=== PATIENT | male | born 1970 | race African-American/Black ===

== ENCOUNTER 2017-12-29 09:20 | Inpatient (IN) | payer OTHER ==
[~2017-12-29] VITALS: Ht 172.7 cm; Wt 72.6 kg
[~2017-12-29 09:20] MED LIST: CIPRO500 MG PO; CITALOPRAM HBR20 M1 PO; GLUCOPHAGE500 MG ORAL
[2017-12-29 09:39] VITALS: BP 135/91
--- NOTE | 2017-12-29 09:53 | Emergency Room Report ---
History of Present Illness General Chief Complaint: Syncope Source: Patient Present Illness HPI Patient is a 47-year-old male who presented after reported syncopal episode. Patient was brought in by EMS. Patient was noted to be having increased diarrhea. The patient reportedly is diabetic.Complained of pain to the right lower abdomen. The patient said this had been present for several weeks Allergies: Coded Allergies: No Known Allergies (Unverified , 12/29/17) Patient History Past Medical History: see triage record Reviewed Nursing Documentation: PMH: Agreed, PSxH: Agreed Nursing Documentation-PMH Hx Diabetes: Yes History Of Psychiatric Problem: Yes - depression ,anxiety Review of Systems All Other Systems: limited - by mental status Physical Exam Vital Signs Date Time Temp Pulse Resp B/P (MAP) Pulse Ox O2 Delivery O2 Flow Rate FiO2 12/29/17 09:20 98.4 98 16 117/85 98 Room Air 98.4 Sp02 EP Interpretation: reviewed, normal General Appearance: normal inspection, alert, mild distress Head: atraumatic ENT: normal ENT inspection, hearing grossly normal, normal voice Neck: normal inspection, full range of motion, supple, no bony tend Respiratory: normal inspection, lungs clear, normal breath sounds, no respiratory distress, no retraction, no wheezing Cardiovascular #1: regular rate, rhythm, no edema Gastrointestinal: soft, no guarding, no hernia, tenderness - right lower abdomen Genitourinary: no CVA tenderness Musculoskeletal: normal inspection, back normal, normal range of motion Neurologic: normal inspection, alert, responsive, 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 Differential diagnosis included but was not limited to ischemic stroke, subarachnoid hemorrhage, hypoglycemia, spinal cord injury, neurodegenerative disorder, urinary tract infection, hypoxemia. Because of complexity of patient's case laboratory testing and imaging studies were ordered. The patient was noted to have marked tenderness to his right lower abdomen. CT the head was ordered due to patient's recent loss of consciousness. A CT imaging read by radiologist showed evidence of colitis. CT the head read by radiologist no evidence of acute hemorrhage or CVA. The patient started on IV fluids. I laboratory studies were noted to show some elevation of the patient' s blood alcohol level. Dr. Castrejon was contacted for inpatient management due to need for inpatient monitoring and treatment. Laboratory Tests Test 12/29/17 19:50 12/30/17 06:20 12/31/17 06:28 Stool Occult Blood Negative (NEGATIVE) White Blood Count 3.0 K/UL (4.8-10.8) L Red Blood Count 3.38 M/UL (4.70-6.10) L Hemoglobin 10.7 G/DL (14.2-18.0) L Hematocrit 30.8 % (42.0-52.0) L Mean Corpuscular Volume 91 FL (80-99) Mean Corpuscular Hemoglobin 31.6 PG (27.0-31.0) H Mean Corpuscular Hemoglobin Concent 34.6 G/DL (32.0-36.0) Red Cell Distribution Width 14.3 % (11.6-14.8) Platelet Count 130 K/UL (150-450) L Mean Platelet Volume 6.8 FL (6.5-10.1) Neutrophils (%) (Auto) % (45.0-75.0) Lymphocytes (%) (Auto) % (20.0-45.0) Monocytes (%) (Auto) % (1.0-10.0) Eosinophils (%) (Auto) % (0.0-3.0) Basophils (%) (Auto) % (0.0-2.0) Differential Total Cells Counted 100 Neutrophils % (Manual) 43 % (45-75) L Lymphocytes % (Manual) 41 % (20-45) Monocytes % (Manual) 10 % (1-10) Eosinophils % (Manual) 1 % (0-3) Basophils % (Manual) 4 % (0-2) H Band Neutrophils 1 % (0-8) Platelet Estimate Decreased L Platelet Morphology Normal Hypochromasia 1+ Anisocytosis 1+ Reticulocyte Count 1.3 % (0.0-2.0) Prothrombin Time 10.8 SEC (9.30-11.50) Prothrombin Time INR 1.0 (0.9-1.1) PTT 24 SEC (23-33) Sodium Level 133 MMOL/L (136-145) L 132 MMOL/L (136-145) L Potassium Level 3.4 MMOL/L (3.5-5.1) L 3.7 MMOL/L (3.5-5.1) Chloride Level 96 MMOL/L (98-107) L 97 MMOL/L (98-107) L Carbon Dioxide Level 30 MMOL/L (21-32) 29 MMOL/L (21-32) Anion Gap 7 mmol/L (5-15) 6 mmol/L (5-15) Blood Urea Nitrogen 5 mg/dL (7-18) L 3 mg/dL (7-18) L Creatinine 0.8 MG/DL (0.55-1.30) 1.0 MG/DL (0.55-1.30) Estimate Glomerular Filtration Rate > 60 mL/min (>60) > 60 mL/min (>60) Glucose Level 158 MG/DL (74-106) #H 172 MG/DL (74-106) H Hemoglobin A1c 11.3 % (4.3-6.0) H Calcium Level 7.8 MG/DL (8.5-10.1) L 8.7 MG/DL (8.5-10.1) Iron Level 114 ug/dL (50-175) Total Iron Binding Capacity 191 ug/dL (250-450) L Percent Iron Saturation 60 % (15-50) H Unsaturated Iron Binding 77 ug/dL (112-346) L Ferritin 281 NG/ML (8-388) Total Bilirubin 1.0 MG/DL (0.2-1.0) 1.0 MG/DL (0.2-1.0) Aspartate Amino Transferase (AST) 81 U/L (15-37) H 60 U/L (15-37) H Alanine Aminotransferase (ALT) 79 U/L (12-78) H 59 U/L (12-78) Alkaline Phosphatase 131 U/L (46-116) H 135 U/L (46-116) H Total Protein 6.0 G/DL (6.4-8.2) L 6.5 G/DL (6.4-8.2) Total Protein (PEP) 5.7 g/dL (6.0-8.5) L Albumin 2.9 G/DL (3.4-5.0) L 3.3 G/DL (3.4-5.0) L Albumin (PEP) 3.7 g/dL (2.9-4.4) Globulin 3.1 g/dL 3.2 g/dL Globulin (PEP) 2.0 g/dL (2.2-3.9) L Albumin/Globulin Ratio 1.8 (0.7-1.7) H 1.0 (1.0-2.7) Gajis-4-Euartvziv 0.2 g/dL (0.0-0.4) Appnj-1-Lnmpheair 0.6 g/dL (0.4-1.0) Beta Globulins 0.7 g/dL (0.7-1.3) Beta Gamma Globulin 0.6 g/dL (0.4-1.8) PEP Abnormal Protein Bands Not observed g/dL (Not Protein Electrophoresis Interpret Comment (.) Triglycerides Level 39 MG/DL (30-150) Cholesterol Level 220 MG/DL (< 200) H LDL Cholesterol 30 mg/dL (<100) HDL Cholesterol 174 MG/DL (40-60) H Cholesterol/HDL Ratio 1.3 (3.3-4.4) L Vitamin B12 Level 629 PG/ML (193-986) Vitamin D 25-Hydroxy Pending 25-Hydroxy Vitamin D2 Pending 25-Hydroxy Vitamin D3 Pending Folate 47.0 NG/ML (8.6-58.9) Thyroid Stimulating Hormone (TSH) 2.457 uiU/mL (0.358-3.740) Free Thyroxine 0.66 NG/DL (0.76-1.46) L Rapid Plasma Reagin Non reactive (Non Reactive) EKG Diagnostic Results Rate: normal ST Segments: no acute changes Last Vital Signs Date Time Temp Pulse Resp B/P (MAP) Pulse Ox O2 Delivery O2 Flow Rate FiO2 12/29/17 09:39 98.0 89 10 135/91 100 Room Air 98.0 Status: improved Disposition: ADMITTED INPATIENT Condition: Serious Referrals: [facility],REFERRING (PCP) Emmett Hunter Dec 29, 2017 09:53
[2017-12-29 10:29] LABS: HEMOGLOBIN 11.6 G/DL (14.2-18.0); MEAN CORPUSCULAR VOLUME 93 FL (80-99); PLATELET COUNT 163 K/UL (150-450); RED BLOOD COUNT 3.75 M/UL (4.70-6.10); RED CELL DISTRIBUTION WIDTH 14.5 % (11.6-14.8); WHITE BLOOD COUNT 3.3 K/UL (4.8-10.8)
[2017-12-29 10:33] VITALS: BP 144/99
--- NOTE | 2017-12-29 10:38 | Diagnostic Imaging Report ---
Indication: Pain Technique: Continuous helical CT scanning of the head was performed utilizing automated exposure control without intravenous contrast material. Axial and coronal reconstructions were obtained. Comparison: None CT dose: Total DLP 1470.74 mGycm; CTDI vol 70.38 mGy Findings: There is no acute intracranial hemorrhage, mass effect or cortical edema. No evidence of midline shift. The ventricles, cisterns and sulci are prominent consistent with atrophy. Visualized mastoid air cells and paranasal sinuses are unremarkable. No focal lesions of the bony calvarium or soft tissues of the scalp are seen. IMPRESSION: No evidence of acute intracranial hemorrhage, mass effect or cortical edema. MRI may be obtained for more sensitive evaluation as clinically indicated. Atrophy, greater than expected for age. Correlate clinically. The CT scanner at [facility] is accredited by the [employer] and the scans are performed using protocols designed to limit radiation exposure to as low as reasonably achievable to attain images of sufficient resolution adequate for diagnostic evaluation.
[2017-12-29 10:45] LABS: INR 1.1 (0.9-1.1)
[2017-12-29 10:48] LABS: ANION GAP 20 mmol/L (5-15); BLOOD UREA NITROGEN 6 mg/dL (7-18); CALCIUM 8.7 MG/DL (8.5-10.1); CARBON DIOXIDE 22 MMOL/L (21-32); CHLORIDE 97 MMOL/L (98-107); POTASSIUM 3.8 MMOL/L (3.5-5.1); SODIUM 139 MMOL/L (136-145)
[2017-12-29 10:51] LABS: ALANINE AMINOTRANSFERASE 147 U/L (12-78); ALBUMIN 3.9 G/DL (3.4-5.0); ALKALINE PHOSPHATASE 177 U/L (46-116); ASPARTATE AMINO TRANSFERASE 420 U/L (15-37); BILIRUBIN,TOTAL 0.5 MG/DL (0.2-1.0)
--- NOTE | 2017-12-29 11:50 | Diagnostic Imaging Report ---
Indication: Syncope, diarrhea, abdominal pain Technique: CT of the abdomen and pelvis utilizing automated exposure control with intravenous contrast. Venous scanning performed. CT dose: Total DLP 557.1 mGycm; CTDI vol 9.98 mGy Comparison: None Findings: Images through the lower chest demonstrated very mild dependent atelectatic changes. Heart size within normal limits. A 1 cm low-attenuation lesion is noted within segment VIII of the liver which is too small to definitively characterize but may represent a cyst or hemangioma. A similar appearing, subcentimeter lesion is noted in segment VII. Portal vein and hepatic veins are patent. Gallbladder unremarkable in appearance. No biliary ductal dilatation. Spleen, adrenal glands unremarkable. The pancreas is atrophic and contains multiple calcifications. In the region of the pancreatic tail there is a 2.9 x 1.5 cm cystic lesion (series 3 image #29) which most likely represents a pseudocyst however a cystic pancreatic neoplasm not entirely excluded. Correlation with prior exams recommended. If no such exams available, recommend short-term interval follow-up CT or MRI. No apparent pancreatic ductal dilatation. The kidneys enhance symmetrically. There is no urinary tract stone or hydronephrosis. Bladder unremarkable in appearance. Prostate may be borderline enlarged. There is no free intraperitoneal air. No evidence of bowel obstruction. There is questionable thickening of the wall of the stomach as well as some proximal small bowel loops. Findings may be reflective of a gastroenteritis in the appropriate clinical setting. There is possible thickening versus underdistention of the colon, most pronounced on the left. There is trace fluid in the left paracolic gutter.. Abdominal aorta is normal in caliber. No pathologically enlarged lymph nodes are identified. No acute osseous abnormality is seen. IMPRESSION: Questionable thickening of the wall the stomach. Question thickening versus underdistention involving some proximal small bowel loops as well as portions of the sigmoid and left colon. These findings may be related to a mild gastroenteritis/colitis (infectious or inflammatory) in the appropriate clinical setting. Atrophic pancreas with multiple calcifications suggesting chronic pancreatitis. 2.9 x 1.5 cm cystic structure the region of the pancreatic tail most likely represents a pseudocyst. Cystic pancreatic neoplasm is not entirely excluded. Comparison with prior exams, if available, is recommended to assess stability. Alternatively, short-term interval follow-up CT or MRI recommended. 10 mm in low-attenuation structure in segment VIII of the liver, too small to definitively characterize but may represent a cyst or hemangioma. The CT scanner at [facility] is accredited by the [employer] and the scans are performed using protocols designed to limit radiation exposure to as low as reasonably achievable to attain images of sufficient resolution adequate for diagnostic evaluation.
[2017-12-29] MEDS ORDERED: Morphine Sulfate 4mg/ml Inj IVP ONE (12:00)
[2017-12-29 12:14] VITALS: BP 130/95
[2017-12-29 13:59] LABS: APPEARANCE,URINE CLEAR; BILIRUBIN, URINE NEGATIVE (NEGATIVE); COLOR,URINE PALE YELLOW; GLUCOSE, URINE (UA) 4+ (NEGATIVE); KETONES,URINE 2+ (NEGATIVE); LEUKOCYTE ESTERASE ,URINE NEGATIVE (NEGATIVE); NITRITE,URINE NEGATIVE (NEGATIVE); PH,URINE 5 (4.5-8.0); PROTEIN,URINE 1+ (NEGATIVE); UROBILINOGEN,URINE NORMAL MG/DL (0.0-1.0)
[2017-12-29] MEDS ORDERED: UNOBMED (14:01)
[2017-12-29 14:07] VITALS: BP 131/99
[2017-12-29 15:00] VITALS: BP 127/89
[2017-12-29] MEDS ORDERED: LORazepam Inj 2mg/ml 1ml IV ONE (15:00)
--- NOTE | 2017-12-29 15:54 | GI Initial Consult Note ---
History of Present Illness General Date patient seen: Dec 29, 2017 Time patient seen: 15:51 Reason for Hospitalization: Syncope Referring physician: AIDE WOLFF Reason for Consultation: ETOH ABUSE Present Illness HPI Patient is a 47-year-old male who presented after reported syncopal episode. Patient was brought in by EMS. Patient was noted to be having increased diarrhea. The patient reportedly is diabetic. GI consulted for reports of emesis and diarrhea. Pt seen in tele, awake A&Ox4 NAD with no active s/sx of N/V/D. Abdominal tenderness. Mild agitation, ETOH abuse patient states half pint of vodka daily for the past [address] shows gastroenteritis/colitis. Presents today with anemia, transaminitis with elevated alk phos and pancreatic pseudocyst noted on CT. No history of endoscopy / colonoscopies. Home Meds Reported Medications Unable to Obtain Medications (UNABLE TO OBTAIN MEDS) 1 Ea Ea 12/29/17 Citalopram Hydrobromide* (CITALOPRAM HBR*) 20 Mg Tablet, 20 MG PO DAILY 02/24/13 Ciprofloxacin* (CIPRO*) 500 Mg Tablet, 500 MG PO BID 02/24/13 Metformin Hcl* (GLUCOPHAGE*) 500 Mg Tablet, 600 MG ORAL TWICE A DAY, #20 TAB 02/24/13 Med list reviewed/reconciled: Yes Allergies: Coded Allergies: No Known Allergies (Unverified , 12/29/17) Patient History Limited by: medical condition History Provided By: Patient Past Medical History: none PMH Narrative Hx Diabetes: Yes History Of Psychiatric Problem: Yes - depression ,anxiety Social History: Reports: alcohol use - abuse, see HPI Review of Systems All Other Systems: negative except mentioned in HPI Physical Exam Vital Signs Date Time Temp Pulse Resp B/P (MAP) Pulse Ox O2 Delivery O2 Flow Rate FiO2 12/29/17 09:20 98.4 98 16 117/85 98 Room Air 98.4 Sp02 EP Interpretation: reviewed, normal Labs Laboratory Tests Test 12/29/17 10:20 12/29/17 12:40 White Blood Count 3.3 K/UL (4.8-10.8) L Red Blood Count 3.75 M/UL (4.70-6.10) L Hemoglobin 11.6 G/DL (14.2-18.0) L Hematocrit 35.0 % (42.0-52.0) L Mean Corpuscular Volume 93 FL (80-99) Mean Corpuscular Hemoglobin 31.0 PG (27.0-31.0) Mean Corpuscular Hemoglobin Concent 33.1 G/DL (32.0-36.0) Red Cell Distribution Width 14.5 % (11.6-14.8) Platelet Count 163 K/UL (150-450) Mean Platelet Volume 6.6 FL (6.5-10.1) Neutrophils (%) (Auto) % (45.0-75.0) Lymphocytes (%) (Auto) % (20.0-45.0) Monocytes (%) (Auto) % (1.0-10.0) Eosinophils (%) (Auto) % (0.0-3.0) Basophils (%) (Auto) % (0.0-2.0) Differential Total Cells Counted 100 Neutrophils % (Manual) 70 % (45-75) Lymphocytes % (Manual) 29 % (20-45) Monocytes % (Manual) 1 % (1-10) Eosinophils % (Manual) 0 % (0-3) Basophils % (Manual) 0 % (0-2) Band Neutrophils 0 % (0-8) Platelet Estimate Adequate Platelet Morphology Normal Hypochromasia 1+ Prothrombin Time 11.7 SEC (9.30-11.50) H Prothromb Time International Ratio 1.1 (0.9-1.1) Activated Partial Thromboplast Time 22 SEC (23-33) L D-Dimer 2.87 mg/L FEU (0.00-0.49) H Sodium Level 139 MMOL/L (136-145) Potassium Level 3.8 MMOL/L (3.5-5.1) Chloride Level 97 MMOL/L (98-107) L Carbon Dioxide Level 22 MMOL/L (21-32) Anion Gap 20 mmol/L (5-15) H Blood Urea Nitrogen 6 mg/dL (7-18) L Creatinine 1.0 MG/DL (0.55-1.30) Estimat Glomerular Filtration Rate > 60 mL/min (>60) Glucose Level 320 MG/DL (74-106) H Calcium Level 8.7 MG/DL (8.5-10.1) Total Bilirubin 0.5 MG/DL (0.2-1.0) Aspartate Amino Transf (AST/SGOT) 420 U/L (15-37) H Alanine Aminotransferase (ALT/SGPT) 147 U/L (12-78) H Alkaline Phosphatase 177 U/L (46-116) H Troponin I 0.000 ng/mL (0.000-0.056) C-Reactive Protein, Quantitative < 0.4 mg/dL (0.00-0.90) Total Protein 7.8 G/DL (6.4-8.2) Albumin 3.9 G/DL (3.4-5.0) Globulin 3.9 g/dL Albumin/Globulin Ratio 1.0 (1.0-2.7) Serum Alcohol 173 mg/dL Urine Color Pale yellow Urine Appearance Clear Urine pH 5 (4.5-8.0) Urine Specific [place] 1.020 (1.005-1.035) Urine Protein 1+ (NEGATIVE) H Urine Glucose (UA) 4+ (NEGATIVE) H Urine Ketones 2+ (NEGATIVE) H Urine Occult Blood Negative (NEGATIVE) Urine Nitrite Negative (NEGATIVE) Urine Bilirubin Negative (NEGATIVE) Urine Urobilinogen Normal MG/DL (0.0-1.0) Urine Leukocyte Esterase Negative (NEGATIVE) Urine RBC 0-2 /HPF (0 - 0) H Urine WBC 0 /HPF (0 - 0) Urine Squamous Epithelial Cells Occasional /LPF Urine Bacteria Occasional /HPF (NONE) Urine Opiates Screen Negative (NEGATIVE) Urine Barbiturates Screen Negative (NEGATIVE) Phencyclidine (PCP) Screen Negative (NEGATIVE) Urine Amphetamines Screen Negative (NEGATIVE) Urine Benzodiazepines Screen Negative (NEGATIVE) Urine Cocaine Screen Negative (NEGATIVE) Urine Marijuana (THC) Screen Negative (NEGATIVE) General Appearance: well appearing, no apparent distress, alert Head: normocephalic EENT: PERRL/EOMI, normal ENT inspection Neck: supple Respiratory: normal breath sounds, no respiratory distress Cardiovascular: normal rate Gastrointestinal: normal inspection, non tender, soft, normal bowel sounds, non -distended Rectal: deferred Genitourinary: deferred Musculoskeletal: normal inspection, back normal Neurologic: normal inspection, alert, oriented x3, responsive Psychiatric: normal inspection, judgement/insight normal, memory normal Skin: normal inspection, normal color, no rash, warm/dry, palpation normal, well hydrated Lymphatic: normal inspection, no adenopathy GI: Plan Problems: (1) ETOH abuse (2) Hepatotoxicity, secondary to ETOH (3) Colitis (4) Gastroenteritis (5) Depression (6) Pancreatic pseudocyst Plan CT AP reviewed, see full report. - pancreatic pseudocyst >> from chronic ETOH abuse, no further investigation necessary - colitis / gastroenteritis transaminitis FLD, adv as tolerated zofran prn Ativan prn for agitation anemia work up banana bag x 1 OB stool r/o GI bleed, will consider endoscopy for EV if necessary monitor H&H, prn transfusions ppi fu labs avoid alcohol Discussed with Dr. Chandler. Thank you for this patient referral, we will follow. Bernice Larry N.P. Dec 29, 2017 15:54
[2017-12-29] MEDS ORDERED: Thiamine HCl 100 MG in NS 55 ML IVPB SCH (18:00)
[2017-12-29] MEDS ORDERED: Folic Acid 1 MG, Magnesium Sulfate 2,000 MG, Multivitamin - 12 Injection 10 ML in NS w/... IV SCH (18:00)
[2017-12-29] MEDS: Morphine Sulfate 4mg/ml Inj IVP PRN ×2 (18:19→22:29)
[2017-12-29 20:00] VITALS: BP 154/95
[2017-12-29] MEDS: NovoLOG Insulin Flexpen SUBQ SCH (20:52)
[2017-12-29] MEDS: LORazepam 1mg tab ORAL PRN (20:55)
[2017-12-30] VITALS: BP 147/93
[2017-12-30] MEDS: Morphine Sulfate 4mg/ml Inj IVP PRN ×4 (02:39→18:55)
[2017-12-30 04:00] VITALS: BP 156/102
[2017-12-30] MEDS: NovoLOG Insulin Flexpen SUBQ SCH ×4 (06:00→22:26)
[2017-12-30] MEDS ORDERED: Acetaminophen 500mg (ES) tab ORAL PRN (07:00)
--- NOTE | 2017-12-30 07:04 | History & Physical ---
History and Physical History & Physicial seen and examined. Dictation completed Adalgisa Castrejon MD Dec 30, 2017 07:04
--- NOTE | 2017-12-30 07:05 | General Progress Note ---
Assessment/Plan Assessment/Plan 1- Acute encephalopathy 2- alcoholism 3- chronic pancreatitis 4. see full HP plan: Gi Neuro cardio consulted. Subjective ROS Limited/Unobtainable: No Constitutional: Reports: weakness HEENT: Reports: no symptoms Cardiovascular: Reports: no symptoms Allergies: Coded Allergies: No Known Allergies (Unverified , 12/29/17) Objective Last 24 Hour Vital Signs Date Time Temp Pulse Resp B/P (MAP) Pulse Ox O2 Delivery O2 Flow Rate FiO2 12/30/17 04:00 97.7 89 20 156/102 97 Room Air 97.7 12/30/17 04:00 89 12/30/17 00:00 102 12/30/17 00:00 98.2 103 22 147/93 98 Room Air 98.2 12/29/17 20:00 98.2 102 22 154/95 96 Room Air 98.2 12/29/17 20:00 114 12/29/17 16:00 102 12/29/17 15:25 98.3 84 15 139/99 99 Room Air 12/29/17 15:00 98.7 99 15 127/89 99 Room Air 98.7 12/29/17 14:07 98.3 99 15 131/99 99 Room Air 98.3 12/29/17 12:14 98.1 84 17 130/95 99 Room Air 98.1 12/29/17 10:33 98.3 84 17 144/99 100 Room Air 98.3 12/29/17 09:39 98.0 89 10 135/91 100 Room Air 98.0 12/29/17 09:20 98.4 98 16 117/85 98 Room Air 98.4 Intake and Output 12/29/17 12/30/17 19:00 07:00 Intake Total 1116 ml Balance 1116 ml Intake Oral 116 ml IV Total 1000 ml # Voids 1 # Bowel Movements 1 Laboratory Tests 12/29/17 10:20: White Blood Count 3.3L, Red Blood Count 3.75L, Hemoglobin 11.6L, Hematocrit 35.0L, Mean Corpuscular Volume 93, Mean Corpuscular Hemoglobin 31.0, Mean Corpuscular Hemoglobin Concent 33.1, Red Cell Distribution Width 14.5, Platelet Count 163, Mean Platelet Volume 6.6, Neutrophils (%) (Auto) , Lymphocytes (%) ( Auto) , Monocytes (%) (Auto) , Eosinophils (%) (Auto) , Basophils (%) (Auto) , Differential Total Cells Counted 100, Neutrophils % (Manual) 70, Lymphocytes % ( Manual) 29, Monocytes % (Manual) 1, Eosinophils % (Manual) 0, Basophils % ( Manual) 0, Band Neutrophils 0, Platelet Estimate Adequate, Platelet Morphology Normal, Hypochromasia 1+, Prothrombin Time 11.7H, Prothromb Time International Ratio 1.1, Activated Partial Thromboplast Time 22L, D-Dimer 2.87H, Sodium Level 139, Potassium Level 3.8, Chloride Level 97L, Carbon Dioxide Level 22, Anion Gap 20H, Blood Urea Nitrogen 6L, Creatinine 1.0, Estimat Glomerular Filtration Rate > 60, Glucose Level 320H, Calcium Level 8.7, Total Bilirubin 0.5, Aspartate Amino Transf (AST/SGOT) 420H, Alanine Aminotransferase (ALT/SGPT) 147H , Alkaline Phosphatase 177H, Troponin I 0.000, C-Reactive Protein, Quantitative < 0.4, Total Protein 7.8, Albumin 3.9, Globulin 3.9, Albumin/Globulin Ratio 1.0 , Lipase 41L, Serum Alcohol 173 12/29/17 12:40: Urine Color Pale yellow, Urine Appearance Clear, Urine pH 5, Urine Specific [place] 1.020, Urine Protein 1+H, Urine Glucose (UA) 4+H, Urine Ketones 2+H, Urine Occult Blood Negative, Urine Nitrite Negative, Urine Bilirubin Negative, Urine Urobilinogen Normal, Urine Leukocyte Esterase Negative, Urine RBC 0-2H, Urine WBC 0, Urine Squamous Epithelial Cells Occasional, Urine Bacteria Occasional, Urine Opiates Screen Negative, Urine Barbiturates Screen Negative, Phencyclidine (PCP) Screen Negative, Urine Amphetamines Screen Negative, Urine Benzodiazepines Screen Negative, Urine Cocaine Screen Negative, Urine Marijuana (THC) Screen Negative 12/29/17 19:50: Stool Occult Blood [Pending] 12/30/17 06:20: White Blood Count [Pending], Red Blood Count [Pending], Hemoglobin [Pending], Hematocrit [Pending], Mean Corpuscular Volume [Pending], Mean Corpuscular Hemoglobin [Pending], Mean Corpuscular Hemoglobin Concent [Pending], Red Cell Distribution Width [Pending], Platelet Count [Pending], Mean Platelet Volume [ Pending], Neutrophils (%) (Auto) [Pending], Lymphocytes (%) (Auto) [Pending], Monocytes (%) (Auto) [Pending], Eosinophils (%) (Auto) [Pending], Basophils (%) (Auto) [Pending], Prothrombin Time [Pending], Prothromb Time International Ratio [Pending], Activated Partial Thromboplast Time [Pending], Sodium Level [ Pending], Potassium Level [Pending], Chloride Level [Pending], Carbon Dioxide Level [Pending], Blood Urea Nitrogen [Pending], Creatinine [Pending], Estimat Glomerular Filtration Rate [Pending], Glucose Level [Pending], Calcium Level [ Pending], Total Bilirubin [Pending], Aspartate Amino Transf (AST/SGOT) [Pending] , Alanine Aminotransferase (ALT/SGPT) [Pending], Alkaline Phosphatase [Pending] , Total Protein [Pending], Albumin [Pending], Globulin [Pending], Reticulocyte Count [Pending], Iron Level [Pending], Unsaturated Iron Binding [Pending], Ferritin [Pending], Vitamin B12 Level [Pending], Folate [Pending], Thyroid Stimulating Hormone (TSH) [Pending], Free Thyroxine [Pending] Height (Feet): 5 Height (Inches): 8.00 Weight (Pounds): 160 General Appearance: no apparent distress EENT: PERRL/EOMI Neck: supple Cardiovascular: normal rate Respiratory/Chest: lungs clear Abdomen: soft Extremities: non-tender Neurologic: manager it security II-XII grossly normal Adalgisa Castrejon MD Dec 30, 2017 07:05
[2017-12-30 07:21] LABS: HEMATOCRIT 30.8 % (42.0-52.0); HEMOGLOBIN 10.7 G/DL (14.2-18.0); MEAN CORPUSCULAR VOLUME 91 FL (80-99); PLATELET COUNT 130 K/UL (150-450); RED BLOOD COUNT 3.38 M/UL (4.70-6.10); RED CELL DISTRIBUTION WIDTH 14.3 % (11.6-14.8)
[2017-12-30 07:35] LABS: ALANINE AMINOTRANSFERASE 79 U/L (12-78); ALBUMIN 2.9 G/DL (3.4-5.0); ALBUMIN/GLOBULIN RATIO 0.9 (1.0-2.7); ALKALINE PHOSPHATASE 131 U/L (46-116); ANION GAP 7 mmol/L (5-15); ASPARTATE AMINO TRANSFERASE 81 U/L (15-37); BLOOD UREA NITROGEN 5 mg/dL (7-18); CALCIUM 7.8 MG/DL (8.5-10.1); CARBON DIOXIDE 30 MMOL/L (21-32); CHLORIDE 96 MMOL/L (98-107); CREATININE 0.8 MG/DL (0.55-1.30); FERRITIN 281 NG/ML (8-388); POTASSIUM 3.4 MMOL/L (3.5-5.1); SODIUM 133 MMOL/L (136-145)
[2017-12-30 08:00] VITALS: BP 144/97
[2017-12-30 08:07] LABS: % IRON SATURATION 60 % (15-50); IRON 114 ug/dL (50-175); TOTAL IRON BINDING CAPACITY 191 ug/dL (250-450)
[2017-12-30 08:30] LABS: CHOLESTEROL 220 MG/DL (< 200); HDL CHOLESTEROL 174 MG/DL (40-60); TRIGLYCERIDES 39 MG/DL (30-150)
[2017-12-30] MEDS: Pantoprazole Inj IV SCH (08:51)
--- NOTE | 2017-12-30 09:54 | GI Progress Note ---
Assessment/Plan Problems: (1) Depression ICD Codes: F32.9 - Major depressive disorder, single episode, unspecified SNOMED: 91932041 (2) Gastroenteritis ICD Codes: K52.9 - Noninfective gastroenteritis and colitis, unspecified SNOMED: 49343985 (3) Pancreatic pseudocyst ICD Codes: K86.3 - Pseudocyst of pancreas SNOMED: 354989265 (4) Hepatotoxicity, secondary to ETOH ICD Codes: K70.9 - Alcoholic liver disease, unspecified SNOMED: 57863921 (5) Colitis ICD Codes: K52.9 - Noninfective gastroenteritis and colitis, unspecified SNOMED: 48813868 (6) ETOH abuse ICD Codes: F10.10 - Alcohol abuse, uncomplicated SNOMED: 30005271 Status: stable Status Narrative Discussed with Dr. Chandler. Assessment/Plan CT AP reviewed, see full report. - pancreatic pseudocyst >> from chronic ETOH abuse, no further investigation necessary - colitis / gastroenteritis transaminitis adv to ADA diet zofran prn Ativan prn MVI/folate OB stool r/o GI bleed, will consider endoscopy for EV if necessary monitor H&H, prn transfusions ppi fu labs DM mgmt avoid alcohol Subjective Subjective nausea Objective Last 24 Hour Vital Signs Date Time Temp Pulse Resp B/P (MAP) Pulse Ox O2 Delivery O2 Flow Rate FiO2 12/30/17 08:00 98.0 99 19 144/97 97 Room Air 98.0 12/30/17 08:00 108 12/30/17 04:00 97.7 89 20 156/102 97 Room Air 97.7 12/30/17 04:00 89 12/30/17 00:00 102 12/30/17 00:00 98.2 103 22 147/93 98 Room Air 98.2 12/29/17 20:00 98.2 102 22 154/95 96 Room Air 98.2 12/29/17 20:00 114 12/29/17 16:00 102 12/29/17 15:25 98.3 84 15 139/99 99 Room Air 12/29/17 15:00 98.7 99 15 127/89 99 Room Air 98.7 12/29/17 14:07 98.3 99 15 131/99 99 Room Air 98.3 12/29/17 12:14 98.1 84 17 130/95 99 Room Air 98.1 12/29/17 10:33 98.3 84 17 144/99 100 Room Air 98.3 Intake and Output 12/29/17 12/30/17 19:00 07:00 Intake Total 1116 ml Balance 1116 ml Intake Oral 116 ml IV Total 1000 ml # Voids 1 # Bowel Movements 1 Laboratory Tests Test 12/29/17 10:20 12/29/17 12:40 12/29/17 19:50 12/30/17 06:20 White Blood Count 3.3 K/UL (4.8-10.8) L 3.0 K/UL (4.8-10.8) L Red Blood Count 3.75 M/UL (4.70-6.10) L 3.38 M/UL (4.70-6.10) L Hemoglobin 11.6 G/DL (14.2-18.0) L 10.7 G/DL (14.2-18.0) L Hematocrit 35.0 % (42.0-52.0) L 30.8 % (42.0-52.0) L Mean Corpuscular Volume 93 FL (80-99) 91 FL (80-99) Mean Corpuscular Hemoglobin 31.0 PG (27.0-31.0) 31.6 PG (27.0-31.0) H Mean Corpuscular Hemoglobin Concent 33.1 G/DL (32.0-36.0) 34.6 G/DL (32.0-36.0) Red Cell Distribution Width 14.5 % (11.6-14.8) 14.3 % (11.6-14.8) Platelet Count 163 K/UL (150-450) 130 K/UL (150-450) L Mean Platelet Volume 6.6 FL (6.5-10.1) 6.8 FL (6.5-10.1) Neutrophils (%) (Auto) % (45.0-75.0) % (45.0-75.0) Lymphocytes (%) (Auto) % (20.0-45.0) % (20.0-45.0) Monocytes (%) (Auto) % (1.0-10.0) % (1.0-10.0) Eosinophils (%) (Auto) % (0.0-3.0) % (0.0-3.0) Basophils (%) (Auto) % (0.0-2.0) % (0.0-2.0) Differential Total Cells Counted 100 Neutrophils % (Manual) 70 % (45-75) Pending Lymphocytes % (Manual) 29 % (20-45) Pending Monocytes % (Manual) 1 % (1-10) Eosinophils % (Manual) 0 % (0-3) Basophils % (Manual) 0 % (0-2) Band Neutrophils 0 % (0-8) Platelet Estimate Adequate Pending Platelet Morphology Normal Pending Hypochromasia 1+ Prothrombin Time 11.7 SEC (9.30-11.50) H 10.8 SEC (9.30-11.50) Prothromb Time International Ratio 1.1 (0.9-1.1) 1.0 (0.9-1.1) Activated Partial Thromboplast Time 22 SEC (23-33) L 24 SEC (23-33) D-Dimer 2.87 mg/L FEU (0.00-0.49) H Sodium Level 139 MMOL/L (136-145) 133 MMOL/L (136-145) L Potassium Level 3.8 MMOL/L (3.5-5.1) 3.4 MMOL/L (3.5-5.1) L Chloride Level 97 MMOL/L (98-107) L 96 MMOL/L (98-107) L Carbon Dioxide Level 22 MMOL/L (21-32) 30 MMOL/L (21-32) Anion Gap 20 mmol/L (5-15) H 7 mmol/L (5-15) Blood Urea Nitrogen 6 mg/dL (7-18) L 5 mg/dL (7-18) L Creatinine 1.0 MG/DL (0.55-1.30) 0.8 MG/DL (0.55-1.30) Estimat Glomerular Filtration Rate > 60 mL/min (>60) > 60 mL/min (>60) Glucose Level 320 MG/DL (74-106) H 158 MG/DL (74-106) #H Calcium Level 8.7 MG/DL (8.5-10.1) 7.8 MG/DL (8.5-10.1) L Total Bilirubin 0.5 MG/DL (0.2-1.0) 1.0 MG/DL (0.2-1.0) Aspartate Amino Transf (AST/SGOT) 420 U/L (15-37) H 81 U/L (15-37) H Alanine Aminotransferase (ALT/SGPT) 147 U/L (12-78) H 79 U/L (12-78) H Alkaline Phosphatase 177 U/L (46-116) H 131 U/L (46-116) H Troponin I 0.000 ng/mL (0.000-0.056) C-Reactive Protein, Quantitative < 0.4 mg/dL (0.00-0.90) Total Protein 7.8 G/DL (6.4-8.2) 6.0 G/DL (6.4-8.2) L Albumin 3.9 G/DL (3.4-5.0) 2.9 G/DL (3.4-5.0) L Globulin 3.9 g/dL 3.1 g/dL Albumin/Globulin Ratio 1.0 (1.0-2.7) 0.9 (1.0-2.7) L Lipase 41 U/L (73-393) L Serum Alcohol 173 mg/dL Urine Color Pale yellow Urine Appearance Clear Urine pH 5 (4.5-8.0) Urine Specific [place] 1.020 (1.005-1.035) Urine Protein 1+ (NEGATIVE) H Urine Glucose (UA) 4+ (NEGATIVE) H Urine Ketones 2+ (NEGATIVE) H Urine Occult Blood Negative (NEGATIVE) Urine Nitrite Negative (NEGATIVE) Urine Bilirubin Negative (NEGATIVE) Urine Urobilinogen Normal MG/DL (0.0-1.0) Urine Leukocyte Esterase Negative (NEGATIVE) Urine RBC 0-2 /HPF (0 - 0) H Urine WBC 0 /HPF (0 - 0) Urine Squamous Epithelial Cells Occasional /LPF Urine Bacteria Occasional /HPF (NONE) Urine Opiates Screen Negative (NEGATIVE) Urine Barbiturates Screen Negative (NEGATIVE) Phencyclidine (PCP) Screen Negative (NEGATIVE) Urine Amphetamines Screen Negative (NEGATIVE) Urine Benzodiazepines Screen Negative (NEGATIVE) Urine Cocaine Screen Negative (NEGATIVE) Urine Marijuana (THC) Screen Negative (NEGATIVE) Stool Occult Blood Pending Reticulocyte Count Pending Hemoglobin A1c 11.3 % (4.3-6.0) H Iron Level 114 ug/dL (50-175) Total Iron Binding Capacity 191 ug/dL (250-450) L Percent Iron Saturation 60 % (15-50) H Unsaturated Iron Binding 77 ug/dL (112-346) L Ferritin 281 NG/ML (8-388) Triglycerides Level 39 MG/DL (30-150) Cholesterol Level 220 MG/DL (< 200) H LDL Cholesterol 30 mg/dL (<100) HDL Cholesterol 174 MG/DL (40-60) H Cholesterol/HDL Ratio 1.3 (3.3-4.4) L Vitamin B12 Level 629 PG/ML (193-986) Folate 47.0 NG/ML (8.6-58.9) Thyroid Stimulating Hormone (TSH) 2.457 uiU/mL (0.358-3.740) Free Thyroxine 0.66 NG/DL (0.76-1.46) L Height (Feet): 5 Height (Inches): 8.00 Weight (Pounds): 160 General Appearance: WD/WN, no apparent distress, alert Cardiovascular: normal rate Respiratory/Chest: normal breath sounds, no respiratory distress Abdominal Exam: normal bowel sounds, non tender, soft Extremities: normal range of motion, non-tender Bernice Larry N.P. Dec 30, 2017 09:54
--- NOTE | 2017-12-30 10:36 | Consultation ---
Consult Note Consult Note NEUROLOGY CONSULTATION: Full note dictated #[id number] 47 y/o, RH, BM with PH of depression, alcoholism, & diabetes. 1 week [employer] he developed, N/V/diarrhoea and felt ill and light headed. On the day of admission was in an elevator and passed out and fell face forwards. Feels a little better now but still unwell He has had episodes of LOC in the past too. ON EXAM: Problems with memory. Altered LT in knee high stocking Decreased position sense in toes. 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 CHT with no acute path on CT. REC: Stop ETOH. Better control of DM More agressive Tx of Depression Mobilize with PT. Complete neuropathic w/u. Dena Cotres M.D., M.S.P.Dotty. DENA CORTES Dec 30, 2017 10:36
[2017-12-30 12:00] VITALS: BP 144/101
--- NOTE | 2017-12-30 16:17 | History and Physical Report ---
DATE OF ADMISSION: 12/29/2017 SOURCE OF INFORMATION: The patient and EMR. HISTORY OF PRESENT ILLNESS: The patient is a 47-year-old male with a history of alcoholism. The patient reportedly had a witnessed loss of consciousness, floor face down. The patient reported taking a pint of hard liquor couple of hours before that incident. At the time of evaluation, the patient denies any chest pain or shortness of breath. Denies any abnormal bleeding, diarrhea or constipation. Denies any nausea or vomiting. PAST SURGICAL HISTORY: Hand finger fracture. Otherwise, denies. MEDICATIONS: Current hospital medications including, but not limited to sliding scale insulin, Lorazepam, morphine as needed, Zofran, and Protonix. ALLERGIES: NKDA. FAMILY HISTORY: Reviewed, noncontributory. REVIEW OF SYSTEMS: All 12 elements of review of systems reviewed. Pertinent positives and negatives reported as above. PHYSICAL EXAMINATION: VITAL SIGNS: Blood pressure 120/80, temperature 98.2 degrees, pulse oximetry 98% on room, respiratory rate 18, and pulse rate 95. HEAD AND NECK: Atraumatic and normocephalic. CHEST: Clear to auscultation. No wheezing. No crackles. HEART: S1 and S2. Regular rate and rhythm. ABDOMEN: Soft. No organomegaly. MUSCULOSKELETAL: No gross focal motor deficit. NEUROLOGY: The patient is awake, alert and oriented x3. LABORATORY AND DIAGNOSTIC DATA: Laboratories dated 12/29/2017 shows WBC 3.3, hemoglobin of 11.6, MCV of 93. Sodium of 139, potassium 3.8, BUN 6, creatinine 1, and glucose 320. AST 420 and ALT 147. A 1+ protein. Stool occult blood test is pending. Head CT is negative for any acute pathology. Abdomen and pelvic CT scan shows chronic pancreatitis changes and no acute pathology. ASSESSMENT: 1. Acute encephalopathy. 2. Leukopenia. 3. Anemia. 4. Chronic pancreatitis. 5. Alcoholism. 6. Gastrointestinal and deep vein thrombosis prophylaxis. 7. Diabetes type 2. PLAN OF CARE: We will consult the Cardiology and GI. We will proceed with 2D echo, carotid duplex. Start the patient on Librium. Discontinue the morphine. We will avoid the hepatotoxic medications. Adalgisa Castrejon M.D. DR: SMITH JOB#: [id number] CC:
--- NOTE | 2017-12-30 17:17 | Consultation ---
DATE OF CONSULTATION: 12/30/2017 NEUROLOGY CONSULTATION CONSULTING PHYSICIAN: Sebastien Cortes M.D. REQUESTING PHYSICIAN: Adalgisa Castrejon M.D. HISTORY OF PRESENT ILLNESS: The patient is a 47-year-old right-handed black gentleman, who does have a past history of depression, alcoholism, and diabetes mellitus. Approximately one week prior to admission, he developed severe nausea, vomiting, diarrhea, felt ill, and felt light headed. On the day of admission, he was in an elevator and suddenly passed out. He fell face forwards. He was thus brought into the [facility] emergency room and has since been admitted. At this point in time, he feels a little better. He does have some mild frontal headache and also feels lightheaded and a little tremulous. He has had prior episodes of loss of consciousness in the past too. PAST MEDICAL HISTORY: Significant for depression, alcoholism, diabetes mellitus, and prior syncopal episodes. PRESENT MEDICATIONS: Include Protonix, folic acid, multivitamins, Librium, Tylenol, insulin, morphine sulfate p.r.n., Zofran p.r.n., and Ativan p.r.n. FAMILY HISTORY: Significant for diabetes mellitus in other family members. PERSONAL HISTORY: Home, he lives alone. 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 Habits, he drinks approximately 3 pints of liquor every week. He denies use of tobacco or illicit drugs. PHYSICAL EXAMINATION: GENERAL: He is a well-developed, well-nourished, pleasant black gentleman, lying in bed, in no acute distress. VITAL SIGNS: Pulse 99 per minute, blood pressure 144/97 mmHg, respirations 19 per minute, and temperature 98 degrees Fahrenheit. HEENT: Head, normocephalic with some anterior lip and facial abrasions. EENT examination benign. NECK: No neck rigidity was observed. NEUROLOGIC EXAMINATION: Mental status, he was awake and alert. He was oriented to person, place, and time. He was able to recall 3 out of 3 words immediately, but could only remember 2 out of 3 words in 1 minute and 3 minutes even on the second trial. He was able to remember presidents Trump through Dickerson Julian, but could not remember presidents prior to that. His mathematical skills were fairly good. His visuospatial function was preserved. Speech, he had no dysarthria. Language, he had no aphasia. CRANIAL NERVE II: The visual lovett were intact to confrontation testing. CRANIAL NERVES III, IV, AND : The external ocular movements were full and the pupils 3 mm in diameter, equal, round, regular, and reactive to light. CRANIAL NERVE V: He had normal facial sensations in the temporalis, masseters, and pterygoids function normally. CRANIAL NERVE VII: He had normal facial expressions and no facial asymmetry. CRANIAL NERVE VIII: He was able to hear well bilaterally and had no nystagmus. CRANIAL NERVE IX: The palate moved symmetrically on phonation. CRANIAL NERVE X: He had no hoarseness of voice. CRANIAL NERVE XI: The sternocleidomastoids and trapezii functioned normally. CRANIAL NERVE XII: The tongue was in the midline without any fasciculations or atrophy. MOTOR SYSTEM: The tone was normal in all four extremities. Examination of muscle mass revealed some generalized muscle wasting involving the lower extremities slightly more than the upper extremities. Examination of power revealed grade 5/5 power in all muscle groups tested. SENSORY EXAMINATION: He had altered sensations to pinprick and light touch in a knee-high stocking distribution. Position sense was diminished in the toes bilaterally, but was normal in the fingers bilaterally. COORDINATION: He performed well on [id number] and [id number] testing. Romberg test could not be performed because even with eyes open when he was made to stand, he could not bring his feet together. REFLEXES: Trace positive and bilaterally symmetrical at the biceps, triceps, brachioradialis, and knees and 0 at both ankles. The plantar responses were flexor bilaterally. STANCE: He stood up with a wide-based stance with support. GAIT: He took a few steps with support with a wide base and unsteady gait, abnormal movements, and tremor (7 to 8 hertz), grade 0/4 increasing to grade 1/4 with effort. DIAGNOSTIC IMPRESSION: 1. The patient is a 47-year-old right-handed black gentleman with a past history of depression, alcoholism, and diabetes mellitus, who approximately one week prior to admission developed nausea, vomiting, diarrhea, felt ill, and felt lightheaded. On the day of admission, he was riding in an elevator and passed out and fell face forwards. He feels better now, but is still not back to his normal self. He has had prior episodes of loss of consciousness. 2. On neurological examination at this time, he does have problems with recent and remote memory, altered sensations to light touch in a knee-high stocking distribution, diminished position sense in the toes bilaterally, globally diminished deep tendon reflexes, a wide-based stance, and a wide-based ataxic gait. He also has a 7 to 8 hertz tremor of his outstretched hands. 3. His latest laboratory data revealed that he is mildly anemic with a hemoglobin of 10.7. His chemistry panel reveals low sodium, low chloride, elevated blood sugar, hemoglobin A1c elevated to 11.3%, and elevated liver enzymes including AST, ALT, and alkaline phosphatase. Normal B12 level. Normal folate level. Normal TSH. 4. The CT scan of the brain without contrast reveals no acute pathology. 5. The patient's history, neurological examination, laboratory data, and imaging studies are most compatible with a syncopal episode due to possible dehydration from one week of nausea, vomiting, and diarrhea, significant alcohol abuse, and possible autonomic dysfunction related to his neuropathic process. RECOMMENDATIONS: 1. The patient was given an explanation of the above-mentioned findings. 2. He was instructed to stop drinking alcohol. 3. His blood sugar should be under better control. 4. His depression should be treated aggressively. He should be mobilized with the help of physical therapy. 5. His neuropathy workup should be completed in addition to the laboratory tests already done, vitamin D level, RPR, and serum protein immunoelectrophoresis. Thank you for entrusting me with the care of this patient. I shall follow him with you. Sebastien Cortes M.D. DR: PALOMA JOB#: [id number] CC:
[2017-12-30 20:00] VITALS: BP 146/102
[2017-12-30] MEDS: LORazepam 1mg tab ORAL PRN (22:24)
[2017-12-31] VITALS (7 sets, daily range): BP systolic 121–137; BP diastolic 67–96
[2017-12-31] MEDS: Morphine Sulfate 4mg/ml Inj IVP PRN ×3 (00:02→11:45)
[2017-12-31] MEDS: LORazepam 1mg tab ORAL PRN ×3 (03:12→20:33)
[2017-12-31] MEDS: NovoLOG Insulin Flexpen SUBQ SCH ×4 (06:29→20:35)
--- NOTE | 2017-12-31 07:10 | General Progress Note ---
Assessment/Plan Problem List: (1) Diabetes mellitus out of control ICD Codes: E11.65 - Type 2 diabetes mellitus with hyperglycemia SNOMED: 73275465, 397404585 (2) Gastroenteritis ICD Codes: K52.9 - Noninfective gastroenteritis and colitis, unspecified SNOMED: 37873800 (3) Pancreatic pseudocyst ICD Codes: K86.3 - Pseudocyst of pancreas SNOMED: 340728776 (4) Hepatotoxicity, secondary to ETOH ICD Codes: K70.9 - Alcoholic liver disease, unspecified SNOMED: 14303123 Assessment/Plan add Levemir 10 units daily add Starlix 120 mg ac tid will avoid the use of Metformin due to hx of alcoholism continue NISS Subjective Allergies: Coded Allergies: No Known Allergies (Unverified , 12/29/17) All Systems: reviewed and negative except above Subjective events noted interval notes reviewed diabetes diagnosed 5 years ago he is on Lantus 10 units bid at home no oral agents or short acting insulin he is interested to have his DM under control with oral agents Objective Last 24 Hour Vital Signs Date Time Temp Pulse Resp B/P (MAP) Pulse Ox O2 Delivery O2 Flow Rate FiO2 12/31/17 04:00 115 12/31/17 04:00 97.0 111 19 121/86 98 Room Air 97.0 12/31/17 00:32 98.8 12/31/17 00:02 98.8 12/31/17 00:00 98.4 96 20 137/96 98 Room Air 98.4 12/31/17 00:00 100 12/30/17 20:00 98.8 97 20 146/102 98 Room Air 98.8 12/30/17 20:00 94 12/30/17 16:00 119 12/30/17 12:00 98.0 91 20 144/101 97 Room Air 98.0 12/30/17 12:00 90 12/30/17 08:00 98.0 99 19 144/97 97 Room Air 98.0 12/30/17 08:00 108 Intake and Output 12/30/17 12/31/17 19:00 07:00 Intake Total 800 ml Output Total 1000 ml Balance -200 ml Intake Oral 800 ml Output Urine Total 1000 ml # Voids 1 2 Laboratory Tests 12/31/17 06:28: Sodium Level [Pending], Potassium Level [Pending], Chloride Level [Pending], Carbon Dioxide Level [Pending], Blood Urea Nitrogen [Pending], Creatinine [ Pending], Estimat Glomerular Filtration Rate [Pending], Glucose Level [Pending] , Calcium Level [Pending], Total Bilirubin [Pending], Aspartate Amino Transf ( AST/SGOT) [Pending], Alanine Aminotransferase (ALT/SGPT) [Pending], Alkaline Phosphatase [Pending], Total Protein [Pending], Albumin [Pending], Globulin [ Pending] Height (Feet): 5 Height (Inches): 8.00 Weight (Pounds): 160 General Appearance: no apparent distress Neck: normal alignment Cardiovascular: normal rate Respiratory/Chest: lungs clear Abdomen: non tender Edema: no edema noted Arm (L), no edema noted Arm (R), no edema noted Leg (L), no edema noted Leg (R), no edema noted Pedal (L), no edema noted Pedal (R), no edema noted Generalized Objective Current Medications Medications (Trade) Dose Ordered Sig/Adolfo Route PRN Reason Start Time Stop Time Status Last Admin Dose Admin Acetaminophen (Tylenol) 500 mg Q4H PRN ORAL Mild Pain/Temp > 100.5 12/30/17 07:00 01/29/18 06:59 Chlordiazepoxide (Librium) 25 mg Q6H PRN ORAL Agitation 12/30/17 07:00 01/06/18 06:59 Dextrose (Dextrose 50%) STAT PRN IV Hypoglycemia 12/29/17 18:00 01/28/18 17:59 Folic Acid (Folate) 1 mg DAILY ORAL 12/30/17 09:00 01/29/18 08:59 12/30/17 08:51 Insulin Aspart (NovoLOG) BEFORE MEALS AND HS SUBQ 12/29/17 21:00 01/28/18 20:59 12/31/17 06:29 Lorazepam (Ativan) 1 mg Q4H PRN ORAL For Anxiety 12/29/17 16:15 01/05/18 16:14 12/31/17 03:12 Morphine Sulfate (Morphine Sulfate) 2 mg Q4H PRN IVP Moderate Pain (Pain Scale 4-6) 12/29/17 16:15 01/05/18 16:14 12/31/17 00:02 Multivitamins (Multivitamins) 1 tab DAILY ORAL 12/30/17 09:00 01/29/18 08:59 12/30/17 08:52 Ondansetron HCl (Zofran) 4 mg Q6H PRN IVP Nausea & Vomiting 12/29/17 16:15 01/28/18 16:14 12/31/17 01:22 Pantoprazole (Protonix) 40 mg DAILY IV 12/30/17 09:00 01/29/18 08:59 12/30/17 08:51 Item Value Date Time Bedside Blood Glucose 172 mg/dl H 12/31/17 0630 Bedside Blood Glucose 291 mg/dl H 12/30/17 2226 Bedside Blood Glucose 188 mg/dl H 12/30/17 1723 Bedside Blood Glucose 338 mg/dl H 12/30/17 1130 Bedside Blood Glucose 163 mg/dl H 12/30/17 0631 CAMRYN SHEPPARD Dec 31, 2017 07:09
[2017-12-31 07:48] LABS: ALANINE AMINOTRANSFERASE 59 U/L (12-78); ALBUMIN 3.3 G/DL (3.4-5.0); ALKALINE PHOSPHATASE 135 U/L (46-116); ANION GAP 6 mmol/L (5-15); ASPARTATE AMINO TRANSFERASE 60 U/L (15-37); BLOOD UREA NITROGEN 3 mg/dL (7-18); CALCIUM 8.7 MG/DL (8.5-10.1); CARBON DIOXIDE 29 MMOL/L (21-32); CHLORIDE 97 MMOL/L (98-107); POTASSIUM 3.7 MMOL/L (3.5-5.1); SODIUM 132 MMOL/L (136-145)
[2017-12-31] MEDS: Pantoprazole Inj IV SCH (08:20)
[2017-12-31] MEDS: Levemir Flexpen SUBQ SCH (09:21)
[2017-12-31] MEDS: Norco 5mg/325mg tab ORAL PRN ×2 (10:06→17:07)
--- NOTE | 2017-12-31 10:08 | GI Progress Note ---
Assessment/Plan Problems: (1) Depression ICD Codes: F32.9 - Major depressive disorder, single episode, unspecified SNOMED: 80592250 (2) Gastroenteritis ICD Codes: K52.9 - Noninfective gastroenteritis and colitis, unspecified SNOMED: 37591820 (3) Pancreatic pseudocyst ICD Codes: K86.3 - Pseudocyst of pancreas SNOMED: 019986216 (4) Hepatotoxicity, secondary to ETOH ICD Codes: K70.9 - Alcoholic liver disease, unspecified SNOMED: 47329291 (5) Colitis ICD Codes: K52.9 - Noninfective gastroenteritis and colitis, unspecified SNOMED: 57977228 (6) ETOH abuse ICD Codes: F10.10 - Alcohol abuse, uncomplicated SNOMED: 90034699 Status: stable Status Narrative Discussed with Dr. Chandler. Assessment/Plan CT AP reviewed, see full report. - pancreatic pseudocyst >> from chronic ETOH abuse, no further investigation necessary - colitis / gastroenteritis transaminitis OB stool negative >> defer endoscopy at this time adv to ADA diet zofran prn Ativan prn MVI/folate monitor H&H, prn transfusions ppi fu labs pain mgmt DM mgmt PT evaluation avoid alcohol Subjective Subjective nausea resolved back pain Objective Last 24 Hour Vital Signs Date Time Temp Pulse Resp B/P (MAP) Pulse Ox O2 Delivery O2 Flow Rate FiO2 12/31/17 07:06 97.0 12/31/17 04:00 115 12/31/17 04:00 97.0 111 19 121/86 98 Room Air 97.0 12/31/17 00:32 98.8 12/31/17 00:02 98.8 12/31/17 00:00 98.4 96 20 137/96 98 Room Air 98.4 12/31/17 00:00 100 12/30/17 20:00 98.8 97 20 146/102 98 Room Air 98.8 12/30/17 20:00 94 12/30/17 16:00 119 12/30/17 12:00 98.0 91 20 144/101 97 Room Air 98.0 12/30/17 12:00 90 Intake and Output 12/30/17 12/31/17 19:00 07:00 Intake Total 800 ml Output Total 1000 ml Balance -200 ml Intake Oral 800 ml Output Urine Total 1000 ml # Voids 1 2 Laboratory Tests Test 12/31/17 06:28 Sodium Level 132 MMOL/L (136-145) L Potassium Level 3.7 MMOL/L (3.5-5.1) Chloride Level 97 MMOL/L (98-107) L Carbon Dioxide Level 29 MMOL/L (21-32) Anion Gap 6 mmol/L (5-15) Blood Urea Nitrogen 3 mg/dL (7-18) L Creatinine 1.0 MG/DL (0.55-1.30) Estimat Glomerular Filtration Rate > 60 mL/min (>60) Glucose Level 172 MG/DL (74-106) H Calcium Level 8.7 MG/DL (8.5-10.1) Total Bilirubin 1.0 MG/DL (0.2-1.0) Aspartate Amino Transf (AST/SGOT) 60 U/L (15-37) H Alanine Aminotransferase (ALT/SGPT) 59 U/L (12-78) Alkaline Phosphatase 135 U/L (46-116) H Total Protein 6.5 G/DL (6.4-8.2) Albumin 3.3 G/DL (3.4-5.0) L Globulin 3.2 g/dL Albumin/Globulin Ratio 1.0 (1.0-2.7) Height (Feet): 5 Height (Inches): 8.00 Weight (Pounds): 160 General Appearance: WD/WN, no apparent distress, alert Cardiovascular: normal rate Respiratory/Chest: normal breath sounds, no respiratory distress Abdominal Exam: normal bowel sounds, non tender, soft Extremities: normal range of motion, non-tender Bernice Larry N.P. Dec 31, 2017 10:08
[2017-12-31] MEDS ORDERED: Sodium Chloride 1gm Tab ORAL ONE (10:30)
--- NOTE | 2017-12-31 11:27 | Neurology Progress Note ---
Interim History Interim History Interim History Mr. Adams feels better. He has been feeling anxious and has been tremulous at times. He has noted low back pain since he fell. He has had no further episodes of loss of consciousness. He denies any new neurologic symptoms. Review of Systems Neuro Review of Systems Benign. Objective Physical Exam Last Vital Signs Date Time Temp Pulse Resp B/P (MAP) Pulse Ox O2 Delivery O2 Flow Rate FiO2 12/31/17 08:00 105 12/31/17 07:06 97.0 12/31/17 04:00 19 121/86 98 Room Air Laboratory Tests Test 12/31/17 06:28 Sodium Level 132 MMOL/L (136-145) L Potassium Level 3.7 MMOL/L (3.5-5.1) Chloride Level 97 MMOL/L (98-107) L Carbon Dioxide Level 29 MMOL/L (21-32) Anion Gap 6 mmol/L (5-15) Blood Urea Nitrogen 3 mg/dL (7-18) L Creatinine 1.0 MG/DL (0.55-1.30) Estimat Glomerular Filtration Rate > 60 mL/min (>60) Glucose Level 172 MG/DL (74-106) H Calcium Level 8.7 MG/DL (8.5-10.1) Total Bilirubin 1.0 MG/DL (0.2-1.0) Aspartate Amino Transf (AST/SGOT) 60 U/L (15-37) H Alanine Aminotransferase (ALT/SGPT) 59 U/L (12-78) Alkaline Phosphatase 135 U/L (46-116) H Total Protein 6.5 G/DL (6.4-8.2) Albumin 3.3 G/DL (3.4-5.0) L Globulin 3.2 g/dL Albumin/Globulin Ratio 1.0 (1.0-2.7) Neurologic Exam Objective PHYSICAL EXAMINATION: GENERAL: He is a well-developed, well-nourished, pleasant black gentleman, lying in bed, in no acute distress. HEAD: Normocephalic with some anterior lip and facial abrasions. EENT: Examination benign. NECK: No neck rigidity was observed. NEUROLOGIC EXAMINATION: MENTAL STATUS EXAMINATION: He was awake and alert. He was oriented to person, place, and time. He was able to recall 3/3 words immediately, but could only remember 2/3 words in 1 minute and 3 minutes.. He was able to remember presidents Trump through [employer]erson Senior with hints. His mathematical skills were fairly good. His visuospatial function was preserved. SPEECH: He had no dysarthria. LANGUAGE: He had no aphasia. CRANIAL NERVE EXAMINATION: II: The visual lovett were intact to confrontation testing. III, IV & : The external ocular movements were full and the pupils 3 mm in diameter, equal, round, regular, and reactive to light. V: He had normal facial sensations and the temporales, masseters, and pterygoids functioned normally. VII: He had normal facial expressions and no facial asymmetry. VIII: He was able to hear well bilaterally and had no nystagmus. IX: The palate moved symmetrically on phonation. X: He had no hoarseness of voice. XI: The sternocleidomastoids and trapezii functioned normally. XII: The tongue was in the midline without any fasciculations or atrophy. MOTOR SYSTEM: The tone was normal in all four extremities. Examination of muscle mass revealed some generalized muscle wasting involving the lower extremities slightly more than the upper extremities. Examination of power revealed grade 5/5 power in all muscle groups tested. SENSORY EXAMINATION: He had altered sensations to pinprick and light touch in a knee-high stocking distribution. Position sense was diminished in the toes bilaterally, but was normal in the fingers bilaterally. COORDINATION: He performed well on [id number] and [id number] testing. Romberg test could not be performed because even with eyes open when he was made to stand, he could not bring his feet together. REFLEXES: Trace+ and bilaterally symmetrical at the biceps, triceps, brachioradialis, and knees and 0 at both ankles. The plantar responses were flexor bilaterally. STANCE: He stood up with a wide-based stance with support. GAIT: He took a few steps with support with a wide baseed and unsteady gait ABNORMAL MOVEMENTS: Tremor (7-8 Hz): G 0/4 increasing to G 1/4 with effort. Impression/Recommendations Diagnostic Impression 1. Mr. Ciaran Adams is a 47-year-old, right-handed, black gentleman, with a past history of depression, alcoholism, and diabetes mellitus, who approximately one week prior to admission developed nausea, vomiting, diarrhea, felt ill, and felt lightheaded. On the day of admission, he was riding in an elevator and passed out and fell face forwards. He feels better now, but is still not back to his normal self. He has had prior episodes of loss of consciousness. 2. He feels better. He has been feeling anxious and has been tremulous at times. He has noted low back pain since he fell. He has had no further episodes of loss of consciousness. He denies any new neurologic symptoms. 3. On neurological examination at this time, he does have moderate lumbar paraspinal muscle spasm, problems with recent and remote memory, altered sensations to light touch in a knee-high stocking distribution, diminished position sense in the toes bilaterally, globally diminished deep tendon reflexes , a wide-based stance, and a wide-based ataxic gait. He also has a 7-8 Hz tremor of his outstretched hands. 4. His latest laboratory data on my initial evaluation revealed that he was mildly anemic with a hemoglobin of 10.7. His chemistry panel revealed a low sodium, low chloride, elevated blood sugar, hemoglobin A1c elevated to 11.3%, and elevated liver enzymes including AST, ALT, and alkaline phosphatase. Normal B12 level. Normal folate level. Normal TSH. 5. The CT scan of the brain without contrast revealed no acute pathology. 6. The patient's history, neurological examination, laboratory data, and imaging studies are most compatible with a syncopal episode due to possible dehydration from one week of nausea, vomiting, and diarrhea, significant alcohol abuse, and possible autonomic dysfunction related to his neuropathic process. 7. He does have low back pain and spasm. Recommendations 1. Continue present management. 2. Stop drinking alcohol. 3. Blood sugar control. 4. His depression should be treated aggressively. 5. Mobilize with the help of physical therapy. 6. Flexeril 10 mg now and then q HS. Dena Cortes M.D., M.S.P.DENA VALLES Dec 31, 2017 11:27
[2017-12-31] MEDS ORDERED: Cyclobenzaprine 10mg Tab ORAL ONE (11:45)
--- NOTE | 2017-12-31 11:50 | General Progress Note ---
Assessment/Plan Status: stable Assessment/Plan 1. Acute encephalopathy. 2. Leukopenia. 3. Anemia. 4. Chronic pancreatitis. 5. Alcoholism. 6. Gastrointestinal and deep vein thrombosis prophylaxis. 7. Diabetes type 2. plan: [facility] cardio notes are reviewed PT/OT requested current management Subjective ROS Limited/Unobtainable: No Allergies: Coded Allergies: No Known Allergies (Unverified , 12/29/17) Objective Last 24 Hour Vital Signs Date Time Temp Pulse Resp B/P (MAP) Pulse Ox O2 Delivery O2 Flow Rate FiO2 12/31/17 08:00 105 12/31/17 08:00 97.9 91 22 129/88 100 Room Air 97.9 12/31/17 07:06 97.0 12/31/17 04:00 115 12/31/17 04:00 97.0 111 19 121/86 98 Room Air 97.0 12/31/17 00:32 98.8 12/31/17 00:02 98.8 12/31/17 00:00 98.4 96 20 137/96 98 Room Air 98.4 12/31/17 00:00 100 12/30/17 20:00 98.8 97 20 146/102 98 Room Air 98.8 12/30/17 20:00 94 12/30/17 16:00 119 12/30/17 12:00 98.0 91 20 144/101 97 Room Air 98.0 12/30/17 12:00 90 Intake and Output 12/30/17 12/31/17 19:00 07:00 Intake Total 800 ml Output Total 1000 ml Balance -200 ml Intake Oral 800 ml Output Urine Total 1000 ml # Voids 1 2 Laboratory Tests 12/31/17 06:28: Sodium Level 132L, Potassium Level 3.7, Chloride Level 97L, Carbon Dioxide Level 29, Anion Gap 6, Blood Urea Nitrogen 3L, Creatinine 1.0, Estimat Glomerular Filtration Rate > 60, Glucose Level 172H, Calcium Level 8.7, Total Bilirubin 1.0, Aspartate Amino Transf (AST/SGOT) 60H, Alanine Aminotransferase ( ALT/SGPT) 59, Alkaline Phosphatase 135H, Total Protein 6.5, Albumin 3.3L, Globulin 3.2, Albumin/Globulin Ratio 1.0 Height (Feet): 5 Height (Inches): 8.00 Weight (Pounds): 160 General Appearance: WD/WN EENT: PERRL/EOMI Neck: supple Cardiovascular: normal rate Respiratory/Chest: lungs clear Abdomen: soft Extremities: non-tender Neurologic: fish filleter II-XII grossly normal Adalgisa Castrejon MD Dec 31, 2017 11:50
[2017-12-31] MEDS: Cyclobenzaprine 10mg Tab ORAL SCH (20:32)
[2018-01-01] MEDS: Morphine Sulfate 4mg/ml Inj IVP PRN ×4 (00:08→21:49)
[2018-01-01] MEDS: chlordiazePOXIDE 25mg Cap ORAL PRN (01:12)
[2018-01-01] MEDS: Norco 5mg/325mg tab ORAL PRN ×2 (01:12→12:24)
[2018-01-01 04:00] VITALS: BP 139/94
[2018-01-01] MEDS: LORazepam 1mg tab ORAL PRN ×2 (04:34→12:03)
[2018-01-01] MEDS: NovoLOG Insulin Flexpen SUBQ SCH ×4 (06:30→21:51)
[2018-01-01 08:00] VITALS: BP 122/80
[2018-01-01] MEDS: Pantoprazole Inj IV SCH (08:06)
[2018-01-01] MEDS: Levemir Flexpen SUBQ SCH (08:09)
[2018-01-01 08:18] LABS: HEMATOCRIT 29.8 % (42.0-52.0); HEMOGLOBIN 10.2 G/DL (14.2-18.0); MEAN CORPUSCULAR VOLUME 93 FL (80-99); PLATELET COUNT 127 K/UL (150-450); RED BLOOD COUNT 3.19 M/UL (4.70-6.10); RED CELL DISTRIBUTION WIDTH 14.3 % (11.6-14.8); WHITE BLOOD COUNT 3.3 K/UL (4.8-10.8)
[2018-01-01 08:32] LABS: ALANINE AMINOTRANSFERASE 52 U/L (12-78); ALBUMIN 3.2 G/DL (3.4-5.0); ALBUMIN/GLOBULIN RATIO 1.2 (1.0-2.7); ALKALINE PHOSPHATASE 113 U/L (46-116); ANION GAP 7 mmol/L (5-15); ASPARTATE AMINO TRANSFERASE 40 U/L (15-37); BILIRUBIN,TOTAL 0.6 MG/DL (0.2-1.0); BLOOD UREA NITROGEN 6 mg/dL (7-18); CALCIUM 8.5 MG/DL (8.5-10.1); CARBON DIOXIDE 29 MMOL/L (21-32); CHLORIDE 102 MMOL/L (98-107); CREATININE 0.9 MG/DL (0.55-1.30); POTASSIUM 3.3 MMOL/L (3.5-5.1); SODIUM 138 MMOL/L (136-145)
[2018-01-01 12:00] VITALS: BP 122/77
[2018-01-01] MEDS ORDERED: NovoLOG Insulin Flexpen SUBQ ONE (14:00)
--- NOTE | 2018-01-01 14:00 | General Progress Note ---
Assessment/Plan Problem List: (1) Diabetes mellitus out of control ICD Codes: E11.65 - Type 2 diabetes mellitus with hyperglycemia SNOMED: 89667447, 164978631 (2) Gastroenteritis ICD Codes: K52.9 - Noninfective gastroenteritis and colitis, unspecified SNOMED: 07511831 (3) Pancreatic pseudocyst ICD Codes: K86.3 - Pseudocyst of pancreas SNOMED: 462516380 (4) Hepatotoxicity, secondary to ETOH ICD Codes: K70.9 - Alcoholic liver disease, unspecified SNOMED: 19801181 Assessment/Plan continue Levemir 10 units daily continue Starlix 120 mg ac tid will avoid the use of Metformin due to hx of alcoholism continue NISS Subjective Allergies: Coded Allergies: No Known Allergies (Unverified , 12/29/17) All Systems: reviewed and negative except above Subjective events noted interval notes reviewed BG values mostly controlled except elevated pre lunch value today Objective Last 24 Hour Vital Signs Date Time Temp Pulse Resp B/P (MAP) Pulse Ox O2 Delivery O2 Flow Rate FiO2 01/01/18 12:00 97.2 120 18 122/77 100 Room Air 97.2 01/01/18 12:00 116 01/01/18 08:00 105 01/01/18 08:00 98.1 103 18 122/80 98 Room Air 98.1 01/01/18 04:00 94 01/01/18 04:00 97.5 97 19 139/94 99 Room Air 97.5 01/01/18 02:11 98.1 01/01/18 01:12 98.1 01/01/18 00:38 98.1 01/01/18 00:08 98.1 01/01/18 00:00 101 12/31/17 23:57 98.1 99 19 134/89 99 Room Air 98.1 12/31/17 21:31 97.7 12/31/17 20:32 97.7 12/31/17 20:00 98.4 96 19 129/95 100 Room Air 98.4 12/31/17 20:00 106 12/31/17 16:00 114 12/31/17 16:00 97.7 96 20 129/67 99 Room Air 97.7 Intake and Output 12/31/17 01/01/18 19:00 07:00 Intake Total 1070 ml 350 ml Balance 1070 ml 350 ml Intake Oral 1070 ml 350 ml # Voids 2 # Bowel Movements 1 Laboratory Tests 01/01/18 07:10: White Blood Count 3.3L, Red Blood Count 3.19L, Hemoglobin 10.2L, Hematocrit 29.8L, Mean Corpuscular Volume 93, Mean Corpuscular Hemoglobin 31.8H, Mean Corpuscular Hemoglobin Concent 34.1, Red Cell Distribution Width 14.3, Platelet Count 127L, Mean Platelet Volume 7.3, Neutrophils (%) (Auto) , Lymphocytes (%) ( Auto) , Monocytes (%) (Auto) , Eosinophils (%) (Auto) , Basophils (%) (Auto) , Differential Total Cells Counted 100, Neutrophils % (Manual) 52, Lymphocytes % ( Manual) 45, Monocytes % (Manual) 3, Eosinophils % (Manual) 0, Basophils % ( Manual) 0, Band Neutrophils 0, Platelet Estimate DecreasedL, Platelet Morphology Normal, Anisocytosis 1+, Sodium Level 138, Potassium Level 3.3L, Chloride Level 102, Carbon Dioxide Level 29, Anion Gap 7, Blood Urea Nitrogen 6L , Creatinine 0.9, Estimat Glomerular Filtration Rate > 60, Glucose Level 121H, Calcium Level 8.5, Total Bilirubin 0.6, Aspartate Amino Transf (AST/SGOT) 40H, Alanine Aminotransferase (ALT/SGPT) 52, Alkaline Phosphatase 113, Total Protein 5.9L, Albumin 3.2L, Globulin 2.7, Albumin/Globulin Ratio 1.2 Height (Feet): 5 Height (Inches): 8.00 Weight (Pounds): 160 General Appearance: no apparent distress Neck: normal alignment Cardiovascular: normal rate Respiratory/Chest: lungs clear Abdomen: normal bowel sounds Edema: no edema noted Arm (L), no edema noted Arm (R), no edema noted Leg (L), no edema noted Leg (R), no edema noted Pedal (L), no edema noted Pedal (R), no edema noted Generalized Objective Current Medications Medications (Trade) Dose Ordered Sig/Adolfo Route PRN Reason Start Time Stop Time Status Last Admin Dose Admin Acetaminophen (Tylenol) 500 mg Q4H PRN ORAL Mild Pain/Temp > 100.5 12/30/17 07:00 01/29/18 06:59 Acetaminophen/ Hydrocodone Bitart (Stanton 5/325) 1 tab Q4H PRN ORAL Moderate Pain (Pain Scale 4-6) 12/31/17 10:00 01/07/18 09:59 01/01/18 12:24 Chlordiazepoxide (Librium) 25 mg Q6H PRN ORAL Agitation 12/30/17 07:00 01/06/18 06:59 01/01/18 01:12 Cyclobenzaprine HCl (Flexeril) 10 mg BEDTIME ORAL 12/31/17 21:00 01/30/18 20:59 12/31/17 20:32 Dextrose (Dextrose 50%) STAT PRN IV Hypoglycemia 12/29/17 18:00 01/28/18 17:59 Folic Acid (Folate) 1 mg DAILY ORAL 12/30/17 09:00 01/29/18 08:59 01/01/18 08:06 Insulin Aspart (NovoLOG) BEFORE MEALS AND HS SUBQ 12/29/17 21:00 01/28/18 20:59 01/01/18 12:05 Insulin Aspart (NovoLOG) 5 units ONCE ONCE SUBQ 01/01/18 14:00 01/01/18 14:01 Insulin Detemir (Levemir) 10 units DAILY SUBQ 12/31/17 09:00 01/30/18 08:59 01/01/18 08:09 Lorazepam (Ativan) 1 mg Q4H PRN ORAL For Anxiety 12/29/17 16:15 01/05/18 16:14 01/01/18 12:03 Morphine Sulfate (Morphine Sulfate) 3 mg Q4H PRN IVP Severe Pain (Pain Scale 7-10) 12/31/17 10:06 01/07/18 10:05 01/01/18 08:06 Multivitamins (Multivitamins) 1 tab DAILY ORAL 12/30/17 09:00 01/29/18 08:59 01/01/18 08:06 Nateglinide (Starlix) 120 mg TIAC ORAL 12/31/17 11:30 01/30/18 11:29 01/01/18 12:02 Ondansetron HCl (Zofran) 4 mg Q6H PRN IVP Nausea & Vomiting 12/29/17 16:15 01/28/18 16:14 12/31/17 20:33 Pantoprazole (Protonix) 40 mg DAILY IV 12/30/17 09:00 01/29/18 08:59 01/01/18 08:06 Item Value Date Time Bedside Blood Glucose 418 mg/dl H 01/01/18 1205 Bedside Blood Glucose 110 mg/dl 01/01/18 0809 Bedside Blood Glucose 110 mg/dl 01/01/18 0630 Bedside Blood Glucose 122 mg/dl H 12/31/17 2100 Bedside Blood Glucose 103 mg/dl 12/31/17 1630 Bedside Blood Glucose 214 mg/dl H 12/31/17 1130 Bedside Blood Glucose 172 mg/dl H 12/31/17 0921 CAMRYN SHEPPARD Jan 01, 2018 14:00
--- NOTE | 2018-01-01 15:02 | Neurology Progress Note ---
Interim History Interim History Interim History Mr. Adams feels better generally. He still feels anxious and has been tremulous at times. The low back pain is still bothersome. He also has discomfort in both his feet which he attributes to neuropathy for which he was taking Neurontin 300 mg bid in the past. He has had no further episodes of loss of consciousness. He denies any new neurologic symptoms. Review of Systems Neuro Review of Systems Benign. Objective Physical Exam Last Vital Signs Date Time Temp Pulse Resp B/P (MAP) Pulse Ox O2 Delivery O2 Flow Rate FiO2 01/01/18 12:00 97.2 120 18 122/77 100 Room Air 97.2 Laboratory Tests Test 01/01/18 07:10 White Blood Count 3.3 K/UL (4.8-10.8) L Red Blood Count 3.19 M/UL (4.70-6.10) L Hemoglobin 10.2 G/DL (14.2-18.0) L Hematocrit 29.8 % (42.0-52.0) L Mean Corpuscular Volume 93 FL (80-99) Mean Corpuscular Hemoglobin 31.8 PG (27.0-31.0) H Mean Corpuscular Hemoglobin Concent 34.1 G/DL (32.0-36.0) Red Cell Distribution Width 14.3 % (11.6-14.8) Platelet Count 127 K/UL (150-450) L Mean Platelet Volume 7.3 FL (6.5-10.1) Neutrophils (%) (Auto) % (45.0-75.0) Lymphocytes (%) (Auto) % (20.0-45.0) Monocytes (%) (Auto) % (1.0-10.0) Eosinophils (%) (Auto) % (0.0-3.0) Basophils (%) (Auto) % (0.0-2.0) Differential Total Cells Counted 100 Neutrophils % (Manual) 52 % (45-75) Lymphocytes % (Manual) 45 % (20-45) Monocytes % (Manual) 3 % (1-10) Eosinophils % (Manual) 0 % (0-3) Basophils % (Manual) 0 % (0-2) Band Neutrophils 0 % (0-8) Platelet Estimate Decreased L Platelet Morphology Normal Anisocytosis 1+ Sodium Level 138 MMOL/L (136-145) Potassium Level 3.3 MMOL/L (3.5-5.1) L Chloride Level 102 MMOL/L (98-107) Carbon Dioxide Level 29 MMOL/L (21-32) Anion Gap 7 mmol/L (5-15) Blood Urea Nitrogen 6 mg/dL (7-18) L Creatinine 0.9 MG/DL (0.55-1.30) Estimat Glomerular Filtration Rate > 60 mL/min (>60) Glucose Level 121 MG/DL (74-106) H Calcium Level 8.5 MG/DL (8.5-10.1) Total Bilirubin 0.6 MG/DL (0.2-1.0) Aspartate Amino Transf (AST/SGOT) 40 U/L (15-37) H Alanine Aminotransferase (ALT/SGPT) 52 U/L (12-78) Alkaline Phosphatase 113 U/L (46-116) Total Protein 5.9 G/DL (6.4-8.2) L Albumin 3.2 G/DL (3.4-5.0) L Globulin 2.7 g/dL Albumin/Globulin Ratio 1.2 (1.0-2.7) Neurologic Exam Objective PHYSICAL EXAMINATION: GENERAL: He is a well-developed, well-nourished, pleasant black gentleman, lying in bed, in no acute distress. HEAD: Normocephalic with some anterior lip and facial abrasions. EENT: Examination benign. NECK: No neck rigidity was observed. NEUROLOGIC EXAMINATION: MENTAL STATUS EXAMINATION: He was awake and alert. He was oriented to person, place, and time. He was able to recall 3/3 words immediately, but could only remember 2/3 words in 1 minute and 3 minutes.. He was able to remember presidents Trump through [employer] with hints. His mathematical skills were fairly good. His visuospatial function was preserved. SPEECH: He had no dysarthria. LANGUAGE: He had no aphasia. CRANIAL NERVE EXAMINATION: II: The visual lovett were intact to confrontation testing. III, IV & : The external ocular movements were full and the pupils 3 mm in diameter, equal, round, regular, and reactive to light. V: He had normal facial sensations and the temporales, masseters, and pterygoids functioned normally. VII: He had normal facial expressions and no facial asymmetry. VIII: He was able to hear well bilaterally and had no nystagmus. IX: The palate moved symmetrically on phonation. X: He had no hoarseness of voice. XI: The sternocleidomastoids and trapezii functioned normally. XII: The tongue was in the midline without any fasciculations or atrophy. MOTOR SYSTEM: The tone was normal in all four extremities. Examination of muscle mass revealed some generalized muscle wasting involving the lower extremities slightly more than the upper extremities. Examination of power revealed grade 5/5 power in all muscle groups tested. SENSORY EXAMINATION: He had altered sensations to pinprick and light touch in a knee-high stocking distribution. Position sense was diminished in the toes bilaterally, but was normal in the fingers bilaterally. COORDINATION: He performed well on [id number] and [id number] testing. Romberg test could not be performed because even with eyes open when he was made to stand, he could not bring his feet together. REFLEXES: Trace+ and bilaterally symmetrical at the biceps, triceps, brachioradialis, and knees and 0 at both ankles. The plantar responses were flexor bilaterally. STANCE: He stood up with a wide-based stance with support. GAIT: He took a few steps with support with a wide based and unsteady gait ABNORMAL MOVEMENTS: Tremor (7-8 Hz): G 0/4 increasing to G 1/4 with effort. Impression/Recommendations Diagnostic Impression 1. Mr. Ciaran Adams is a 47-year-old, right-handed, black gentleman, with a past history of depression, alcoholism, and diabetes mellitus, who approximately one week prior to admission developed nausea, vomiting, diarrhea, felt ill, and felt lightheaded. On the day of admission, he was riding in an elevator and passed out and fell face forwards. He feels better now, but is still not back to his normal self. He has had prior episodes of loss of consciousness. 2. He feels better. He has been feeling anxious and has been tremulous at times. He has noted low back pain since he fell. He has had no further episodes of loss of consciousness. He denies any new neurologic symptoms. 3. On neurological examination at this time, he does have moderate lumbar paraspinal muscle spasm, problems with recent and remote memory, altered sensations to light touch in a knee-high stocking distribution, diminished position sense in the toes bilaterally, globally diminished deep tendon reflexes , a wide-based stance, and a wide-based ataxic gait. He also has a 7-8 Hz tremor of his outstretched hands. 4. His latest laboratory data on my initial evaluation revealed that he was mildly anemic with a hemoglobin of 10.7. His chemistry panel revealed a low sodium, low chloride, elevated blood sugar, hemoglobin A1c elevated to 11.3%, and elevated liver enzymes including AST, ALT, and alkaline phosphatase. Normal B12 level. Normal folate level. Normal TSH. 5. The CT scan of the brain without contrast revealed no acute pathology. 6. The patient's history, neurological examination, laboratory data, and imaging studies are most compatible with a syncopal episode due to possible dehydration from one week of nausea, vomiting, and diarrhea, significant alcohol abuse, and possible autonomic dysfunction related to his neuropathic process. 7. He does have low back pain and spasm. 8. He is also complaining of neuropathic symptoms in his feet that in the past have been treated with Neurontin. Recommendations 1. Continue present management. 2. Stop drinking alcohol. 3. Blood sugar control. 4. His depression should be treated aggressively. 5. Mobilize with the help of physical therapy. 6. Flexeril 10 mg now and then q HS. 7. Restart Neurontin 300 mg q 12 H. Dena Cortes M.D., M.S.P.DENA VALLES Jan 01, 2018 15:02
--- NOTE | 2018-01-01 15:34 | Internal Med Progress Note ---
Subjective Date of Service: Jan 01, 2018 Physician Name MetcalfMatthew Attending Physician Adalgisa Castrejon MD Current Medications Medications (Trade) Dose Ordered Sig/Adolfo Route PRN Reason Start Time Stop Time Status Last Admin Dose Admin Acetaminophen (Tylenol) 500 mg Q4H PRN ORAL Mild Pain/Temp > 100.5 12/30/17 07:00 01/29/18 06:59 Acetaminophen/ Hydrocodone Bitart ([place] 5/325) 1 tab Q4H PRN ORAL Moderate Pain (Pain Scale 4-6) 12/31/17 10:00 01/07/18 09:59 01/01/18 12:24 Chlordiazepoxide (Librium) 25 mg Q6H PRN ORAL Agitation 12/30/17 07:00 01/06/18 06:59 01/01/18 01:12 Cyclobenzaprine HCl (Flexeril) 10 mg BEDTIME ORAL 12/31/17 21:00 01/30/18 20:59 12/31/17 20:32 Dextrose (Dextrose 50%) STAT PRN IV Hypoglycemia 12/29/17 18:00 01/28/18 17:59 Folic Acid (Folate) 1 mg DAILY ORAL 12/30/17 09:00 01/29/18 08:59 01/01/18 08:06 Gabapentin (Neurontin) 300 mg Q12HR ORAL 01/01/18 15:30 01/31/18 15:29 Insulin Aspart (NovoLOG) BEFORE MEALS AND HS SUBQ 12/29/17 21:00 01/28/18 20:59 01/01/18 12:05 Insulin Detemir (Levemir) 10 units DAILY SUBQ 12/31/17 09:00 01/30/18 08:59 01/01/18 08:09 Lorazepam (Ativan) 1 mg Q4H PRN ORAL For Anxiety 12/29/17 16:15 01/05/18 16:14 01/01/18 12:03 Morphine Sulfate (Morphine Sulfate) 3 mg Q4H PRN IVP Severe Pain (Pain Scale 7-10) 12/31/17 10:06 01/07/18 10:05 01/01/18 08:06 Multivitamins (Multivitamins) 1 tab DAILY ORAL 12/30/17 09:00 01/29/18 08:59 01/01/18 08:06 Nateglinide (Starlix) 120 mg TIAC ORAL 12/31/17 11:30 01/30/18 11:29 01/01/18 12:02 Ondansetron HCl (Zofran) 4 mg Q6H PRN IVP Nausea & Vomiting 12/29/17 16:15 01/28/18 16:14 12/31/17 20:33 Pantoprazole (Protonix) 40 mg DAILY IV 12/30/17 09:00 01/29/18 08:59 01/01/18 08:06 Allergies: Coded Allergies: No Known Allergies (Unverified , 12/29/17) ROS Limited/Unobtainable: No Constitutional: Reports: no symptoms HEENT: Reports: no symptoms Cardiovascular: Reports: no symptoms Respiratory: Reports: no symptoms Gastrointestinal/Abdominal: Reports: no symptoms Genitourinary: Reports: no symptoms Neurologic/Psychiatric: Reports: no symptoms Subjective 47 YO M admitted with syncopal episode. Cover for Int Nitesh-Dr Castrejon Objective Last Vital Signs Date Time Temp Pulse Resp B/P (MAP) Pulse Ox O2 Delivery O2 Flow Rate FiO2 01/01/18 12:00 97.2 120 18 122/77 100 Room Air 97.2 General Appearance: WD/WN, no apparent distress, alert EENT: PERRL/EOMI, normal ENT inspection Neck: non-tender, normal alignment, supple, normal inspection Cardiovascular: normal peripheral pulses, normal rate, regular rhythm, no gallop/murmur, no JVD Respiratory/Chest: chest wall non-tender, lungs clear, normal breath sounds, no respiratory distress, no accessory muscle use Abdomen: normal bowel sounds, non tender, soft, no organomegaly, no mass Extremities: normal range of motion Edema: trace edema Neurologic: tubing oiler II-XII grossly normal, no motor/sensory deficits Skin: normal pigmentation, warm/dry Laboratory Tests Test 01/01/18 07:10 White Blood Count 3.3 K/UL (4.8-10.8) L Red Blood Count 3.19 M/UL (4.70-6.10) L Hemoglobin 10.2 G/DL (14.2-18.0) L Hematocrit 29.8 % (42.0-52.0) L Mean Corpuscular Volume 93 FL (80-99) Mean Corpuscular Hemoglobin 31.8 PG (27.0-31.0) H Mean Corpuscular Hemoglobin Concent 34.1 G/DL (32.0-36.0) Red Cell Distribution Width 14.3 % (11.6-14.8) Platelet Count 127 K/UL (150-450) L Mean Platelet Volume 7.3 FL (6.5-10.1) Neutrophils (%) (Auto) % (45.0-75.0) Lymphocytes (%) (Auto) % (20.0-45.0) Monocytes (%) (Auto) % (1.0-10.0) Eosinophils (%) (Auto) % (0.0-3.0) Basophils (%) (Auto) % (0.0-2.0) Differential Total Cells Counted 100 Neutrophils % (Manual) 52 % (45-75) Lymphocytes % (Manual) 45 % (20-45) Monocytes % (Manual) 3 % (1-10) Eosinophils % (Manual) 0 % (0-3) Basophils % (Manual) 0 % (0-2) Band Neutrophils 0 % (0-8) Platelet Estimate Decreased L Platelet Morphology Normal Anisocytosis 1+ Sodium Level 138 MMOL/L (136-145) Potassium Level 3.3 MMOL/L (3.5-5.1) L Chloride Level 102 MMOL/L (98-107) Carbon Dioxide Level 29 MMOL/L (21-32) Anion Gap 7 mmol/L (5-15) Blood Urea Nitrogen 6 mg/dL (7-18) L Creatinine 0.9 MG/DL (0.55-1.30) Estimat Glomerular Filtration Rate > 60 mL/min (>60) Glucose Level 121 MG/DL (74-106) H Calcium Level 8.5 MG/DL (8.5-10.1) Total Bilirubin 0.6 MG/DL (0.2-1.0) Aspartate Amino Transf (AST/SGOT) 40 U/L (15-37) H Alanine Aminotransferase (ALT/SGPT) 52 U/L (12-78) Alkaline Phosphatase 113 U/L (46-116) Total Protein 5.9 G/DL (6.4-8.2) L Albumin 3.2 G/DL (3.4-5.0) L Globulin 2.7 g/dL Albumin/Globulin Ratio 1.2 (1.0-2.7) Intake and Output 12/31/17 01/01/18 19:00 07:00 Intake Total 1070 ml 350 ml Balance 1070 ml 350 ml Intake Oral 1070 ml 350 ml # Voids 2 # Bowel Movements 1 Assessment/Plan Problem List: (1) Syncope Assessment & Plan: Due to acute alcohol intoxication (2) Diabetes mellitus out of control Assessment & Plan: See Endocrinology note. (3) Gastroenteritis Assessment & Plan: See GI Note (4) Pancreatic pseudocyst Assessment & Plan: See GI note (5) Hepatotoxicity, secondary to ETOH (6) ETOH abuse (7) Alcohol withdrawal Assessment & Plan: Continue prn librium Status: not improved MATTHEW METCALF Jan 01, 2018 15:34
[2018-01-01 16:00] VITALS: BP 127/78
[2018-01-01] MEDS ORDERED: NS 275ml ONE (16:07)
--- NOTE | 2018-01-01 17:47 | General Progress Note ---
Assessment/Plan Assessment/Plan Assessment (1) ETOH abuse (2) Hepatotoxicity, secondary to ETOH (3) Colitis (4) Gastroenteritis (5) Depression (6) Pancreatic pseudocyst Recommendations PO as tolerated zofran prn Ativan prn for agitation anemia work up banana bag x 1 OB stool r/o GI bleed, will consider endoscopy for EV if necessary monitor H&H, prn transfusions ppi fu labs avoid alcohol Subjective Allergies: Coded Allergies: No Known Allergies (Unverified , 12/29/17) Objective Last 24 Hour Vital Signs Date Time Temp Pulse Resp B/P (MAP) Pulse Ox O2 Delivery O2 Flow Rate FiO2 01/01/18 16:00 109 01/01/18 16:00 97.7 110 18 127/78 100 Room Air 97.7 01/01/18 12:00 97.2 120 18 122/77 100 Room Air 97.2 01/01/18 12:00 116 01/01/18 08:00 105 01/01/18 08:00 98.1 103 18 122/80 98 Room Air 98.1 01/01/18 04:00 94 01/01/18 04:00 97.5 97 19 139/94 99 Room Air 97.5 01/01/18 02:11 98.1 01/01/18 01:12 98.1 01/01/18 00:38 98.1 01/01/18 00:08 98.1 01/01/18 00:00 101 12/31/17 23:57 98.1 99 19 134/89 99 Room Air 98.1 12/31/17 21:31 97.7 12/31/17 20:32 97.7 12/31/17 20:00 98.4 96 19 129/95 100 Room Air 98.4 12/31/17 20:00 106 Intake and Output 12/31/17 01/01/18 19:00 07:00 Intake Total 1070 ml 350 ml Balance 1070 ml 350 ml Intake Oral 1070 ml 350 ml # Voids 2 # Bowel Movements 1 Laboratory Tests 01/01/18 07:10: White Blood Count 3.3L, Red Blood Count 3.19L, Hemoglobin 10.2L, Hematocrit 29.8L, Mean Corpuscular Volume 93, Mean Corpuscular Hemoglobin 31.8H, Mean Corpuscular Hemoglobin Concent 34.1, Red Cell Distribution Width 14.3, Platelet Count 127L, Mean Platelet Volume 7.3, Neutrophils (%) (Auto) , Lymphocytes (%) ( Auto) , Monocytes (%) (Auto) , Eosinophils (%) (Auto) , Basophils (%) (Auto) , Differential Total Cells Counted 100, Neutrophils % (Manual) 52, Lymphocytes % ( Manual) 45, Monocytes % (Manual) 3, Eosinophils % (Manual) 0, Basophils % ( Manual) 0, Band Neutrophils 0, Platelet Estimate DecreasedL, Platelet Morphology Normal, Anisocytosis 1+, Sodium Level 138, Potassium Level 3.3L, Chloride Level 102, Carbon Dioxide Level 29, Anion Gap 7, Blood Urea Nitrogen 6L , Creatinine 0.9, Estimat Glomerular Filtration Rate > 60, Glucose Level 121H, Calcium Level 8.5, Total Bilirubin 0.6, Aspartate Amino Transf (AST/SGOT) 40H, Alanine Aminotransferase (ALT/SGPT) 52, Alkaline Phosphatase 113, Total Protein 5.9L, Albumin 3.2L, Globulin 2.7, Albumin/Globulin Ratio 1.2 Height (Feet): 5 Height (Inches): 8.00 Weight (Pounds): 160 TANNER PARKER Jan 01, 2018 17:47
[2018-01-01 20:00] VITALS: BP 121/82
[2018-01-01] MEDS: Cyclobenzaprine 10mg Tab ORAL SCH (21:48)
[2018-01-02] VITALS: BP 126/84
[2018-01-02] MEDS: Norco 5mg/325mg tab ORAL PRN ×3 (00:07→20:57)
[2018-01-02 04:00] VITALS: BP 128/85
[2018-01-02] MEDS: Morphine Sulfate 4mg/ml Inj IVP PRN ×3 (06:32→17:03)
[2018-01-02] MEDS: NovoLOG Insulin Flexpen SUBQ SCH ×4 (06:42→20:59)
--- NOTE | 2018-01-02 07:26 | General Progress Note ---
Assessment/Plan Problem List: (1) Diabetes mellitus out of control ICD Codes: E11.65 - Type 2 diabetes mellitus with hyperglycemia SNOMED: 93701115, 460004545 (2) Gastroenteritis ICD Codes: K52.9 - Noninfective gastroenteritis and colitis, unspecified SNOMED: 01845766 (3) Pancreatic pseudocyst ICD Codes: K86.3 - Pseudocyst of pancreas SNOMED: 592068393 (4) Hepatotoxicity, secondary to ETOH ICD Codes: K70.9 - Alcoholic liver disease, unspecified SNOMED: 26784737 Assessment/Plan continue Levemir 10 units daily continue Starlix 120 mg ac tid will avoid the use of Metformin due to hx of alcoholism continue NISS Subjective Allergies: Coded Allergies: No Known Allergies (Unverified , 12/29/17) All Systems: reviewed and negative except above Subjective events noted interval notes reviewed Objective Last 24 Hour Vital Signs Date Time Temp Pulse Resp B/P (MAP) Pulse Ox O2 Delivery O2 Flow Rate FiO2 01/02/18 04:00 93 01/02/18 04:00 97.4 100 20 128/85 98 Room Air 97.4 01/02/18 00:00 98.1 107 18 126/84 98 Room Air 98.1 01/01/18 20:00 102 01/01/18 20:00 98.2 96 20 121/82 98 Room Air 98.2 01/01/18 16:00 109 01/01/18 16:00 97.7 110 18 127/78 100 Room Air 97.7 01/01/18 12:00 97.2 120 18 122/77 100 Room Air 97.2 01/01/18 12:00 116 01/01/18 08:00 105 01/01/18 08:00 98.1 103 18 122/80 98 Room Air 98.1 Intake and Output 01/01/18 01/02/18 19:00 07:00 Intake Total 600 ml Output Total 250 ml Balance 350 ml Intake Oral 600 ml Output Urine Total 250 ml # Voids 2 Height (Feet): 5 Height (Inches): 8.00 Weight (Pounds): 160 General Appearance: no apparent distress Neck: normal alignment Cardiovascular: normal rate Respiratory/Chest: lungs clear Abdomen: normal bowel sounds Edema: 1+ Arm (L), 1+ Arm (R), 1+ Leg (L), 1+ Leg (R), 1+ Pedal (L), 1+ Pedal ( R), 1+ Generalized Objective Current Medications Medications (Trade) Dose Ordered Sig/Adolfo Route PRN Reason Start Time Stop Time Status Last Admin Dose Admin Acetaminophen (Tylenol) 500 mg Q4H PRN ORAL Mild Pain/Temp > 100.5 12/30/17 07:00 01/29/18 06:59 Acetaminophen/ Hydrocodone Bitart ([place] 5/325) 1 tab Q4H PRN ORAL Moderate Pain (Pain Scale 4-6) 12/31/17 10:00 01/07/18 09:59 01/02/18 06:31 Chlordiazepoxide (Librium) 25 mg Q6H PRN ORAL Agitation 12/30/17 07:00 01/06/18 06:59 01/01/18 01:12 Cyclobenzaprine HCl (Flexeril) 10 mg BEDTIME ORAL 12/31/17 21:00 01/30/18 20:59 01/01/18 21:48 Dextrose (Dextrose 50%) STAT PRN IV Hypoglycemia 12/29/17 18:00 01/28/18 17:59 Folic Acid (Folate) 1 mg DAILY ORAL 12/30/17 09:00 01/29/18 08:59 01/01/18 08:06 Gabapentin (Neurontin) 300 mg Q12HR ORAL 01/01/18 15:30 01/31/18 15:29 01/01/18 21:47 Insulin Aspart (NovoLOG) BEFORE MEALS AND HS SUBQ 12/29/17 21:00 01/28/18 20:59 01/02/18 06:42 Insulin Detemir (Levemir) 10 units DAILY SUBQ 12/31/17 09:00 01/30/18 08:59 01/01/18 08:09 Lorazepam (Ativan) 1 mg Q4H PRN ORAL For Anxiety 12/29/17 16:15 01/05/18 16:14 01/01/18 12:03 Morphine Sulfate (Morphine Sulfate) 3 mg Q4H PRN IVP Severe Pain (Pain Scale 7-10) 12/31/17 10:06 01/07/18 10:05 01/02/18 06:32 Multivitamins (Multivitamins) 1 tab DAILY ORAL 12/30/17 09:00 01/29/18 08:59 01/01/18 08:06 Nateglinide (Starlix) 120 mg TIAC ORAL 12/31/17 11:30 01/30/18 11:29 01/02/18 06:40 Ondansetron HCl (Zofran) 4 mg Q6H PRN IVP Nausea & Vomiting 12/29/17 16:15 01/28/18 16:14 01/02/18 06:40 Pantoprazole (Protonix) 40 mg DAILY IV 12/30/17 09:00 01/29/18 08:59 01/01/18 08:06 Item Value Date Time Bedside Blood Glucose 150 mg/dl H 01/02/18 0642 Bedside Blood Glucose 184 mg/dl H 01/01/18 2151 Bedside Blood Glucose 150 mg/dl H 01/01/18 1630 Bedside Blood Glucose 56 mg/dl L 01/01/18 1400 CAMRYN SHEPPARD Jan 02, 2018 07:26
[2018-01-02 08:00] VITALS: BP 130/89
[2018-01-02] MEDS: Pantoprazole Inj IV SCH (08:46)
[2018-01-02] MEDS: LORazepam 1mg tab ORAL PRN (08:46)
[2018-01-02] MEDS: Levemir Flexpen SUBQ SCH (08:49)
[2018-01-02 09:55] LABS: HEMATOCRIT 28.9 % (42.0-52.0); HEMOGLOBIN 9.7 G/DL (14.2-18.0); MEAN CORPUSCULAR VOLUME 95 FL (80-99); PLATELET COUNT 124 K/UL (150-450); RED BLOOD COUNT 3.04 M/UL (4.70-6.10); RED CELL DISTRIBUTION WIDTH 14.3 % (11.6-14.8); WHITE BLOOD COUNT 3.2 K/UL (4.8-10.8)
[2018-01-02 10:07] LABS: ANION GAP 6 mmol/L (5-15); BLOOD UREA NITROGEN 7 mg/dL (7-18); CALCIUM 8.3 MG/DL (8.5-10.1); CARBON DIOXIDE 30 MMOL/L (21-32); CHLORIDE 102 MMOL/L (98-107); CREATININE 0.9 MG/DL (0.55-1.30); POTASSIUM 4.5 MMOL/L (3.5-5.1); SODIUM 138 MMOL/L (136-145)
--- NOTE | 2018-01-02 11:43 | Neurology Progress Note ---
Interim History Interim History Interim History Mr. Adams feels better generally. He is up in a chair today. He is less anxious and less tremulous. The low back pain is still bothersome. He continues to have discomfort in both his feet which he attributes to neuropathy. He has had no further episodes of loss of consciousness. He denies any new neurologic symptoms. He feels steadier on his feet when he walks. Review of Systems Neuro Review of Systems Benign. Objective Physical Exam Last Vital Signs Date Time Temp Pulse Resp B/P (MAP) Pulse Ox O2 Delivery O2 Flow Rate FiO2 01/02/18 08:00 97.7 104 18 130/89 100 Room Air 97.7 Laboratory Tests Test 01/02/18 09:20 White Blood Count 3.2 K/UL (4.8-10.8) L Red Blood Count 3.04 M/UL (4.70-6.10) L Hemoglobin 9.7 G/DL (14.2-18.0) L Hematocrit 28.9 % (42.0-52.0) L Mean Corpuscular Volume 95 FL (80-99) Mean Corpuscular Hemoglobin 31.8 PG (27.0-31.0) H Mean Corpuscular Hemoglobin Concent 33.6 G/DL (32.0-36.0) Red Cell Distribution Width 14.3 % (11.6-14.8) Platelet Count 124 K/UL (150-450) L Mean Platelet Volume 7.3 FL (6.5-10.1) Neutrophils (%) (Auto) % (45.0-75.0) Lymphocytes (%) (Auto) % (20.0-45.0) Monocytes (%) (Auto) % (1.0-10.0) Eosinophils (%) (Auto) % (0.0-3.0) Basophils (%) (Auto) % (0.0-2.0) Differential Total Cells Counted 100 Neutrophils % (Manual) 58 % (45-75) Lymphocytes % (Manual) 35 % (20-45) Monocytes % (Manual) 6 % (1-10) Eosinophils % (Manual) 1 % (0-3) Basophils % (Manual) 0 % (0-2) Band Neutrophils 0 % (0-8) Platelet Estimate Decreased L Platelet Morphology Normal Hypochromasia 1+ Anisocytosis 1+ Sodium Level 138 MMOL/L (136-145) Potassium Level 4.5 MMOL/L (3.5-5.1) Chloride Level 102 MMOL/L (98-107) Carbon Dioxide Level 30 MMOL/L (21-32) Anion Gap 6 mmol/L (5-15) Blood Urea Nitrogen 7 mg/dL (7-18) Creatinine 0.9 MG/DL (0.55-1.30) Estimat Glomerular Filtration Rate > 60 mL/min (>60) Glucose Level 157 MG/DL (74-106) H Calcium Level 8.3 MG/DL (8.5-10.1) L Neurologic Exam Objective PHYSICAL EXAMINATION: GENERAL: He is a well-developed, well-nourished, pleasant black gentleman, lying in bed, in no acute distress. HEAD: Normocephalic with some anterior lip and facial abrasions. EENT: Examination benign. NECK: No neck rigidity was observed. NEUROLOGIC EXAMINATION: MENTAL STATUS EXAMINATION: He was awake and alert. He was oriented to person, place, and time. He was able to recall 3/3 words immediately, and in 1 minute and 3 minutes. He was able to remember presidents Trump through Dickerson Senior with hints. His mathematical skills were fairly good. His visuospatial function was preserved. SPEECH: He had no dysarthria. LANGUAGE: He had no aphasia. CRANIAL NERVE EXAMINATION: II: The visual lovett were intact to confrontation testing. III, IV & : The external ocular movements were full and the pupils 3 mm in diameter, equal, round, regular, and reactive to light. V: He had normal facial sensations and the temporales, masseters, and pterygoids functioned normally. VII: He had flattening of the right naso-labial fold. VIII: He was able to hear well bilaterally and had no nystagmus. IX: The palate moved symmetrically on phonation. X: He had no hoarseness of voice. XI: The sternocleidomastoids and trapezii functioned normally. XII: The tongue was in the midline without any fasciculations or atrophy. MOTOR SYSTEM: The tone was normal in all four extremities. Examination of muscle mass revealed some generalized muscle wasting involving the lower extremities slightly more than the upper extremities. Examination of power revealed grade 5/5 power in all muscle groups tested. SENSORY EXAMINATION: He had altered sensations to pinprick and light touch in a knee-high stocking distribution. Position sense was diminished in the toes bilaterally, but was normal in the fingers bilaterally. COORDINATION: He performed well on [id number] and [id number]-[id number]-copg testing. Romberg test could not be performed because even with eyes open when he was made to stand, he could not bring his feet together. REFLEXES: Trace+ and bilaterally symmetrical at the biceps, triceps, brachioradialis, and knees and 0 at both ankles. The plantar responses were flexor bilaterally. STANCE: He stood up with a minimally wide-based stance with support. GAIT: He walked well with contact guard with a minimally wide-based gait. ABNORMAL MOVEMENTS: Tremor (7-8 Hz): G 0/4 increasing to G Trace/4 with effort. Impression/Recommendations Diagnostic Impression 1. Mr. Ciaran Adams is a 47-year-old, right-handed, black gentleman, with a past history of depression, alcoholism, and diabetes mellitus, who approximately one week prior to admission developed nausea, vomiting, diarrhea, felt ill, and felt lightheaded. On the day of admission, he was riding in an elevator and passed out and fell face forwards. He feels better now, but is still not back to his normal self. He has had prior episodes of loss of consciousness. 2. He feels better generally. He is up in a chair today. He is less anxious and less tremulous. The low back pain is still bothersome. He continues to have discomfort in both his feet which he attributes to neuropathy. He has had no further episodes of loss of consciousness. He denies any new neurologic symptoms. He feels steadier on his feet when he walks. 3. On neurological examination at this time, he does have moderate lumbar paraspinal muscle spasm, mild problems with memory, altered sensations to light touch in a knee-high stocking distribution, diminished position sense in the toes bilaterally, globally diminished deep tendon reflexes, a minimally wide- based stance, and a minimally wide-based gait that is significantly more steady. He also has a 7-8 Hz tremor of his outstretched hands which is better. 4. His latest laboratory data on my initial evaluation revealed that he was mildly anemic with a hemoglobin of 10.7. His chemistry panel revealed a low sodium, low chloride, elevated blood sugar, hemoglobin A1c elevated to 11.3%, and elevated liver enzymes including AST, ALT, and alkaline phosphatase. Normal B12 level. Normal folate level. Normal TSH. 5. The CT scan of the brain without contrast revealed no acute pathology. 6. The patient's history, neurological examination, laboratory data, and imaging studies are most compatible with a syncopal episode due to possible dehydration from one week of nausea, vomiting, and diarrhea, significant alcohol abuse, and possible autonomic dysfunction related to his neuropathic process. 7. He continues to have have low back pain and spasm. 8. The neuropathic symptoms in his feet are stable. Recommendations 1. Continue present management. 2. Stop drinking alcohol. 3. Blood sugar control. 4. His depression should be treated aggressively. 5. Mobilize with the help of physical therapy. 6. Flexeril 10 mg q HS. 7. Neurontin 300 mg q 12 H. Dena Moyer M.D., M.S.P.H. DENA MOYER Jan 02, 2018 11:43
[2018-01-02 12:00] VITALS: BP 118/82
--- NOTE | 2018-01-02 14:00 | Cardiology Report ---
APPROVED REPORT EXAM: Two-dimensional and M-mode echocardiogram with Doppler and color Doppler. INDICATION Syncope M-Mode DIMENSIONS IVSd1.3 (0.7-1.1cm)Left Atrium (MM)2.6 (1.6-4.0cm) LVDd4.0 (3.5-5.6cm)Aortic Root3.8 (2.0-3.7cm) PWd1.5 (0.7-1.1cm)Aortic Cusp Exc.2.1 (1.5-2.0cm) LVDs2.5 (2.5-4.0cm) PWs2.1 cm Normal left ventricular chamber size, systolic function and wall motion. Left ventricular ejection fraction estimated to be 60-65 %. Mild left ventricular hypertrophy. No evidence of pericardial effusion. All other cardiac chamber sizes are within normal limits. Focal aortic valve sclerosis with adequate cusp excursion. Thickened mitral valve leaflets with normal excursion. Mitral annulus and aortic root calcification. Pulmonic valve not well visualized. Normal tricuspid valve structure. IVC at normal size with physiologic collapse. A color flow and spectral Doppler study was performed and revealed: Trace aortic insufficiency. Trace mitral regurgitation. Mitral diastolic velocities suggest reduced left ventricular relaxation c/w mild LV diastolic dysfunction (Grade I ). Trace tricuspid regurgitation. Tricuspid systolic velocities suggests peak right ventricular systolic pressure of 22 mmHg.
--- NOTE | 2018-01-02 14:24 | Internal Med Progress Note ---
Subjective Date of Service: Jan 02, 2018 Physician Name MetcalfMatthew Attending Physician Adalgisa Castrejon MD Current Medications Medications (Trade) Dose Ordered Sig/Adolfo Route PRN Reason Start Time Stop Time Status Last Admin Dose Admin Acetaminophen (Tylenol) 500 mg Q4H PRN ORAL Mild Pain/Temp > 100.5 12/30/17 07:00 01/29/18 06:59 Acetaminophen/ Hydrocodone Bitart ([place] 5/325) 1 tab Q4H PRN ORAL Moderate Pain (Pain Scale 4-6) 12/31/17 10:00 01/07/18 09:59 01/02/18 06:31 Chlordiazepoxide (Librium) 25 mg Q6H PRN ORAL Agitation 12/30/17 07:00 01/06/18 06:59 01/01/18 01:12 Cyclobenzaprine HCl (Flexeril) 10 mg BEDTIME ORAL 12/31/17 21:00 01/30/18 20:59 01/01/18 21:48 Dextrose (Dextrose 50%) STAT PRN IV Hypoglycemia 12/29/17 18:00 01/28/18 17:59 Folic Acid (Folate) 1 mg DAILY ORAL 12/30/17 09:00 01/29/18 08:59 01/02/18 08:46 Gabapentin (Neurontin) 300 mg Q12HR ORAL 01/01/18 15:30 01/31/18 15:29 01/02/18 08:46 Insulin Aspart (NovoLOG) BEFORE MEALS AND HS SUBQ 12/29/17 21:00 01/28/18 20:59 01/02/18 12:02 Insulin Detemir (Levemir) 10 units DAILY SUBQ 12/31/17 09:00 01/30/18 08:59 01/02/18 08:49 Lorazepam (Ativan) 1 mg Q4H PRN ORAL For Anxiety 12/29/17 16:15 01/05/18 16:14 01/02/18 08:46 Morphine Sulfate (Morphine Sulfate) 3 mg Q4H PRN IVP Severe Pain (Pain Scale 7-10) 12/31/17 10:06 01/07/18 10:05 01/02/18 11:59 Multivitamins (Multivitamins) 1 tab DAILY ORAL 12/30/17 09:00 01/29/18 08:59 01/02/18 08:46 Nateglinide (Starlix) 120 mg TIAC ORAL 12/31/17 11:30 01/30/18 11:29 01/02/18 11:59 Ondansetron HCl (Zofran) 4 mg Q6H PRN IVP Nausea & Vomiting 12/29/17 16:15 01/28/18 16:14 01/02/18 06:40 Pantoprazole (Protonix) 40 mg DAILY IV 12/30/17 09:00 01/29/18 08:59 01/02/18 08:46 Allergies: Coded Allergies: No Known Allergies (Unverified , 12/29/17) ROS Limited/Unobtainable: No Constitutional: Reports: no symptoms HEENT: Reports: no symptoms Cardiovascular: Reports: no symptoms Respiratory: Reports: no symptoms Gastrointestinal/Abdominal: Reports: no symptoms Genitourinary: Reports: no symptoms Neurologic/Psychiatric: Reports: tremors Subjective 47 YO M admitted with syncopal episode. Cover for Int Nitesh-Dr Castrejon Objective Last Vital Signs Date Time Temp Pulse Resp B/P (MAP) Pulse Ox O2 Delivery O2 Flow Rate FiO2 01/02/18 12:00 98.2 110 18 118/82 100 Room Air 98.2 Laboratory Tests Test 01/02/18 09:20 White Blood Count 3.2 K/UL (4.8-10.8) L Red Blood Count 3.04 M/UL (4.70-6.10) L Hemoglobin 9.7 G/DL (14.2-18.0) L Hematocrit 28.9 % (42.0-52.0) L Mean Corpuscular Volume 95 FL (80-99) Mean Corpuscular Hemoglobin 31.8 PG (27.0-31.0) H Mean Corpuscular Hemoglobin Concent 33.6 G/DL (32.0-36.0) Red Cell Distribution Width 14.3 % (11.6-14.8) Platelet Count 124 K/UL (150-450) L Mean Platelet Volume 7.3 FL (6.5-10.1) Neutrophils (%) (Auto) % (45.0-75.0) Lymphocytes (%) (Auto) % (20.0-45.0) Monocytes (%) (Auto) % (1.0-10.0) Eosinophils (%) (Auto) % (0.0-3.0) Basophils (%) (Auto) % (0.0-2.0) Differential Total Cells Counted 100 Neutrophils % (Manual) 58 % (45-75) Lymphocytes % (Manual) 35 % (20-45) Monocytes % (Manual) 6 % (1-10) Eosinophils % (Manual) 1 % (0-3) Basophils % (Manual) 0 % (0-2) Band Neutrophils 0 % (0-8) Platelet Estimate Decreased L Platelet Morphology Normal Hypochromasia 1+ Anisocytosis 1+ Sodium Level 138 MMOL/L (136-145) Potassium Level 4.5 MMOL/L (3.5-5.1) Chloride Level 102 MMOL/L (98-107) Carbon Dioxide Level 30 MMOL/L (21-32) Anion Gap 6 mmol/L (5-15) Blood Urea Nitrogen 7 mg/dL (7-18) Creatinine 0.9 MG/DL (0.55-1.30) Estimat Glomerular Filtration Rate > 60 mL/min (>60) Glucose Level 157 MG/DL (74-106) H Calcium Level 8.3 MG/DL (8.5-10.1) L Intake and Output 01/01/18 01/02/18 19:00 07:00 Intake Total 600 ml 600 ml Output Total 250 ml Balance 350 ml 600 ml Intake Oral 600 ml 600 ml Output Urine Total 250 ml # Voids 2 Objective General Appearance: WD/WN, no apparent distress, alert EENT: PERRL/EOMI, normal ENT inspection Neck: non-tender, normal alignment, supple, normal inspection Cardiovascular: normal peripheral pulses, normal rate, regular rhythm, no gallop/murmur, no JVD Respiratory/Chest: chest wall non-tender, lungs clear, normal breath sounds, no respiratory distress, no accessory muscle use Abdomen: normal bowel sounds, non tender, soft, no organomegaly, no mass Extremities: normal range of motion Edema: trace edema 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 See neurology note. (2) Diabetes mellitus out of control Assessment & Plan: See Endocrinology note. (3) Gastroenteritis Assessment & Plan: See GI Note (4) Pancreatic pseudocyst Assessment & Plan: See GI note (5) Hepatotoxicity, secondary to ETOH (6) ETOH abuse Assessment & Plan: Continue neurontin for seizure precautions. (7) Alcohol withdrawal Assessment & Plan: Continue prn librium Status: progressing MATTHEW METCALF Jan 02, 2018 14:24
--- NOTE | 2018-01-02 14:48 | General Progress Note ---
Assessment/Plan Assessment/Plan Assessment (1) ETOH abuse (2) Hepatotoxicity, secondary to ETOH (3) Colitis (4) Gastroenteritis (5) Depression (6) Pancreatic pseudocyst Recommendations PO as tolerated zofran prn Ativan prn for agitation anemia work up banana bag x 1 OB stool r/o GI bleed, will consider endoscopy for EV if necessary monitor H&H, prn transfusions ppi fu labs avoid alcohol Subjective Allergies: Coded Allergies: No Known Allergies (Unverified , 12/29/17) Subjective c/o constipation wants a laxative Objective Last 24 Hour Vital Signs Date Time Temp Pulse Resp B/P (MAP) Pulse Ox O2 Delivery O2 Flow Rate FiO2 01/02/18 12:00 98.2 110 18 118/82 100 Room Air 98.2 01/02/18 12:00 104 01/02/18 08:00 97.7 104 18 130/89 100 Room Air 97.7 01/02/18 08:00 98 01/02/18 04:00 93 01/02/18 04:00 97.4 100 20 128/85 98 Room Air 97.4 01/02/18 00:00 98.1 107 18 126/84 98 Room Air 98.1 01/01/18 20:00 102 01/01/18 20:00 98.2 96 20 121/82 98 Room Air 98.2 01/01/18 16:00 109 01/01/18 16:00 97.7 110 18 127/78 100 Room Air 97.7 Intake and Output 01/01/18 01/02/18 19:00 07:00 Intake Total 600 ml 600 ml Output Total 250 ml Balance 350 ml 600 ml Intake Oral 600 ml 600 ml Output Urine Total 250 ml # Voids 2 Laboratory Tests 01/02/18 09:20: White Blood Count 3.2L, Red Blood Count 3.04L, Hemoglobin 9.7L, Hematocrit 28.9L , Mean Corpuscular Volume 95, Mean Corpuscular Hemoglobin 31.8H, Mean Corpuscular Hemoglobin Concent 33.6, Red Cell Distribution Width 14.3, Platelet Count 124L, Mean Platelet Volume 7.3, Neutrophils (%) (Auto) , Lymphocytes (%) ( Auto) , Monocytes (%) (Auto) , Eosinophils (%) (Auto) , Basophils (%) (Auto) , Differential Total Cells Counted 100, Neutrophils % (Manual) 58, Lymphocytes % ( Manual) 35, Monocytes % (Manual) 6, Eosinophils % (Manual) 1, Basophils % ( Manual) 0, Band Neutrophils 0, Platelet Estimate DecreasedL, Platelet Morphology Normal, Hypochromasia 1+, Anisocytosis 1+, Sodium Level 138, Potassium Level 4.5, Chloride Level 102, Carbon Dioxide Level 30, Anion Gap 6, Blood Urea Nitrogen 7, Creatinine 0.9, Estimat Glomerular Filtration Rate > 60, Glucose Level 157H, Calcium Level 8.3L Height (Feet): 5 Height (Inches): 8.00 Weight (Pounds): 160 Objective WDWN AA man NCAT supple CTA RRR abd soft, Mild LQ TTP no edema non focal TANNER PARKER Jan 02, 2018 14:48
[2018-01-02] MEDS ORDERED: Bisacodyl EC 5mg tab ORAL ONE (15:00)
--- NOTE | 2018-01-02 15:45 | Cardiology Report ---
APPROVED REPORT EKG Measurement Heart [id number] CO [id number] Normal sinus rhythm Normal ECG
[2018-01-02 16:00] VITALS: BP 136/97
[2018-01-02 20:00] VITALS: BP 136/89
[2018-01-02] MEDS: Cyclobenzaprine 10mg Tab ORAL SCH (20:57)
[2018-01-03] VITALS: BP 118/79
[2018-01-03 04:00] VITALS: BP 132/79
[2018-01-03] MEDS: Morphine Sulfate 4mg/ml Inj IVP PRN (05:29)
[2018-01-03] MEDS: NovoLOG Insulin Flexpen SUBQ SCH ×2 (06:30→08:31)
[2018-01-03 08:00] VITALS: BP 131/80
[2018-01-03] MEDS: Levemir Flexpen SUBQ SCH (08:31)
[2018-01-03] MEDS: Pantoprazole Inj IV SCH (08:32)
--- NOTE | 2018-01-03 09:14 | Neurology Progress Note ---
Interim History Interim History Interim History Mr. Adams feels better generally. He is in bed now. He is less anxious and less tremulous. The low back pain is still bothersome. He continues to have discomfort in both his feet which he attributes to neuropathy. He has had no further episodes of loss of consciousness. He denies any new neurologic symptoms. He feels steadier on his feet when he walks. Review of Systems Neuro Review of Systems Benign. Objective Physical Exam Last Vital Signs Date Time Temp Pulse Resp B/P (MAP) Pulse Ox O2 Delivery O2 Flow Rate FiO2 01/03/18 04:00 97.7 90 21 132/79 98 Room Air 97.7 Laboratory Tests Test 01/02/18 09:20 White Blood Count 3.2 K/UL (4.8-10.8) L Red Blood Count 3.04 M/UL (4.70-6.10) L Hemoglobin 9.7 G/DL (14.2-18.0) L Hematocrit 28.9 % (42.0-52.0) L Mean Corpuscular Volume 95 FL (80-99) Mean Corpuscular Hemoglobin 31.8 PG (27.0-31.0) H Mean Corpuscular Hemoglobin Concent 33.6 G/DL (32.0-36.0) Red Cell Distribution Width 14.3 % (11.6-14.8) Platelet Count 124 K/UL (150-450) L Mean Platelet Volume 7.3 FL (6.5-10.1) Neutrophils (%) (Auto) % (45.0-75.0) Lymphocytes (%) (Auto) % (20.0-45.0) Monocytes (%) (Auto) % (1.0-10.0) Eosinophils (%) (Auto) % (0.0-3.0) Basophils (%) (Auto) % (0.0-2.0) Differential Total Cells Counted 100 Neutrophils % (Manual) 58 % (45-75) Lymphocytes % (Manual) 35 % (20-45) Monocytes % (Manual) 6 % (1-10) Eosinophils % (Manual) 1 % (0-3) Basophils % (Manual) 0 % (0-2) Band Neutrophils 0 % (0-8) Platelet Estimate Decreased L Platelet Morphology Normal Hypochromasia 1+ Anisocytosis 1+ Sodium Level 138 MMOL/L (136-145) Potassium Level 4.5 MMOL/L (3.5-5.1) Chloride Level 102 MMOL/L (98-107) Carbon Dioxide Level 30 MMOL/L (21-32) Anion Gap 6 mmol/L (5-15) Blood Urea Nitrogen 7 mg/dL (7-18) Creatinine 0.9 MG/DL (0.55-1.30) Estimat Glomerular Filtration Rate > 60 mL/min (>60) Glucose Level 157 MG/DL (74-106) H Calcium Level 8.3 MG/DL (8.5-10.1) L Neurologic Exam Objective PHYSICAL EXAMINATION: GENERAL: He is a well-developed, well-nourished, pleasant black gentleman, lying in bed, in no acute distress. HEAD: Normocephalic with some anterior lip and facial abrasions. EENT: Examination benign. NECK: No neck rigidity was observed. NEUROLOGIC EXAMINATION: MENTAL STATUS EXAMINATION: He was awake and alert. He was oriented to person, place, and time. He was able to recall 3/3 words immediately, and in 1 minute and 3 minutes. He was able to remember presidents Trump through Dickerson Senior with hints. His mathematical skills were fairly good. His visuospatial function was preserved. SPEECH: He had no dysarthria. LANGUAGE: He had no aphasia. CRANIAL NERVE EXAMINATION: II: The visual lovett were intact to confrontation testing. III, IV & : The external ocular movements were full and the pupils 3 mm in diameter, equal, round, regular, and reactive to light. V: He had normal facial sensations and the temporales, masseters, and pterygoids functioned normally. VII: He had flattening of the right naso-labial fold. VIII: He was able to hear well bilaterally and had no nystagmus. IX: The palate moved symmetrically on phonation. X: He had no hoarseness of voice. XI: The sternocleidomastoids and trapezii functioned normally. XII: The tongue was in the midline without any fasciculations or atrophy. MOTOR SYSTEM: The tone was normal in all four extremities. Examination of muscle mass revealed some generalized muscle wasting involving the lower extremities slightly more than the upper extremities. Examination of power revealed grade 5/5 power in all muscle groups tested. SENSORY EXAMINATION: He had altered sensations to pinprick and light touch in a knee-high stocking distribution. Position sense was diminished in the toes bilaterally, but was normal in the fingers bilaterally. COORDINATION: He performed well on [id number] and [id number]-[id number] testing. Romberg test could not be performed because even with eyes open when he was made to stand, he could not bring his feet together. REFLEXES: Trace+ and bilaterally symmetrical at the biceps, triceps, brachioradialis, and knees and 0 at both ankles. The plantar responses were flexor bilaterally. STANCE: He stood up with a minimally wide-based stance with support. GAIT: He walked well with contact guard with a minimally wide-based gait. ABNORMAL MOVEMENTS: Tremor (7-8 Hz): G 0/4 increasing to G Trace/4 with effort. Impression/Recommendations Diagnostic Impression 1. Mr. Ciaran Adams is a 47-year-old, right-handed, black gentleman, with a past history of depression, alcoholism, and diabetes mellitus, who approximately one week prior to admission developed nausea, vomiting, diarrhea, felt ill, and felt lightheaded. On the day of admission, he was riding in an elevator and passed out and fell face forwards. He feels better now, but is still not back to his normal self. He has had prior episodes of loss of consciousness. 2. He feels better generally. He is less anxious and less tremulous. The low back pain is still bothersome. He continues to have discomfort in both his feet which he attributes to neuropathy. He has had no further episodes of loss of consciousness. He denies any new neurologic symptoms. He feels steadier on his feet when he walks. 3. On neurological examination at this time, he does have moderate lumbar paraspinal muscle spasm, mild problems with memory, altered sensations to light touch in a knee-high stocking distribution, diminished position sense in the toes bilaterally, globally diminished deep tendon reflexes, a minimally wide- based stance, and a minimally wide-based gait that is significantly more steady. He also has a 7-8 Hz tremor of his outstretched hands which is better. 4. His latest laboratory data on my initial evaluation revealed that he was mildly anemic with a hemoglobin of 10.7. His chemistry panel revealed a low sodium, low chloride, elevated blood sugar, hemoglobin A1c elevated to 11.3%, and elevated liver enzymes including AST, ALT, and alkaline phosphatase. Normal B12 level. Normal folate level. Normal TSH. 5. The CT scan of the brain without contrast revealed no acute pathology. 6. The patient's history, neurological examination, laboratory data, and imaging studies are most compatible with a syncopal episode due to possible dehydration from one week of nausea, vomiting, and diarrhea, significant alcohol abuse, and possible autonomic dysfunction related to his neuropathic process. 7. He continues to have have low back pain and spasm. 8. The neuropathic symptoms in his feet are stable. Recommendations 1. Continue present management. 2. Stop drinking alcohol. 3. Blood sugar control. 4. His depression should be treated aggressively. 5. Mobilize with the help of physical therapy. 6. Flexeril 10 mg q HS. 7. Neurontin 300 mg q 12 H. 8. If discharged - follow up in office in 6-8 weeks. Dena Cortes M.D., M.S.P.DENA VALLES Jan 03, 2018 09:14
[2018-01-03] MEDS: chlordiazePOXIDE 25mg Cap ORAL PRN (09:48)
--- NOTE | 2018-01-03 09:58 | General Progress Note ---
Assessment/Plan Status: stable Assessment/Plan 1. Acute encephalopathy secondary to ETOH intoxi ( likely dx) 2. Leukopenia. 3. Anemia. 4. Chronic pancreatitis. 5. Alcoholism. 6. Gastrointestinal and deep vein thrombosis prophylaxis. 7. Diabetes type 2. plan: Gi Neuro cardio notes are reviewed out patient fu with PT/OT current management Subjective ROS Limited/Unobtainable: No Constitutional: Reports: weakness HEENT: Reports: no symptoms Cardiovascular: Reports: no symptoms Allergies: Coded Allergies: No Known Allergies (Unverified , 12/29/17) Objective Last 24 Hour Vital Signs Date Time Temp Pulse Resp B/P (MAP) Pulse Ox O2 Delivery O2 Flow Rate FiO2 01/03/18 04:00 97.7 90 21 132/79 98 Room Air 97.7 01/03/18 04:00 91 01/03/18 00:00 88 01/03/18 00:00 98.1 67 20 118/79 97 Room Air 98.1 01/02/18 20:00 103 01/02/18 20:00 98.1 102 20 136/89 99 Room Air 98.1 01/02/18 16:00 105 01/02/18 16:00 98.1 108 18 136/97 100 Room Air 98.1 01/02/18 12:00 98.2 110 18 118/82 100 Room Air 98.2 01/02/18 12:00 104 Intake and Output 01/02/18 01/03/18 19:00 07:00 Intake Total 720 ml Balance 720 ml Intake Oral 720 ml # Voids 2 2 # Bowel Movements 1 Height (Feet): 5 Height (Inches): 8.00 Weight (Pounds): 160 General Appearance: no apparent distress EENT: PERRL/EOMI Neck: supple Cardiovascular: normal rate Respiratory/Chest: lungs clear Abdomen: soft Extremities: other - deconditioning , no lateralized foal deficiet 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
[2018-01-03] MEDS ORDERED: LEVEMIR FL100 UNIT/1 SUBQ (10:07)
[2018-01-03] MEDS ORDERED: MULTIVITAMINS1 EAC2 ORAL (10:07)
[2018-01-03] MEDS ORDERED: NEURONTIN300 MG ORAL (10:07)
[2018-01-03] MEDS ORDERED: STARLIX120 MG ORAL (10:07)
[2018-01-03] MEDS ORDERED: LIBRIUM25 MG ORAL (10:07)
--- NOTE | 2018-01-03 11:21 | GI Progress Note ---
Assessment/Plan Problems: (1) Depression ICD Codes: F32.9 - Major depressive disorder, single episode, unspecified SNOMED: 93457926 (2) Gastroenteritis ICD Codes: K52.9 - Noninfective gastroenteritis and colitis, unspecified SNOMED: 72095596 (3) Pancreatic pseudocyst ICD Codes: K86.3 - Pseudocyst of pancreas SNOMED: 346580380 (4) Hepatotoxicity, secondary to ETOH ICD Codes: K70.9 - Alcoholic liver disease, unspecified SNOMED: 00365948 (5) Colitis ICD Codes: K52.9 - Noninfective gastroenteritis and colitis, unspecified SNOMED: 76502223 (6) ETOH abuse ICD Codes: F10.10 - Alcohol abuse, uncomplicated SNOMED: 70219324 Status: stable Status Narrative Discussed with Dr. Chandler. Assessment/Plan (1) ETOH abuse (2) Hepatotoxicity, secondary to ETOH (3) Colitis (4) Gastroenteritis (5) Depression (6) Pancreatic pseudocyst Recommendations okay for DC per GI standpoint PO as tolerated zofran prn Ativan prn for agitation anemia work up OB stool r/o GI bleed, will consider endoscopy for EV if necessary monitor H&H, prn transfusions ppi fu labs avoid alcohol Subjective Subjective nausea resolved agitation improved Objective Last 24 Hour Vital Signs Date Time Temp Pulse Resp B/P (MAP) Pulse Ox O2 Delivery O2 Flow Rate FiO2 01/03/18 08:00 98.2 125 20 131/80 97 Room Air 98.2 01/03/18 08:00 108 01/03/18 04:00 97.7 90 21 132/79 98 Room Air 97.7 01/03/18 04:00 91 01/03/18 00:00 88 01/03/18 00:00 98.1 67 20 118/79 97 Room Air 98.1 01/02/18 20:00 103 01/02/18 20:00 98.1 102 20 136/89 99 Room Air 98.1 01/02/18 16:00 105 01/02/18 16:00 98.1 108 18 136/97 100 Room Air 98.1 01/02/18 12:00 98.2 110 18 118/82 100 Room Air 98.2 01/02/18 12:00 104 Intake and Output 01/02/18 01/03/18 19:00 07:00 Intake Total 720 ml Balance 720 ml Intake Oral 720 ml # Voids 2 2 # Bowel Movements 1 Laboratory Tests Test 01/03/18 10:35 White Blood Count Pending Red Blood Count Pending Hemoglobin Pending Hematocrit Pending Mean Corpuscular Volume Pending Mean Corpuscular Hemoglobin Pending Mean Corpuscular Hemoglobin Concent Pending Red Cell Distribution Width Pending Platelet Count Pending Mean Platelet Volume Pending Neutrophils (%) (Auto) Pending Lymphocytes (%) (Auto) Pending Monocytes (%) (Auto) Pending Eosinophils (%) (Auto) Pending Basophils (%) (Auto) Pending Sodium Level Pending Potassium Level Pending Chloride Level Pending Carbon Dioxide Level Pending Blood Urea Nitrogen Pending Creatinine Pending Estimat Glomerular Filtration Rate Pending Glucose Level Pending Calcium Level Pending Height (Feet): 5 Height (Inches): 8.00 Weight (Pounds): 160 General Appearance: WD/WN, no apparent distress, alert Cardiovascular: normal rate Respiratory/Chest: normal breath sounds, no respiratory distress Abdominal Exam: normal bowel sounds, non tender, soft Extremities: normal range of motion, non-tender Bernice Larry N.P. Jan 03, 2018 11:21
[2018-01-03 11:24] LABS: HEMATOCRIT 31.5 % (42.0-52.0); HEMOGLOBIN 10.6 G/DL (14.2-18.0); MEAN CORPUSCULAR VOLUME 96 FL (80-99); PLATELET COUNT 168 K/UL (150-450); RED BLOOD COUNT 3.29 M/UL (4.70-6.10); RED CELL DISTRIBUTION WIDTH 14.8 % (11.6-14.8); WHITE BLOOD COUNT 3.3 K/UL (4.8-10.8)
[2018-01-03 11:26] LABS: ANION GAP 4 mmol/L (5-15); BLOOD UREA NITROGEN 6 mg/dL (7-18); CALCIUM 8.7 MG/DL (8.5-10.1); CARBON DIOXIDE 32 MMOL/L (21-32); CHLORIDE 99 MMOL/L (98-107); CREATININE 0.9 MG/DL (0.55-1.30); POTASSIUM 4.4 MMOL/L (3.5-5.1); SODIUM 135 MMOL/L (136-145)
[2018-01-03 12:00] VITALS: BP 145/96
--- NOTE | 2018-01-03 12:48 | Diagnostic Imaging Report ---
Indication: Pain 2 views of the right knee were obtained. Findings: No acute fracture, malalignment, or joint effusion are identified. Joint space is relatively well-maintained. Bone mineralization is diffusely decreased. Impression: Negative for acute injury
--- NOTE | 2018-01-03 12:49 | Diagnostic Imaging Report ---
Indication: Back pain Comparison: None Findings: 3 views of the lumbar spine were obtained. No acute fracture or malalignment is identified. Vertebral body heights and disk spaces are well maintained. Posterior elements are unremarkable. Bones are osteopenic. Impression: No acute findings.
--- NOTE | 2018-01-03 15:41 | Wound Nurse Progress Note ---
Wound RN Progress Note Wound Consult received consult,assessed noted right knee appearing as scab and scar tissue present and lip area noted with dry scabs, both sites are resolving. continue local wound care as previously ordered. DIANDRA DRAKE Jan 03, 2018 15:41
--- NOTE | 2018-01-04 12:06 | Discharge Summary ---
Discharge Summary Hospital Course Date of Admission Dec 29, 2017 at 13:17 Date of Discharge Jan 03, 2018 at 15:30 Admitting Diagnosis SYNCOPE,UNCONTROLLED DIABETIES HPI Ciaran Adams is a 47 year old male who was admitted on Dec 29, 2017 at 13:17 for Syncope Uncontrolled Diabeties Hospital Course dc summary#[id number] Discharge Medications New Medications: Chlordiazepoxide (Chlordiazepoxide HCl) 25 Mg Capsule 25 MG ORAL Q6H PRN for 10 Days, #30 CAP Gabapentin (Neurontin) 300 Mg Capsule 300 MG ORAL Q12HR for 10 Days, CAP Insulin Detemir (Levemir Flexpen) 100 Unit/1 Ml Insuln.pen 10 UNITS SUBQ DAILY for 10 Days, EA Multivitamins* (Multivitamins*) 1 Each Tablet 1 TAB ORAL DAILY for 10 Days, TAB Nateglinide (Starlix) 120 Mg Tablet 120 MG ORAL TIAC for 10 Days, TAB Discharge Condition Upon Discharge: stable Discharge Disposition Patient was discharged to Home with Home Health(06) Discharge Diagnoses: Discharge Instructions Discharge Instructions Special Instructions I have been assigned to complete a D/C Summary on this account. I was not involved in the patient management Tiffani Wu NP ([place]) Jan 04, 2018 12:06
--- NOTE | 2018-01-05 07:00 | Discharge Summary 2 SIG ---
DATE OF ADMISSION: 12/29/2017 DATE OF DISCHARGE: 01/03/2018 REASON FOR ADMISSION: 47-year-old male with past medical history significant for diabetes, depression, and anxiety, presented to emergency room with complaint of reported syncopal episode. The patient was brought by paramedics. He reported nausea, vomiting, and diarrhea. The patient also reported right lower abdominal pain. Symptoms were present for few weeks. Upon evaluation, vital signs were stable. Pulse oximetry was stable on room air. Afebrile. No leukocytosis, in fact leukopenic, WBC- 3.0. Anemia with hemoglobin -10.7 and hematocrit -30.8. Glucose -158, however, hemoglobin A1c -11.3. Stool OB was negative. EKG revealed no acute ischemic changes. CT of the head done due to the syncopal episode revealed no evidence of acute intracranial pathology. CT of the abdomen and pelvis revealed chronic pancreatitis with pancreatic pseudocyst as well as the evidence of mild gastroenteritis/colitis , inflammatory versus infectious. Serum alcohol level -173. Urine toxicology screen was negative. AST -420 and ALT -147. The patient was admitted with diagnoses of acute encephalopathy secondary to alcohol intoxication, syncopal episode, diabetes mellitus out of control, gastroenteritis, colitis, chronic pancreatitis, pancreatic pseudocyst, anemia, alcohol abuse, leukopenia, and hepatotoxicity secondary to alcohol abuse. HOSPITAL COURSE: The patient was admitted. The patient was started on the IV fluids with banana bag. Librium was provided as needed. Neurology and GI consults were requested. Carotid duplex revealed no evidence of carotid stenosis. Echocardiogram revealed preserved ejection fraction of 60% to 65% and right ventricular systolic pressure of 22. According to neurologist, syncopal episode possibly was due to dehydration secondary to nausea, vomiting, and diarrhea lasting for a week as well as significant alcohol abuse and possible autonomic dysfunction secondary to neuropathic process. Neuropathy workup including serum protein electrophoresis , vitamin B12, vitamin D, and RPR were all negative. GI closely followed. Per GI, the patient was started on liquid diet and advanced slowly as tolerated. Anemia workup was consistent with anemia of chronic disease. Stool OB was negative. Hemoglobin and hematocrit were closely monitored. No need for blood transfusion, remained on the baseline. The patient was started on PPI. Antiemetic provided as needed. The patient was counseled to avoid alcohol. GI clsoely followed. Per GI, pancreatic pseudocyst likely secondary to chronic alcohol abuse. No further workup was necessary . Hepatotoxicity was secondary to alcohol abuse. In fact prior to discharge, AST -40 from initial -420 and ALT from initial- 147 down to -52. No leukocytosis. No fever. Per GI, may consider outpatient endoscopy for esophageal varices as necessary. However, stool OB was negative and no need for endoscopy at this time. Fall precautions were maintained. The patient was working with physical and occupational therapists. LFTs were trending down. Blood sugar was managed under the direction of swatch folder, who closely followed the patient. Hemoglobin A1c -11.3, clearly not at goal. The patient was advised on compliance as outpatient with anti-glycemic regimen. While in the hospital, the patient was on the Levemir and Starlix. Insulin sliding scale provided as needed. No metformin was advised secondary to history of alcohol abuse. The patient also undergone right knee x-ray and LS-spine x-ray, which revealed no acute process. Mild gastroenteritis versus colitis on C abdomen/pelvis, inflammatory versus infectious. No fever, no leukocytosis. The patient was clinically improving. No antibiotics were provided. Pain management provided. Diarrhea subsided. Patient was able to tolerate diet. Hemoglobin and hematocrit stable. Leukopenia likely due to alcohol abuse. The patient was stable for discharge home with home health services for PT/OT. FINAL DIAGNOSES: 1. Acute encephalopathy secondary to alcohol intoxication. 2. Syncopal episode secondary to possible dehydration . 3. Mild gastroenteritis. 4. Colitis. 5. Diabetes mellitus, out of control. 6. Chronic pancreatitis. 7. Pancreatic pseudocyst. 8. Alcohol abuse. 9. Leukopenia. 10. Anemia. 11. Hepatotoxicity secondary to alcohol abuse, improved. DISCHARGE MEDICATIONS: See medication reconciliation list. DISCHARGE INSTRUCTIONS: The patient discharged home with home health services for PT/OT. The patient reinforced compliance with anti-glycemic medication. The patient was counseled on abstinence from alcohol. Adalgisa Castrejon M.D. I have been assigned to dictate discharge summary on this account and I was not involved in the patient's management. Tiffani Wu N.P. (vanchtein) DR: SUZY JOB#: [id number] CC: RIKY
--- NOTE | 2018-01-05 13:03 | Diagnostic Imaging Report ---
APPROVED REPORT CPT Code: 41761 Present Symptoms Comments: R/O DVT BILATERAL: Imaging reveals a patent deep venous system bilaterally. There is no evidence of thrombus within the femoral, popliteal or tibial segments. The greater saphenous veins are also within normal limits. Doppler indicates normal spontaneous flow within these segments.
--- NOTE | 2018-01-05 13:07 | Diagnostic Imaging Report ---
APPROVED REPORT CPT Code: 16998 Vascular Symptoms Comments: Fainting CAROTID (BILATERAL) - Imaging reveals no significant plaque within the right and left extracranial carotid arteries. The Doppler spectral flow analysis is within normal limits throughout the extracranial carotid arteries bilaterally. VERTEBRAL- The vertebral arteries are within normal limits.
== END 2018-01-03 15:30 | disposition home health service (06) | DRG 640 ==
LOC: EDBD 09:20 → EMR 09:35 → 2E 13:17 → EDBEDREQ 13:53
DX: E86.0 Dehydration (principal); G93.40 Encephalopathy, unspecified; K52.9 Noninfective gastroenteritis and colitis, unspecified; K86.3 Pseudocyst of pancreas; K86.1 Other chronic pancreatitis; E11.65 Type 2 diabetes mellitus with hyperglycemia; D63.8 Anemia in other chronic diseases classified elsewhere; D72.819 Decreased white blood cell count, unspecified; F10.229 Alcohol dependence with intoxication, unspecified; Z79.4 Long term (current) use of insulin
CPT/HCPCS: 36415; 70450; 72020; 74177; 80048; 80053; 80061; 80307; 80329; 81001; 82270; 82306; 82378; 82607; 82728; 82746; 82962; 83036; 83540; 83550; 83690; 84165; 84439; 84443; 84484; 85007; 85025; 85044; 85379; 85610; 85730; 86140; 86592; 86900; 86901; 93005; 93306; 93880; 93970; 99284; J1815; J2405; J8499; S5561

== ENCOUNTER 2018-04-12 18:34 | Inpatient (IN) | payer OTHER ==
[~2018-04-12] VITALS: Ht 188 cm; Wt 81.2 kg
[~2018-04-12 18:34] MED LIST changes: +LEVEMIR FL100 UNIT/1 SUBQ; +LIBRIUM25 MG ORAL; +MULTIVITAMINS1 EAC2 ORAL; +NEURONTIN300 MG ORAL; +STARLIX120 MG ORAL; +UNOBMED
[2018-04-12] MEDS ORDERED: LORazepam Inj 2mg/ml 1ml IV ONE ×2 (19:00→22:45)
[2018-04-12 19:20] VITALS: BP 103/84
[2018-04-12 20:33] VITALS: BP 101/82
[2018-04-12 21:08] LABS: BASOPHILS % (AUTO) 2.5 % (0.0-2.0); EOSINOPHILS % (AUTO) 0.1 % (0.0-3.0); HEMATOCRIT 42.1 % (42.0-52.0); HEMOGLOBIN 14.1 G/DL (14.2-18.0); LYMPHOCYTES % (AUTO) 19.3 % (20.0-45.0); MEAN CORPUSCULAR VOLUME 87 FL (80-99); MONOCYTES % (AUTO) 9.3 % (1.0-10.0); NEUTROPHILS % (AUTO) 68.8 % (45.0-75.0); PLATELET COUNT 145 K/UL (150-450); RED BLOOD COUNT 4.83 M/UL (4.70-6.10); RED CELL DISTRIBUTION WIDTH 14.3 % (11.6-14.8); WHITE BLOOD COUNT 7.1 K/UL (4.8-10.8)
[2018-04-12 21:22] LABS: ANION GAP 17 mmol/L (5-15); BLOOD UREA NITROGEN 36 mg/dL (7-18); CALCIUM 9.5 MG/DL (8.5-10.1); CARBON DIOXIDE 15 MMOL/L (21-32); CHLORIDE 103 MMOL/L (98-107); CREATININE 1.7 MG/DL (0.55-1.30); POTASSIUM 4.2 MMOL/L (3.5-5.1); SODIUM 135 MMOL/L (136-145)
--- NOTE | 2018-04-12 21:22 | Emergency Room Report ---
History of Present Illness General Chief Complaint: Generalized Weakness Source: Patient, EMS Present Illness HPI 48-year-old male presents ED for evaluation. Patient came from home complaining of chest pain abdominal pain, weakness, feeling dehydrated 1 day. Pain is sharp, 8 out of 10, nonradiating. Notes nausea and vomiting. Denies fevers or chills. Accu-Chek within normal limits. History of diabetes. History of chronic pancreatitis. No other aggravating relieving factors. Denies any other associated symptoms Allergies: Coded Allergies: No Known Allergies (Unverified , 12/29/17) Patient History Past Medical History: DM, psych hx, other - pancreatitis Past Surgical History: none Pertinent Family History: none Social History: Denies: smoking, alcohol use, drug use Immunizations: UTD Reviewed Nursing Documentation: PMH: Agreed; PSxH: Agreed Nursing Documentation-PMH Hx Cardiac Problems: No Hx Diabetes: Yes Hx Cancer: No Hx Gastrointestinal Problems: No History Of Psychiatric Problem: Yes - bipolar, schizophrenia, neuropathy Review of Systems All Other Systems: negative except mentioned in HPI Physical Exam Vital Signs Date Time Temp Pulse Resp B/P (MAP) Pulse Ox O2 Delivery O2 Flow Rate FiO2 04/12/18 18:30 98.9 128 20 130/103 100 Room Air 99.0 Sp02 EP Interpretation: reviewed, normal General Appearance: no apparent distress, alert, GCS 15, non-toxic Head: normocephalic, atraumatic Eyes: bilateral eye normal inspection, bilateral eye PERRL ENT: hearing grossly normal, normal pharynx, no angioedema, normal voice Neck: full range of motion, supple/symm/no masses Respiratory: chest non-tender, lungs clear, normal breath sounds, speaking full sentences Cardiovascular #1: no edema, tachycardia Cardiovascular #2: 2+ carotid (R), 2+ carotid (L), 2+ radial (R), 2+ radial (L) , 2+ dorsalis pedis (R), 2+ dorsalis pedis (L) Gastrointestinal: normal bowel sounds, non tender, soft, non-distended, no guarding, no rebound Rectal: deferred Genitourinary: normal inspection, no CVA tenderness Musculoskeletal: back normal, gait/station normal, normal range of motion, non- tender Neurologic: alert, oriented x3, responsive, motor strength/tone normal, sensory intact, speech normal Psychiatric: judgement/insight normal, memory normal, mood/affect normal, no suicidal/homicidal ideation Reflexes: 3+ bicep (R), 3+ bicep (L), 3+ tricep (R), 3+ tricep (L), 3+ knee (R) , 3+ knee (L) Skin: normal color, no rash, warm/dry, well hydrated Lymphatic: no adenopathy Medical Decision Making Diagnostic Impression: Primary Impression: Episode of generalized weakness Additional Impressions: Dehydration Alcohol withdrawal Qualified Codes: F10.239 - Alcohol dependence with withdrawal, unspecified ER Course Hospital Course 48-year-old male presents ED with nausea, abdominal pain, tachycardic. Differential diagnoses include: Alcohol intoxication, drug abuse, opioid withdrawal, alcohol withdrawal, dehydration Clinical course Patient placed on stretcher. On ekg monitor tech. After initial history and physical I ordered labs, IV fluids, Ativan, EKG, CXR patient is difficult IV access; ultimately nursing able to establish peripheral IV Labs reviewed- BUN/Cr elevateed, hemoglobin/hematocrit stable, no leukocytosis, alcohol level < 3, trop 0.00 EKGsinus tachycardia no ischemic changes interpreted by me CXR no acute process Tachycardia slowly resolving after Ativan, IV fluids. Case discussed with Dr. Juarez and he agreed to except the patient to his service for further care and support i. I feel this is a highly complex case requiring extensive working including EKG/Rhythm strip, Xray/CT/US, Blood/urine lab work, repeat exams while in ED, and administration of strong opiates/narcotics for pain control, admission to hospital or close patient follow up. Diagnosis - alcohol withdrawal , generalized weakness, dehydration Admitted to floor in serious condition Labs Test 04/12/18 20:45 White Blood Count 7.1 K/UL (4.8-10.8) Red Blood Count 4.83 M/UL (4.70-6.10) Hemoglobin 14.1 G/DL (14.2-18.0) Hematocrit 42.1 % (42.0-52.0) Mean Corpuscular Volume 87 FL (80-99) Mean Corpuscular Hemoglobin 29.2 PG (27.0-31.0) Mean Corpuscular Hemoglobin Concent 33.5 G/DL (32.0-36.0) Red Cell Distribution Width 14.3 % (11.6-14.8) Platelet Count 145 K/UL (150-450) Mean Platelet Volume 7.1 FL (6.5-10.1) Neutrophils (%) (Auto) 68.8 % (45.0-75.0) Lymphocytes (%) (Auto) 19.3 % (20.0-45.0) Monocytes (%) (Auto) 9.3 % (1.0-10.0) Eosinophils (%) (Auto) 0.1 % (0.0-3.0) Basophils (%) (Auto) 2.5 % (0.0-2.0) Sodium Level 135 MMOL/L (136-145) Potassium Level 4.2 MMOL/L (3.5-5.1) Chloride Level 103 MMOL/L (98-107) Carbon Dioxide Level 15 MMOL/L (21-32) Anion Gap 17 mmol/L (5-15) Blood Urea Nitrogen 36 mg/dL (7-18) Creatinine 1.7 MG/DL (0.55-1.30) Estimat Glomerular Filtration Rate 52.2 mL/min (>60) Glucose Level 157 MG/DL (74-106) Calcium Level 9.5 MG/DL (8.5-10.1) Total Bilirubin 0.5 MG/DL (0.2-1.0) Aspartate Amino Transf (AST/SGOT) 42 U/L (15-37) Alanine Aminotransferase (ALT/SGPT) 70 U/L (12-78) Alkaline Phosphatase 145 U/L (46-116) Total Creatine Kinase 56 U/L (26-308) Creatine Kinase MB 0.9 NG/ML (0.0-3.6) Creatine Kinase MB Relative Index 1.6 Troponin I 0.000 ng/mL (0.000-0.056) Total Protein 7.7 G/DL (6.4-8.2) Albumin 3.9 G/DL (3.4-5.0) Globulin 3.8 g/dL Albumin/Globulin Ratio 1.0 (1.0-2.7) Lipase 60 U/L (73-393) Salicylates Level 2.8 ug/mL (2.8-20) Acetaminophen Level < 2 MCG/ML (10-30) Serum Alcohol < 3 mg/dL EKG Diagnostic Results Rate: tachycardiac Rhythm: NSR ST Segments: no acute changes ASA given to the pt in ED: No Rhythm Strip Diag. Results EP Interpretation: yes Rhythm: NSR, no PVC's, no ectopy Chest X-Ray Diagnostic Results Chest X-Ray Diagnostic Results : Chest X-Ray Ordered: Yes # of Views/Limited/Complete: 1 View Indication: Chest Pain EP Interpretation: Yes Interpretation: no consolidation, no effusion, no pneumothorax, no acute cardiopulmonary disease Impression: No acute disease Electronically Signed by: Electronically signed by Atul Garcia MD Last Vital Signs Date Time Temp Pulse Resp B/P (MAP) Pulse Ox O2 Delivery O2 Flow Rate FiO2 04/12/18 20:33 98.6 127 17 101/82 100 Room Air 98.6 Status: improved Disposition: ADMITTED INPATIENT Condition: Serious Referrals: NON PHYSICIAN (PCP) Atul Garcia MD Apr 12, 2018 21:22
[2018-04-12 21:28] LABS: ALANINE AMINOTRANSFERASE 70 U/L (12-78); ALBUMIN 3.9 G/DL (3.4-5.0); ALKALINE PHOSPHATASE 145 U/L (46-116); ASPARTATE AMINO TRANSFERASE 42 U/L (15-37); BILIRUBIN,TOTAL 0.5 MG/DL (0.2-1.0)
[2018-04-12 21:34] LABS: CKMB 0.9 NG/ML (0.0-3.6)
[2018-04-12 22:01] VITALS: BP 105/73
[2018-04-12] MEDS ORDERED: CELEXA20 MG ORAL (22:01)
[2018-04-12] MEDS ORDERED: QUETIAPINE FUMA25 MG ORAL (22:01)
[2018-04-12 23:25] VITALS: BP 102/74
[2018-04-13] VITALS: BP 138/82
[2018-04-13] MEDS ORDERED: LORazepam Inj 2mg/ml 1ml IVP PRN (00:15)
[2018-04-13 04:00] VITALS: BP 124/83
[2018-04-13] MEDS: NovoLOG Insulin Flexpen SUBQ SCH ×4 (06:07→21:07)
[2018-04-13 06:39] LABS: BASOPHILS % (AUTO) 0.9 % (0.0-2.0); EOSINOPHILS % (AUTO) 0.1 % (0.0-3.0); HEMOGLOBIN 13.8 G/DL (14.2-18.0); MEAN CORPUSCULAR VOLUME 89 FL (80-99); MONOCYTES % (AUTO) 5.8 % (1.0-10.0); NEUTROPHILS % (AUTO) 71.1 % (45.0-75.0); PLATELET COUNT 130 K/UL (150-450); RED BLOOD COUNT 4.72 M/UL (4.70-6.10); RED CELL DISTRIBUTION WIDTH 14.4 % (11.6-14.8); WHITE BLOOD COUNT 6.6 K/UL (4.8-10.8)
[2018-04-13 07:07] LABS: ALANINE AMINOTRANSFERASE 62 U/L (12-78); ALBUMIN 3.8 G/DL (3.4-5.0); ALBUMIN/GLOBULIN RATIO 0.9 (1.0-2.7); ALKALINE PHOSPHATASE 132 U/L (46-116); ANION GAP 12 mmol/L (5-15); ASPARTATE AMINO TRANSFERASE 42 U/L (15-37); BILIRUBIN,TOTAL 0.6 MG/DL (0.2-1.0); BLOOD UREA NITROGEN 27 mg/dL (7-18); CALCIUM 9.5 MG/DL (8.5-10.1); CARBON DIOXIDE 21 MMOL/L (21-32); CHLORIDE 105 MMOL/L (98-107); CREATININE 1.4 MG/DL (0.55-1.30); POTASSIUM 3.9 MMOL/L (3.5-5.1); SODIUM 138 MMOL/L (136-145)
[2018-04-13 08:00] VITALS: BP 129/90
--- NOTE | 2018-04-13 08:33 | Consultation ---
History of Present Illness General Date patient seen: Apr 13, 2018 Chief Complaint: Present Illness Allergies: Coded Allergies: No Known Allergies (Unverified , 12/29/17) Medication History Scheduled Ciprofloxacin* (Cipro*), 500 MG PO BID, (Reported) Citalopram Hydrobromide* (Citalopram Hbr*), 20 MG PO DAILY, (Reported) Citalopram Hydrobromide* (Celexa*), 20 MG ORAL DAILY, (Reported) Gabapentin (Neurontin), 300 MG ORAL Q12HR Insulin Detemir (Levemir Flexpen), 10 UNITS SUBQ DAILY Metformin Hcl* (Glucophage*), 600 MG ORAL TWICE A DAY, (Reported) Multivitamins* (Multivitamins*), 1 TAB ORAL DAILY Nateglinide (Starlix), 120 MG ORAL TIAC Quetiapine Fumarate* (Seroquel*), 25 MG ORAL DAILY, (Reported) Scheduled PRN Chlordiazepoxide (Chlordiazepoxide HCl), 25 MG ORAL Q6H PRN Miscellaneous Medications Unable to Obtain Medications (Unable To Obtain Meds), (Reported) Patient History Healthcare decision maker unknown Resuscitation status Full Code Advanced Directive on File Physical Exam Last 24 Hour Vital Signs Date Time Temp Pulse Resp B/P (MAP) Pulse Ox O2 Delivery O2 Flow Rate FiO2 04/13/18 04:00 97.2 117 20 124/83 100 Room Air 97.2 04/13/18 00:00 98.2 111 20 138/82 100 Room Air 98.2 04/12/18 23:25 98.6 120 18 102/74 98 Room Air 98.6 04/12/18 23:25 120 18 102/74 98 Room Air 04/12/18 22:01 117 17 105/73 100 Room Air 04/12/18 20:33 98.6 127 17 101/82 100 Room Air 98.6 04/12/18 19:20 97.6 131 16 103/84 100 Room Air 97.6 04/12/18 18:30 98.9 128 20 130/103 100 Room Air 99.0 Intake and Output 04/12/18 04/13/18 19:00 07:00 Intake Total 3000 ml Output Total 0 ml Balance 3000 ml Intake IV Total 2000 ml Other 1000 ml Output Urine Total 0 ml Laboratory Tests Test 04/12/18 20:45 04/13/18 06:00 White Blood Count 7.1 K/UL (4.8-10.8) 6.6 K/UL (4.8-10.8) Red Blood Count 4.83 M/UL (4.70-6.10) 4.72 M/UL (4.70-6.10) Hemoglobin 14.1 G/DL (14.2-18.0) L 13.8 G/DL (14.2-18.0) L Hematocrit 42.1 % (42.0-52.0) 42.0 % (42.0-52.0) Mean Corpuscular Volume 87 FL (80-99) 89 FL (80-99) Mean Corpuscular Hemoglobin 29.2 PG (27.0-31.0) 29.3 PG (27.0-31.0) Mean Corpuscular Hemoglobin Concent 33.5 G/DL (32.0-36.0) 32.9 G/DL (32.0-36.0) Red Cell Distribution Width 14.3 % (11.6-14.8) 14.4 % (11.6-14.8) Platelet Count 145 K/UL (150-450) L 130 K/UL (150-450) L Mean Platelet Volume 7.1 FL (6.5-10.1) 7.2 FL (6.5-10.1) Neutrophils (%) (Auto) 68.8 % (45.0-75.0) 71.1 % (45.0-75.0) Lymphocytes (%) (Auto) 19.3 % (20.0-45.0) L 22.0 % (20.0-45.0) Monocytes (%) (Auto) 9.3 % (1.0-10.0) 5.8 % (1.0-10.0) Eosinophils (%) (Auto) 0.1 % (0.0-3.0) 0.1 % (0.0-3.0) Basophils (%) (Auto) 2.5 % (0.0-2.0) H 0.9 % (0.0-2.0) Sodium Level 135 MMOL/L (136-145) L 138 MMOL/L (136-145) Potassium Level 4.2 MMOL/L (3.5-5.1) 3.9 MMOL/L (3.5-5.1) Chloride Level 103 MMOL/L (98-107) 105 MMOL/L (98-107) Carbon Dioxide Level 15 MMOL/L (21-32) L 21 MMOL/L (21-32) Anion Gap 17 mmol/L (5-15) H 12 mmol/L (5-15) Blood Urea Nitrogen 36 mg/dL (7-18) H 27 mg/dL (7-18) H Creatinine 1.7 MG/DL (0.55-1.30) H 1.4 MG/DL (0.55-1.30) H Estimat Glomerular Filtration Rate 52.2 mL/min (>60) > 60 mL/min (>60) Glucose Level 157 MG/DL (74-106) H 60 MG/DL (74-106) L Calcium Level 9.5 MG/DL (8.5-10.1) 9.5 MG/DL (8.5-10.1) Total Bilirubin 0.5 MG/DL (0.2-1.0) 0.6 MG/DL (0.2-1.0) Aspartate Amino Transf (AST/SGOT) 42 U/L (15-37) H 42 U/L (15-37) H Alanine Aminotransferase (ALT/SGPT) 70 U/L (12-78) 62 U/L (12-78) Alkaline Phosphatase 145 U/L (46-116) H 132 U/L (46-116) H Total Creatine Kinase 56 U/L (26-308) Creatine Kinase MB 0.9 NG/ML (0.0-3.6) Creatine Kinase MB Relative Index 1.6 Troponin I 0.000 ng/mL (0.000-0.056) Total Protein 7.7 G/DL (6.4-8.2) 7.8 G/DL (6.4-8.2) Albumin 3.9 G/DL (3.4-5.0) 3.8 G/DL (3.4-5.0) Globulin 3.8 g/dL 4.0 g/dL Albumin/Globulin Ratio 1.0 (1.0-2.7) 0.9 (1.0-2.7) L Lipase 60 U/L (73-393) L Salicylates Level 2.8 ug/mL (2.8-20) Acetaminophen Level < 2 MCG/ML (10-30) L Serum Alcohol < 3 mg/dL Height (Feet): 6 Height (Inches): 2.00 Weight (Pounds): 179 Medications Current Medications Medications (Trade) Dose Ordered Sig/Adolfo Route PRN Reason Start Time Stop Time Status Last Admin Dose Admin Citalopram Hydrobromide (celeXA) 20 mg DAILY ORAL 04/13/18 09:00 05/13/18 08:59 Dextrose (Dextrose 50%) 25 ml STAT PRN IV Hypoglycemia 04/13/18 00:15 05/13/18 00:14 Dextrose (Dextrose 50%) 50 ml STAT PRN IV Hypoglycemia 04/13/18 00:15 05/13/18 00:14 Gabapentin (Neurontin) 300 mg Q12HR ORAL 04/13/18 09:00 05/13/18 08:59 Insulin Aspart (NovoLOG) BEFORE MEALS AND HS SUBQ 04/13/18 06:30 05/13/18 06:29 Lorazepam (Ativan 2mg/ml 1ml) 1 mg Q4H PRN IVP For Anxiety and seizure 04/13/18 00:15 04/20/18 00:14 Multivitamins (Multivitamins) 1 tab DAILY ORAL 04/13/18 09:00 05/13/18 08:59 Quetiapine Fumarate (SEROquel) 25 mg DAILY ORAL 04/13/18 09:00 05/13/18 08:59 Sodium Chloride 1,000 ml @ 90 mls/hr Q11H7M IV 04/13/18 00:15 05/13/18 00:14 04/13/18 04:33 Assessment/Plan Assessment/Plan (1) Alcohol abuse (2) Alcohol withdrawal (3) Abdominal pain (4) Pancreatic pseudocyst Seen dictated Tomasz Wilkerson Apr 13, 2018 08:33
[2018-04-13] MEDS ORDERED: metFORMIN 500mg tab ORAL SCH (09:00)
[2018-04-13] MEDS ORDERED: Citalopram 20mg Tab ORAL SCH (09:00)
[2018-04-13] MEDS ORDERED: Levemir Flexpen SUBQ SCH (09:00)
--- NOTE | 2018-04-13 10:46 | Diagnostic Imaging Report ---
Indication: Chest pain Technique: One view of the chest Comparison: none Findings: Lungs and pleural spaces are clear. Heart size is normal Impression: No acute process
[2018-04-13 12:00] VITALS: BP 124/94
[2018-04-13] MEDS: Thiamine 100mg tab ORAL SCH (12:00)
--- NOTE | 2018-04-13 12:06 | Consultation ---
History of Present Illness General Date patient seen: Apr 13, 2018 Chief Complaint: Generalized Weakness Present Illness HPI 48-year-old male presents to hospital and complaining of chest pain abdominal pain. the pt has hx of alcohol dependence and visual hallucinations. the pt has anxiety however falls sleep during the day. the pt is tachy however bp is wnls Allergies: Coded Allergies: No Known Allergies (Unverified , 12/29/17) Medication History Scheduled Ciprofloxacin* (Cipro*), 500 MG PO BID, (Reported) Citalopram Hydrobromide* (Citalopram Hbr*), 20 MG PO DAILY, (Reported) Citalopram Hydrobromide* (Celexa*), 20 MG ORAL DAILY, (Reported) Gabapentin (Neurontin), 300 MG ORAL Q12HR Insulin Detemir (Levemir Flexpen), 10 UNITS SUBQ DAILY Metformin Hcl* (Glucophage*), 600 MG ORAL TWICE A DAY, (Reported) Multivitamins* (Multivitamins*), 1 TAB ORAL DAILY Nateglinide (Starlix), 120 MG ORAL TIAC Quetiapine Fumarate* (Seroquel*), 25 MG ORAL DAILY, (Reported) Scheduled PRN Chlordiazepoxide (Chlordiazepoxide HCl), 25 MG ORAL Q6H PRN Miscellaneous Medications Unable to Obtain Medications (Unable To Obtain Meds), (Reported) Patient History History Provided By: Patient, Medical Record, PMD Healthcare decision maker unknown Resuscitation status Full Code Advanced Directive on File No Past Medical/Surgical History Past Medical/Surgical History: (1) Depression (2) Gastroenteritis (3) Pancreatic pseudocyst (4) Hepatotoxicity, secondary to ETOH (5) Colitis (6) Diabetes mellitus out of control (7) Syncope (8) Alcohol withdrawal (9) Episode of generalized weakness (10) Dehydration (11) Low blood sugar reading (12) Abdominal pain Review of Systems Psychiatric: Reports: prior hx, anxiety, depressed feelings, emotional problems Physical Exam General Appearance: no apparent distress, alert Neurologic: oriented x 3, responsive, depressed affect Last 24 Hour Vital Signs Date Time Temp Pulse Resp B/P (MAP) Pulse Ox O2 Delivery O2 Flow Rate FiO2 04/13/18 08:00 98.0 109 20 129/90 100 Room Air 98.0 04/13/18 04:00 97.2 117 20 124/83 100 Room Air 97.2 04/13/18 00:00 98.2 111 20 138/82 100 Room Air 98.2 04/12/18 23:25 98.6 120 18 102/74 98 Room Air 98.6 04/12/18 23:25 120 18 102/74 98 Room Air 04/12/18 22:01 117 17 105/73 100 Room Air 04/12/18 20:33 98.6 127 17 101/82 100 Room Air 98.6 04/12/18 19:20 97.6 131 16 103/84 100 Room Air 97.6 04/12/18 18:30 98.9 128 20 130/103 100 Room Air 99.0 Intake and Output 04/12/18 04/13/18 19:00 07:00 Intake Total 3000 ml Output Total 0 ml Balance 3000 ml Intake IV Total 2000 ml Other 1000 ml Output Urine Total 0 ml Laboratory Tests Test 04/12/18 20:45 04/13/18 06:00 White Blood Count 7.1 K/UL (4.8-10.8) 6.6 K/UL (4.8-10.8) Red Blood Count 4.83 M/UL (4.70-6.10) 4.72 M/UL (4.70-6.10) Hemoglobin 14.1 G/DL (14.2-18.0) L 13.8 G/DL (14.2-18.0) L Hematocrit 42.1 % (42.0-52.0) 42.0 % (42.0-52.0) Mean Corpuscular Volume 87 FL (80-99) 89 FL (80-99) Mean Corpuscular Hemoglobin 29.2 PG (27.0-31.0) 29.3 PG (27.0-31.0) Mean Corpuscular Hemoglobin Concent 33.5 G/DL (32.0-36.0) 32.9 G/DL (32.0-36.0) Red Cell Distribution Width 14.3 % (11.6-14.8) 14.4 % (11.6-14.8) Platelet Count 145 K/UL (150-450) L 130 K/UL (150-450) L Mean Platelet Volume 7.1 FL (6.5-10.1) 7.2 FL (6.5-10.1) Neutrophils (%) (Auto) 68.8 % (45.0-75.0) 71.1 % (45.0-75.0) Lymphocytes (%) (Auto) 19.3 % (20.0-45.0) L 22.0 % (20.0-45.0) Monocytes (%) (Auto) 9.3 % (1.0-10.0) 5.8 % (1.0-10.0) Eosinophils (%) (Auto) 0.1 % (0.0-3.0) 0.1 % (0.0-3.0) Basophils (%) (Auto) 2.5 % (0.0-2.0) H 0.9 % (0.0-2.0) Sodium Level 135 MMOL/L (136-145) L 138 MMOL/L (136-145) Potassium Level 4.2 MMOL/L (3.5-5.1) 3.9 MMOL/L (3.5-5.1) Chloride Level 103 MMOL/L (98-107) 105 MMOL/L (98-107) Carbon Dioxide Level 15 MMOL/L (21-32) L 21 MMOL/L (21-32) Anion Gap 17 mmol/L (5-15) H 12 mmol/L (5-15) Blood Urea Nitrogen 36 mg/dL (7-18) H 27 mg/dL (7-18) H Creatinine 1.7 MG/DL (0.55-1.30) H 1.4 MG/DL (0.55-1.30) H Estimat Glomerular Filtration Rate 52.2 mL/min (>60) > 60 mL/min (>60) Glucose Level 157 MG/DL (74-106) H 60 MG/DL (74-106) L Calcium Level 9.5 MG/DL (8.5-10.1) 9.5 MG/DL (8.5-10.1) Total Bilirubin 0.5 MG/DL (0.2-1.0) 0.6 MG/DL (0.2-1.0) Aspartate Amino Transf (AST/SGOT) 42 U/L (15-37) H 42 U/L (15-37) H Alanine Aminotransferase (ALT/SGPT) 70 U/L (12-78) 62 U/L (12-78) Alkaline Phosphatase 145 U/L (46-116) H 132 U/L (46-116) H Total Creatine Kinase 56 U/L (26-308) Creatine Kinase MB 0.9 NG/ML (0.0-3.6) Creatine Kinase MB Relative Index 1.6 Troponin I 0.000 ng/mL (0.000-0.056) Total Protein 7.7 G/DL (6.4-8.2) 7.8 G/DL (6.4-8.2) Albumin 3.9 G/DL (3.4-5.0) 3.8 G/DL (3.4-5.0) Globulin 3.8 g/dL 4.0 g/dL Albumin/Globulin Ratio 1.0 (1.0-2.7) 0.9 (1.0-2.7) L Lipase 60 U/L (73-393) L Salicylates Level 2.8 ug/mL (2.8-20) Acetaminophen Level < 2 MCG/ML (10-30) L Serum Alcohol < 3 mg/dL Height (Feet): 6 Height (Inches): 2.00 Weight (Pounds): 179 Medications Current Medications Medications (Trade) Dose Ordered Sig/Adolfo Route PRN Reason Start Time Stop Time Status Last Admin Dose Admin Acetaminophen (Tylenol) 650 mg Q4H PRN ORAL Mild Pain/Temp > 100.5 04/13/18 08:45 05/13/18 08:44 04/13/18 08:56 Citalopram Hydrobromide (celeXA) 20 mg DAILY ORAL 04/13/18 09:00 05/13/18 08:59 04/13/18 08:48 Dextrose (Dextrose 50%) 25 ml STAT PRN IV Hypoglycemia 04/13/18 00:15 05/13/18 00:14 Dextrose (Dextrose 50%) 50 ml STAT PRN IV Hypoglycemia 04/13/18 00:15 05/13/18 00:14 Diazepam (Valium) 10 mg Q4H PRN ORAL For Anxiety 04/13/18 11:00 04/20/18 10:59 Folic Acid (Folate) 1 mg DAILY ORAL 04/13/18 11:00 05/13/18 10:59 Gabapentin (Neurontin) 300 mg Q12HR ORAL 04/13/18 09:00 05/13/18 08:59 04/13/18 08:48 Insulin Aspart (NovoLOG) BEFORE MEALS AND HS SUBQ 04/13/18 06:30 05/13/18 06:29 Multivitamins (Multivitamins) 1 tab DAILY ORAL 04/13/18 09:00 05/13/18 08:59 04/13/18 08:48 Ondansetron HCl (Zofran) 4 mg Q6H PRN IVP Nausea & Vomiting 04/13/18 11:15 05/13/18 11:14 Pantoprazole (Protonix) 40 mg DAILY IVP 04/14/18 10:30 05/14/18 10:29 Sodium Chloride 1,000 ml @ 90 mls/hr Q11H7M IV 04/13/18 00:15 05/13/18 00:14 04/13/18 04:33 Thiamine HCl (Vitamin B1) 100 mg DAILY ORAL 04/13/18 11:00 05/13/18 10:59 Assessment/Plan Status: stable Assessment/Plan MDD Alcohol Depn -valium prn -risperdal -thiamin -folate -Giovanny Aragon M.D. Apr 13, 2018 12:06
--- NOTE | 2018-04-13 12:24 | GI Initial Consult Note ---
History of Present Illness General Date patient seen: Apr 13, 2018 Time patient seen: 15:08 Reason for Hospitalization: Generalized Weakness Referring physician: SURY MEDEIROS Reason for Consultation: N/V Present Illness HPI 48-year-old male presents ED for evaluation. Patient came from home complaining of chest pain abdominal pain, weakness, feeling dehydrated 1 day. Pain is sharp, 8 out of 10, nonradiating. Notes nausea and vomiting. Denies fevers or chills. Accu-Chek within normal limits. History of diabetes. History of chronic pancreatitis. No other aggravating relieving factors. Denies any other associated symptoms GI consulted for N/V, abdominal pain. Pt seen, awake A&Ox 4 NAD c/o of generalized pain with nausea. States that he is delusional. Had previous admission back in December with history of colitis. Admits to heavy drinking of vodka. Presents today with abnormal LFTs and renal insufficiency. Pancreatic pseudocyst noted on CT during last admission. No history of endoscopy / colonoscopies. Home Meds Active Scripts Multivitamins* (MULTIVITAMINS*) 1 Each Tablet, 1 TAB ORAL DAILY for 10 Days, TAB Prov:Adalgisa Castrejon MD 01/03/18 Nateglinide (Starlix) 120 Mg Tablet, 120 MG ORAL TIAC for 10 Days, TAB Prov:Adalgisa Castrejon MD 01/03/18 Insulin Detemir (LEVEMIR FLEXPEN) 100 Unit/1 Ml Insuln.pen, 10 UNITS SUBQ DAILY for 10 Days, EA Prov:Adalgisa Castrejon MD 01/03/18 Gabapentin (Neurontin) 300 Mg Capsule, 300 MG ORAL Q12HR for 10 Days, CAP Prov:Adalgisa Castrejon MD 01/03/18 Chlordiazepoxide (Chlordiazepoxide HCl) 25 Mg Capsule, 25 MG ORAL Q6H PRN for 10 Days, #30 CAP Prov:Adalgisa Castrejon MD 01/03/18 Reported Medications Citalopram Hydrobromide* (CELEXA*) 20 Mg Tablet, 20 MG ORAL DAILY, TAB 04/12/18 Quetiapine Fumarate* (SEROQUEL*) 25 Mg Tablet, 25 MG ORAL DAILY, TAB 04/12/18 Unable to Obtain Medications (UNABLE TO OBTAIN MEDS) 1 Ea Ea 12/29/17 Citalopram Hydrobromide* (CITALOPRAM HBR*) 20 Mg Tablet, 20 MG PO DAILY 02/24/13 Ciprofloxacin* (CIPRO*) 500 Mg Tablet, 500 MG PO BID 02/24/13 Metformin Hcl* (GLUCOPHAGE*) 500 Mg Tablet, 600 MG ORAL TWICE A DAY, #20 TAB 02/24/13 Med list reviewed/reconciled: Yes Allergies: Coded Allergies: No Known Allergies (Unverified , 12/29/17) Patient History History Provided By: Patient, Medical Record PMH Narrative Past Medical History: DM, psych hx, other - pancreatitis Past Surgical History: none Pertinent Family History: none Social History: Denies: smoking, alcohol use, drug use Immunizations: UTD Reviewed Nursing Documentation: PMH: Agreed; PSxH: Agreed Nursing Documentation-PMH Hx Cardiac Problems: No Hx Diabetes: Yes Hx Cancer: No Hx Gastrointestinal Problems: No History Of Psychiatric Problem: Yes - bipolar, schizophrenia, neuropathy Social History: Reports: alcohol use Review of Systems All Other Systems: negative except mentioned in HPI Physical Exam Vital Signs Date Time Temp Pulse Resp B/P (MAP) Pulse Ox O2 Delivery O2 Flow Rate FiO2 04/12/18 18:30 98.9 128 20 130/103 100 Room Air 99.0 Sp02 EP Interpretation: reviewed, normal Labs Laboratory Tests Test 04/12/18 20:45 04/13/18 06:00 White Blood Count 7.1 K/UL (4.8-10.8) 6.6 K/UL (4.8-10.8) Red Blood Count 4.83 M/UL (4.70-6.10) 4.72 M/UL (4.70-6.10) Hemoglobin 14.1 G/DL (14.2-18.0) L 13.8 G/DL (14.2-18.0) L Hematocrit 42.1 % (42.0-52.0) 42.0 % (42.0-52.0) Mean Corpuscular Volume 87 FL (80-99) 89 FL (80-99) Mean Corpuscular Hemoglobin 29.2 PG (27.0-31.0) 29.3 PG (27.0-31.0) Mean Corpuscular Hemoglobin Concent 33.5 G/DL (32.0-36.0) 32.9 G/DL (32.0-36.0) Red Cell Distribution Width 14.3 % (11.6-14.8) 14.4 % (11.6-14.8) Platelet Count 145 K/UL (150-450) L 130 K/UL (150-450) L Mean Platelet Volume 7.1 FL (6.5-10.1) 7.2 FL (6.5-10.1) Neutrophils (%) (Auto) 68.8 % (45.0-75.0) 71.1 % (45.0-75.0) Lymphocytes (%) (Auto) 19.3 % (20.0-45.0) L 22.0 % (20.0-45.0) Monocytes (%) (Auto) 9.3 % (1.0-10.0) 5.8 % (1.0-10.0) Eosinophils (%) (Auto) 0.1 % (0.0-3.0) 0.1 % (0.0-3.0) Basophils (%) (Auto) 2.5 % (0.0-2.0) H 0.9 % (0.0-2.0) Sodium Level 135 MMOL/L (136-145) L 138 MMOL/L (136-145) Potassium Level 4.2 MMOL/L (3.5-5.1) 3.9 MMOL/L (3.5-5.1) Chloride Level 103 MMOL/L (98-107) 105 MMOL/L (98-107) Carbon Dioxide Level 15 MMOL/L (21-32) L 21 MMOL/L (21-32) Anion Gap 17 mmol/L (5-15) H 12 mmol/L (5-15) Blood Urea Nitrogen 36 mg/dL (7-18) H 27 mg/dL (7-18) H Creatinine 1.7 MG/DL (0.55-1.30) H 1.4 MG/DL (0.55-1.30) H Estimat Glomerular Filtration Rate 52.2 mL/min (>60) > 60 mL/min (>60) Glucose Level 157 MG/DL (74-106) H 60 MG/DL (74-106) L Calcium Level 9.5 MG/DL (8.5-10.1) 9.5 MG/DL (8.5-10.1) Total Bilirubin 0.5 MG/DL (0.2-1.0) 0.6 MG/DL (0.2-1.0) Aspartate Amino Transf (AST/SGOT) 42 U/L (15-37) H 42 U/L (15-37) H Alanine Aminotransferase (ALT/SGPT) 70 U/L (12-78) 62 U/L (12-78) Alkaline Phosphatase 145 U/L (46-116) H 132 U/L (46-116) H Total Creatine Kinase 56 U/L (26-308) Creatine Kinase MB 0.9 NG/ML (0.0-3.6) Creatine Kinase MB Relative Index 1.6 Troponin I 0.000 ng/mL (0.000-0.056) Total Protein 7.7 G/DL (6.4-8.2) 7.8 G/DL (6.4-8.2) Albumin 3.9 G/DL (3.4-5.0) 3.8 G/DL (3.4-5.0) Globulin 3.8 g/dL 4.0 g/dL Albumin/Globulin Ratio 1.0 (1.0-2.7) 0.9 (1.0-2.7) L Lipase 60 U/L (73-393) L Salicylates Level 2.8 ug/mL (2.8-20) Acetaminophen Level < 2 MCG/ML (10-30) L Serum Alcohol < 3 mg/dL General Appearance: well appearing, no apparent distress, alert Head: normocephalic EENT: PERRL/EOMI, normal ENT inspection Neck: supple Respiratory: normal breath sounds, no respiratory distress Cardiovascular: normal rate Gastrointestinal: normal inspection, non tender, soft, normal bowel sounds, non -distended Rectal: deferred Genitourinary: deferred Musculoskeletal: normal inspection, back normal Neurologic: normal inspection, alert, oriented x3, responsive Psychiatric: normal inspection, judgement/insight normal, memory normal Skin: normal inspection, normal color, no rash, warm/dry, palpation normal, well hydrated Lymphatic: normal inspection, no adenopathy Current Medications Current Medications Medications (Trade) Dose Ordered Sig/Adolfo Route PRN Reason Start Time Stop Time Status Last Admin Dose Admin Acetaminophen (Tylenol) 650 mg Q4H PRN ORAL Mild Pain/Temp > 100.5 04/13/18 08:45 05/13/18 08:44 04/13/18 08:56 Citalopram Hydrobromide (celeXA) 20 mg DAILY ORAL 04/13/18 09:00 05/13/18 08:59 04/13/18 08:48 Dextrose (Dextrose 50%) 25 ml STAT PRN IV Hypoglycemia 04/13/18 00:15 05/13/18 00:14 Dextrose (Dextrose 50%) 50 ml STAT PRN IV Hypoglycemia 04/13/18 00:15 05/13/18 00:14 Diazepam (Valium) 10 mg Q4H PRN ORAL For Anxiety 04/13/18 11:00 04/20/18 10:59 Folic Acid (Folate) 1 mg DAILY ORAL 04/13/18 11:00 05/13/18 10:59 04/13/18 12:00 Gabapentin (Neurontin) 300 mg Q12HR ORAL 04/13/18 09:00 05/13/18 08:59 04/13/18 08:48 Insulin Aspart (NovoLOG) BEFORE MEALS AND HS SUBQ 04/13/18 06:30 05/13/18 06:29 04/13/18 12:06 Multivitamins (Multivitamins) 1 tab DAILY ORAL 04/13/18 09:00 05/13/18 08:59 04/13/18 08:48 Ondansetron HCl (Zofran) 4 mg Q6H PRN IVP Nausea & Vomiting 04/13/18 11:15 05/13/18 11:14 Pantoprazole (Protonix) 40 mg DAILY IVP 04/14/18 10:30 05/14/18 10:29 Risperidone (RisperDAL) 2 mg QHS ORAL 04/13/18 21:00 05/13/18 20:59 Sodium Chloride 1,000 ml @ 90 mls/hr Q11H7M IV 04/13/18 00:15 05/13/18 00:14 04/13/18 12:00 Thiamine HCl (Vitamin B1) 100 mg DAILY ORAL 04/13/18 11:00 05/13/18 10:59 04/13/18 12:00 GI: Plan Problems: (1) ETOH abuse (2) Depression (3) Dehydration (4) Episode of generalized weakness (5) Alcohol withdrawal (6) Abdominal pain Plan History of - pancreatic pseudocyst >> from chronic ETOH abuse, no further investigation necessary - colitis / gastroenteritis symptomatic treatment FLD, adv as tolerated zofran prn Ativan prn for agitation OB stool r/o GI bleed monitor H&H, prn transfusions ppi fu labs avoid alcohol Discussed with Dr. Chandler. Thank you for this patient referral, we will follow. The patient was seen and examined at bedside and all new and available data was reviewed in the patients chart. I agree with the above findings, impression and plan. (Patient seen earlier today. Signature stamp does not reflect patient encounter time.). - MD Kendy [facility] Apr 13, 2018 12:24
--- NOTE | 2018-04-13 13:30 | Consultation ---
DATE OF CONSULTATION: 04/13/2018 ENDOCRINOLOGY CONSULTATION CONSULTING PHYSICIAN: Siddhartha Cardona M.D. REFERRING PHYSICIAN: Mery Juarez M.D. REASON FOR CONSULTATION: Diabetes management. HISTORY OF PRESENT ILLNESS: The patient is a 48-year-old male with previous admission to [facility] in December 2017. The patient has a history of diabetes. During the previous admission, diabetes was controlled with the combination of Levemir 10 units at bedtime with Starlix 120 mg before each meal and sliding scale insulin. Metformin was discontinued due to the history of alcoholism. The patient presented to the emergency department with generalized weakness, chest pain, abdominal pain, dehydration. Abdominal pain is sharp, was 8/10, nonradiating, and has nausea and vomiting. The patient has history of pancreatitis. I was called to manage diabetes. PAST MEDICAL HISTORY: 1. Diabetes. 2. Psychiatric illness. 3. Pancreatitis. 4. Alcoholism. PAST SURGICAL HISTORY: None. FAMILY HISTORY: Diabetes. SOCIAL HISTORY: No smoking or drug use. History of alcoholism. REVIEW OF SYSTEMS: As per HPI. MEDICATIONS: As an outpatient, reviewed and reconciled. LABORATORY VALUES: WBC 6, hemoglobin 13, hematocrit 42, and platelets of 130. Sodium 138, potassium 3.9, chloride 105, bicarb 21, BUN 27, creatinine 1.4, glucose 160. Lipase is 60. PHYSICAL EXAMINATION: GENERAL: He is awake and alert. VITAL SIGNS: Blood pressure is 124/83, heart rate 117, respiratory rate of 20, and temperature 97.2. HEENT: Pupils are equal and reactive to light and accommodation. Sclerae are anicteric. NECK: No JVD. No thyromegaly. LUNGS: Clear. HEART: Regular rate and rhythm. ABDOMEN: Positive bowel sounds. EXTREMITIES: No clubbing, cyanosis, or edema. DIAGNOSES: 1. Diabetes, better controlled. 2. Pancreatitis. 3. History of alcoholism. PLAN: 1. Hold Levemir and Starlix for now. 2. Continue NovoLog sliding scale. 3. Adjustment of medication according to blood glucose values. 4. No metformin due to his alcoholism. Thank you, Dr. Juarez, for the courtesy of this consultation. Siddhartha Cardona M.D. DR: REA JOB#: [id number] CC: RIKY
[2018-04-13 16:00] VITALS: BP 111/70
[2018-04-13 20:00] VITALS: BP 110/75
--- NOTE | 2018-04-13 20:18 | Cardiology Progress Note ---
Assessment/Plan Assessment/Plan The patient is seen and examined, full consult note will be dictated shortly. Objective Last 24 Hour Vital Signs Date Time Temp Pulse Resp B/P (MAP) Pulse Ox O2 Delivery O2 Flow Rate FiO2 04/13/18 16:00 98.1 108 20 111/70 98 Room Air 98.1 04/13/18 12:00 98.5 93 18 124/94 99 Room Air 98.5 04/13/18 08:00 98.0 109 20 129/90 100 Room Air 98.0 04/13/18 04:00 97.2 117 20 124/83 100 Room Air 97.2 04/13/18 00:00 98.2 111 20 138/82 100 Room Air 98.2 04/12/18 23:25 98.6 120 18 102/74 98 Room Air 98.6 04/12/18 23:25 120 18 102/74 98 Room Air 04/12/18 22:01 117 17 105/73 100 Room Air 04/12/18 20:33 98.6 127 17 101/82 100 Room Air 98.6 Intake and Output 04/12/18 04/13/18 19:00 07:00 Intake Total 3000 ml Output Total 0 ml Balance 3000 ml IV Total 2000 ml Other 1000 ml Output Urine Total 0 ml Laboratory Tests Test 04/12/18 20:45 04/13/18 06:00 White Blood Count 7.1 K/UL (4.8-10.8) 6.6 K/UL (4.8-10.8) Red Blood Count 4.83 M/UL (4.70-6.10) 4.72 M/UL (4.70-6.10) Hemoglobin 14.1 G/DL (14.2-18.0) L 13.8 G/DL (14.2-18.0) L Hematocrit 42.1 % (42.0-52.0) 42.0 % (42.0-52.0) Mean Corpuscular Volume 87 FL (80-99) 89 FL (80-99) Mean Corpuscular Hemoglobin 29.2 PG (27.0-31.0) 29.3 PG (27.0-31.0) Mean Corpuscular Hemoglobin Concent 33.5 G/DL (32.0-36.0) 32.9 G/DL (32.0-36.0) Red Cell Distribution Width 14.3 % (11.6-14.8) 14.4 % (11.6-14.8) Platelet Count 145 K/UL (150-450) L 130 K/UL (150-450) L Mean Platelet Volume 7.1 FL (6.5-10.1) 7.2 FL (6.5-10.1) Neutrophils (%) (Auto) 68.8 % (45.0-75.0) 71.1 % (45.0-75.0) Lymphocytes (%) (Auto) 19.3 % (20.0-45.0) L 22.0 % (20.0-45.0) Monocytes (%) (Auto) 9.3 % (1.0-10.0) 5.8 % (1.0-10.0) Eosinophils (%) (Auto) 0.1 % (0.0-3.0) 0.1 % (0.0-3.0) Basophils (%) (Auto) 2.5 % (0.0-2.0) H 0.9 % (0.0-2.0) Sodium Level 135 MMOL/L (136-145) L 138 MMOL/L (136-145) Potassium Level 4.2 MMOL/L (3.5-5.1) 3.9 MMOL/L (3.5-5.1) Chloride Level 103 MMOL/L (98-107) 105 MMOL/L (98-107) Carbon Dioxide Level 15 MMOL/L (21-32) L 21 MMOL/L (21-32) Anion Gap 17 mmol/L (5-15) H 12 mmol/L (5-15) Blood Urea Nitrogen 36 mg/dL (7-18) H 27 mg/dL (7-18) H Creatinine 1.7 MG/DL (0.55-1.30) H 1.4 MG/DL (0.55-1.30) H Estimat Glomerular Filtration Rate 52.2 mL/min (>60) > 60 mL/min (>60) Glucose Level 157 MG/DL (74-106) H 60 MG/DL (74-106) L Calcium Level 9.5 MG/DL (8.5-10.1) 9.5 MG/DL (8.5-10.1) Total Bilirubin 0.5 MG/DL (0.2-1.0) 0.6 MG/DL (0.2-1.0) Aspartate Amino Transf (AST/SGOT) 42 U/L (15-37) H 42 U/L (15-37) H Alanine Aminotransferase (ALT/SGPT) 70 U/L (12-78) 62 U/L (12-78) Alkaline Phosphatase 145 U/L (46-116) H 132 U/L (46-116) H Total Creatine Kinase 56 U/L (26-308) Creatine Kinase MB 0.9 NG/ML (0.0-3.6) Creatine Kinase MB Relative Index 1.6 Troponin I 0.000 ng/mL (0.000-0.056) Total Protein 7.7 G/DL (6.4-8.2) 7.8 G/DL (6.4-8.2) Albumin 3.9 G/DL (3.4-5.0) 3.8 G/DL (3.4-5.0) Globulin 3.8 g/dL 4.0 g/dL Albumin/Globulin Ratio 1.0 (1.0-2.7) 0.9 (1.0-2.7) L Lipase 60 U/L (73-393) L Salicylates Level 2.8 ug/mL (2.8-20) Acetaminophen Level < 2 MCG/ML (10-30) L Serum Alcohol < 3 mg/dL Zachary Silverio MD Apr 13, 2018 20:18
[2018-04-13] MEDS: Propranolol 10mg tab ORAL SCH (21:16)
[2018-04-14] VITALS (7 sets, daily range): BP systolic 92–124; BP diastolic 62–78
--- NOTE | 2018-04-14 05:30 | History and Physical Report ---
DATE OF ADMISSION: 04/12/2018 NOTE: POOR AUDIO REASON FOR ADMISSION: . HISTORY OF PRESENT ILLNESS: The patient has been complaining of abdominal pain and also uncontrolled diabetes and alcohol abuse, dehydration, abuse, and tachycardia. The patient denies nausea, vomiting, or diarrhea. The patient also has eyes mostly closed and in abdominal pain and sleeping throughout the day and sometimes, he would open the eyes. Otherwise, he is confused and he does not give me reliable history. The patient denies, however, nausea, vomiting, or diarrhea. He does have abdominal pain and he is more altered than baseline. PAST MEDICAL HISTORY: NIDDM, , neuropathy . PAST SURGICAL HISTORY: Both hand surgery and foot surgery. MEDICATIONS: Seroquel. SOCIAL HISTORY: History of smoking and history of alcohol abuse. . FAMILY HISTORY: Does have history of diabetes. REVIEW OF SYSTEMS: HEENT: Denies headaches. RESPIRATORY: Denies shortness of breath. Denies cough. CARDIOVASCULAR: Denies chest pain. GASTROINTESTINAL: Reports abdominal pain for one day. No nausea. No vomiting. No rectal bleeding. EXTREMITIES: Denies any pain in the lower extremities. RESEARCH BIOSTATISTICIAN: No change in vision or speech pattern. PHYSICAL EXAMINATION: VITAL SIGNS: Temperature 98.2, pulse is 111, and blood pressure 132/82. HEENT: PERRLA. NECK: Supple. CHEST: Clear to auscultation. ABDOMEN: Soft. Positive bowel sounds. EXTREMITIES: No edema. NEUROLOGIC: Reflexes are equal on both sides. The patient's eyes mostly closed, however, opens eyes to noxious stimuli. Oriented x1 only. The patient had a recent binge drinking, lot of this is most likely due to alcohol intoxication. LABORATORY DATA: WBC of 7.1, hemoglobin 14.1, and platelets 145,000. Sodium 135, potassium 4.2, BUN of 36, creatinine 1.7, and glucose of 157. ASSESSMENT: 1. Abdominal pain. 2. Altered mental status. 3. Ccb-wkttwfg-cmpsklbjr diabetes mellitus. 4. Alcohol abuse. 5. Uncontrolled diabetes. 6. Dehydration. 7. ETOH. 8. Atrial tachycardia. PLAN: I have asked Dr. Silverio, Dr. Alas, Dr. Aden, Dr. Cummings, Dr. Chandler, and Dr. Cardona to see the patient for the above-mentioned diagnoses and treatment. Mery Juarez M.D. DR: NICO JOB#: [id number] CC:
[2018-04-14] MEDS: Propranolol 10mg tab ORAL SCH ×3 (06:14→21:04)
[2018-04-14] MEDS: NovoLOG Insulin Flexpen SUBQ SCH ×4 (06:14→21:07)
--- NOTE | 2018-04-14 07:51 | General Progress Note ---
Assessment/Plan Problem List: (1) Episode of generalized weakness ICD Codes: R53.1 - Weakness SNOMED: 58904036 (2) Pancreatic pseudocyst ICD Codes: K86.3 - Pseudocyst of pancreas SNOMED: 747527691 (3) Diabetes mellitus out of control ICD Codes: E11.65 - Type 2 diabetes mellitus with hyperglycemia SNOMED: 39435797, 733565568 (4) Depression ICD Codes: F32.9 - Major depressive disorder, single episode, unspecified SNOMED: 18650772 Assessment/Plan no need for scheduled insulin regimen yet continue Novolog SSI Subjective Allergies: Coded Allergies: No Known Allergies (Unverified , 12/29/17) All Systems: reviewed and negative except above Subjective events noted Objective Last 24 Hour Vital Signs Date Time Temp Pulse Resp B/P (MAP) Pulse Ox O2 Delivery O2 Flow Rate FiO2 04/14/18 06:14 86 109/66 04/14/18 04:00 99.0 86 20 109/66 96 Room Air 99.0 04/14/18 00:00 98.2 86 19 103/70 100 Room Air 98.2 04/13/18 21:16 89 110/75 04/13/18 20:00 99.1 89 20 110/75 98 Room Air 99.1 04/13/18 16:00 98.1 108 20 111/70 98 Room Air 98.1 04/13/18 12:00 98.5 93 18 124/94 99 Room Air 98.5 04/13/18 08:00 98.0 109 20 129/90 100 Room Air 98.0 Intake and Output 04/13/18 04/14/18 19:00 07:00 Intake Total 890 ml 1320 ml Balance 890 ml 1320 ml Intake Oral 800 ml 240 ml IV Total 90 ml 1080 ml # Voids 3 Height (Feet): 6 Height (Inches): 2.00 Weight (Pounds): 179 General Appearance: no apparent distress Neck: normal alignment Cardiovascular: normal rate Respiratory/Chest: decreased breath sounds Abdomen: normal bowel sounds Objective Current Medications Medications (Trade) Dose Ordered Sig/Adolfo Route PRN Reason Start Time Stop Time Status Last Admin Dose Admin Acetaminophen (Tylenol) 650 mg Q4H PRN ORAL Mild Pain/Temp > 100.5 04/13/18 08:45 05/13/18 08:44 04/13/18 08:56 Citalopram Hydrobromide (celeXA) 20 mg DAILY ORAL 04/13/18 09:00 05/13/18 08:59 04/13/18 08:48 Dextrose (Dextrose 50%) 25 ml STAT PRN IV Hypoglycemia 04/13/18 00:15 05/13/18 00:14 Dextrose (Dextrose 50%) 50 ml STAT PRN IV Hypoglycemia 04/13/18 00:15 05/13/18 00:14 Diazepam (Valium) 10 mg Q4H PRN ORAL For Anxiety 04/13/18 11:00 04/20/18 10:59 04/13/18 21:07 Folic Acid (Folate) 1 mg DAILY ORAL 04/13/18 11:00 05/13/18 10:59 04/13/18 12:00 Gabapentin (Neurontin) 300 mg Q12HR ORAL 04/13/18 09:00 05/13/18 08:59 04/13/18 21:02 Insulin Aspart (NovoLOG) BEFORE MEALS AND HS SUBQ 04/13/18 06:30 05/13/18 06:29 04/14/18 06:14 Multivitamins (Multivitamins) 1 tab DAILY ORAL 04/13/18 09:00 05/13/18 08:59 04/13/18 08:48 Ondansetron HCl (Zofran) 4 mg Q6H PRN IVP Nausea & Vomiting 04/13/18 11:15 05/13/18 11:14 04/14/18 06:13 Pantoprazole (Protonix) 40 mg DAILY IVP 04/14/18 10:30 05/14/18 10:29 Propranolol HCl (Inderal) 10 mg Q8HR ORAL 04/13/18 22:00 05/13/18 21:59 04/14/18 06:14 Risperidone (RisperDAL) 2 mg QHS ORAL 04/13/18 21:00 05/13/18 20:59 04/13/18 21:02 Sodium Chloride 1,000 ml @ 90 mls/hr Q11H7M IV 04/13/18 00:15 05/13/18 00:14 04/13/18 21:09 Thiamine HCl (Vitamin B1) 100 mg DAILY ORAL 04/13/18 11:00 05/13/18 10:59 04/13/18 12:00 Item Value Date Time Bedside Blood Glucose 158 mg/dl H 04/14/18 06 Bedside Blood Glucose 128 mg/dl H 04/13/18 2107 Bedside Blood Glucose 196 mg/dl H 04/13/18 1647 Bedside Blood Glucose 189 mg/dl H 04/13/18 1206 Bedside Blood Glucose 68 mg/dl L 04/13/18 0607 Siddhatrha Cardona MD Apr 14, 2018 07:51
[2018-04-14 08:03] LABS: HEMOGLOBIN 12.6 G/DL (14.2-18.0); MEAN CORPUSCULAR VOLUME 91 FL (80-99); PLATELET COUNT 95 K/UL (150-450); RED BLOOD COUNT 4.08 M/UL (4.70-6.10); RED CELL DISTRIBUTION WIDTH 14.7 % (11.6-14.8); WHITE BLOOD COUNT 4.2 K/UL (4.8-10.8)
[2018-04-14 08:15] LABS: ALANINE AMINOTRANSFERASE 48 U/L (12-78); ALBUMIN/GLOBULIN RATIO 0.9 (1.0-2.7); ALKALINE PHOSPHATASE 109 U/L (46-116); ANION GAP 13 mmol/L (5-15); ASPARTATE AMINO TRANSFERASE 36 U/L (15-37); BILIRUBIN,TOTAL 0.7 MG/DL (0.2-1.0); BLOOD UREA NITROGEN 16 mg/dL (7-18); CALCIUM 8.6 MG/DL (8.5-10.1); CARBON DIOXIDE 17 MMOL/L (21-32); CHLORIDE 102 MMOL/L (98-107); CREATININE 1.1 MG/DL (0.55-1.30); POTASSIUM 3.7 MMOL/L (3.5-5.1); SODIUM 132 MMOL/L (136-145)
[2018-04-14] MEDS: Thiamine 100mg tab ORAL SCH (08:31)
--- NOTE | 2018-04-14 10:46 | GI Progress Note ---
Assessment/Plan Problems: (1) Diabetes mellitus out of control ICD Codes: E11.65 - Type 2 diabetes mellitus with hyperglycemia SNOMED: 13752297, 241569937 (2) Abdominal pain ICD Codes: R10.9 - Unspecified abdominal pain SNOMED: 59813473 (3) Pancreatic pseudocyst ICD Codes: K86.3 - Pseudocyst of pancreas SNOMED: 087852319 (4) Gastroenteritis ICD Codes: K52.9 - Noninfective gastroenteritis and colitis, unspecified SNOMED: 79683109 (5) Colitis ICD Codes: K52.9 - Noninfective gastroenteritis and colitis, unspecified SNOMED: 02546393 (6) Dehydration ICD Codes: E86.0 - Dehydration SNOMED: 08258344 (7) Alcohol withdrawal ICD Codes: F10.239 - Alcohol dependence with withdrawal, unspecified SNOMED: 305013571 Qualifiers: Qualified Codes: F10.239 - Alcohol dependence with withdrawal, unspecified (8) Episode of generalized weakness ICD Codes: R53.1 - Weakness SNOMED: 48245027 Status: progressing Status Narrative Discussed with Dr. Chandler. Assessment/Plan History of - pancreatic pseudocyst >> from chronic ETOH abuse, no further investigation necessary - colitis / gastroenteritis symptomatic treatment ADA diet DM mgmt zofran prn Ativan prn for agitation OB stool r/o GI bleed monitor H&H, prn transfusions ppi fu labs avoid alcohol The patient was seen and examined at bedside and all new and available data was reviewed in the patients chart. I agree with the above findings, impression and plan. (Patient seen earlier today. Signature stamp does not reflect patient encounter time.). - Imer Chandler MD Subjective Subjective abdominal pain improved Objective Last 24 Hour Vital Signs Date Time Temp Pulse Resp B/P (MAP) Pulse Ox O2 Delivery O2 Flow Rate FiO2 04/14/18 09:31 98.1 04/14/18 08:00 98.1 88 20 94/64 98 Room Air 98.1 04/14/18 06:14 86 109/66 04/14/18 04:00 99.0 86 20 109/66 96 Room Air 99.0 04/14/18 00:00 98.2 86 19 103/70 100 Room Air 98.2 04/13/18 21:16 89 110/75 04/13/18 20:00 99.1 89 20 110/75 98 Room Air 99.1 04/13/18 16:00 98.1 108 20 111/70 98 Room Air 98.1 04/13/18 12:00 98.5 93 18 124/94 99 Room Air 98.5 Intake and Output 04/13/18 04/14/18 19:00 07:00 Intake Total 890 ml 1320 ml Balance 890 ml 1320 ml Intake Oral 800 ml 240 ml IV Total 90 ml 1080 ml # Voids 3 Laboratory Tests Test 04/14/18 07:50 White Blood Count 4.2 K/UL (4.8-10.8) L Red Blood Count 4.08 M/UL (4.70-6.10) L Hemoglobin 12.6 G/DL (14.2-18.0) L Hematocrit 37.0 % (42.0-52.0) L Mean Corpuscular Volume 91 FL (80-99) Mean Corpuscular Hemoglobin 30.8 PG (27.0-31.0) Mean Corpuscular Hemoglobin Concent 34.0 G/DL (32.0-36.0) Red Cell Distribution Width 14.7 % (11.6-14.8) Platelet Count 95 K/UL (150-450) L Mean Platelet Volume 7.9 FL (6.5-10.1) Neutrophils (%) (Auto) % (45.0-75.0) Lymphocytes (%) (Auto) % (20.0-45.0) Monocytes (%) (Auto) % (1.0-10.0) Eosinophils (%) (Auto) % (0.0-3.0) Basophils (%) (Auto) % (0.0-2.0) Differential Total Cells Counted 100 Neutrophils % (Manual) 66 % (45-75) Lymphocytes % (Manual) 30 % (20-45) Monocytes % (Manual) 4 % (1-10) Eosinophils % (Manual) 0 % (0-3) Basophils % (Manual) 0 % (0-2) Band Neutrophils 0 % (0-8) Platelet Estimate Decreased L Platelet Morphology Normal Red Blood Cell Morphology Normal Sodium Level 132 MMOL/L (136-145) L Potassium Level 3.7 MMOL/L (3.5-5.1) Chloride Level 102 MMOL/L (98-107) Carbon Dioxide Level 17 MMOL/L (21-32) L Anion Gap 13 mmol/L (5-15) Blood Urea Nitrogen 16 mg/dL (7-18) Creatinine 1.1 MG/DL (0.55-1.30) Estimat Glomerular Filtration Rate > 60 mL/min (>60) Glucose Level 238 MG/DL (74-106) #H Calcium Level 8.6 MG/DL (8.5-10.1) Total Bilirubin 0.7 MG/DL (0.2-1.0) Aspartate Amino Transf (AST/SGOT) 36 U/L (15-37) Alanine Aminotransferase (ALT/SGPT) 48 U/L (12-78) Alkaline Phosphatase 109 U/L (46-116) Total Protein 6.4 G/DL (6.4-8.2) Albumin 3.0 G/DL (3.4-5.0) L Globulin 3.4 g/dL Albumin/Globulin Ratio 0.9 (1.0-2.7) L Height (Feet): 6 Height (Inches): 2.00 Weight (Pounds): 179 General Appearance: WD/WN, no apparent distress, alert Cardiovascular: normal rate Respiratory/Chest: normal breath sounds, no respiratory distress Abdominal Exam: normal bowel sounds, non tender, soft Extremities: normal range of motion, non-tender Kenneth Larry NP Apr 14, 2018 10:46
[2018-04-14] MEDS: Citalopram Hydrobromide 10mg Tab ORAL SCH (10:49)
[2018-04-14] MEDS: Pantoprazole Inj IVP SCH (10:49)
--- NOTE | 2018-04-14 11:38 | General Progress Note ---
Assessment/Plan Status: stable, progressing Assessment/Plan MDD Alcohol Depn -valium prn -risperdal -thiamin -folate -celexa Subjective Date patient seen: Apr 14, 2018 Neurologic/Psychiatric: Reports: anxiety, depressed, emotional problems Allergies: Coded Allergies: No Known Allergies (Unverified , 12/29/17) Objective Last 24 Hour Vital Signs Date Time Temp Pulse Resp B/P (MAP) Pulse Ox O2 Delivery O2 Flow Rate FiO2 04/14/18 09:31 98.1 04/14/18 08:00 98.1 88 20 94/64 98 Room Air 98.1 04/14/18 06:14 86 109/66 04/14/18 04:00 99.0 86 20 109/66 96 Room Air 99.0 04/14/18 00:00 98.2 86 19 103/70 100 Room Air 98.2 04/13/18 21:16 89 110/75 04/13/18 20:00 99.1 89 20 110/75 98 Room Air 99.1 04/13/18 16:00 98.1 108 20 111/70 98 Room Air 98.1 04/13/18 12:00 98.5 93 18 124/94 99 Room Air 98.5 Intake and Output 04/13/18 04/14/18 19:00 07:00 Intake Total 890 ml 1320 ml Balance 890 ml 1320 ml Intake Oral 800 ml 240 ml IV Total 90 ml 1080 ml # Voids 3 Laboratory Tests 04/14/18 07:50: White Blood Count 4.2L, Red Blood Count 4.08L, Hemoglobin 12.6L, Hematocrit 37.0L, Mean Corpuscular Volume 91, Mean Corpuscular Hemoglobin 30.8, Mean Corpuscular Hemoglobin Concent 34.0, Red Cell Distribution Width 14.7, Platelet Count 95L, Mean Platelet Volume 7.9, Neutrophils (%) (Auto) , Lymphocytes (%) ( Auto) , Monocytes (%) (Auto) , Eosinophils (%) (Auto) , Basophils (%) (Auto) , Differential Total Cells Counted 100, Neutrophils % (Manual) 66, Lymphocytes % ( Manual) 30, Monocytes % (Manual) 4, Eosinophils % (Manual) 0, Basophils % ( Manual) 0, Band Neutrophils 0, Platelet Estimate DecreasedL, Platelet Morphology Normal, Red Blood Cell Morphology Normal, Sodium Level 132L, Potassium Level 3.7, Chloride Level 102, Carbon Dioxide Level 17L, Anion Gap 13 , Blood Urea Nitrogen 16, Creatinine 1.1, Estimat Glomerular Filtration Rate > 60, Glucose Level 238#H, Calcium Level 8.6, Total Bilirubin 0.7, Aspartate Amino Transf (AST/SGOT) 36, Alanine Aminotransferase (ALT/SGPT) 48, Alkaline Phosphatase 109, Total Protein 6.4, Albumin 3.0L, Globulin 3.4, Albumin/ Globulin Ratio 0.9L Height (Feet): 6 Height (Inches): 2.00 Weight (Pounds): 179 General Appearance: WD/WN, no apparent distress, alert Neurologic: oriented x 3, responsive, depressed affect Giovanny Cummings M.D. Apr 14, 2018 11:38
--- NOTE | 2018-04-14 13:57 | General Progress Note ---
Assessment/Plan Assessment/Plan (1) Alcohol abuse (2) Alcohol withdrawal (3) Abdominal pain (4) Pancreatic pseudocyst Patient will be continued on Tylenol as needed. D/w Dr. Aden and he concurred. Subjective Date patient seen: Apr 14, 2018 Time patient seen: 14:50 - pm Constitutional: Reports: no symptoms HEENT: Reports: no symptoms Cardiovascular: Reports: no symptoms Respiratory: Reports: no symptoms Gastrointestinal/Abdominal: Reports: no symptoms Genitourinary: Reports: no symptoms Neurologic/Psychiatric: Reports: no symptoms Endocrine: Reports: no symptoms Hematologic/Lymphatic: Reports: no symptoms Allergies: Coded Allergies: No Known Allergies (Unverified , 12/29/17) Subjective Patient is in bed showing no signs of pain or distress. He is using the Tylenol as needed. Having no new complaints. Objective Last 24 Hour Vital Signs Date Time Temp Pulse Resp B/P (MAP) Pulse Ox O2 Delivery O2 Flow Rate FiO2 04/14/18 12:00 97.2 85 20 105/66 99 Room Air 97.2 04/14/18 09:31 98.1 04/14/18 08:00 98.1 88 20 94/64 98 Room Air 98.1 04/14/18 06:14 86 109/66 04/14/18 04:00 99.0 86 20 109/66 96 Room Air 99.0 04/14/18 00:00 98.2 86 19 103/70 100 Room Air 98.2 04/13/18 21:16 89 110/75 04/13/18 20:00 99.1 89 20 110/75 98 Room Air 99.1 04/13/18 16:00 98.1 108 20 111/70 98 Room Air 98.1 Intake and Output 04/13/18 04/14/18 19:00 07:00 Intake Total 890 ml 1320 ml Balance 890 ml 1320 ml Intake Oral 800 ml 240 ml IV Total 90 ml 1080 ml # Voids 3 Laboratory Tests 04/14/18 07:50: White Blood Count 4.2L, Red Blood Count 4.08L, Hemoglobin 12.6L, Hematocrit 37.0L, Mean Corpuscular Volume 91, Mean Corpuscular Hemoglobin 30.8, Mean Corpuscular Hemoglobin Concent 34.0, Red Cell Distribution Width 14.7, Platelet Count 95L, Mean Platelet Volume 7.9, Neutrophils (%) (Auto) , Lymphocytes (%) ( Auto) , Monocytes (%) (Auto) , Eosinophils (%) (Auto) , Basophils (%) (Auto) , Differential Total Cells Counted 100, Neutrophils % (Manual) 66, Lymphocytes % ( Manual) 30, Monocytes % (Manual) 4, Eosinophils % (Manual) 0, Basophils % ( Manual) 0, Band Neutrophils 0, Platelet Estimate DecreasedL, Platelet Morphology Normal, Red Blood Cell Morphology Normal, Sodium Level 132L, Potassium Level 3.7, Chloride Level 102, Carbon Dioxide Level 17L, Anion Gap 13 , Blood Urea Nitrogen 16, Creatinine 1.1, Estimat Glomerular Filtration Rate > 60, Glucose Level 238#H, Calcium Level 8.6, Total Bilirubin 0.7, Aspartate Amino Transf (AST/SGOT) 36, Alanine Aminotransferase (ALT/SGPT) 48, Alkaline Phosphatase 109, Total Protein 6.4, Albumin 3.0L, Globulin 3.4, Albumin/ Globulin Ratio 0.9L Height (Feet): 6 Height (Inches): 2.00 Weight (Pounds): 179 General Appearance: no apparent distress, alert EENT: PERRL/EOMI, normal ENT inspection Neck: non-tender, supple Cardiovascular: normal rate, regular rhythm Respiratory/Chest: lungs clear, normal breath sounds Abdomen: non tender, soft Extremities: non-tender Neurologic: alert, oriented x 3 Skin: warm/dry Tomasz Wilkerson Apr 14, 2018 13:57
--- NOTE | 2018-04-14 16:15 | Consultation ---
DATE OF CONSULTATION: 04/13/2018 PAIN MANAGEMENT CONSULTATION CONSULTING PHYSICIAN: Pinky Aden M.D. REFERRING PHYSICIAN: Mery Juarez M.D. PHYSICIAN SEAT PACK INSPECTOR: Kristi Fishman CHIEF COMPLAINT: Alcohol abuse and withdrawal. HISTORY OF PRESENT ILLNESS: This is a 48-year-old male, who is being seen on the medical/surgical floor of [facility] for initial comprehensive pain management consultation. The patient was admitted under the care of Dr. Juarez due to alcohol withdrawal and abuse and was here on prior admission seen by logger all round and was found to have pancreatic pseudocyst. At this time, the patient is in bed, no signs of pain or distress. He was on Ativan 1 mg IV every 4 hours as needed for anxiety and agitation. We were consulted to help the patient to have adequate pain control while here in the hospital. PAST MEDICAL HISTORY: Diabetes, psychiatric illness, pancreatitis, and alcoholism. MEDICATIONS: Cipro, citalopram, Celexa, Neurontin, Levemir, Glucophage, multivitamin, and Seroquel. ALLERGIES: No known drug allergies. SOCIAL HISTORY: He is a drinker of alcohol heavily. Denies smoking tobacco or IV drug abuse. REVIEW OF SYSTEMS: Denies rash, fever, chills, sweating, dizziness, drowsiness, blurred vision, sore throat, or change in weight. No shortness of breath or chest pain. No nausea, vomiting, diarrhea, or blood in the stool or urine. No bowel or bladder incontinence. No dysuria. He is complaining of abdominal pain. PHYSICAL EXAMINATION: GENERAL: Alert, awake, and oriented x3. VITAL SIGNS: Blood pressure 124/83, heart rate is 117, oxygen saturation is 100%, respiratory rate is 18 and temperature is 98 degrees Fahrenheit. HEENT: PERRLA. NECK: Range of motion is full in all directions. No tenderness to paracervical muscles. No adenopathy. LUNGS: Decreased breath sounds bilaterally. BACK: Range of motion is decreased in flexion and extension. EXTREMITIES: No cyanosis. No clubbing. No edema. NEUROLOGICAL: No focal deficit. ASSESSMENT AND PLAN: This is a 48-year-old male with alcohol abuse, alcohol withdrawal, abdominal pain, and pancreatic pseudocyst. The patient will be started on Tylenol 650 mg tablet every 4 hours as needed for pain. The patient was discussed with Dr. Aden and Dr. Aden concurred. We will follow the patient. Thank you very much for the courtesy of this consultation. Pinky Aden M.D. ROULA Fishman DR: LAMONTE JOB#: [id number] CC: RIKY
--- NOTE | 2018-04-14 21:32 | General Progress Note ---
Assessment/Plan Problem List: (1) Dehydration ICD Codes: E86.0 - Dehydration SNOMED: 47886617 (2) Depression ICD Codes: F32.9 - Major depressive disorder, single episode, unspecified SNOMED: 57158986 (3) Abdominal pain ICD Codes: R10.9 - Unspecified abdominal pain SNOMED: 08295145 (4) Hepatotoxicity, secondary to ETOH ICD Codes: K70.9 - Alcoholic liver disease, unspecified SNOMED: 64404828 (5) Episode of generalized weakness ICD Codes: R53.1 - Weakness SNOMED: 78031826 (6) Diabetes mellitus out of control ICD Codes: E11.65 - Type 2 diabetes mellitus with hyperglycemia SNOMED: 26975866, 698816788 Status: progressing Assessment/Plan r/o dt etoh abuse afebrile abdominal pain weakness dm elevate sugars Subjective ROS Limited/Unobtainable: Yes Constitutional: Reports: no symptoms Allergies: Coded Allergies: No Known Allergies (Unverified , 12/29/17) Objective Last 24 Hour Vital Signs Date Time Temp Pulse Resp B/P (MAP) Pulse Ox O2 Delivery O2 Flow Rate FiO2 04/14/18 21:04 92 124/78 04/14/18 20:00 99.1 92 18 124/78 98 Room Air 99.1 04/14/18 16:00 97.7 89 20 120/78 100 Room Air 97.7 04/14/18 14:21 91 92/62 04/14/18 14:00 91 92/62 04/14/18 12:00 97.2 85 20 105/66 99 Room Air 97.2 04/14/18 09:31 98.1 04/14/18 08:00 98.1 88 20 94/64 98 Room Air 98.1 04/14/18 06:14 86 109/66 04/14/18 04:00 99.0 86 20 109/66 96 Room Air 99.0 04/14/18 00:00 98.2 86 19 103/70 100 Room Air 98.2 Intake and Output 04/13/18 04/14/18 19:00 07:00 Intake Total 890 ml 1320 ml Balance 890 ml 1320 ml Intake Oral 800 ml 240 ml IV Total 90 ml 1080 ml # Voids 3 Laboratory Tests 04/14/18 07:50: White Blood Count 4.2L, Red Blood Count 4.08L, Hemoglobin 12.6L, Hematocrit 37.0L, Mean Corpuscular Volume 91, Mean Corpuscular Hemoglobin 30.8, Mean Corpuscular Hemoglobin Concent 34.0, Red Cell Distribution Width 14.7, Platelet Count 95L, Mean Platelet Volume 7.9, Neutrophils (%) (Auto) , Lymphocytes (%) ( Auto) , Monocytes (%) (Auto) , Eosinophils (%) (Auto) , Basophils (%) (Auto) , Differential Total Cells Counted 100, Neutrophils % (Manual) 66, Lymphocytes % ( Manual) 30, Monocytes % (Manual) 4, Eosinophils % (Manual) 0, Basophils % ( Manual) 0, Band Neutrophils 0, Platelet Estimate DecreasedL, Platelet Morphology Normal, Red Blood Cell Morphology Normal, Sodium Level 132L, Potassium Level 3.7, Chloride Level 102, Carbon Dioxide Level 17L, Anion Gap 13 , Blood Urea Nitrogen 16, Creatinine 1.1, Estimat Glomerular Filtration Rate > 60, Glucose Level 238#H, Calcium Level 8.6, Total Bilirubin 0.7, Aspartate Amino Transf (AST/SGOT) 36, Alanine Aminotransferase (ALT/SGPT) 48, Alkaline Phosphatase 109, Total Protein 6.4, Albumin 3.0L, Globulin 3.4, Albumin/ Globulin Ratio 0.9L Height (Feet): 6 Height (Inches): 2.00 Weight (Pounds): 179 Cardiovascular: normal rate Respiratory/Chest: lungs clear Abdomen: soft Mery Juarez MD Apr 14, 2018 21:32
[2018-04-15] VITALS (7 sets, daily range): BP systolic 94–138; BP diastolic 57–94
[2018-04-15] MEDS: Propranolol 10mg tab ORAL SCH ×3 (06:35→20:52)
[2018-04-15] MEDS: NovoLOG Insulin Flexpen SUBQ SCH ×4 (06:36→20:54)
[2018-04-15 08:55] LABS: BASOPHILS % (AUTO) 1.5 % (0.0-2.0); EOSINOPHILS % (AUTO) 1.9 % (0.0-3.0); HEMOGLOBIN 11.6 G/DL (14.2-18.0); LYMPHOCYTES % (AUTO) 34.3 % (20.0-45.0); MEAN CORPUSCULAR VOLUME 88 FL (80-99); MONOCYTES % (AUTO) 7.9 % (1.0-10.0); NEUTROPHILS % (AUTO) 54.4 % (45.0-75.0); PLATELET COUNT 115 K/UL (150-450); RED BLOOD COUNT 3.96 M/UL (4.70-6.10); WHITE BLOOD COUNT 3.5 K/UL (4.8-10.8)
[2018-04-15] MEDS: Pantoprazole Inj IVP SCH ×2 (09:00→10:30)
[2018-04-15 09:22] LABS: ANION GAP 11 mmol/L (5-15); BLOOD UREA NITROGEN 6 mg/dL (7-18); CALCIUM 8.6 MG/DL (8.5-10.1); CARBON DIOXIDE 21 MMOL/L (21-32); CHLORIDE 102 MMOL/L (98-107); POTASSIUM 3.4 MMOL/L (3.5-5.1); SODIUM 134 MMOL/L (136-145)
[2018-04-15] MEDS: Thiamine 100mg tab ORAL SCH (09:31)
[2018-04-15] MEDS: Citalopram Hydrobromide 10mg Tab ORAL SCH (09:31)
--- NOTE | 2018-04-15 10:31 | General Progress Note ---
Assessment/Plan Assessment/Plan (1) Alcohol abuse (2) Alcohol withdrawal (3) Abdominal pain (4) Pancreatic pseudocyst Patient will be continued on Tylenol as needed. D/w Dr. Aden and he concurred. Subjective Date patient seen: Apr 15, 2018 Time patient seen: 08:00 - am Constitutional: Reports: no symptoms HEENT: Reports: no symptoms Cardiovascular: Reports: no symptoms Respiratory: Reports: no symptoms Gastrointestinal/Abdominal: Reports: no symptoms Genitourinary: Reports: no symptoms Neurologic/Psychiatric: Reports: no symptoms Endocrine: Reports: no symptoms Hematologic/Lymphatic: Reports: no symptoms Allergies: Coded Allergies: No Known Allergies (Unverified , 12/29/17) Subjective Patient is comfortable with no new complaints. Objective Last 24 Hour Vital Signs Date Time Temp Pulse Resp B/P (MAP) Pulse Ox O2 Delivery O2 Flow Rate FiO2 04/15/18 08:00 98.2 93 20 105/70 98 Room Air 98.2 04/15/18 06:35 87 130/94 04/15/18 04:00 99.0 87 18 130/94 99 99.0 04/15/18 00:00 99.0 91 18 94/60 97 Room Air 99.0 04/14/18 21:04 92 124/78 04/14/18 20:00 99.1 92 18 124/78 98 Room Air 99.1 04/14/18 16:00 97.7 89 20 120/78 100 Room Air 97.7 04/14/18 14:21 91 92/62 04/14/18 14:00 91 92/62 04/14/18 12:00 97.2 85 20 105/66 99 Room Air 97.2 Intake and Output 04/14/18 04/15/18 19:00 07:00 Intake Total 1250 ml 2080 ml Output Total 1600 ml Balance 1250 ml 480 ml Intake Oral 440 ml 1000 ml IV Total 810 ml 1080 ml Output Urine Total 1600 ml # Voids 7 # Bowel Movements 1 Laboratory Tests 04/15/18 08:30: White Blood Count 3.5L, Red Blood Count 3.96L, Hemoglobin 11.6L, Hematocrit 35.0L, Mean Corpuscular Volume 88, Mean Corpuscular Hemoglobin 29.2, Mean Corpuscular Hemoglobin Concent 33.0, Red Cell Distribution Width 14.0, Platelet Count 115L, Mean Platelet Volume 7.2, Neutrophils (%) (Auto) 54.4, Lymphocytes ( %) (Auto) 34.3, Monocytes (%) (Auto) 7.9, Eosinophils (%) (Auto) 1.9, Basophils (%) (Auto) 1.5, Sodium Level 134L, Potassium Level 3.4L, Chloride Level 102, Carbon Dioxide Level 21, Anion Gap 11, Blood Urea Nitrogen 6L, Creatinine 1.0, Estimat Glomerular Filtration Rate > 60, Glucose Level 277H, Calcium Level 8.6 Height (Feet): 6 Height (Inches): 2.00 Weight (Pounds): 179 General Appearance: no apparent distress, alert EENT: PERRL/EOMI, normal ENT inspection Neck: normal alignment, supple Cardiovascular: normal rate, regular rhythm Respiratory/Chest: lungs clear, normal breath sounds Abdomen: non tender, soft Extremities: non-tender Tomasz Wilkerson Apr 15, 2018 10:31
--- NOTE | 2018-04-15 11:27 | General Progress Note ---
Assessment/Plan Status: stable Assessment/Plan MDD Alcohol Depn -Valium prn -Risperdal -thiamin -folate -Celexa -the pt should be discharged after medical clearance Subjective Date patient seen: Apr 15, 2018 Neurologic/Psychiatric: Reports: anxiety, depressed, emotional problems Allergies: Coded Allergies: No Known Allergies (Unverified , 12/29/17) Objective Last 24 Hour Vital Signs Date Time Temp Pulse Resp B/P (MAP) Pulse Ox O2 Delivery O2 Flow Rate FiO2 04/15/18 08:00 98.2 93 20 105/70 98 Room Air 98.2 04/15/18 06:35 87 130/94 04/15/18 04:00 99.0 87 18 130/94 99 99.0 04/15/18 00:00 99.0 91 18 94/60 97 Room Air 99.0 04/14/18 21:04 92 124/78 04/14/18 20:00 99.1 92 18 124/78 98 Room Air 99.1 04/14/18 16:00 97.7 89 20 120/78 100 Room Air 97.7 04/14/18 14:21 91 92/62 04/14/18 14:00 91 92/62 04/14/18 12:00 97.2 85 20 105/66 99 Room Air 97.2 Intake and Output 04/14/18 04/15/18 19:00 07:00 Intake Total 1250 ml 2080 ml Output Total 1600 ml Balance 1250 ml 480 ml Intake Oral 440 ml 1000 ml IV Total 810 ml 1080 ml Output Urine Total 1600 ml # Voids 7 # Bowel Movements 1 Laboratory Tests 04/15/18 08:30: White Blood Count 3.5L, Red Blood Count 3.96L, Hemoglobin 11.6L, Hematocrit 35.0L, Mean Corpuscular Volume 88, Mean Corpuscular Hemoglobin 29.2, Mean Corpuscular Hemoglobin Concent 33.0, Red Cell Distribution Width 14.0, Platelet Count 115L, Mean Platelet Volume 7.2, Neutrophils (%) (Auto) 54.4, Lymphocytes ( %) (Auto) 34.3, Monocytes (%) (Auto) 7.9, Eosinophils (%) (Auto) 1.9, Basophils (%) (Auto) 1.5, Sodium Level 134L, Potassium Level 3.4L, Chloride Level 102, Carbon Dioxide Level 21, Anion Gap 11, Blood Urea Nitrogen 6L, Creatinine 1.0, Estimat Glomerular Filtration Rate > 60, Glucose Level 277H, Calcium Level 8.6 Height (Feet): 6 Height (Inches): 2.00 Weight (Pounds): 179 General Appearance: no apparent distress, alert Neurologic: oriented x 3, responsive, depressed affect Giovanny Cummings M.D. Apr 15, 2018 11:27
--- NOTE | 2018-04-15 13:29 | GI Progress Note ---
Assessment/Plan Problems: (1) Diabetes mellitus out of control ICD Codes: E11.65 - Type 2 diabetes mellitus with hyperglycemia SNOMED: 25737113, 311398188 (2) Abdominal pain ICD Codes: R10.9 - Unspecified abdominal pain SNOMED: 11826637 (3) Pancreatic pseudocyst ICD Codes: K86.3 - Pseudocyst of pancreas SNOMED: 547434349 (4) Gastroenteritis ICD Codes: K52.9 - Noninfective gastroenteritis and colitis, unspecified SNOMED: 32832596 (5) Colitis ICD Codes: K52.9 - Noninfective gastroenteritis and colitis, unspecified SNOMED: 28681904 (6) Dehydration ICD Codes: E86.0 - Dehydration SNOMED: 50169999 (7) Alcohol withdrawal ICD Codes: F10.239 - Alcohol dependence with withdrawal, unspecified SNOMED: 138310195 Qualifiers: Qualified Codes: F10.239 - Alcohol dependence with withdrawal, unspecified (8) Episode of generalized weakness ICD Codes: R53.1 - Weakness SNOMED: 47612020 Status: stable Status Narrative Discussed with Dr. Chandler. Assessment/Plan History of - pancreatic pseudocyst >> from chronic ETOH abuse, no further investigation necessary - colitis / gastroenteritis symptomatic treatment ADA diet DM mgmt zofran prn Ativan prn for agitation OB stool r/o GI bleed monitor H&H, prn transfusions ppi fu labs avoid alcohol dc planning The patient was seen and examined at bedside and all new and available data was reviewed in the patients chart. I agree with the above findings, impression and plan. (Patient seen earlier today. Signature stamp does not reflect patient encounter time.). - Imer Chandler MD Subjective Subjective generalized pain pain BLE, states he has peripheral neuropathy Objective Last 24 Hour Vital Signs Date Time Temp Pulse Resp B/P (MAP) Pulse Ox O2 Delivery O2 Flow Rate FiO2 04/15/18 08:00 98.2 93 20 105/70 98 Room Air 98.2 04/15/18 06:35 87 130/94 04/15/18 04:00 99.0 87 18 130/94 99 99.0 04/15/18 00:00 99.0 91 18 94/60 97 Room Air 99.0 04/14/18 21:04 92 124/78 04/14/18 20:00 99.1 92 18 124/78 98 Room Air 99.1 04/14/18 16:00 97.7 89 20 120/78 100 Room Air 97.7 04/14/18 14:21 91 92/62 04/14/18 14:00 62 Intake and Output 04/14/18 04/15/18 19:00 07:00 Intake Total 1250 ml 2080 ml Output Total 1600 ml Balance 1250 ml 480 ml Intake Oral 440 ml 1000 ml IV Total 810 ml 1080 ml Output Urine Total 1600 ml # Voids 7 # Bowel Movements 1 Laboratory Tests Test 04/15/18 08:30 White Blood Count 3.5 K/UL (4.8-10.8) L Red Blood Count 3.96 M/UL (4.70-6.10) L Hemoglobin 11.6 G/DL (14.2-18.0) L Hematocrit 35.0 % (42.0-52.0) L Mean Corpuscular Volume 88 FL (80-99) Mean Corpuscular Hemoglobin 29.2 PG (27.0-31.0) Mean Corpuscular Hemoglobin Concent 33.0 G/DL (32.0-36.0) Red Cell Distribution Width 14.0 % (11.6-14.8) Platelet Count 115 K/UL (150-450) L Mean Platelet Volume 7.2 FL (6.5-10.1) Neutrophils (%) (Auto) 54.4 % (45.0-75.0) Lymphocytes (%) (Auto) 34.3 % (20.0-45.0) Monocytes (%) (Auto) 7.9 % (1.0-10.0) Eosinophils (%) (Auto) 1.9 % (0.0-3.0) Basophils (%) (Auto) 1.5 % (0.0-2.0) Sodium Level 134 MMOL/L (136-145) L Potassium Level 3.4 MMOL/L (3.5-5.1) L Chloride Level 102 MMOL/L (98-107) Carbon Dioxide Level 21 MMOL/L (21-32) Anion Gap 11 mmol/L (5-15) Blood Urea Nitrogen 6 mg/dL (7-18) L Creatinine 1.0 MG/DL (0.55-1.30) Estimat Glomerular Filtration Rate > 60 mL/min (>60) Glucose Level 277 MG/DL (74-106) H Calcium Level 8.6 MG/DL (8.5-10.1) Height (Feet): 6 Height (Inches): 2.00 Weight (Pounds): 179 General Appearance: WD/WN, no apparent distress, alert Cardiovascular: normal rate Respiratory/Chest: normal breath sounds, no respiratory distress Abdominal Exam: normal bowel sounds, non tender, soft Extremities: normal range of motion, non-tender Kenneth Larry NP Apr 15, 2018 13:29
--- NOTE | 2018-04-15 19:46 | Cardiology Report ---
APPROVED REPORT EKG Measurement Heart [id number] Sinus tachycardia Minimal voltage criteria for LVH, may be normal variant Borderline ECG
--- NOTE | 2018-04-15 22:16 | General Progress Note ---
Assessment/Plan Problem List: (1) Dehydration ICD Codes: E86.0 - Dehydration SNOMED: 91993776 (2) Depression ICD Codes: F32.9 - Major depressive disorder, single episode, unspecified SNOMED: 99800406 (3) Abdominal pain ICD Codes: R10.9 - Unspecified abdominal pain SNOMED: 64431099 (4) Hepatotoxicity, secondary to ETOH ICD Codes: K70.9 - Alcoholic liver disease, unspecified SNOMED: 11420611 (5) Episode of generalized weakness ICD Codes: R53.1 - Weakness SNOMED: 29291429 (6) Diabetes mellitus out of control ICD Codes: E11.65 - Type 2 diabetes mellitus with hyperglycemia SNOMED: 40449799, 208798669 Status: progressing Assessment/Plan more alert etoh abuse abdominal pain improving weakness dm elevate sugars more oriented Subjective ROS Limited/Unobtainable: Yes Constitutional: Reports: no symptoms Allergies: Coded Allergies: No Known Allergies (Unverified , 12/29/17) Objective Last 24 Hour Vital Signs Date Time Temp Pulse Resp B/P (MAP) Pulse Ox O2 Delivery O2 Flow Rate FiO2 04/15/18 20:52 88 117/79 04/15/18 16:00 98.2 20 117/79 Room Air 98.0 98.2 04/15/18 13:56 98.1 18 127/89 Room Air 99.0 98.1 04/15/18 13:55 88 127/89 04/15/18 08:00 98.2 93 20 105/70 98 Room Air 98.2 04/15/18 06:35 87 130/94 04/15/18 04:00 99.0 87 18 130/94 99 99.0 04/15/18 00:00 99.0 91 18 94/60 97 Room Air 99.0 Intake and Output 04/14/18 04/15/18 19:00 07:00 Intake Total 1250 ml 2080 ml Output Total 1600 ml Balance 1250 ml 480 ml Intake Oral 440 ml 1000 ml IV Total 810 ml 1080 ml Output Urine Total 1600 ml # Voids 7 # Bowel Movements 1 Laboratory Tests 04/15/18 08:30: White Blood Count 3.5L, Red Blood Count 3.96L, Hemoglobin 11.6L, Hematocrit 35.0L, Mean Corpuscular Volume 88, Mean Corpuscular Hemoglobin 29.2, Mean Corpuscular Hemoglobin Concent 33.0, Red Cell Distribution Width 14.0, Platelet Count 115L, Mean Platelet Volume 7.2, Neutrophils (%) (Auto) 54.4, Lymphocytes ( %) (Auto) 34.3, Monocytes (%) (Auto) 7.9, Eosinophils (%) (Auto) 1.9, Basophils (%) (Auto) 1.5, Sodium Level 134L, Potassium Level 3.4L, Chloride Level 102, Carbon Dioxide Level 21, Anion Gap 11, Blood Urea Nitrogen 6L, Creatinine 1.0, Estimat Glomerular Filtration Rate > 60, Glucose Level 277H, Calcium Level 8.6 Height (Feet): 6 Height (Inches): 2.00 Weight (Pounds): 179 Neck: supple Cardiovascular: normal rate Respiratory/Chest: lungs clear Abdomen: soft Mery Juarez MD Apr 15, 2018 22:15
[2018-04-16 04:00] VITALS: BP 111/68
[2018-04-16] MEDS: Propranolol 10mg tab ORAL SCH ×3 (06:20→21:05)
[2018-04-16] MEDS: NovoLOG Insulin Flexpen SUBQ SCH ×4 (06:21→21:07)
[2018-04-16 08:00] VITALS: BP 94/56
[2018-04-16] MEDS: Citalopram Hydrobromide 10mg Tab ORAL SCH (08:40)
[2018-04-16] MEDS: Thiamine 100mg tab ORAL SCH (08:40)
[2018-04-16] MEDS: Pantoprazole Inj IVP SCH (08:41)
[2018-04-16] MEDS ORDERED: Isovue-300 100ml vial INJ PRN (09:15)
--- NOTE | 2018-04-16 09:16 | General Progress Note ---
Assessment/Plan Problem List: (1) Diabetes mellitus out of control ICD Codes: E11.65 - Type 2 diabetes mellitus with hyperglycemia SNOMED: 24670825, 797730237 (2) Abdominal pain ICD Codes: R10.9 - Unspecified abdominal pain SNOMED: 68680237 (3) Pancreatic pseudocyst ICD Codes: K86.3 - Pseudocyst of pancreas SNOMED: 239243857 (4) Gastroenteritis ICD Codes: K52.9 - Noninfective gastroenteritis and colitis, unspecified SNOMED: 86504920 (5) Alcohol withdrawal ICD Codes: F10.239 - Alcohol dependence with withdrawal, unspecified SNOMED: 504454354 Qualifiers: Qualified Codes: F10.239 - Alcohol dependence with withdrawal, unspecified (6) ETOH abuse ICD Codes: F10.10 - Alcohol abuse, uncomplicated SNOMED: 23893415 (7) Chronic pancreatitis ICD Codes: K86.1 - Other chronic pancreatitis SNOMED: 966868806 Assessment/Plan ct of abd pnacrease DM control Thiamine/MVI/folic acid fu labs Subjective ROS Limited/Unobtainable: Yes Allergies: Coded Allergies: No Known Allergies (Unverified , 12/29/17) Objective Last 24 Hour Vital Signs Date Time Temp Pulse Resp B/P (MAP) Pulse Ox O2 Delivery O2 Flow Rate FiO2 04/16/18 08:00 98.1 94 20 94/56 99 Room Air 98.1 04/16/18 06:20 93 111/68 04/16/18 04:00 98.7 93 18 111/68 99 Room Air 98.7 04/15/18 23:59 99.0 93 18 98/57 99 Room Air 99.0 04/15/18 20:52 88 117/79 04/15/18 20:00 99.3 96 18 138/77 100 Room Air 99.3 04/15/18 16:00 98.2 20 117/79 Room Air 98.0 98.2 04/15/18 13:56 98.1 18 127/89 Room Air 99.0 98.1 04/15/18 13:55 88 127/89 Intake and Output 04/15/18 04/16/18 19:00 07:00 Intake Total 3900 ml 940 ml Output Total 4550 ml 1200 ml Balance -650 ml -260 ml Intake Oral 3090 ml 750 ml IV Total 810 ml 190 ml Output Urine Total 4550 ml 1200 ml # Bowel Movements 2 4 Height (Feet): 6 Height (Inches): 2.00 Weight (Pounds): 179 General Appearance: alert EENT: normal ENT inspection Neck: supple Cardiovascular: normal rate Respiratory/Chest: lungs clear Abdomen: soft, hypoactive bowel sounds, tender Extremities: non-tender Imer Chandler MD Apr 16, 2018 09:16
[2018-04-16 12:00] VITALS: BP 120/79
[2018-04-16] MEDS: Pancrease Cap ORAL SCH ×2 (12:15→17:17)
--- NOTE | 2018-04-16 12:34 | General Progress Note ---
Assessment/Plan Problem List: (1) Dehydration ICD Codes: E86.0 - Dehydration SNOMED: 14504038 (2) Depression ICD Codes: F32.9 - Major depressive disorder, single episode, unspecified SNOMED: 73715300 (3) Abdominal pain ICD Codes: R10.9 - Unspecified abdominal pain SNOMED: 95544026 (4) Hepatotoxicity, secondary to ETOH ICD Codes: K70.9 - Alcoholic liver disease, unspecified SNOMED: 54950628 (5) Episode of generalized weakness ICD Codes: R53.1 - Weakness SNOMED: 05332194 (6) Diabetes mellitus out of control ICD Codes: E11.65 - Type 2 diabetes mellitus with hyperglycemia SNOMED: 74858894, 058997653 Status: progressing Assessment/Plan more alert etoh abuse abdominal pain improving check sugars more oriented no dt dc planning Subjective ROS Limited/Unobtainable: Yes Allergies: Coded Allergies: No Known Allergies (Unverified , 12/29/17) Objective Last 24 Hour Vital Signs Date Time Temp Pulse Resp B/P (MAP) Pulse Ox O2 Delivery O2 Flow Rate FiO2 04/16/18 12:00 97.5 83 20 120/79 100 Room Air 97.5 04/16/18 08:00 98.1 94 20 94/56 99 Room Air 98.1 04/16/18 06:20 93 111/68 04/16/18 04:00 98.7 93 18 111/68 99 Room Air 98.7 04/15/18 23:59 99.0 93 18 98/57 99 Room Air 99.0 04/15/18 20:52 88 117/79 04/15/18 20:00 99.3 96 18 138/77 100 Room Air 99.3 04/15/18 16:00 98.2 20 117/79 Room Air 98.0 98.2 04/15/18 13:56 98.1 18 127/89 Room Air 99.0 98.1 04/15/18 13:55 88 127/89 Intake and Output 04/15/18 04/16/18 19:00 07:00 Intake Total 3900 ml 940 ml Output Total 4550 ml 1200 ml Balance -650 ml -260 ml Intake Oral 3090 ml 750 ml IV Total 810 ml 190 ml Output Urine Total 4550 ml 1200 ml # Bowel Movements 2 4 Height (Feet): 6 Height (Inches): 2.00 Weight (Pounds): 179 Cardiovascular: normal rate Respiratory/Chest: lungs clear Abdomen: soft Mery Juarez MD Apr 16, 2018 12:33
[2018-04-16 15:06] VITALS: BP 115/75
[2018-04-16 20:00] VITALS: BP 116/73
[2018-04-17] VITALS: BP 104/63
[2018-04-17 04:00] VITALS: BP 93/57
[2018-04-17] MEDS: Propranolol 10mg tab ORAL SCH ×3 (06:00→21:30)
[2018-04-17] MEDS: NovoLOG Insulin Flexpen SUBQ SCH ×4 (06:33→21:33)
--- NOTE | 2018-04-17 07:58 | General Progress Note ---
Assessment/Plan Problem List: (1) Diabetes mellitus out of control ICD Codes: E11.65 - Type 2 diabetes mellitus with hyperglycemia SNOMED: 06334504, 127426974 (2) Abdominal pain ICD Codes: R10.9 - Unspecified abdominal pain SNOMED: 16535810 (3) Pancreatic pseudocyst ICD Codes: K86.3 - Pseudocyst of pancreas SNOMED: 225884578 (4) Gastroenteritis ICD Codes: K52.9 - Noninfective gastroenteritis and colitis, unspecified SNOMED: 65498189 (5) Alcohol withdrawal ICD Codes: F10.239 - Alcohol dependence with withdrawal, unspecified SNOMED: 622645016 Qualifiers: Qualified Codes: F10.239 - Alcohol dependence with withdrawal, unspecified (6) ETOH abuse ICD Codes: F10.10 - Alcohol abuse, uncomplicated SNOMED: 49064237 (7) Chronic pancreatitis ICD Codes: K86.1 - Other chronic pancreatitis SNOMED: 816747465 Assessment/Plan ct of abd >>>pending pnacrease DM control Thiamine/MVI/folic acid fu labs Subjective ROS Limited/Unobtainable: Yes Allergies: Coded Allergies: No Known Allergies (Unverified , 12/29/17) Subjective no event Objective Last 24 Hour Vital Signs Date Time Temp Pulse Resp B/P (MAP) Pulse Ox O2 Delivery O2 Flow Rate FiO2 04/17/18 06:00 86 93/57 04/17/18 04:00 98.1 86 18 93/57 99 Room Air 98.1 04/17/18 00:00 97.5 85 18 104/63 99 Room Air 97.5 04/16/18 21:05 94 116/73 04/16/18 20:00 97.2 94 18 116/73 98 Room Air 97.2 04/16/18 15:06 98.3 85 20 115/75 100 Room Air 98.3 04/16/18 15:04 115 75/85 04/16/18 12:00 97.5 83 20 120/79 100 Room Air 97.5 04/16/18 08:00 98.1 94 20 94/56 99 Room Air 98.1 Intake and Output 04/16/18 04/17/18 19:00 07:00 Intake Total 1500 ml 800 ml Balance 1500 ml 800 ml Intake Oral 1500 ml 800 ml # Voids 4 2 # Bowel Movements 4 2 Height (Feet): 6 Height (Inches): 2.00 Weight (Pounds): 179 General Appearance: alert EENT: normal ENT inspection Neck: supple Cardiovascular: normal rate Respiratory/Chest: lungs clear Abdomen: normal bowel sounds, non tender, soft Extremities: non-tender Imer Chandler MD Apr 17, 2018 07:58
[2018-04-17 08:00] VITALS: BP 109/63
[2018-04-17 08:18] LABS: HEMATOCRIT 30.5 % (42.0-52.0); HEMOGLOBIN 10.5 G/DL (14.2-18.0); MEAN CORPUSCULAR VOLUME 87 FL (80-99); PLATELET COUNT 180 K/UL (150-450); RED CELL DISTRIBUTION WIDTH 13.7 % (11.6-14.8); WHITE BLOOD COUNT 3.2 K/UL (4.8-10.8)
[2018-04-17 08:59] LABS: ALANINE AMINOTRANSFERASE 29 U/L (12-78); ALBUMIN 2.8 G/DL (3.4-5.0); ALBUMIN/GLOBULIN RATIO 0.9 (1.0-2.7); ALKALINE PHOSPHATASE 86 U/L (46-116); AMYLASE 75 U/L (25-115); ANION GAP 8 mmol/L (5-15); ASPARTATE AMINO TRANSFERASE 17 U/L (15-37); BILIRUBIN,TOTAL 0.2 MG/DL (0.2-1.0); BLOOD UREA NITROGEN 4 mg/dL (7-18); CALCIUM 8.8 MG/DL (8.5-10.1); CARBON DIOXIDE 27 MMOL/L (21-32); CHLORIDE 105 MMOL/L (98-107); POTASSIUM 3.2 MMOL/L (3.5-5.1); SODIUM 140 MMOL/L (136-145)
[2018-04-17] MEDS: Thiamine 100mg tab ORAL SCH (09:00)
[2018-04-17] MEDS: Pancrease Cap ORAL SCH ×3 (09:00→17:04)
[2018-04-17] MEDS: Citalopram Hydrobromide 10mg Tab ORAL SCH (09:10)
[2018-04-17] MEDS: Pantoprazole Inj IVP SCH (09:10)
[2018-04-17] MEDS ORDERED: Piperacillin/Tazobactam 3.375 GM in D5W 110 ML IVPB SCH (10:30)
--- NOTE | 2018-04-17 11:40 | Diagnostic Imaging Report ---
INDICATION: Abdominal pain TECHNIQUE: Multiple, contiguous axial cuts of the abdomen and pelvis are obtained from the lung bases to the ischial tuberosities. Sagittal and coronal reformatted images are available. One or more of the following dose reduction techniques were used: automated exposure control, adjustment of the mA and/or kV according to patient size, use of iterative reconstruction technique. COMPARISON: CT dated 12/29/17 FINDINGS: Trace bilateral pleural effusions. Mild bilateral lower lobe subsegmental atelectasis. Stable 13 mm hypodensity in segment 7 of the liver. The liver and spleen are normal in size and free of mass lesions. The gallbladder and bile ducts are normal. The adrenal gland are unremarkable. Diffuse pancreatic parenchymal atrophy with calcifications likely related to a component of chronic pancreatitis, grossly unchanged. Stable 20 mm hypodensity in pancreatic tail. The kidneys are normal in size and contour. No stones, lesions or hydronephrosis. No bowel obstruction. Aorta is normal caliber. No adenopathy or extraluminal air. Old fracture deformity of the left transverse process of L2 with surrounding callus formation. The osseous structures are normal IMPRESSION: 1. Diffuse pancreatic parenchymal atrophy with calcifications likely related to a component of chronic pancreatitis, grossly unchanged. Stable 20 mm hypodensity in pancreatic tail. 2. Stable 13 mm hypodensity in segment 7 of the liver. 3. Old fracture deformity of the left transverse process of L2 with surrounding callus formation. 4. Trace bilateral pleural effusions. Mild bilateral lower lobe subsegmental atelectasis. CTDI: 10.92 mGy DLP: 603.26 mGycm
[2018-04-17 12:00] VITALS: BP 123/86
--- NOTE | 2018-04-17 12:20 | General Progress Note ---
Assessment/Plan Assessment/Plan (1) Alcohol abuse (2) Alcohol withdrawal (3) Abdominal pain (4) Pancreatic pseudocyst Patient will be continued on Tylenol as needed. D/w Dr. Aden and he concurred. Subjective Date patient seen: Apr 17, 2018 Time patient seen: 11:00 - am Constitutional: Reports: no symptoms HEENT: Reports: no symptoms Cardiovascular: Reports: no symptoms Respiratory: Reports: no symptoms Gastrointestinal/Abdominal: Reports: no symptoms Genitourinary: Reports: no symptoms Neurologic/Psychiatric: Reports: no symptoms Endocrine: Reports: no symptoms Hematologic/Lymphatic: Reports: no symptoms Allergies: Coded Allergies: No Known Allergies (Unverified , 12/29/17) Subjective He shows no signs of pain or distress. Pain is mild. Objective Last 24 Hour Vital Signs Date Time Temp Pulse Resp B/P (MAP) Pulse Ox O2 Delivery O2 Flow Rate FiO2 04/17/18 12:00 97.5 71 20 123/86 100 Room Air 97.5 04/17/18 08:00 98.2 83 20 109/63 97 98.2 04/17/18 06:00 86 93/57 04/17/18 04:00 98.1 86 18 93/57 99 Room Air 98.1 04/17/18 00:00 97.5 85 18 104/63 99 Room Air 97.5 04/16/18 21:05 94 116/73 04/16/18 20:00 97.2 94 18 116/73 98 Room Air 97.2 04/16/18 15:06 98.3 85 20 115/75 100 Room Air 98.3 04/16/18 15:04 115 75/85 Intake and Output 04/16/18 04/17/18 19:00 07:00 Intake Total 1500 ml 800 ml Balance 1500 ml 800 ml Intake Oral 1500 ml 800 ml # Voids 4 2 # Bowel Movements 4 2 Laboratory Tests 04/17/18 07:50: White Blood Count 3.2L, Red Blood Count 3.50L, Hemoglobin 10.5L, Hematocrit 30.5L, Mean Corpuscular Volume 87, Mean Corpuscular Hemoglobin 30.1, Mean Corpuscular Hemoglobin Concent 34.5, Red Cell Distribution Width 13.7, Platelet Count 180, Mean Platelet Volume 6.5, Neutrophils (%) (Auto) , Lymphocytes (%) ( Auto) , Monocytes (%) (Auto) , Eosinophils (%) (Auto) , Basophils (%) (Auto) , Differential Total Cells Counted 100, Neutrophils % (Manual) 34L, Lymphocytes % (Manual) 57H, Monocytes % (Manual) 5, Eosinophils % (Manual) 4H, Basophils % ( Manual) 0, Band Neutrophils 0, Platelet Estimate Adequate, Platelet Morphology Normal, Hypochromasia 1+, Sodium Level 140, Potassium Level 3.2L, Chloride Level 105, Carbon Dioxide Level 27, Anion Gap 8, Blood Urea Nitrogen 4L, Creatinine 1.0, Estimat Glomerular Filtration Rate > 60, Glucose Level 204H, Calcium Level 8.8, Total Bilirubin 0.2, Aspartate Amino Transf (AST/SGOT) 17, Alanine Aminotransferase (ALT/SGPT) 29, Alkaline Phosphatase 86, Total Protein 5.8L, Albumin 2.8L, Globulin 3.0, Albumin/Globulin Ratio 0.9L, Amylase Level 75 , Lipase 35L Height (Feet): 6 Height (Inches): 2.00 Weight (Pounds): 179 General Appearance: no apparent distress, alert EENT: PERRL/EOMI, normal ENT inspection Neck: non-tender, normal alignment Cardiovascular: normal rate, regular rhythm Respiratory/Chest: lungs clear, normal breath sounds Abdomen: non tender, soft Extremities: normal range of motion, non-tender Edema: trace edema Neurologic: alert, oriented x 3 Skin: warm/dry Tomasz Wilkerson Apr 17, 2018 12:20
[2018-04-17] MEDS: Piperacillin/Tazobactam 3.375 GM in D5W 110 ML IVPB SCH ×2 (14:48→22:21)
[2018-04-17 16:00] VITALS: BP 114/78
--- NOTE | 2018-04-17 17:47 | Cardiology Progress Note ---
Assessment/Plan Assessment/Plan 1. Sinus tachycardia due to combination of hypovolemia due to alcohol abuse as well as ETOH withdrawal, hydration, pain control and optimization of propranolol. 2. Alcoholism 3. DM, benefit from ASA and statins. 4. Hx of chronic pancreatitis, pancreatic pseudocyst. Subjective Subjective Not on the telemetry unit. No cardiac events noted. Objective Last 24 Hour Vital Signs Date Time Temp Pulse Resp B/P (MAP) Pulse Ox O2 Delivery O2 Flow Rate FiO2 04/17/18 16:00 97.7 95 20 114/78 100 Room Air 97.7 04/17/18 14:52 93 122/87 04/17/18 12:00 97.5 71 20 123/86 100 Room Air 97.5 04/17/18 08:00 98.2 83 20 109/63 97 98.2 04/17/18 06:00 86 93/57 04/17/18 04:00 98.1 86 18 93/57 99 Room Air 98.1 04/17/18 00:00 97.5 85 18 104/63 99 Room Air 97.5 04/16/18 21:05 94 116/73 04/16/18 20:00 97.2 94 18 116/73 98 Room Air 97.2 Intake and Output 04/16/18 04/17/18 19:00 07:00 Intake Total 1500 ml 800 ml Balance 1500 ml 800 ml Intake Oral 1500 ml 800 ml # Voids 4 2 # Bowel Movements 4 2 Laboratory Tests Test 04/17/18 07:50 White Blood Count 3.2 K/UL (4.8-10.8) L Red Blood Count 3.50 M/UL (4.70-6.10) L Hemoglobin 10.5 G/DL (14.2-18.0) L Hematocrit 30.5 % (42.0-52.0) L Mean Corpuscular Volume 87 FL (80-99) Mean Corpuscular Hemoglobin 30.1 PG (27.0-31.0) Mean Corpuscular Hemoglobin Concent 34.5 G/DL (32.0-36.0) Red Cell Distribution Width 13.7 % (11.6-14.8) Platelet Count 180 K/UL (150-450) Mean Platelet Volume 6.5 FL (6.5-10.1) Neutrophils (%) (Auto) % (45.0-75.0) Lymphocytes (%) (Auto) % (20.0-45.0) Monocytes (%) (Auto) % (1.0-10.0) Eosinophils (%) (Auto) % (0.0-3.0) Basophils (%) (Auto) % (0.0-2.0) Differential Total Cells Counted 100 Neutrophils % (Manual) 34 % (45-75) L Lymphocytes % (Manual) 57 % (20-45) H Monocytes % (Manual) 5 % (1-10) Eosinophils % (Manual) 4 % (0-3) H Basophils % (Manual) 0 % (0-2) Band Neutrophils 0 % (0-8) Platelet Estimate Adequate Platelet Morphology Normal Hypochromasia 1+ Sodium Level 140 MMOL/L (136-145) Potassium Level 3.2 MMOL/L (3.5-5.1) L Chloride Level 105 MMOL/L (98-107) Carbon Dioxide Level 27 MMOL/L (21-32) Anion Gap 8 mmol/L (5-15) Blood Urea Nitrogen 4 mg/dL (7-18) L Creatinine 1.0 MG/DL (0.55-1.30) Estimat Glomerular Filtration Rate > 60 mL/min (>60) Glucose Level 204 MG/DL (74-106) H Calcium Level 8.8 MG/DL (8.5-10.1) Total Bilirubin 0.2 MG/DL (0.2-1.0) Aspartate Amino Transf (AST/SGOT) 17 U/L (15-37) Alanine Aminotransferase (ALT/SGPT) 29 U/L (12-78) Alkaline Phosphatase 86 U/L (46-116) Total Protein 5.8 G/DL (6.4-8.2) L Albumin 2.8 G/DL (3.4-5.0) L Globulin 3.0 g/dL Albumin/Globulin Ratio 0.9 (1.0-2.7) L Amylase Level 75 U/L (25-115) Lipase 35 U/L (73-393) L Objective General Appearance: no apparent distress, alert, GCS 15, non-toxic Head: normocephalic, atraumatic, bilateral eye normal inspection, bilateral eye PERRL Neck: No JVD Respiratory: chest non-tender, lungs clear, normal breath sounds, speaking full sentences Cardiovascular: Regular rate rhythm, no murmurs, gallops or rubs, tachycardic Gastrointestinal: normal bowel sounds, non tender, soft, non-distended, no guarding, no rebound Genitourinary: normal inspection, no CVA tenderness Musculoskeletal: no edema, clubbing or cyanosis. Neurologic: alert, oriented x3, responsive, motor strength/tone normal, sensory intact, speech normal Psychiatric: judgement/insight normal, memory normal, mood/affect normal, no suicidal/homicidal ideation Zachary Silverio MD Apr 17, 2018 17:47
--- NOTE | 2018-04-17 18:38 | General Progress Note ---
Assessment/Plan Problem List: (1) Dehydration ICD Codes: E86.0 - Dehydration SNOMED: 37157190 (2) Depression ICD Codes: F32.9 - Major depressive disorder, single episode, unspecified SNOMED: 76857474 (3) Abdominal pain ICD Codes: R10.9 - Unspecified abdominal pain SNOMED: 63033227 (4) Hepatotoxicity, secondary to ETOH ICD Codes: K70.9 - Alcoholic liver disease, unspecified SNOMED: 53649181 (5) Episode of generalized weakness ICD Codes: R53.1 - Weakness SNOMED: 61311071 (6) Diabetes mellitus out of control ICD Codes: E11.65 - Type 2 diabetes mellitus with hyperglycemia SNOMED: 17622114, 091275951 Status: progressing Assessment/Plan more alert etoh abuse low k no dt dc planning in am afebrile Subjective ROS Limited/Unobtainable: Yes Allergies: Coded Allergies: No Known Allergies (Unverified , 12/29/17) Objective Last 24 Hour Vital Signs Date Time Temp Pulse Resp B/P (MAP) Pulse Ox O2 Delivery O2 Flow Rate FiO2 04/17/18 16:00 97.7 95 20 114/78 100 Room Air 97.7 04/17/18 14:52 93 122/87 04/17/18 12:00 97.5 71 20 123/86 100 Room Air 97.5 04/17/18 08:00 98.2 83 20 109/63 97 98.2 04/17/18 06:00 86 93/57 04/17/18 04:00 98.1 86 18 93/57 99 Room Air 98.1 04/17/18 00:00 97.5 85 18 104/63 99 Room Air 97.5 04/16/18 21:05 94 116/73 04/16/18 20:00 97.2 94 18 116/73 98 Room Air 97.2 Intake and Output 04/16/18 04/17/18 19:00 07:00 Intake Total 1500 ml 800 ml Balance 1500 ml 800 ml Intake Oral 1500 ml 800 ml # Voids 4 2 # Bowel Movements 4 2 Laboratory Tests 04/17/18 07:50: White Blood Count 3.2L, Red Blood Count 3.50L, Hemoglobin 10.5L, Hematocrit 30.5L, Mean Corpuscular Volume 87, Mean Corpuscular Hemoglobin 30.1, Mean Corpuscular Hemoglobin Concent 34.5, Red Cell Distribution Width 13.7, Platelet Count 180, Mean Platelet Volume 6.5, Neutrophils (%) (Auto) , Lymphocytes (%) ( Auto) , Monocytes (%) (Auto) , Eosinophils (%) (Auto) , Basophils (%) (Auto) , Differential Total Cells Counted 100, Neutrophils % (Manual) 34L, Lymphocytes % (Manual) 57H, Monocytes % (Manual) 5, Eosinophils % (Manual) 4H, Basophils % ( Manual) 0, Band Neutrophils 0, Platelet Estimate Adequate, Platelet Morphology Normal, Hypochromasia 1+, Sodium Level 140, Potassium Level 3.2L, Chloride Level 105, Carbon Dioxide Level 27, Anion Gap 8, Blood Urea Nitrogen 4L, Creatinine 1.0, Estimat Glomerular Filtration Rate > 60, Glucose Level 204H, Calcium Level 8.8, Total Bilirubin 0.2, Aspartate Amino Transf (AST/SGOT) 17, Alanine Aminotransferase (ALT/SGPT) 29, Alkaline Phosphatase 86, Total Protein 5.8L, Albumin 2.8L, Globulin 3.0, Albumin/Globulin Ratio 0.9L, Amylase Level 75 , Lipase 35L Height (Feet): 6 Height (Inches): 2.00 Weight (Pounds): 179 Cardiovascular: normal rate Respiratory/Chest: lungs clear Abdomen: soft Mery Juarez MD Apr 17, 2018 18:38
--- NOTE | 2018-04-17 20:00 | Consultation ---
DATE OF CONSULTATION: 04/17/2018 INFECTIOUS DISEASE CONSULTATION CONSULTING PHYSICIAN: Bryan Calvert M.D. REFERRING PHYSICIAN: Mery Juarez M.D. This consultation has been done on behalf of Dr. Juarez. REASON FOR CONSULTATION: Possible cholecystitis. HISTORY OF PRESENTING ILLNESS: This is a 48-year-old gentleman with history of diabetes, neuropathy, tachycardia, who comes in with nausea, vomiting, and abdominal pain. An Infectious Diseases consultation has been obtained for possible cholecystitis. PAST MEDICAL HISTORY: 1. History of diabetes. 2. History of neuropathy. 3. History of hand and foot surgery. SOCIAL HISTORY: He is a smoker. He drinks alcohol. No history of drug use. FAMILY HISTORY: Positive for diabetes and possible heart disease. REVIEW OF SYSTEMS: RESPIRATORY: He denies any fever, chills, cough, shortness of breath, or chest pain. CARDIAC: No chest pain. No palpitations. No dizziness. No syncope. GASTROINTESTINAL: He does have nausea and vomiting. He complains of right-sided abdominal pain. No diarrhea. MEDICATIONS: As an inpatient, he is on Benadryl, lipase/protease/amylase, iopamidol, Protonix, Celexa, propranolol, Risperdal, Zofran, diazepam, folic acid, thiamine, gabapentin, multivitamin, Tylenol, insulin. ALLERGIES: No known drug allergies. PHYSICAL EXAMINATION: VITAL SIGNS: Temperature of 98.2, T-max of 99, pulse of 83, respiratory rate 20, blood pressure 109/63, and O2 saturation of 97%. HEENT: Pupils equally reactive to light and accommodation. Mouth appears clean without thrush. NECK: Supple. No adenopathy. No JVD. CARDIOVASCULAR: Regular rate and rhythm. No murmurs. LUNGS: Clear to auscultation bilaterally. No crackles. No wheezes. ABDOMEN: Soft. Right upper quadrant tenderness noted. No organomegaly. EXTREMITIES: No cyanosis, no clubbing, no edema. LABORATORY DATA: White count of 3.2, hemoglobin 10.5, hematocrit 30.5, MCV 87, platelet count of 180,000. Sodium 140, potassium 3.2, chloride 105, bicarbonate 27, BUN 4, creatinine 1, glucose 204, and calcium 8.8. Total bilirubin 0.2, AST 17, ALT 29, and alkaline phosphatase 86. Total protein 5.8. Albumin 2.8. Chest x-ray is showing no acute process. On 04/13/2018, AST was 42, ALT 62, alkaline phosphatase 132. ASSESSMENT: 1. This is a 48-year-old gentleman with history of diabetes, neuropathy, and alcohol use, who comes in with nausea, vomiting, and right-sided abdominal pain with concern regarding cholecystitis as a possibility. 2. History of alcohol use. 3. Diabetes. 4. Neuropathy. PLAN: 1. We will order blood cultures. 2. We will order an ultrasound of abdomen. 3. We will start the patient on Zosyn. 4. We will order a HIDA scan. 5. We will follow up cultures. I would like to thank Dr. Juarez for this consultation. Bryan Calvert M.D. DR: CAROLINA JOB#: [id number] CC: Mery Juarez M.D.; Fax#: [phone]
[2018-04-17 20:48] VITALS: BP 123/78
--- NOTE | 2018-04-17 23:00 | Consultation ---
DATE OF CONSULTATION: CARDIOLOGY CONSULTATION CONSULTING PHYSICIAN: Zachary Silverio M.D. REFERRING PHYSICIAN: Mery Juarez M.D. REASON FOR CONSULTATION: Management of tachycardia. HISTORY OF PRESENT ILLNESS: The patient is a very unfortunate 48-year-old gentleman, who presents to the emergency department with complaints of chest pain, abdominal pain, feeling weak, and dehydrated for just about a day. The patient has had nausea and vomiting. He has history of chronic pancreatitis in the emergency department, his blood pressure was 130/103 mmHg and heart rate of 128. A 12-lead electrocardiogram shows sinus tachycardia with ST and T-wave abnormalities. The patient had chest x-ray, which showed no acute cardiopulmonary disease. He was admitted to the hospital with possible alcohol withdrawal in combination with dehydration. Cardiology consultation was made at the request of Dr. Juarez for assessment and management of tachycardia. PAST MEDICAL HISTORY: 1. History of chronic pancreatitis. 2. History of alcohol abuse. 3. History of psych disorder. 4. History of diabetes mellitus. PAST SURGICAL HISTORY: None. MEDICATIONS: List of medications including hlordiazepoxide 25 mg p.o. q.6 h. p.r.n. agitation, Cipro 500 mg twice daily, citalopram 20 mg p.o. daily, gabapentin 300 mg q.12 h., Levemir insulin 10 units subcutaneous daily, Glucophage 600 mg twice daily, multivitamin one tablet p.o. daily, Starlix 120 mm 10 days, and Seroquel 25 mg p.o. daily. SOCIAL HISTORY: He is drinking alcohol. Denies any tobacco or illicit drug use. FAMILY HISTORY: No premature coronary artery disease or arrhythmogenic in first-degree relatives. REVIEW OF SYSTEM: A 12 system review done essentially negative except what mentioned in the history of present illness. PHYSICAL EXAMINATION: VITAL SIGNS: Blood pressure at the time of arrival to the hospital was 130/103, respirations 20, pulse of 128, temperature 98.9 degrees, Fahrenheit, and O2 saturation 100% on room air. GENERAL: The patient is a very unfortunate 48-year-old gentleman, in no apparent respiratory distress. Alert and oriented x4. HEENT: Atraumatic, normocephalic. Anicteric. Pupils are equal, round, reactive to light and accommodation. Extraocular muscles intact. NECK: JVP less than 5 cm. No carotid bruit. Carotid upstrokes 2+ bilaterally. CARDIOVASCULAR: Normal S1, S2. Tachycardic and irregular rhythm. No murmurs, gallops, or rubs. LUNGS: Clear to auscultation bilaterally. ABDOMEN: Soft, nontender, nondistended. No hepatosplenomegaly. Positive bowel sounds. EXTREMITIES: No evidence of edema, clubbing, or cyanosis. LABORATORY FINDINGS: WBC was 7.1, hemoglobin of 14.1, hematocrit of 42.1, platelet count is 145. Chemistry; sodium 135, potassium is 4.2, chloride 103, bicarbonate 16, BUN of 36, creatinine 1.7, glucose is 157, calcium is 9.5. Troponin I was 0.0. A 12-lead electrocardiogram at time of arrival to the hospital showed sinus tachycardia at 129 with a minimal voltage criteria for LVH. ASSESSMENT AND PLAN: The patient is an very unfortunate 48-year-old gentleman, seen in Cardiology consultation at request of Dr. Juarez. 1. Sinus tachycardia. This is most likely due to hypovolemia as the patient shows evidence of prerenal azotemia. Under laboratory findings as well as hyponatremia. I would suggest continuation of normal saline in this patient. 2. Other management of tachycardia would be due to alcohol withdrawal. The patient will benefit from propranolol, therefore 10 mg of propranolol every 8 hours will be added to the regimen. 3. Alcoholism. 4. History of chronic pancreatitis, most likely due to alcohol. 5. Diabetes mellitus. The patient would benefit from combination of aspirin and atorvastatin from cardiac standpoint. I would like to thank, Dr. Juarez for the courtesy of this consultation. Zachary Silverio M.D. DR: Mira JOB#: [id number] CC:
[2018-04-18 00:16] VITALS: BP 119/69
[2018-04-18 04:45] VITALS: BP 120/72
[2018-04-18] MEDS: Piperacillin/Tazobactam 3.375 GM in D5W 110 ML IVPB SCH ×2 (06:06→14:59)
[2018-04-18] MEDS: NovoLOG Insulin Flexpen SUBQ SCH ×3 (06:06→16:30)
[2018-04-18] MEDS: Propranolol 10mg tab ORAL SCH ×2 (06:06→14:59)
--- NOTE | 2018-04-18 06:58 | General Progress Note ---
Assessment/Plan Problem List: (1) Episode of generalized weakness ICD Codes: R53.1 - Weakness SNOMED: 80524958 (2) Pancreatic pseudocyst ICD Codes: K86.3 - Pseudocyst of pancreas SNOMED: 908812474 (3) Diabetes mellitus out of control ICD Codes: E11.65 - Type 2 diabetes mellitus with hyperglycemia SNOMED: 41181213, 391880799 (4) Depression ICD Codes: F32.9 - Major depressive disorder, single episode, unspecified SNOMED: 41052510 Assessment/Plan add Levemir 10 units daily add Starlix 60 mg ac tid continue Novolog SSI Subjective Allergies: Coded Allergies: No Known Allergies (Unverified , 12/29/17) All Systems: reviewed and negative except above Subjective events noted Objective Last 24 Hour Vital Signs Date Time Temp Pulse Resp B/P (MAP) Pulse Ox O2 Delivery O2 Flow Rate FiO2 04/18/18 06:06 85 120/72 04/18/18 05:00 Room Air 04/18/18 04:45 98.2 85 18 120/72 97 98.2 04/18/18 00:19 Room Air 04/18/18 00:16 98.3 90 18 119/69 99 98.3 04/17/18 21:30 94 123/78 04/17/18 20:48 98.6 94 19 123/78 99 98.6 04/17/18 20:00 Room Air 04/17/18 16:00 97.7 95 20 114/78 100 Room Air 97.7 04/17/18 14:52 93 122/87 04/17/18 12:00 97.5 71 20 123/86 100 Room Air 97.5 04/17/18 08:00 98.2 83 20 109/63 97 98.2 Intake and Output 04/17/18 04/18/18 19:00 07:00 Intake Total 1600 ml 590.0 ml Balance 1600 ml 590.0 ml Intake Oral 1600 ml 480 ml IV Total 110.0 ml # Voids 5 4 # Bowel Movements 2 1 Laboratory Tests 04/17/18 07:50: White Blood Count 3.2L, Red Blood Count 3.50L, Hemoglobin 10.5L, Hematocrit 30.5L, Mean Corpuscular Volume 87, Mean Corpuscular Hemoglobin 30.1, Mean Corpuscular Hemoglobin Concent 34.5, Red Cell Distribution Width 13.7, Platelet Count 180, Mean Platelet Volume 6.5, Neutrophils (%) (Auto) , Lymphocytes (%) ( Auto) , Monocytes (%) (Auto) , Eosinophils (%) (Auto) , Basophils (%) (Auto) , Differential Total Cells Counted 100, Neutrophils % (Manual) 34L, Lymphocytes % (Manual) 57H, Monocytes % (Manual) 5, Eosinophils % (Manual) 4H, Basophils % ( Manual) 0, Band Neutrophils 0, Platelet Estimate Adequate, Platelet Morphology Normal, Hypochromasia 1+, Sodium Level 140, Potassium Level 3.2L, Chloride Level 105, Carbon Dioxide Level 27, Anion Gap 8, Blood Urea Nitrogen 4L, Creatinine 1.0, Estimat Glomerular Filtration Rate > 60, Glucose Level 204H, Calcium Level 8.8, Total Bilirubin 0.2, Aspartate Amino Transf (AST/SGOT) 17, Alanine Aminotransferase (ALT/SGPT) 29, Alkaline Phosphatase 86, Total Protein 5.8L, Albumin 2.8L, Globulin 3.0, Albumin/Globulin Ratio 0.9L, Amylase Level 75 , Lipase 35L Height (Feet): 6 Height (Inches): 2.00 Weight (Pounds): 179 General Appearance: no apparent distress Neck: normal alignment Cardiovascular: normal rate Respiratory/Chest: lungs clear Abdomen: normal bowel sounds Pelvis: normal external exam Objective Current Medications Medications (Trade) Dose Ordered Sig/Adolfo Route PRN Reason Start Time Stop Time Status Last Admin Dose Admin Acetaminophen (Tylenol) 650 mg Q4H PRN ORAL Mild Pain/Temp > 100.5 04/13/18 08:45 05/13/18 08:44 04/14/18 08:32 Amylase/Lipase/ Protease (Pancrease) 2 ea THREE TIMES A DAY ORAL 04/16/18 13:00 05/16/18 12:59 04/17/18 17:04 Citalopram Hydrobromide (celeXA) 20 mg DAILY ORAL 04/14/18 10:30 05/14/18 10:29 04/17/18 09:10 Dextrose (Dextrose 50%) 25 ml STAT PRN IV Hypoglycemia 04/13/18 00:15 05/13/18 00:14 Dextrose (Dextrose 50%) 50 ml STAT PRN IV Hypoglycemia 04/13/18 00:15 05/13/18 00:14 Diazepam (Valium) 10 mg Q4H PRN ORAL For Anxiety 04/13/18 11:00 04/20/18 10:59 04/17/18 21:34 Diphenhydramine HCl (Benadryl) 25 mg Q4H PRN ORAL Itching 04/16/18 16:45 05/16/18 16:44 04/17/18 18:52 Folic Acid (Folate) 1 mg DAILY ORAL 04/13/18 11:00 05/13/18 10:59 04/16/18 08:40 Gabapentin (Neurontin) 300 mg Q12HR ORAL 04/13/18 09:00 05/13/18 08:59 04/17/18 21:30 Insulin Aspart (NovoLOG) BEFORE MEALS AND HS SUBQ 04/13/18 06:30 05/13/18 06:29 04/18/18 06:06 Iopamidol (Isovue-300 100ml) 100 ml NOW PRN INJ Radiology Procedure 04/16/18 09:15 04/18/18 23:59 Multivitamins (Multivitamins) 1 tab DAILY ORAL 04/13/18 09:00 05/13/18 08:59 04/16/18 08:40 Ondansetron HCl (Zofran) 4 mg Q6H PRN IVP Nausea & Vomiting 04/13/18 11:15 05/13/18 11:14 04/15/18 06:35 Pantoprazole (Protonix) 40 mg DAILY IVP 04/14/18 10:30 05/14/18 10:29 04/17/18 09:10 Piperacillin Sod/ Tazobactam Sod 3.375 gm/Dextrose 110 ml @ 27.5 mls/hr Q8HR IVPB 04/17/18 14:00 04/24/18 13:59 04/18/18 06:06 Propranolol HCl (Inderal) 10 mg Q8HR ORAL 04/13/18 22:00 05/13/18 21:59 04/18/18 06:06 Risperidone (RisperDAL) 2 mg QHS ORAL 04/13/18 21:00 05/13/18 20:59 04/17/18 21:30 Thiamine HCl (Vitamin B1) 100 mg DAILY ORAL 04/13/18 11:00 05/13/18 10:59 04/16/18 08:40 Item Value Date Time Bedside Blood Glucose 266 mg/dl H 04/18/18 0611 Bedside Blood Glucose 218 mg/dl H 04/17/18 2133 Bedside Blood Glucose 321 mg/dl H 04/17/18 1703 Bedside Blood Glucose 73 mg/dl 04/17/18 1130 Bedside Blood Glucose 272 mg/dl H 04/17/18 0633 Siddhartha Cardona MD Apr 18, 2018 06:58
[2018-04-18 08:00] VITALS: BP 104/73
[2018-04-18 08:20] LABS: BASOPHILS % (AUTO) 0.7 % (0.0-2.0); EOSINOPHILS % (AUTO) 1.7 % (0.0-3.0); HEMATOCRIT 35.3 % (42.0-52.0); HEMOGLOBIN 11.3 G/DL (14.2-18.0); LYMPHOCYTES % (AUTO) 47.9 % (20.0-45.0); MEAN CORPUSCULAR VOLUME 88 FL (80-99); MONOCYTES % (AUTO) 12.6 % (1.0-10.0); NEUTROPHILS % (AUTO) 37.2 % (45.0-75.0); PLATELET COUNT 269 K/UL (150-450); WHITE BLOOD COUNT 4.3 K/UL (4.8-10.8)
[2018-04-18 08:51] LABS: ALANINE AMINOTRANSFERASE 32 U/L (12-78); ALBUMIN 3.3 G/DL (3.4-5.0); ALBUMIN/GLOBULIN RATIO 0.9 (1.0-2.7); ALKALINE PHOSPHATASE 93 U/L (46-116); ANION GAP 9 mmol/L (5-15); ASPARTATE AMINO TRANSFERASE 18 U/L (15-37); BILIRUBIN,TOTAL 0.3 MG/DL (0.2-1.0); BLOOD UREA NITROGEN 10 mg/dL (7-18); CALCIUM 9.2 MG/DL (8.5-10.1); CARBON DIOXIDE 29 MMOL/L (21-32); CHLORIDE 101 MMOL/L (98-107); CREATININE 1.1 MG/DL (0.55-1.30); POTASSIUM 3.6 MMOL/L (3.5-5.1); SODIUM 139 MMOL/L (136-145)
[2018-04-18] MEDS: Thiamine 100mg tab ORAL SCH (08:52)
[2018-04-18] MEDS: Pantoprazole Inj IVP SCH (08:53)
[2018-04-18] MEDS: Citalopram Hydrobromide 10mg Tab ORAL SCH (08:53)
[2018-04-18] MEDS: Pancrease Cap ORAL SCH ×3 (08:56→18:00)
[2018-04-18] MEDS ORDERED: Levemir Flexpen SUBQ SCH (09:00)
[2018-04-18] MEDS ORDERED: Morphine Sulfate 2mg/ml Inj IVP PRN (10:00)
--- NOTE | 2018-04-18 10:20 | GI Progress Note ---
Assessment/Plan Problems: (1) Diabetes mellitus out of control ICD Codes: E11.65 - Type 2 diabetes mellitus with hyperglycemia SNOMED: 43179902, 159473025 (2) Abdominal pain ICD Codes: R10.9 - Unspecified abdominal pain SNOMED: 90966480 (3) Pancreatic pseudocyst ICD Codes: K86.3 - Pseudocyst of pancreas SNOMED: 387809596 (4) Gastroenteritis ICD Codes: K52.9 - Noninfective gastroenteritis and colitis, unspecified SNOMED: 19661349 (5) Colitis ICD Codes: K52.9 - Noninfective gastroenteritis and colitis, unspecified SNOMED: 76422924 (6) Dehydration ICD Codes: E86.0 - Dehydration SNOMED: 59986192 (7) Alcohol withdrawal ICD Codes: F10.239 - Alcohol dependence with withdrawal, unspecified SNOMED: 095243821 Qualifiers: Qualified Codes: F10.239 - Alcohol dependence with withdrawal, unspecified (8) Episode of generalized weakness ICD Codes: R53.1 - Weakness SNOMED: 95138617 Status: stable Status Narrative Discussed with Dr. Chandler. Assessment/Plan History of - pancreatic pseudocyst >> from chronic ETOH abuse, no further investigation necessary - colitis / gastroenteritis CT AP reviewed >> chronic pancreatitis symptomatic treatment pancrease ADA diet DM mgmt zofran prn Ativan prn for agitation monitor H&H, prn transfusions ppi Thiamine/MVI/folic acid fu labs The patient was seen and examined at bedside and all new and available data was reviewed in the patients chart. I agree with the above findings, impression and plan. (Patient seen earlier today. Signature stamp does not reflect patient encounter time.). - Imer Chandler MD Subjective Subjective generalized pain pain BLE, states he has peripheral neuropathy Objective Last 24 Hour Vital Signs Date Time Temp Pulse Resp B/P (MAP) Pulse Ox O2 Delivery O2 Flow Rate FiO2 04/18/18 08:00 98.2 89 20 104/73 97 Room Air 98.2 04/18/18 06:06 85 120/72 04/18/18 05:00 Room Air 04/18/18 04:45 98.2 85 18 120/72 97 98.2 04/18/18 00:19 Room Air 04/18/18 00:16 98.3 90 18 119/69 99 98.3 04/17/18 21:30 94 123/78 04/17/18 20:48 98.6 94 19 123/78 99 98.6 04/17/18 20:00 Room Air 04/17/18 16:00 97.7 95 20 114/78 100 Room Air 97.7 04/17/18 14:52 93 122/87 04/17/18 12:00 97.5 71 20 123/86 100 Room Air 97.5 Intake and Output 04/17/18 04/18/18 19:00 07:00 Intake Total 1600 ml 590.0 ml Balance 1600 ml 590.0 ml Intake Oral 1600 ml 480 ml IV Total 110.0 ml # Voids 5 4 # Bowel Movements 2 1 Laboratory Tests Test 04/18/18 07:24 White Blood Count 4.3 K/UL (4.8-10.8) L Red Blood Count 4.00 M/UL (4.70-6.10) L Hemoglobin 11.3 G/DL (14.2-18.0) L Hematocrit 35.3 % (42.0-52.0) L Mean Corpuscular Volume 88 FL (80-99) Mean Corpuscular Hemoglobin 28.3 PG (27.0-31.0) Mean Corpuscular Hemoglobin Concent 32.1 G/DL (32.0-36.0) Red Cell Distribution Width 14.0 % (11.6-14.8) Platelet Count 269 K/UL (150-450) Mean Platelet Volume 6.7 FL (6.5-10.1) Neutrophils (%) (Auto) 37.2 % (45.0-75.0) L Lymphocytes (%) (Auto) 47.9 % (20.0-45.0) H Monocytes (%) (Auto) 12.6 % (1.0-10.0) H Eosinophils (%) (Auto) 1.7 % (0.0-3.0) Basophils (%) (Auto) 0.7 % (0.0-2.0) Sodium Level 139 MMOL/L (136-145) Potassium Level 3.6 MMOL/L (3.5-5.1) Chloride Level 101 MMOL/L (98-107) Carbon Dioxide Level 29 MMOL/L (21-32) Anion Gap 9 mmol/L (5-15) Blood Urea Nitrogen 10 mg/dL (7-18) Creatinine 1.1 MG/DL (0.55-1.30) Estimat Glomerular Filtration Rate > 60 mL/min (>60) Glucose Level 245 MG/DL (74-106) H Calcium Level 9.2 MG/DL (8.5-10.1) Total Bilirubin 0.3 MG/DL (0.2-1.0) Aspartate Amino Transf (AST/SGOT) 18 U/L (15-37) Alanine Aminotransferase (ALT/SGPT) 32 U/L (12-78) Alkaline Phosphatase 93 U/L (46-116) Total Protein 6.8 G/DL (6.4-8.2) Albumin 3.3 G/DL (3.4-5.0) L Globulin 3.5 g/dL Albumin/Globulin Ratio 0.9 (1.0-2.7) L Lipase 37 U/L (73-393) L Height (Feet): 6 Height (Inches): 2.00 Weight (Pounds): 179 General Appearance: WD/WN, no apparent distress, alert Cardiovascular: normal rate Respiratory/Chest: normal breath sounds, no respiratory distress Abdominal Exam: normal bowel sounds, non tender, soft Extremities: normal range of motion, non-tender Kenneth Larry NP Apr 18, 2018 10:20
--- NOTE | 2018-04-18 11:21 | Diagnostic Imaging Report ---
Indication: Abdominal pain, elevated glucose, abdominal pain Technique: Decker-scale and duplex images of the upper abdomen were obtained Comparison: Reference made to CT scan of earlier the same day Findings: Gallbladder is unremarkable, without stones, wall thickening, nor pericholecystic fluid. Sonographic El's sign is negative. Common bile duct measures 3 mm in diameter. No intrahepatic biliary ductal dilatation. Liver demonstrates equivocally minimally increased echogenicity. Hypoechoic 7 mm lesion is seen in the right hepatic lobe, corresponding to the abnormality described on recent CT scans. Portal vein and hepatic veins are patent. Pancreas is incompletely visualized due to overlying bowel gas, visualized portions are unremarkable. Note that the calcifications and pancreatic tail cystic mass described on recent CT are not evident sonographically Spleen is unremarkable. Left kidney measures 12.2 cm in length. Right kidney measures 12.6 cm length. Both kidneys demonstrate normal echogenicity. There is no hydronephrosis. No focal abnormality . Non-aneurysmal abdominal aorta . Apparent bilateral pleural effusions are incidentally noted Impression: Negative for gallstones or dilated ducts Equivocally increased hepatic echogenicity, could represent mild hepatic steatosis. 7 mm right lobe liver lesion, corresponding to abnormality described on recent CT scans. This is nonspecific, and short interval follow-up sonography or CT scanning recommended in 6-12 months Suboptimal visualization of the pancreas; abnormalities described on recent CT scan are not sonographically evident Apparent bilateral pleural effusions are noted. However, these probably are artifactual as they are not evident on the recent CT scan
--- NOTE | 2018-04-18 11:39 | Infectious Diseases Prog Note ---
Assessment/Plan Assessment/Plan antibiotics : zosyn A 1. chronic pancreatitis 2. r/o cholecystitis 3. DM 4. neuropathy P 1. continue zosyn 2. will follow up cultures 3. HIDA scan pending Subjective Constitutional: Denies: fever, chills Respiratory: Denies: shortness of breath, dry cough Gastrointestinal/Abdominal: Denies: nausea, vomiting, diarrhea Musculoskeletal: Reports: pain - in abdomen Allergies: Coded Allergies: No Known Allergies (Unverified , 12/29/17) Objective Vital Signs Last 24 Hour Vital Signs Date Time Temp Pulse Resp B/P (MAP) Pulse Ox O2 Delivery O2 Flow Rate FiO2 04/18/18 08:00 98.2 89 20 104/73 97 Room Air 98.2 04/18/18 06:06 85 120/72 04/18/18 05:00 Room Air 04/18/18 04:45 98.2 85 18 120/72 97 98.2 04/18/18 00:19 Room Air 04/18/18 00:16 98.3 90 18 119/69 99 98.3 04/17/18 21:30 94 123/78 04/17/18 20:48 98.6 94 19 123/78 99 98.6 04/17/18 20:00 Room Air 04/17/18 16:00 97.7 95 20 114/78 100 Room Air 97.7 04/17/18 14:52 93 122/87 04/17/18 12:00 97.5 71 20 123/86 100 Room Air 97.5 Height (Feet): 6 Height (Inches): 2.00 Weight (Pounds): 179 Respiratory/Chest: lungs clear Cardiovascular: normal rate, regular rhythm, no gallop/murmur Abdomen: tender - RUQ Extremities: no edema Laboratory Tests Test 04/18/18 07:24 White Blood Count 4.3 K/UL (4.8-10.8) L Red Blood Count 4.00 M/UL (4.70-6.10) L Hemoglobin 11.3 G/DL (14.2-18.0) L Hematocrit 35.3 % (42.0-52.0) L Mean Corpuscular Volume 88 FL (80-99) Mean Corpuscular Hemoglobin 28.3 PG (27.0-31.0) Mean Corpuscular Hemoglobin Concent 32.1 G/DL (32.0-36.0) Red Cell Distribution Width 14.0 % (11.6-14.8) Platelet Count 269 K/UL (150-450) Mean Platelet Volume 6.7 FL (6.5-10.1) Neutrophils (%) (Auto) 37.2 % (45.0-75.0) L Lymphocytes (%) (Auto) 47.9 % (20.0-45.0) H Monocytes (%) (Auto) 12.6 % (1.0-10.0) H Eosinophils (%) (Auto) 1.7 % (0.0-3.0) Basophils (%) (Auto) 0.7 % (0.0-2.0) Sodium Level 139 MMOL/L (136-145) Potassium Level 3.6 MMOL/L (3.5-5.1) Chloride Level 101 MMOL/L (98-107) Carbon Dioxide Level 29 MMOL/L (21-32) Anion Gap 9 mmol/L (5-15) Blood Urea Nitrogen 10 mg/dL (7-18) Creatinine 1.1 MG/DL (0.55-1.30) Estimat Glomerular Filtration Rate > 60 mL/min (>60) Glucose Level 245 MG/DL (74-106) H Calcium Level 9.2 MG/DL (8.5-10.1) Total Bilirubin 0.3 MG/DL (0.2-1.0) Aspartate Amino Transf (AST/SGOT) 18 U/L (15-37) Alanine Aminotransferase (ALT/SGPT) 32 U/L (12-78) Alkaline Phosphatase 93 U/L (46-116) Total Protein 6.8 G/DL (6.4-8.2) Albumin 3.3 G/DL (3.4-5.0) L Globulin 3.5 g/dL Albumin/Globulin Ratio 0.9 (1.0-2.7) L Lipase 37 U/L (73-393) L Current Medications Medications (Trade) Dose Ordered Sig/Adolfo Route PRN Reason Start Time Stop Time Status Last Admin Dose Admin Acetaminophen (Tylenol) 650 mg Q4H PRN ORAL Mild Pain/Temp > 100.5 04/13/18 08:45 05/13/18 08:44 04/14/18 08:32 Amylase/Lipase/ Protease (Pancrease) 2 ea THREE TIMES A DAY ORAL 04/16/18 13:00 05/16/18 12:59 04/18/18 08:56 Citalopram Hydrobromide (celeXA) 20 mg DAILY ORAL 04/14/18 10:30 05/14/18 10:29 04/18/18 08:53 Dextrose (Dextrose 50%) 25 ml STAT PRN IV Hypoglycemia 04/18/18 07:00 05/18/18 06:59 Dextrose (Dextrose 50%) 25 ml STAT PRN IV Hypoglycemia 04/13/18 00:15 05/13/18 00:14 Dextrose (Dextrose 50%) 50 ml STAT PRN IV Hypoglycemia 04/18/18 07:00 05/18/18 06:59 Dextrose (Dextrose 50%) 50 ml STAT PRN IV Hypoglycemia 04/13/18 00:15 05/13/18 00:14 Diazepam (Valium) 10 mg Q4H PRN ORAL For Anxiety 04/13/18 11:00 04/20/18 10:59 04/17/18 21:34 Diphenhydramine HCl (Benadryl) 25 mg Q4H PRN ORAL Itching 04/16/18 16:45 05/16/18 16:44 04/17/18 18:52 Folic Acid (Folate) 1 mg DAILY ORAL 04/13/18 11:00 05/13/18 10:59 04/18/18 08:53 Gabapentin (Neurontin) 300 mg Q12HR ORAL 04/13/18 09:00 05/13/18 08:59 04/18/18 08:52 Insulin Aspart (NovoLOG) BEFORE MEALS AND HS SUBQ 04/13/18 06:30 05/13/18 06:29 04/18/18 06:06 Insulin Detemir (Levemir) 10 units DAILY SUBQ 04/18/18 09:00 05/18/18 08:59 04/18/18 09:11 Iopamidol (Isovue-300 100ml) 100 ml NOW PRN INJ Radiology Procedure 04/16/18 09:15 04/18/18 23:59 Morphine Sulfate (Morphine Sulfate) 2 mg ONCE PRN IVP FOR HIDA SCAN 04/18/18 10:00 04/18/18 23:59 Multivitamins (Multivitamins) 1 tab DAILY ORAL 04/13/18 09:00 05/13/18 08:59 04/18/18 08:52 Nateglinide (Starlix) 60 mg TIAC ORAL 04/18/18 11:30 05/18/18 11:29 Ondansetron HCl (Zofran) 4 mg Q6H PRN IVP Nausea & Vomiting 04/13/18 11:15 05/13/18 11:14 04/15/18 06:35 Pantoprazole (Protonix) 40 mg DAILY IVP 04/14/18 10:30 05/14/18 10:29 04/18/18 08:53 Piperacillin Sod/ Tazobactam Sod 3.375 gm/Dextrose 110 ml @ 27.5 mls/hr Q8HR IVPB 04/17/18 14:00 04/24/18 13:59 04/18/18 06:06 Propranolol HCl (Inderal) 10 mg Q8HR ORAL 04/13/18 22:00 05/13/18 21:59 04/18/18 06:06 Risperidone (RisperDAL) 2 mg QHS ORAL 04/13/18 21:00 05/13/18 20:59 04/17/18 21:30 Thiamine HCl (Vitamin B1) 100 mg DAILY ORAL 04/13/18 11:00 05/13/18 10:59 04/18/18 08:52 ZAYDA SHIPLEY Apr 18, 2018 11:39
[2018-04-18 12:00] VITALS: BP 132/73
--- NOTE | 2018-04-18 14:37 | Diagnostic Imaging Report ---
Indications: Abdominal tenderness and pain Technique: IV administration 5.3 mCi 99 M technetium Choletec. Serial images obtained over the abdomen for one hour Comparison: None Findings: Prompt tracer uptake within the liver. Extrahepatic bile ducts are seen at 7 minutes. Excretion into the duodenum demonstrated at 10 minutes. Gallbladder visualized at 25 minutes. Impression: Negative
[2018-04-18] MEDS: Nateglinide 60mg tab ORAL SCH ×2 (14:58→16:55)
[2018-04-18] MEDS ORDERED: NS 275ml ONE (15:23)
[2018-04-18 16:04] VITALS: BP 108/74
--- NOTE | 2018-04-18 17:19 | General Progress Note ---
Assessment/Plan Status: stable, progressing Assessment/Plan MDD Alcohol Depn -Valium prn -Risperdal -thiamin -folate -Celexa -the pt should be discharged after medical clearance Subjective Date patient seen: Apr 18, 2018 Neurologic/Psychiatric: Reports: anxiety, depressed, emotional problems Allergies: Coded Allergies: No Known Allergies (Unverified , 12/29/17) Objective Last 24 Hour Vital Signs Date Time Temp Pulse Resp B/P (MAP) Pulse Ox O2 Delivery O2 Flow Rate FiO2 04/18/18 16:04 98.0 91 19 108/74 100 Room Air 98.0 04/18/18 14:59 84 132/73 04/18/18 12:00 98.1 84 20 132/73 99 Room Air 98.1 04/18/18 08:00 98.2 89 20 104/73 97 Room Air 98.2 04/18/18 06:06 85 120/72 04/18/18 05:00 Room Air 04/18/18 04:45 98.2 85 18 120/72 97 98.2 04/18/18 00:19 Room Air 04/18/18 00:16 98.3 90 18 119/69 99 98.3 04/17/18 21:30 94 123/78 04/17/18 20:48 98.6 94 19 123/78 99 98.6 04/17/18 20:00 Room Air Intake and Output 04/17/18 04/18/18 19:00 07:00 Intake Total 1600 ml 590.0 ml Balance 1600 ml 590.0 ml Intake Oral 1600 ml 480 ml IV Total 110.0 ml # Voids 5 4 # Bowel Movements 2 1 Laboratory Tests 04/18/18 07:24: White Blood Count 4.3L, Red Blood Count 4.00L, Hemoglobin 11.3L, Hematocrit 35.3L, Mean Corpuscular Volume 88, Mean Corpuscular Hemoglobin 28.3, Mean Corpuscular Hemoglobin Concent 32.1, Red Cell Distribution Width 14.0, Platelet Count 269, Mean Platelet Volume 6.7, Neutrophils (%) (Auto) 37.2L, Lymphocytes ( %) (Auto) 47.9H, Monocytes (%) (Auto) 12.6H, Eosinophils (%) (Auto) 1.7, Basophils (%) (Auto) 0.7, Sodium Level 139, Potassium Level 3.6, Chloride Level 101, Carbon Dioxide Level 29, Anion Gap 9, Blood Urea Nitrogen 10, Creatinine 1.1, Estimat Glomerular Filtration Rate > 60, Glucose Level 245H, Calcium Level 9.2, Total Bilirubin 0.3, Aspartate Amino Transf (AST/SGOT) 18, Alanine Aminotransferase (ALT/SGPT) 32, Alkaline Phosphatase 93, Total Protein 6.8, Albumin 3.3L, Globulin 3.5, Albumin/Globulin Ratio 0.9L, Lipase 37L Height (Feet): 6 Height (Inches): 2.00 Weight (Pounds): 179 Giovanny Cummings M.D. Apr 18, 2018 17:19
--- NOTE | 2018-04-18 17:23 | General Progress Note ---
Assessment/Plan Assessment/Plan (1) Alcohol abuse (2) Alcohol withdrawal (3) Abdominal pain (4) Pancreatic pseudocyst Patient will be continued on Tylenol as needed. D/w Dr. Aden and he concurred. Subjective Date patient seen: Apr 18, 2018 Time patient seen: 04:45 - pm Allergies: Coded Allergies: No Known Allergies (Unverified , 12/29/17) Subjective Constitutional: Reports: no symptoms HEENT: Reports: no symptoms Cardiovascular: Reports: no symptoms Respiratory: Reports: no symptoms Gastrointestinal/Abdominal: Reports: no symptoms Genitourinary: Reports: no symptoms Neurologic/Psychiatric: Reports: no symptoms Endocrine: Reports: no symptoms Hematologic/Lymphatic: Reports: no symptoms Subjective Patient is in chair and has been comfortable. Objective Last 24 Hour Vital Signs Date Time Temp Pulse Resp B/P (MAP) Pulse Ox O2 Delivery O2 Flow Rate FiO2 04/18/18 16:04 98.0 91 19 108/74 100 Room Air 98.0 04/18/18 14:59 84 132/73 04/18/18 12:00 98.1 84 20 132/73 99 Room Air 98.1 04/18/18 08:00 98.2 89 20 104/73 97 Room Air 98.2 04/18/18 06:06 85 120/72 04/18/18 05:00 Room Air 04/18/18 04:45 98.2 85 18 120/72 97 98.2 04/18/18 00:19 Room Air 04/18/18 00:16 98.3 90 18 119/69 99 98.3 04/17/18 21:30 94 123/78 04/17/18 20:48 98.6 94 19 123/78 99 98.6 04/17/18 20:00 Room Air Intake and Output 04/17/18 04/18/18 19:00 07:00 Intake Total 1600 ml 590.0 ml Balance 1600 ml 590.0 ml Intake Oral 1600 ml 480 ml IV Total 110.0 ml # Voids 5 4 # Bowel Movements 2 1 Laboratory Tests 04/18/18 07:24: White Blood Count 4.3L, Red Blood Count 4.00L, Hemoglobin 11.3L, Hematocrit 35.3L, Mean Corpuscular Volume 88, Mean Corpuscular Hemoglobin 28.3, Mean Corpuscular Hemoglobin Concent 32.1, Red Cell Distribution Width 14.0, Platelet Count 269, Mean Platelet Volume 6.7, Neutrophils (%) (Auto) 37.2L, Lymphocytes ( %) (Auto) 47.9H, Monocytes (%) (Auto) 12.6H, Eosinophils (%) (Auto) 1.7, Basophils (%) (Auto) 0.7, Sodium Level 139, Potassium Level 3.6, Chloride Level 101, Carbon Dioxide Level 29, Anion Gap 9, Blood Urea Nitrogen 10, Creatinine 1.1, Estimat Glomerular Filtration Rate > 60, Glucose Level 245H, Calcium Level 9.2, Total Bilirubin 0.3, Aspartate Amino Transf (AST/SGOT) 18, Alanine Aminotransferase (ALT/SGPT) 32, Alkaline Phosphatase 93, Total Protein 6.8, Albumin 3.3L, Globulin 3.5, Albumin/Globulin Ratio 0.9L, Lipase 37L Height (Feet): 6 Height (Inches): 2.00 Weight (Pounds): 179 Objective General Appearance: no apparent distress, alert EENT: PERRL/EOMI, normal ENT inspection Neck: non-tender, normal alignment Cardiovascular: normal rate, regular rhythm Respiratory/Chest: lungs clear, normal breath sounds Abdomen: non tender, soft Extremities: normal range of motion, non-tender Edema: trace edema Neurologic: alert, oriented x 3 Skin: warm/dry Tomasz Wilkerson Apr 18, 2018 17:23
--- NOTE | 2018-04-18 18:30 | Cardiology Progress Note ---
Assessment/Plan Assessment/Plan 1. Sinus tachycardia, resolved, due to combination of hypovolemia due to alcohol abuse as well as ETOH withdrawal, hydration, pain control and optimization of propranolol. 2. Alcoholism 3. DM, benefit from ASA and statins. 4. Hx of chronic pancreatitis, pancreatic pseudocyst. Subjective Subjective Not on the telemetry unit. No cardiac events noted. Objective Last 24 Hour Vital Signs Date Time Temp Pulse Resp B/P (MAP) Pulse Ox O2 Delivery O2 Flow Rate FiO2 04/18/18 16:04 98.0 91 19 108/74 100 Room Air 98.0 04/18/18 14:59 84 132/73 04/18/18 12:00 98.1 84 20 132/73 99 Room Air 98.1 04/18/18 08:00 98.2 89 20 104/73 97 Room Air 98.2 04/18/18 06:06 85 120/72 04/18/18 05:00 Room Air 04/18/18 04:45 98.2 85 18 120/72 97 98.2 04/18/18 00:19 Room Air 04/18/18 00:16 98.3 90 18 119/69 99 98.3 04/17/18 21:30 94 123/78 04/17/18 20:48 98.6 94 19 123/78 99 98.6 04/17/18 20:00 Room Air Intake and Output 04/17/18 04/18/18 19:00 07:00 Intake Total 1600 ml 590.0 ml Balance 1600 ml 590.0 ml Intake Oral 1600 ml 480 ml IV Total 110.0 ml # Voids 5 4 # Bowel Movements 2 1 Laboratory Tests Test 04/18/18 07:24 White Blood Count 4.3 K/UL (4.8-10.8) L Red Blood Count 4.00 M/UL (4.70-6.10) L Hemoglobin 11.3 G/DL (14.2-18.0) L Hematocrit 35.3 % (42.0-52.0) L Mean Corpuscular Volume 88 FL (80-99) Mean Corpuscular Hemoglobin 28.3 PG (27.0-31.0) Mean Corpuscular Hemoglobin Concent 32.1 G/DL (32.0-36.0) Red Cell Distribution Width 14.0 % (11.6-14.8) Platelet Count 269 K/UL (150-450) Mean Platelet Volume 6.7 FL (6.5-10.1) Neutrophils (%) (Auto) 37.2 % (45.0-75.0) L Lymphocytes (%) (Auto) 47.9 % (20.0-45.0) H Monocytes (%) (Auto) 12.6 % (1.0-10.0) H Eosinophils (%) (Auto) 1.7 % (0.0-3.0) Basophils (%) (Auto) 0.7 % (0.0-2.0) Sodium Level 139 MMOL/L (136-145) Potassium Level 3.6 MMOL/L (3.5-5.1) Chloride Level 101 MMOL/L (98-107) Carbon Dioxide Level 29 MMOL/L (21-32) Anion Gap 9 mmol/L (5-15) Blood Urea Nitrogen 10 mg/dL (7-18) Creatinine 1.1 MG/DL (0.55-1.30) Estimat Glomerular Filtration Rate > 60 mL/min (>60) Glucose Level 245 MG/DL (74-106) H Calcium Level 9.2 MG/DL (8.5-10.1) Total Bilirubin 0.3 MG/DL (0.2-1.0) Aspartate Amino Transf (AST/SGOT) 18 U/L (15-37) Alanine Aminotransferase (ALT/SGPT) 32 U/L (12-78) Alkaline Phosphatase 93 U/L (46-116) Total Protein 6.8 G/DL (6.4-8.2) Albumin 3.3 G/DL (3.4-5.0) L Globulin 3.5 g/dL Albumin/Globulin Ratio 0.9 (1.0-2.7) L Lipase 37 U/L (73-393) L Objective General Appearance: no apparent distress, alert, GCS 15, non-toxic Head: normocephalic, atraumatic, bilateral eye normal inspection, bilateral eye PERRL Neck: No JVD Respiratory: chest non-tender, lungs clear, normal breath sounds, speaking full sentences Cardiovascular: Regular rate rhythm, no murmurs, gallops or rubs, tachycardic Gastrointestinal: normal bowel sounds, non tender, soft, non-distended, no guarding, no rebound Genitourinary: normal inspection, no CVA tenderness Musculoskeletal: no edema, clubbing or cyanosis. Neurologic: alert, oriented x3, responsive, motor strength/tone normal, sensory intact, speech normal Psychiatric: judgement/insight normal, memory normal, mood/affect normal, no suicidal/homicidal ideation Zachary Silverio MD Apr 18, 2018 18:30
--- NOTE | 2018-04-19 10:43 | Discharge Summary ---
Discharge Summary Discharge Summary _ DATE OF ADMISSION: 04/12/2018 DATE OF DISCHARGE: 04/18/2018 REASON FOR ADMISSION: 48 years old male with a history of diabetes mellitus, depression, alcohol abuse , chronic pancreatitis, pancreatic pseudocyst,m presented to emergency department with complaints of abdominal pain ,generalized weakness, nausea and occasional vomiting. He denied fever or chills. He rated pain 8 out of 10 on a scale 1-10, nonradiating and sharp in quality. Patient felt week and dehydrated. Patient stated that he was delusional. He had previous admission back in December with history of colitis. Patient admitted to heavy drinking of vodka. Blood sugar was within normal limits. Vital signs revealed tachycardia r, EKG revealed sinus tachycardia, no acute ischemic changes. Pulse oximetry was stable on room air. Laboratory workup revealed no leukocytosis, troponin negative, lipase within normal limits ,BUN 36 creatinine 1.7, AST elevated 42. Chest x-ray revealed no evidence of acute cardiopulmonary pathology. Serum toxicology screen for ETOH was unremarkable. Patient admitted with diagnosis of dehydration, alcohol abuse, alcohol dependency with withdrawal , acute kidney injury ,abdominal pain, chronic pancreatitis with pancreatic pseudocyst, diabetes mellitus. CONSULTANTS: printing machinist Dr. Silverio ID specialist Dr. Calvert GI specialist Dr. Chandler psychiatrist document design specialist Dr. Cardona pain specialist Dr. Aden [facility] COURSE: Patient admitted. Patient started on the IV hydration. Antiemetics provided as needed. Patient started on folate, thiamine and multivitamins. No evidence of withdrawal symptoms. Anxiolytics were on board as needed. GI specialist closely followed the patient. Patient with history of chronic pancreatitis and pancreatic pseudocyst. Pancrease with meals was added to medication regimen. CT of the abdomen and pelvis revealed evidence of chronic pancreatitis but no gallstones or dilated ducts were seen. Abdominal ultrasound revealed no evidence of gallstones or dilated ducts. HIDA scan was negative. AST down to normal. Lipase stable. GI prophylaxis provided. Hemoglobin and hematocrit remained stable. Abdominal pain was probably due to chronic pancreatitis.Pain management was addressed as per pain specialist recommendations. Pain was controlled. Psychiatrist seen and evaluated patient, diagnosed patient with a major depressive disorder and alcohol dependency. Patient started on antidepressive medication as per psychiatrist recommendation. Infectious disease doctor closely followed. Patient initially was on empiric antibiotics for possible acute cholecystitis. However with negative imaging studies, no leukocytosis, no fever, antibiotics were stopped. Infectious disease specialist recommended to observe patient off antibiotics. Blood sugar was managed as per document design specialist recommendations, who closely followed. Blood sugar was managed with long-acting Levemir, Starlix pre-meal and sliding scale of insulin as needed. Author'S Agent closely followed. Patient initially with sinus tachycardia on admission, which resolved with IV hydration. No acute ischemic changes on telemetry was noted. According to printing machinist, sinus tachycardia was precipitated by hypovolemia and ETOH withdrawal. Author'S Agent recommended to continue aspirin and statin, which would be beneficial for this patient with diabetes. Renal parameters and electrolytes were closely monitored. Electrolytes were corrected as needed. Prior to discharge, BUN, down to 10, creatinine down to 1.1. Acute kidney injury was l likely due to dehydration and resolved with IV hydration. Patient was stabilized and cleared by all consultants for discharge. Patient was counseled on abstinence from ETOH. Patient was encouraged to comply with medication regimen FINAL DIAGNOSES: Alcohol dependency with withdrawal dehydration acute kidney injury -resolved chronic pancreatitis with pancreatic pseudocyst alcohol abuse with dependency abdominal pain diabetes mellitus out of control major depressive disorder DISCHARGE MEDICATIONS: See Medication Reconciliation list. DISCHARGE INSTRUCTIONS: Patient was discharged home. follow-up with primary care provider in one week. I have been assigned to dictate discharge summary for this account. I was not involved in the patient's management. Tiffani Wu NP Apr 19, 2018 10:43
== END 2018-04-18 18:55 | disposition home or self-care (01) | DRG 897 ==
LOC: EDBD 18:34 → EMR 19:13 → 4E 22:12 → EDBEDREQ 22:40 → 3E 04-17 13:42
DX: F10.239 Alcohol dependence with withdrawal, unspecified (principal); N17.9 Acute kidney failure, unspecified; K86.1 Other chronic pancreatitis; K86.3 Pseudocyst of pancreas; E86.0 Dehydration; R10.9 Unspecified abdominal pain; E11.65 Type 2 diabetes mellitus with hyperglycemia; F31.9 Bipolar disorder, unspecified; F20.9 Schizophrenia, unspecified; G62.9 Polyneuropathy, unspecified; R00.0 Tachycardia, unspecified; K52.9 Noninfective gastroenteritis and colitis, unspecified; K70.9 Alcoholic liver disease, unspecified; E86.1 Hypovolemia
CPT/HCPCS: 36415; 71045; 74177; 76700; 78266; 80048; 80053; 80329; 82150; 82550; 82553; 82962; 83690; 84484; 85007; 85025; 87040; 93005; 99285; J1815; J2405; S5561

== ENCOUNTER 2018-07-19 11:30 | Inpatient (IN) | payer OTHER ==
[~2018-07-19] VITALS: Ht 188 cm; Wt 78.7 kg
[2018-07-19 11:30] VITALS: BP 100/60
[~2018-07-19 11:30] MED LIST changes: +CELEXA20 MG ORAL; +QUETIAPINE FUMA25 MG ORAL
[2018-07-19 12:58] LABS: HEMATOCRIT 40.8 % (42.0-52.0); HEMOGLOBIN 13.6 G/DL (14.2-18.0); MEAN CORPUSCULAR VOLUME 91 FL (80-99); PLATELET COUNT 121 K/UL (150-450); RED BLOOD COUNT 4.46 M/UL (4.70-6.10); WHITE BLOOD COUNT 2.7 K/UL (4.8-10.8)
[2018-07-19 13:23] LABS: ALANINE AMINOTRANSFERASE 72 U/L (12-78); ALBUMIN 3.5 G/DL (3.4-5.0); ALBUMIN/GLOBULIN RATIO 0.9 (1.0-2.7); ALKALINE PHOSPHATASE 253 U/L (46-116); ANION GAP 17 mmol/L (5-15); ASPARTATE AMINO TRANSFERASE 113 U/L (15-37); BLOOD UREA NITROGEN 10 mg/dL (7-18); CALCIUM 8.7 MG/DL (8.5-10.1); CARBON DIOXIDE 26 MMOL/L (21-32); CHLORIDE 95 MMOL/L (98-107); CKMB < 0.5 NG/ML (0.0-3.6); CREATINE KINASE 155 U/L (26-308); CREATININE 0.9 MG/DL (0.55-1.30); POTASSIUM 3.4 MMOL/L (3.5-5.1); SODIUM 138 MMOL/L (136-145)
[2018-07-19 13:24] VITALS: BP 126/81
--- NOTE | 2018-07-19 14:58 | Emergency Room Report ---
History of Present Illness General Chief Complaint: General Complaint Source: EMS Present Illness HPI Patient presents emergency department today complaining of generalized weakness not eating not drinking. Patient seemed to be very weak and was brought here for further evaluation. Patient is not very verbal and not very communicative. He denies any chest pain shortness breath denies any vomiting. No other complaints are noted. Symptoms noted to be moderate to severe.No other modifying factors. No other associated signs and symptoms. No other complaints were noted. Allergies: Coded Allergies: No Known Allergies (Unverified , 12/29/17) Patient History Past Medical History: DM, psych hx Past Surgical History: none Pertinent Family History: none Social History: Denies: smoking, alcohol use, drug use Reviewed Nursing Documentation: PMH: Agreed; PSxH: Agreed Nursing Documentation-PMH Past Medical History: No History, Except For Hx Cardiac Problems: No Hx Diabetes: Yes Hx Cancer: No Hx Gastrointestinal Problems: Yes - abd pain History Of Psychiatric Problem: Yes Hx Cerebrovascular Accident: No Review of Systems All Other Systems: negative except mentioned in HPI Physical Exam Vital Signs Date Time Temp Pulse Resp B/P (MAP) Pulse Ox O2 Delivery O2 Flow Rate FiO2 07/19/18 11:23 98.0 84 16 100/60 95 Room Air 98.1 Sp02 EP Interpretation: reviewed, normal General Appearance: alert, mild distress, thin - k Head: normocephalic, atraumatic Eyes: bilateral eye normal inspection ENT: normal ENT inspection, hearing grossly normal, normal voice Neck: normal inspection, full range of motion, supple, no bony tend Respiratory: normal inspection, lungs clear, normal breath sounds, no respiratory distress, no retraction, no wheezing Cardiovascular #1: regular rate, rhythm, no edema Gastrointestinal: normal inspection, normal bowel sounds, non tender, soft, no guarding, no hernia Genitourinary: no CVA tenderness Musculoskeletal: normal inspection, back normal, normal range of motion Neurologic: normal inspection, alert, responsive, speech normal Psychiatric: no suicidal/homicidal ideation, depressed affect Skin: normal inspection, normal color, no rash, warm/dry Medical Decision Making Diagnostic Impression: Primary Impression: Dehydration Additional Impressions: Failure to thrive Weakness ER Course Patient presents emergency department today complaining of generalized weakness. Patient is not eating and drinking. Differential considerations include dehydration, electrolyte abnormality, infectious process just name a few.Given the severity of the patient's presentation I felt this is a highly complex patient. This patient required extensive workup. Patient's laboratory workup was not impressive except for low white blood cell count. Patient also appear to be slightly anemic. Given patient been taking however I felt the patient was significantly weekend and essentially failure to thrive. I felt the patient require admission to the hospital further treatment evaluation. We' ll admit the case Dr. Mery Hayes. Labs Test 07/19/18 12:43 White Blood Count 2.7 K/UL (4.8-10.8) Red Blood Count 4.46 M/UL (4.70-6.10) Hemoglobin 13.6 G/DL (14.2-18.0) Hematocrit 40.8 % (42.0-52.0) Mean Corpuscular Volume 91 FL (80-99) Mean Corpuscular Hemoglobin 30.5 PG (27.0-31.0) Mean Corpuscular Hemoglobin Concent 33.3 G/DL (32.0-36.0) Red Cell Distribution Width 12.0 % (11.6-14.8) Platelet Count 121 K/UL (150-450) Mean Platelet Volume 6.3 FL (6.5-10.1) Neutrophils (%) (Auto) % (45.0-75.0) Lymphocytes (%) (Auto) % (20.0-45.0) Monocytes (%) (Auto) % (1.0-10.0) Eosinophils (%) (Auto) % (0.0-3.0) Basophils (%) (Auto) % (0.0-2.0) Differential Total Cells Counted 100 Neutrophils % (Manual) 39 % (45-75) Lymphocytes % (Manual) 53 % (20-45) Monocytes % (Manual) 8 % (1-10) Eosinophils % (Manual) 0 % (0-3) Basophils % (Manual) 0 % (0-2) Band Neutrophils 0 % (0-8) Platelet Estimate Decreased Platelet Morphology Normal Red Blood Cell Morphology Normal Sodium Level 138 MMOL/L (136-145) Potassium Level 3.4 MMOL/L (3.5-5.1) Chloride Level 95 MMOL/L (98-107) Carbon Dioxide Level 26 MMOL/L (21-32) Anion Gap 17 mmol/L (5-15) Blood Urea Nitrogen 10 mg/dL (7-18) Creatinine 0.9 MG/DL (0.55-1.30) Estimat Glomerular Filtration Rate > 60 mL/min (>60) Glucose Level 199 MG/DL (74-106) Calcium Level 8.7 MG/DL (8.5-10.1) Total Bilirubin 1.0 MG/DL (0.2-1.0) Aspartate Amino Transf (AST/SGOT) 113 U/L (15-37) Alanine Aminotransferase (ALT/SGPT) 72 U/L (12-78) Alkaline Phosphatase 253 U/L (46-116) Total Creatine Kinase 155 U/L (26-308) Creatine Kinase MB < 0.5 NG/ML (0.0-3.6) Creatine Kinase MB Relative Index 0.3 Troponin I 0.000 ng/mL (0.000-0.056) Pro-B-Type Natriuretic Peptide 39 pg/mL (0-125) Total Protein 7.5 G/DL (6.4-8.2) Albumin 3.5 G/DL (3.4-5.0) Globulin 4.0 g/dL Albumin/Globulin Ratio 0.9 (1.0-2.7) Lipase 48 U/L (73-393) Thyroid Stimulating Hormone (TSH) 1.010 uiU/mL (0.358-3.740) EKG Diagnostic Results Rate: normal Rhythm: NSR ST Segments: no acute changes Rhythm Strip Diag. Results EP Interpretation: yes Rate: 96 Rhythm: NSR, no PVC's, no ectopy Chest X-Ray Diagnostic Results Chest X-Ray Diagnostic Results : Chest X-Ray Ordered: Yes # of Views/Limited/Complete: 1 View Indication: Shortness of Breath EP Interpretation: Yes Interpretation: no consolidation, no effusion, no pneumothorax, no acute cardiopulmonary disease Impression: No acute disease Electronically Signed by: Electronically signed by Aston Garcia MD Last Vital Signs Date Time Temp Pulse Resp B/P (MAP) Pulse Ox O2 Delivery O2 Flow Rate FiO2 07/19/18 13:24 98.1 89 16 126/81 95 Room Air 98.1 Status: improved Disposition: ADMITTED INPATIENT Condition: Serious Referrals: [facility],REFERRING (PCP) Aston Garcia MD Jul 19, 2018 14:58
--- NOTE | 2018-07-19 15:27 | Diagnostic Imaging Report ---
Indication: Chest pain Comparison: 04/12/2018 A single view chest radiograph was obtained. Findings: Cardiomediastinal appearance is within normal limits for age. The lungs are clear. Pulmonary vascularity is appropriate. The diaphragmatic contour is smooth and costophrenic angles are sharp. No pleural effusions are identified. The bones are unremarkable. Impression: No acute findings
--- NOTE | 2018-07-19 15:49 | Consultation ---
Consult Note Consult Note asked to eval at the request of DR Bhatia Patient presents emergency department today complaining of generalized weakness not eating not drinking. Patient seemed to be very weak and was brought here for further evaluation. Patient is not very verbal and not very communicative. He denies any chest pain shortness breath denies any vomiting. No other complaints are noted. Symptoms noted to be moderate to severe.No other modifying factors. No other associated signs and symptoms. No other complaints were noted. No Known Allergies (Unverified , 12/29/17) Past Medical History: DM, psych hx Past Medical History: No History, Except For Hx Diabetes: Yes Hx Gastrointestinal Problems: Yes - abd pain History Of Psychiatric Problem: Yes examined- data reviewed Assessment/Plan FTT Dehydration PanCytopenia Hyperglycemia / DM abnormal electrolytes Hydrate- Anemia meneses HgbAic liver Casey Lopez MD Jul 19, 2018 15:49
[2018-07-19 16:07] VITALS: BP 105/75
[2018-07-19] MEDS ORDERED: CELEXA10 MG ORAL (16:07)
[2018-07-19] MEDS ORDERED: HUMULIN R100 UNIT/1 SUBQ (16:07)
[2018-07-19] MEDS ORDERED: SEROQUEL50 MG ORAL (16:07)
[2018-07-19 17:30] VITALS: BP 124/79
--- NOTE | 2018-07-19 19:41 | General Progress Note ---
Assessment/Plan Assessment/Plan Assessment - EtOH abuse - EtOH hepatitis - EtOH marrow suppression - EtOH withdrawal history Recommendations - IVF - MVI - Thiamine - BDZ - EtoH avoidance - Follow labs - replace lytes Subjective Allergies: Coded Allergies: No Known Allergies (Unverified , 12/29/17) Objective Last 24 Hour Vital Signs Date Time Temp Pulse Resp B/P (MAP) Pulse Ox O2 Delivery O2 Flow Rate FiO2 07/19/18 17:30 97.2 98 18 124/79 (94) 97 97.2 07/19/18 17:27 98.2 107 13 105/75 Room Air 07/19/18 17:20 Room Air 07/19/18 16:07 98.4 96 13 105/75 99 Room Air 98.4 07/19/18 13:24 98.1 89 16 126/81 95 Room Air 98.1 07/19/18 11:30 98.1 75 16 100/60 95 Room Air 98.1 07/19/18 11:23 98.0 84 16 100/60 95 Room Air 98.1 Laboratory Tests 07/19/18 12:43: White Blood Count 2.7L, Red Blood Count 4.46L, Hemoglobin 13.6L, Hematocrit 40.8L, Mean Corpuscular Volume 91, Mean Corpuscular Hemoglobin 30.5, Mean Corpuscular Hemoglobin Concent 33.3, Red Cell Distribution Width 12.0, Platelet Count 121L, Mean Platelet Volume 6.3L, Neutrophils (%) (Auto) , Lymphocytes (%) (Auto) , Monocytes (%) (Auto) , Eosinophils (%) (Auto) , Basophils (%) (Auto) , Differential Total Cells Counted 100, Neutrophils % (Manual) 39L, Lymphocytes % (Manual) 53H, Monocytes % (Manual) 8, Eosinophils % (Manual) 0, Basophils % ( Manual) 0, Band Neutrophils 0, Platelet Estimate DecreasedL, Platelet Morphology Normal, Red Blood Cell Morphology Normal, Sodium Level 138, Potassium Level 3.4L, Chloride Level 95L, Carbon Dioxide Level 26, Anion Gap 17H , Blood Urea Nitrogen 10, Creatinine 0.9, Estimat Glomerular Filtration Rate > 60, Glucose Level 199H, Calcium Level 8.7, Total Bilirubin 1.0, Aspartate Amino Transf (AST/SGOT) 113H, Alanine Aminotransferase (ALT/SGPT) 72, Alkaline Phosphatase 253H, Total Creatine Kinase 155, Creatine Kinase MB < 0.5, Creatine Kinase MB Relative Index 0.3, Troponin I 0.000, Pro-B-Type Natriuretic Peptide 39, Total Protein 7.5, Albumin 3.5, Globulin 4.0, Albumin/Globulin Ratio 0.9L, Lipase 48L, Thyroid Stimulating Hormone (TSH) 1.010 Height (Feet): 6 Height (Inches): 2.00 Weight (Pounds): 170 Kristyn Echols MD Jul 19, 2018 19:41
[2018-07-19 20:00] VITALS: BP 114/79
--- NOTE | 2018-07-19 20:01 | Consultation ---
History of Present Illness General Date patient seen: Jul 19, 2018 Chief Complaint: General Complaint Present Illness HPI 48-year-old man, who is a chronic alcoholic, who comes into the hospital after being found blacked out on the floor. the pt pw anxiety tremor and increase hr and hbp. the pt has almeida and n. no v. the pt has no si/hi Allergies: Coded Allergies: No Known Allergies (Unverified , 12/29/17) Medication History Scheduled Citalopram Hydrobromide (Celexa), Unknown Dose ORAL DAILY, (Reported) Citalopram Hydrobromide* (Citalopram Hbr*), 20 MG PO DAILY, (Reported) Citalopram Hydrobromide* (Celexa*), 20 MG ORAL DAILY, (Reported) Gabapentin (Neurontin), 300 MG ORAL Q12HR Insulin Detemir (Levemir Flexpen), 10 UNITS SUBQ DAILY Metformin Hcl* (Glucophage*), 600 MG ORAL TWICE A DAY, (Reported) Multivitamins* (Multivitamins*), 1 TAB ORAL DAILY Nateglinide (Starlix), 120 MG ORAL TIAC Quetiapine Fumarate (Seroquel), Unknown Dose ORAL TWICE A DAY, (Reported) Quetiapine Fumarate* (Seroquel*), 25 MG ORAL DAILY, (Reported) Scheduled PRN Chlordiazepoxide (Chlordiazepoxide HCl), 25 MG ORAL Q6H PRN Miscellaneous Medications Insulin Regular, Human (Humulin R), Unknown Dose SUBQ, (Reported) Unable to Obtain Medications (Unable To Obtain Meds), (Reported) Patient History Limited by: medical condition History Provided By: Patient, Medical Record, PMD Healthcare decision maker Resuscitation status Full Code Advanced Directive on File No Past Medical/Surgical History Past Medical/Surgical History: (1) Alcohol withdrawal (2) Colitis (3) Depression (4) Gastroenteritis (5) Pancreatic pseudocyst (6) Syncope (7) Hepatotoxicity, secondary to ETOH (8) Low blood sugar reading (9) Chronic pancreatitis (10) Dehydration (11) Weakness (12) Abdominal pain (13) Diabetes mellitus out of control (14) Failure to thrive Review of Systems Gastrointestinal: Reports: nausea Psychiatric: Reports: prior hx, anxiety, depressed feelings, emotional problems Physical Exam General Appearance: no apparent distress, alert Neurologic: oriented x 3, responsive, depressed affect Last 24 Hour Vital Signs Date Time Temp Pulse Resp B/P (MAP) Pulse Ox O2 Delivery O2 Flow Rate FiO2 07/19/18 17:30 97.2 98 18 124/79 (94) 97 97.2 07/19/18 17:27 98.2 107 13 105/75 Room Air 07/19/18 17:20 Room Air 07/19/18 16:07 98.4 96 13 105/75 99 Room Air 98.4 07/19/18 13:24 98.1 89 16 126/81 95 Room Air 98.1 07/19/18 11:30 98.1 75 16 100/60 95 Room Air 98.1 07/19/18 11:23 98.0 84 16 100/60 95 Room Air 98.1 Laboratory Tests Test 07/19/18 12:43 White Blood Count 2.7 K/UL (4.8-10.8) L Red Blood Count 4.46 M/UL (4.70-6.10) L Hemoglobin 13.6 G/DL (14.2-18.0) L Hematocrit 40.8 % (42.0-52.0) L Mean Corpuscular Volume 91 FL (80-99) Mean Corpuscular Hemoglobin 30.5 PG (27.0-31.0) Mean Corpuscular Hemoglobin Concent 33.3 G/DL (32.0-36.0) Red Cell Distribution Width 12.0 % (11.6-14.8) Platelet Count 121 K/UL (150-450) L Mean Platelet Volume 6.3 FL (6.5-10.1) L Neutrophils (%) (Auto) % (45.0-75.0) Lymphocytes (%) (Auto) % (20.0-45.0) Monocytes (%) (Auto) % (1.0-10.0) Eosinophils (%) (Auto) % (0.0-3.0) Basophils (%) (Auto) % (0.0-2.0) Differential Total Cells Counted 100 Neutrophils % (Manual) 39 % (45-75) L Lymphocytes % (Manual) 53 % (20-45) H Monocytes % (Manual) 8 % (1-10) Eosinophils % (Manual) 0 % (0-3) Basophils % (Manual) 0 % (0-2) Band Neutrophils 0 % (0-8) Platelet Estimate Decreased L Platelet Morphology Normal Red Blood Cell Morphology Normal Sodium Level 138 MMOL/L (136-145) Potassium Level 3.4 MMOL/L (3.5-5.1) L Chloride Level 95 MMOL/L (98-107) L Carbon Dioxide Level 26 MMOL/L (21-32) Anion Gap 17 mmol/L (5-15) H Blood Urea Nitrogen 10 mg/dL (7-18) Creatinine 0.9 MG/DL (0.55-1.30) Estimat Glomerular Filtration Rate > 60 mL/min (>60) Glucose Level 199 MG/DL (74-106) H Calcium Level 8.7 MG/DL (8.5-10.1) Total Bilirubin 1.0 MG/DL (0.2-1.0) Aspartate Amino Transf (AST/SGOT) 113 U/L (15-37) H Alanine Aminotransferase (ALT/SGPT) 72 U/L (12-78) Alkaline Phosphatase 253 U/L (46-116) H Total Creatine Kinase 155 U/L (26-308) Creatine Kinase MB < 0.5 NG/ML (0.0-3.6) Creatine Kinase MB Relative Index 0.3 Troponin I 0.000 ng/mL (0.000-0.056) Pro-B-Type Natriuretic Peptide 39 pg/mL (0-125) Total Protein 7.5 G/DL (6.4-8.2) Albumin 3.5 G/DL (3.4-5.0) Globulin 4.0 g/dL Albumin/Globulin Ratio 0.9 (1.0-2.7) L Lipase 48 U/L (73-393) L Thyroid Stimulating Hormone (TSH) 1.010 uiU/mL (0.358-3.740) Height (Feet): 6 Height (Inches): 2.00 Weight (Pounds): 170 Medications Current Medications Medications (Trade) Dose Ordered Sig/Adolfo Route PRN Reason Start Time Stop Time Status Last Admin Dose Admin Acetaminophen (Tylenol) 650 mg Q4H PRN ORAL Mild Pain/Temp > 100.5 07/19/18 17:30 08/18/18 17:29 Dextrose (Dextrose 50%) 25 ml STAT PRN IV Hypoglycemia 07/19/18 17:30 08/18/18 17:29 Dextrose (Dextrose 50%) 50 ml STAT PRN IV Hypoglycemia 07/19/18 17:30 08/18/18 17:29 Insulin Aspart (NovoLOG) BEFORE MEALS AND HS SUBQ 07/19/18 21:00 08/18/18 20:59 Multivitamins (Multivitamins) 1 tab DAILY ORAL 07/20/18 09:00 08/19/18 08:59 Ondansetron HCl (Zofran ODT) 4 mg Q6H PRN ORAL Nausea & Vomiting 07/19/18 19:45 08/18/18 19:44 07/19/18 19:53 Pantoprazole (Protonix) 40 mg EVERY 12 HOURS ORAL 07/19/18 21:00 08/18/18 20:59 Potassium Chloride (K-Dur) 20 meq DAILY ORAL 07/19/18 16:00 08/18/18 15:59 07/19/18 18:15 Sodium Chloride 1,000 ml @ 50 mls/hr Q20H IV 07/19/18 16:00 08/18/18 15:59 07/19/18 17:52 Thiamine HCl (Vitamin B1) 100 mg DAILY ORAL 07/19/18 21:00 08/18/18 20:59 Assessment/Plan Status: stable Assessment/Plan Alcohol dependence alcohol w/d mdd anxiety valium folate thiamine prozac CIWA protocol Giovanny Cummings MD Jul 19, 2018 20:01
[2018-07-19] MEDS: Thiamine 100mg tab ORAL SCH (20:14)
[2018-07-19] MEDS: NovoLOG Insulin Flexpen SUBQ SCH (20:17)
[2018-07-19 21:14] LABS: APPEARANCE,URINE CLEAR; BILIRUBIN, URINE 1+ (NEGATIVE); GLUCOSE, URINE (UA) 4+ (NEGATIVE); KETONES,URINE 2+ (NEGATIVE); LEUKOCYTE ESTERASE ,URINE NEGATIVE (NEGATIVE); NITRITE,URINE NEGATIVE (NEGATIVE); PH,URINE 5 (4.5-8.0); PROTEIN,URINE 2+ (NEGATIVE); UROBILINOGEN,URINE 1 MG/DL (0.0-1.0)
[2018-07-19] MEDS: Norco 5mg/325mg tab ORAL PRN (21:15)
[2018-07-19 21:20] LABS: COLOR,URINE AMBER
[2018-07-20] VITALS: BP 122/84
[2018-07-20] MEDS: Norco 5mg/325mg tab ORAL PRN ×4 (01:14→16:27)
--- NOTE | 2018-07-20 02:00 | Consultation ---
DATE OF CONSULTATION: 07/19/2018 "NOTE: POOR AUDIO QUALITY" GASTROENTEROLOGY CONSULTATION CONSULTING PHYSICIAN: Kristyn Echols M.D. CHIEF COMPLAINT: I was asked to see this patient by Dr. Mery Juarez for evaluation of alcohol related complications. HISTORY OF PRESENT ILLNESS: The patient is a 48-year-old man, who is a chronic alcoholic, who comes into the hospital after being found blacked out on the floor. He denies any abdominal symptoms, but does have a history of withdrawal. He drinks about two pints of vodka per day. He has had no history of alcoholic pancreatitis or hepatitis. PAST MEDICAL HISTORY: History of ldz-[id number] diabetes. FAMILY HISTORY: Positive for diabetes. SOCIAL HISTORY: The patient is an excessive alcoholic. Does not smoke. He has two children. REVIEW OF SYSTEMS: Otherwise negative. MEDICATIONS: See the chart. PHYSICAL EXAMINATION: GENERAL: A pleasant thin man, in no distress. HEENT: Normocephalic and atraumatic. Sclerae are anicteric. Oropharynx clear. NECK: Supple. CHEST: Clear to auscultation. CARDIOVASCULAR: Revealed a regular rate. ABDOMEN: Soft and mildly tender diffusely. EXTREMITIES: Revealed no edema. LABORATORY DATA: Laboratory data were noted. ASSESSMENT: This patient has chronic alcohol abuse with recurrent alcoholic hepatitis. He is at risk for withdrawal syndrome . I would also give him thiamine to prevent Wernicke-Korsakoff syndrome and multivitamins and IV fluids. He is likely to have some degree of loss of electrolytes from the alcoholism and these should be replenished on a daily basis. Ultimately, he has to be strongly encouraged to discontinue the alcohol use. RECOMMENDATIONS: Per above discussion and per orders written in the chart. Thank you for asking me to participate in the care of this patient. Kristyn Echols M.D. DR: MARLENA JOB#: [id number] CC: RIKY
[2018-07-20 04:34] VITALS: BP 136/94
[2018-07-20] MEDS: NovoLOG Insulin Flexpen SUBQ SCH ×4 (05:51→21:23)
[2018-07-20 06:09] LABS: HEMATOCRIT 31.1 % (42.0-52.0); HEMOGLOBIN 10.6 G/DL (14.2-18.0); MEAN CORPUSCULAR VOLUME 91 FL (80-99); PLATELET COUNT 94 K/UL (150-450); RED BLOOD COUNT 3.42 M/UL (4.70-6.10); RED CELL DISTRIBUTION WIDTH 12.3 % (11.6-14.8)
[2018-07-20 07:09] LABS: % IRON SATURATION 101 % (15-50); IRON 155 ug/dL (50-175); TOTAL IRON BINDING CAPACITY 153 ug/dL (250-450)
[2018-07-20 07:12] LABS: ALANINE AMINOTRANSFERASE 67 U/L (12-78); ALBUMIN/GLOBULIN RATIO 0.9 (1.0-2.7); ALKALINE PHOSPHATASE 220 U/L (46-116); ANION GAP 13 mmol/L (5-15); ASPARTATE AMINO TRANSFERASE 206 U/L (15-37); BILIRUBIN,TOTAL 0.6 MG/DL (0.2-1.0); BLOOD UREA NITROGEN 7 mg/dL (7-18); CALCIUM 8.2 MG/DL (8.5-10.1); CARBON DIOXIDE 28 MMOL/L (21-32); CHLORIDE 94 MMOL/L (98-107); CHOLESTEROL 319 MG/DL (< 200); CREATINE KINASE 93 U/L (26-308); FERRITIN 398 NG/ML (8-388); GAMMA GLUTAMYL TRANSPEPTIDASE 2502 U/L (5-85); HDL CHOLESTEROL 175 MG/DL (40-60); PHOSPHORUS 3.7 MG/DL (2.5-4.9); SODIUM 135 MMOL/L (136-145); TRIGLYCERIDES 85 MG/DL (30-150)
[2018-07-20 08:00] VITALS: BP 154/101
[2018-07-20] MEDS: Thiamine 100mg tab ORAL SCH (08:22)
[2018-07-20] MEDS: NS w/KCl 40mEq 1,000 ML IV SCH ×2 (09:12→21:20)
--- NOTE | 2018-07-20 09:31 | Nephrology Progress Note ---
Assessment/Plan Problem List: (1) Failure to thrive (2) Dehydration (3) Diabetes mellitus out of control (4) Abdominal pain Assessment FTT Dehydration PanCytopenia Hyperglycemia / DM Hepatic transaminitis [place] HypoMagnesemia Plan Mag and K supplement- PO Folate- BS check and control Urine tox screen Subjective ROS Limited/Unobtainable: No Constitutional: Reports: malaise Objective Objective Last 24 Hour Vital Signs Date Time Temp Pulse Resp B/P (MAP) Pulse Ox O2 Delivery O2 Flow Rate FiO2 07/20/18 04:34 99.0 104 18 136/94 (108) 98 99.0 07/20/18 00:00 100.0 111 21 122/84 (97) 98 100.0 07/19/18 21:00 Room Air 07/19/18 20:00 98.9 105 20 114/79 (91) 97 98.9 07/19/18 17:30 97.2 98 18 124/79 (94) 97 97.2 07/19/18 17:27 98.2 107 13 105/75 Room Air 07/19/18 17:20 Room Air 07/19/18 16:07 98.4 96 13 105/75 99 Room Air 98.4 07/19/18 13:24 98.1 89 16 126/81 95 Room Air 98.1 07/19/18 11:30 98.1 75 16 100/60 95 Room Air 98.1 07/19/18 11:23 98.0 84 16 100/60 95 Room Air 98.1 Intake and Output 07/19/18 07/20/18 19:00 07:00 Intake Total 150 ml 1050 ml Balance 150 ml 1050 ml Intake Oral 100 ml 500 ml IV Total 50 ml 550 ml # Voids 7 # Bowel Movements 2 Laboratory Tests 07/19/18 12:43: White Blood Count 2.7L, Red Blood Count 4.46L, Hemoglobin 13.6L, Hematocrit 40.8L, Mean Corpuscular Volume 91, Mean Corpuscular Hemoglobin 30.5, Mean Corpuscular Hemoglobin Concent 33.3, Red Cell Distribution Width 12.0, Platelet Count 121L, Mean Platelet Volume 6.3L, Neutrophils (%) (Auto) , Lymphocytes (%) (Auto) , Monocytes (%) (Auto) , Eosinophils (%) (Auto) , Basophils (%) (Auto) , Differential Total Cells Counted 100, Neutrophils % (Manual) 39L, Lymphocytes % (Manual) 53H, Monocytes % (Manual) 8, Eosinophils % (Manual) 0, Basophils % ( Manual) 0, Band Neutrophils 0, Platelet Estimate DecreasedL, Platelet Morphology Normal, Red Blood Cell Morphology Normal, Sodium Level 138, Potassium Level 3.4L, Chloride Level 95L, Carbon Dioxide Level 26, Anion Gap 17H , Blood Urea Nitrogen 10, Creatinine 0.9, Estimat Glomerular Filtration Rate > 60, Glucose Level 199H, Calcium Level 8.7, Total Bilirubin 1.0, Aspartate Amino Transf (AST/SGOT) 113H, Alanine Aminotransferase (ALT/SGPT) 72, Alkaline Phosphatase 253H, Total Creatine Kinase 155, Creatine Kinase MB < 0.5, Creatine Kinase MB Relative Index 0.3, Troponin I 0.000, Pro-B-Type Natriuretic Peptide 39, Total Protein 7.5, Albumin 3.5, Globulin 4.0, Albumin/Globulin Ratio 0.9L, Lipase 48L, Thyroid Stimulating Hormone (TSH) 1.010 07/19/18 20:30: Urine Color [place], Urine Appearance Clear, Urine pH 5, Urine Specific [place] 1.025, Urine Protein 2+H, Urine Glucose (UA) 4+H, Urine Ketones 2+H, Urine Blood Negative, Urine Nitrite Negative, Urine Bilirubin 1+H, Urine Ictotest Negative, Urine Urobilinogen 1H, Urine Leukocyte Esterase Negative, Urine RBC 0- 2H, Urine WBC 0-2, Urine Squamous Epithelial Cells None, Urine Bacteria Occasional, Urine Mucus ModerateH 07/20/18 04:50: White Blood Count 3.0L, Red Blood Count 3.42L, Hemoglobin 10.6L, Hematocrit 31.1L, Mean Corpuscular Volume 91, Mean Corpuscular Hemoglobin 31.0, Mean Corpuscular Hemoglobin Concent 34.1, Red Cell Distribution Width 12.3, Platelet Count 94L, Mean Platelet Volume 5.7L, Neutrophils (%) (Auto) , Lymphocytes (%) ( Auto) , Monocytes (%) (Auto) , Eosinophils (%) (Auto) , Basophils (%) (Auto) , Differential Total Cells Counted 100, Neutrophils % (Manual) 27L, Lymphocytes % (Manual) 68H, Monocytes % (Manual) 5, Eosinophils % (Manual) 0, Basophils % ( Manual) 0, Band Neutrophils 0, Platelet Estimate DecreasedL, Platelet Morphology Normal, Sodium Level 135L, Potassium Level 3.0L, Chloride Level 94L, Carbon Dioxide Level 28, Anion Gap 13, Blood Urea Nitrogen 7, Creatinine 1.0, Estimat Glomerular Filtration Rate > 60, Glucose Level 297H, Calcium Level 8.2L , Total Bilirubin 0.6, Aspartate Amino Transf (AST/SGOT) 206H, Alanine Aminotransferase (ALT/SGPT) 67, Alkaline Phosphatase 220H, Total Creatine Kinase 93, Troponin I 0.001, Pro-B-Type Natriuretic Peptide 51, Total Protein 6.3L, Albumin 3.0L, Globulin 3.3, Albumin/Globulin Ratio 0.9L, Hypochromasia 2+ , Spherocytes 1+, Hemoglobin A1c 9.8H, Uric Acid 5.1, Phosphorus Level 3.7, Magnesium Level 0.9*L, Iron Level 155, Total Iron Binding Capacity 153L, Percent Iron Saturation 101H, Unsaturated Iron Binding , Ferritin 398H, Gamma Glutamyl Transpeptidase 2502H, C-Reactive Protein, Quantitative < 0.4, Triglycerides Level 85, Cholesterol Level 319H, LDL Cholesterol 34, HDL Cholesterol 175H, Cholesterol/HDL Ratio 1.8L, Vitamin B12 Level 484, Folate 6.6L Height (Feet): 6 Height (Inches): 2.00 Weight (Pounds): 173 General Appearance: no apparent distress Cardiovascular: tachycardia Respiratory/Chest: decreased breath sounds Abdomen: distended Casey Alas MD Jul 20, 2018 09:31
[2018-07-20] MEDS ORDERED: Vitamin B12 1000mcg/ml Inj IM SCH (10:00)
[2018-07-20 12:00] VITALS: BP 152/97
[2018-07-20 16:00] VITALS: BP 141/100
--- NOTE | 2018-07-20 16:41 | Diagnostic Imaging Report ---
Indication: Abdominal pain, increased liver function tests Technique: Decker-scale and duplex images of the upper abdomen were obtained Comparison: 04/17/2018, also CT scan of 04/17/2018 Findings: Gallbladder is distended. No stones, wall thickening, nor pericholecystic fluid demonstrated. Common bile duct measures 3 mm in diameter. No intrahepatic biliary ductal dilatation. Liver demonstrates diffusely increased echogenicity, consistent with diffuse hepatocellular disease, most likely fatty change. Note that the hypoechoic lesion seen in the right lobe on the prior study is not evident on this exam. Portal vein and hepatic veins are patent. Pancreas is unremarkable. Spleen is unremarkable. Left kidney measures 10.4 cm in length. Right kidney measures 12.6 cm length. Both kidneys demonstrate normal echogenicity. There is no hydronephrosis. No focal abnormality . Abdominal aorta is partially obscured by bowel gas, visualized portions are non-aneurysmal . Impression: Negative for gallstones or dilated ducts or other significant abnormality Note nonvisualization of previously described right lobe liver lesion. Uncertain as to whether this represents involution of a previously present lesion versus technical factors. Repeat follow-up imaging in 3 months recommended Note nonvisualization of portions of the abdominal aorta
[2018-07-20 17:05] LABS: APPEARANCE,URINE CLEAR; BILIRUBIN, URINE NEGATIVE (NEGATIVE); GLUCOSE, URINE (UA) 4+ (NEGATIVE); KETONES,URINE 2+ (NEGATIVE); LEUKOCYTE ESTERASE ,URINE 1+ (NEGATIVE); NITRITE,URINE NEGATIVE (NEGATIVE); PH,URINE 5 (4.5-8.0); PROTEIN,URINE 1+ (NEGATIVE); UROBILINOGEN,URINE 1 MG/DL (0.0-1.0)
[2018-07-20 17:08] LABS: COLOR,URINE AMBER
--- NOTE | 2018-07-20 19:20 | Cardiology Report ---
APPROVED REPORT EKG Measurement Heart [id number] Normal sinus rhythm Normal ECG
--- NOTE | 2018-07-20 19:50 | General Progress Note ---
Assessment/Plan Status: stable Assessment/Plan Alcohol dependence alcohol w/d mdd anxiety valium folate thiamine prozac CIWA protocol Subjective Date patient seen: Jul 20, 2018 Neurologic/Psychiatric: Reports: anxiety, depressed, emotional problems Allergies: Coded Allergies: No Known Allergies (Unverified , 12/29/17) Objective Last 24 Hour Vital Signs Date Time Temp Pulse Resp B/P (MAP) Pulse Ox O2 Delivery O2 Flow Rate FiO2 07/20/18 16:00 97.9 95 19 141/100 (114) 99 97.9 07/20/18 12:00 97.7 103 19 152/97 (115) 98 97.7 07/20/18 09:00 Room Air 07/20/18 08:00 97.7 108 19 154/101 (118) 98 97.7 07/20/18 04:34 99.0 104 18 136/94 (108) 98 99.0 07/20/18 00:00 100.0 111 21 122/84 (97) 98 100.0 07/19/18 21:00 Room Air 07/19/18 20:00 98.9 105 20 114/79 (91) 97 98.9 Intake and Output 07/19/18 07/20/18 19:00 07:00 Intake Total 150 ml 1050 ml Balance 150 ml 1050 ml Intake Oral 100 ml 500 ml IV Total 50 ml 550 ml # Voids 7 # Bowel Movements 2 Laboratory Tests 07/19/18 20:30: Urine Color [place], Urine Appearance Clear, Urine pH 5, Urine Specific [place] 1.025, Urine Protein 2+H, Urine Glucose (UA) 4+H, Urine Ketones 2+H, Urine Blood Negative, Urine Nitrite Negative, Urine Bilirubin 1+H, Urine Ictotest Negative, Urine Urobilinogen 1H, Urine Leukocyte Esterase Negative, Urine RBC 0- 2H, Urine WBC 0-2, Urine Squamous Epithelial Cells None, Urine Bacteria Occasional, Urine Mucus ModerateH 07/20/18 04:50: White Blood Count 3.0L, Red Blood Count 3.42L, Hemoglobin 10.6L, Hematocrit 31.1L, Mean Corpuscular Volume 91, Mean Corpuscular Hemoglobin 31.0, Mean Corpuscular Hemoglobin Concent 34.1, Red Cell Distribution Width 12.3, Platelet Count 94L, Mean Platelet Volume 5.7L, Neutrophils (%) (Auto) , Lymphocytes (%) ( Auto) , Monocytes (%) (Auto) , Eosinophils (%) (Auto) , Basophils (%) (Auto) , Differential Total Cells Counted 100, Neutrophils % (Manual) 27L, Lymphocytes % (Manual) 68H, Monocytes % (Manual) 5, Eosinophils % (Manual) 0, Basophils % ( Manual) 0, Band Neutrophils 0, Platelet Estimate DecreasedL, Platelet Morphology Normal, Hypochromasia 2+, Spherocytes 1+, Sodium Level 135L, Potassium Level 3.0L, Chloride Level 94L, Carbon Dioxide Level 28, Anion Gap 13 , Blood Urea Nitrogen 7, Creatinine 1.0, Estimat Glomerular Filtration Rate > 60 , Glucose Level 297H, Hemoglobin A1c 9.8H, Uric Acid 5.1, Calcium Level 8.2L, Phosphorus Level 3.7, Magnesium Level 0.9*L, Iron Level 155, Total Iron Binding Capacity 153L, Percent Iron Saturation 101H, Unsaturated Iron Binding , Ferritin 398H, Total Bilirubin 0.6, Gamma Glutamyl Transpeptidase 2502H, Aspartate Amino Transf (AST/SGOT) 206H, Alanine Aminotransferase (ALT/SGPT) 67, Alkaline Phosphatase 220H, Total Creatine Kinase 93, Troponin I 0.001, C- Reactive Protein, Quantitative < 0.4, Pro-B-Type Natriuretic Peptide 51, Total Protein 6.3L, Albumin 3.0L, Globulin 3.3, Albumin/Globulin Ratio 0.9L, Triglycerides Level 85, Cholesterol Level 319H, LDL Cholesterol 34, HDL Cholesterol 175H, Cholesterol/HDL Ratio 1.8L, Vitamin B12 Level 484, Folate 6.6L , Hepatitis B Surface Antigen [Pending], Hepatitis B Surface Antibody [Pending] , Hepatitis C Antibody [Pending] 07/20/18 16:37: Urine Color [place], Urine Appearance Clear, Urine pH 5, Urine Specific [place] 1.020, Urine Protein 1+H, Urine Glucose (UA) 4+H, Urine Ketones 2+H, Urine Blood Negative, Urine Nitrite Negative, Urine Bilirubin Negative, Urine Ictotest Negative, Urine Urobilinogen 1H, Urine Leukocyte Esterase 1+H, Urine RBC 0-2H, Urine WBC 0-2, Urine Squamous Epithelial Cells None, Urine Bacteria None, Urine Mucus ModerateH, Urine Opiates Screen PositiveH, Urine Barbiturates Screen Negative, Phencyclidine (PCP) Screen Negative, Urine Amphetamines Screen Negative, Urine Benzodiazepines Screen Negative, Urine Cocaine Screen Negative, Urine Marijuana (THC) Screen Negative Height (Feet): 6 Height (Inches): 2.00 Weight (Pounds): 173 General Appearance: no apparent distress, alert, agitated Neurologic: oriented x 3, responsive, depressed affect Giovanny Cummings MD Jul 20, 2018 19:50
[2018-07-20 20:00] VITALS: BP 141/96
--- NOTE | 2018-07-20 20:15 | Consultation ---
DATE OF CONSULTATION: 07/20/2018 INFECTIOUS DISEASE CONSULTATION CONSULTING PHYSICIAN: Roland Alfred M.D. PRIMARY ATTENDING PHYSICIAN: Mery Juarez M.D. REASON FOR CONSULT: Leukopenia. HISTORY OF PRESENT ILLNESS: The patient is a 48-year-old male, admitted yesterday from home complaining of generalized weakness, decreased drinking. He was admitted with failure to thrive, was found to have pancytopenia. The patient has chronic pain in the abdomen. PAST MEDICAL HISTORY: Significant for chronic pancreatitis, history of pancreatic pseudocyst, diabetes mellitus, neuropathy and syncope. ALLERGIES: No known drug allergies. MEDICATIONS: Getting Valium, multivitamin, potassium chloride, folic acid, Protonix, insulin, thiamine, [place], Zofran and Tylenol. SOCIAL HISTORY: Single. Nonsmoker. No drug abuse. He has alcohol abuse. REVIEW OF SYSTEMS: No fever. No chills. No nausea. No vomiting. Upper abdominal pain and some dysuria. PHYSICAL EXAMINATION: GENERAL APPEARANCE: No acute distress, seems to have normal weight. VITAL SIGNS: Temperature 97.7 degrees, pulse is 103, and blood pressure 152/97. The patient had a T-max of 100 degrees. HEAD AND NECK: [place] conjunctivae. No oral lesion. HEART: S1 and S2. Tachycardic. LUNGS: Clear. ABDOMEN: Flat and tender in upper quadrant. EXTREMITIES: He has no edema. LABORATORY AND DIAGNOSTIC DATA: UA showed wbc's of 0 to 2. Bilirubin 1+. Sodium 135, potassium 3, chloride 94, bicarbonate 28, and glucose 297. Albumin is 3. AST 206, ALT 67 and alkaline phosphatase 120. IMPRESSION: Leukopenia and pancytopenia. The patient has low-grade fever, has chronic pancreatitis, failure to thrive, diabetes mellitus with hyperglycemia and elevated transaminase level. RECOMMENDATION: We will suggest hepatitis profile. observe off of antibiotic. We will follow up the abdominal ultrasound. At the end of my exam, I thank Dr. Juarez for involving me in the care of this patient. Roland Alfred M.D. DR: SMITH JOB#: [id number] CC: RKIY
--- NOTE | 2018-07-20 20:37 | General Progress Note ---
Assessment/Plan Assessment/Plan Assessment - EtOH abuse - EtOH hepatitis - EtOH marrow suppression - EtOH withdrawal history Recommendations - IVF - MVI - Thiamine - BDZ - EtoH avoidance - Follow labs - replace lytes Subjective Allergies: Coded Allergies: No Known Allergies (Unverified , 12/29/17) Subjective Feels OK no abd pain tolerating PO Objective Last 24 Hour Vital Signs Date Time Temp Pulse Resp B/P (MAP) Pulse Ox O2 Delivery O2 Flow Rate FiO2 07/20/18 20:00 97.8 95 19 141/96 (111) 100 97.8 07/20/18 16:00 97.9 95 19 141/100 (114) 99 97.9 07/20/18 12:00 97.7 103 19 152/97 (115) 98 97.7 07/20/18 09:00 Room Air 07/20/18 08:00 97.7 108 19 154/101 (118) 98 97.7 07/20/18 04:34 99.0 104 18 136/94 (108) 98 99.0 07/20/18 00:00 100.0 111 21 122/84 (97) 98 100.0 07/19/18 21:00 Room Air Intake and Output 07/19/18 07/20/18 19:00 07:00 Intake Total 150 ml 1050 ml Balance 150 ml 1050 ml Intake Oral 100 ml 500 ml IV Total 50 ml 550 ml # Voids 7 # Bowel Movements 2 Laboratory Tests 07/20/18 04:50: White Blood Count 3.0L, Red Blood Count 3.42L, Hemoglobin 10.6L, Hematocrit 31.1L, Mean Corpuscular Volume 91, Mean Corpuscular Hemoglobin 31.0, Mean Corpuscular Hemoglobin Concent 34.1, Red Cell Distribution Width 12.3, Platelet Count 94L, Mean Platelet Volume 5.7L, Neutrophils (%) (Auto) , Lymphocytes (%) ( Auto) , Monocytes (%) (Auto) , Eosinophils (%) (Auto) , Basophils (%) (Auto) , Differential Total Cells Counted 100, Neutrophils % (Manual) 27L, Lymphocytes % (Manual) 68H, Monocytes % (Manual) 5, Eosinophils % (Manual) 0, Basophils % ( Manual) 0, Band Neutrophils 0, Platelet Estimate DecreasedL, Platelet Morphology Normal, Hypochromasia 2+, Spherocytes 1+, Sodium Level 135L, Potassium Level 3.0L, Chloride Level 94L, Carbon Dioxide Level 28, Anion Gap 13 , Blood Urea Nitrogen 7, Creatinine 1.0, Estimat Glomerular Filtration Rate > 60 , Glucose Level 297H, Hemoglobin A1c 9.8H, Uric Acid 5.1, Calcium Level 8.2L, Phosphorus Level 3.7, Magnesium Level 0.9*L, Iron Level 155, Total Iron Binding Capacity 153L, Percent Iron Saturation 101H, Unsaturated Iron Binding , Ferritin 398H, Total Bilirubin 0.6, Gamma Glutamyl Transpeptidase 2502H, Aspartate Amino Transf (AST/SGOT) 206H, Alanine Aminotransferase (ALT/SGPT) 67, Alkaline Phosphatase 220H, Total Creatine Kinase 93, Troponin I 0.001, C- Reactive Protein, Quantitative < 0.4, Pro-B-Type Natriuretic Peptide 51, Total Protein 6.3L, Albumin 3.0L, Globulin 3.3, Albumin/Globulin Ratio 0.9L, Triglycerides Level 85, Cholesterol Level 319H, LDL Cholesterol 34, HDL Cholesterol 175H, Cholesterol/HDL Ratio 1.8L, Vitamin B12 Level 484, Folate 6.6L , Hepatitis B Surface Antigen [Pending], Hepatitis B Surface Antibody [Pending] , Hepatitis C Antibody [Pending] 07/20/18 16:37: Urine Color [place], Urine Appearance Clear, Urine pH 5, Urine Specific [place] 1.020, Urine Protein 1+H, Urine Glucose (UA) 4+H, Urine Ketones 2+H, Urine Blood Negative, Urine Nitrite Negative, Urine Bilirubin Negative, Urine Ictotest Negative, Urine Urobilinogen 1H, Urine Leukocyte Esterase 1+H, Urine RBC 0-2H, Urine WBC 0-2, Urine Squamous Epithelial Cells None, Urine Bacteria None, Urine Mucus ModerateH, Urine Opiates Screen PositiveH, Urine Barbiturates Screen Negative, Phencyclidine (PCP) Screen Negative, Urine Amphetamines Screen Negative, Urine Benzodiazepines Screen Negative, Urine Cocaine Screen Negative, Urine Marijuana (THC) Screen Negative Height (Feet): 6 Height (Inches): 2.00 Weight (Pounds): 173 Objective WDWN NCAT supple CTA RRR soft ND NT no edema non focal Kristyn Echols MD Jul 20, 2018 20:37
--- NOTE | 2018-07-20 20:45 | History and Physical Report ---
DATE OF ADMISSION: 07/19/2018 HISTORY OF PRESENT ILLNESS: The patient is admitted for failure to thrive. The patient also has low electrolytes including potassium and magnesium and he drinks 2 pints of alcohol every day and has been having tremors in his hands and alcohol abuse. The patient also been having some abdominal pain and nausea as well as diarrhea and has also says that he is depressed, has had lost 60 pounds weight loss since November. Denies vomiting. Denies shortness of breath. Denies cough. Denies fever or chills. Denies orthopnea. Denies chest pain. PAST MEDICAL HISTORY: Significant for depression, alcohol abuse, anxiety, NIDDM, history of bipolar and diabetes mellitus. PAST SURGICAL HISTORY: Significant for appendectomy and left hand surgery. MEDICATIONS: Celexa, Levemir, Neurontin, insulin, Glucophage, Starlix, and Seroquel. ALLERGIES: No known allergies. SOCIAL HISTORY: History of alcohol abuse, does have history of smoking and history of drug abuse as well. FAMILY HISTORY: He does have history of diabetes and hypertension. REVIEW OF SYSTEMS: HEENT: Denies headaches. RESPIRATORY: Denies shortness of breath. Denies cough. CARDIOVASCULAR: Denies chest pain. No orthopnea. GASTROINTESTINAL: Reports nausea. No vomiting. Does have diarrhea and abdominal pain for the past two days. EXTREMITY: Denies any extremity pain. CENTRAL NERVOUS SYSTEM: and has had 60 pounds weight loss since November, is not eating and has been drinking alcohol 2 pints every day. PHYSICAL EXAMINATION: VITAL SIGNS: Temperature is 100 degrees, pulse is 111, blood pressure 122/84. HEENT: PERRLA. NECK: Supple. No JVD. CHEST: Clear to auscultation. CARDIOVASCULAR: Tachycardic, but it is mild. GASTROINTESTINAL: Soft, nontender and nondistended. No organomegaly. EXTREMITIES: No edema. Moves all four extremities. Sensory intact to light touch. Reflexes on both sides. LABORATORY AND DIAGNOSTIC DATA: WBC of 2.7, hemoglobin 13.6, and platelets 121. Sodium 138, potassium 3.4, chloride 95, BUN of 10, creatinine 0.9, and glucose of 199. Magnesium 0.9. AST of 113, ALT of 72, and alkaline phosphatase of 253. ASSESSMENT AND PLAN: Hypokalemia and hypomagnesemia. I have asked Dr. Alas to help us with that matter. For alcohol, rule out alcohol withdrawal. I have asked Dr. Cummings to see the patient with alcohol withdrawal symptoms and treatment and Dr. Roland Alfred for low-grade fever and Dr. Echols has also been consulted for the nausea, diarrhea, rule out gastroenteritis as well as Dr. Aden for pain management control. The patient has a history of drug abuse. Mery Juarez M.D. DR: CARIE JOB#: [id number] CC:
[2018-07-21] VITALS: BP 127/91
[2018-07-21] MEDS: Norco 5mg/325mg tab ORAL PRN ×3 (03:25→18:38)
[2018-07-21 04:00] VITALS: BP 120/88
[2018-07-21] MEDS: NovoLOG Insulin Flexpen SUBQ SCH ×4 (06:00→20:17)
[2018-07-21 07:22] LABS: HEMOGLOBIN 10.1 G/DL (14.2-18.0); MEAN CORPUSCULAR VOLUME 91 FL (80-99); PLATELET COUNT 86 K/UL (150-450); RED CELL DISTRIBUTION WIDTH 11.5 % (11.6-14.8); WHITE BLOOD COUNT 2.4 K/UL (4.8-10.8)
[2018-07-21 07:56] LABS: ALANINE AMINOTRANSFERASE 45 U/L (12-78); ALBUMIN 2.6 G/DL (3.4-5.0); ALBUMIN/GLOBULIN RATIO 0.9 (1.0-2.7); ALKALINE PHOSPHATASE 184 U/L (46-116); ANION GAP 5 mmol/L (5-15); ASPARTATE AMINO TRANSFERASE 66 U/L (15-37); BILIRUBIN,TOTAL 0.7 MG/DL (0.2-1.0); BLOOD UREA NITROGEN 4 mg/dL (7-18); CALCIUM 7.8 MG/DL (8.5-10.1); CARBON DIOXIDE 30 MMOL/L (21-32); CHLORIDE 98 MMOL/L (98-107); CREATININE 0.8 MG/DL (0.55-1.30); PHOSPHORUS 2.7 MG/DL (2.5-4.9); POTASSIUM 3.7 MMOL/L (3.5-5.1); SODIUM 133 MMOL/L (136-145)
[2018-07-21 08:00] VITALS: BP 125/93
[2018-07-21] MEDS: NS w/KCl 40mEq 1,000 ML IV SCH ×2 (08:22→22:25)
[2018-07-21] MEDS: Thiamine 100mg tab ORAL SCH (08:22)
[2018-07-21 08:30] LABS: CREATINE KINASE 99 U/L (26-308); GAMMA GLUTAMYL TRANSPEPTIDASE 2221 U/L (5-85)
--- NOTE | 2018-07-21 08:39 | General Progress Note ---
Assessment/Plan Assessment/Plan (1) Alcohol abuse (2) Alcohol withdrawal (3) Abdominal pain (4) Pancreatic pseudocyst Patient will be continued on Henry as needed. D/w Dr. Aden and he concurred. Subjective Date patient seen: Jul 21, 2018 Allergies: Coded Allergies: No Known Allergies (Unverified , 12/29/17) Subjective Constitutional: Reports: no symptoms HEENT: Reports: no symptoms Cardiovascular: Reports: no symptoms Respiratory: Reports: no symptoms Gastrointestinal/Abdominal: Reports: Abdominal pain Genitourinary: Reports: no symptoms Neurologic/Psychiatric: Reports: no symptoms Endocrine: Reports: no symptoms Hematologic/Lymphatic: Reports: no symptoms Subjective Patient is in a known patient from prior admission and has been readmitted under the care of Dr. Juarez. C/O Abdominal pain started on Henry 5/325mg PO 1 tab Q4H PRN severe pain. We were consulted so patient has adequate pain control while here in the hospital. Objective Last 24 Hour Vital Signs Date Time Temp Pulse Resp B/P (MAP) Pulse Ox O2 Delivery O2 Flow Rate FiO2 07/21/18 08:00 99.0 104 20 125/93 (104) 99 99.0 07/21/18 04:00 98.6 88 19 120/88 (99) 96 98.6 07/21/18 00:00 97.9 98 19 127/91 (103) 98 97.9 07/20/18 21:00 Room Air 07/20/18 20:00 97.8 95 19 141/96 (111) 100 97.8 07/20/18 16:00 97.9 95 19 141/100 (114) 99 97.9 07/20/18 12:00 97.7 103 19 152/97 (115) 98 97.7 07/20/18 09:00 Room Air Intake and Output 07/20/18 07/21/18 19:00 07:00 Intake Total 1675 ml 1250 ml Balance 1675 ml 1250 ml Intake Oral 400 ml IV Total 1275 ml 900 ml Tube Feeding 350 ml # Voids 3 2 # Bowel Movements 3 2 Laboratory Tests 07/20/18 16:37: Urine Color [place], Urine Appearance Clear, Urine pH 5, Urine Specific [place] 1.020, Urine Protein 1+H, Urine Glucose (UA) 4+H, Urine Ketones 2+H, Urine Blood Negative, Urine Nitrite Negative, Urine Bilirubin Negative, Urine Ictotest Negative, Urine Urobilinogen 1H, Urine Leukocyte Esterase 1+H, Urine RBC 0-2H, Urine WBC 0-2, Urine Squamous Epithelial Cells None, Urine Bacteria None, Urine Mucus ModerateH, Urine Opiates Screen PositiveH, Urine Barbiturates Screen Negative, Phencyclidine (PCP) Screen Negative, Urine Amphetamines Screen Negative, Urine Benzodiazepines Screen Negative, Urine Cocaine Screen Negative, Urine Marijuana (THC) Screen Negative 07/21/18 06:15: White Blood Count 2.4L, Red Blood Count 3.20L, Hemoglobin 10.1L, Hematocrit 29.0L, Mean Corpuscular Volume 91, Mean Corpuscular Hemoglobin 31.7H, Mean Corpuscular Hemoglobin Concent 35.0, Red Cell Distribution Width 11.5L, Platelet Count 86L, Mean Platelet Volume 7.5, Neutrophils (%) (Auto) , Lymphocytes (%) (Auto) , Monocytes (%) (Auto) , Eosinophils (%) (Auto) , Basophils (%) (Auto) , Neutrophils % (Manual) [Pending], Lymphocytes % (Manual) [Pending], Platelet Estimate [Pending], Platelet Morphology [Pending], Sodium Level 133L, Potassium Level 3.7, Chloride Level 98, Carbon Dioxide Level 30, Anion Gap 5, Blood Urea Nitrogen 4L, Creatinine 0.8, Estimat Glomerular Filtration Rate > 60, Glucose Level 279H, Uric Acid 3.3, Calcium Level 7.8L, Phosphorus Level 2.7, Magnesium Level 1.5L, Total Bilirubin 0.7, Gamma Glutamyl Transpeptidase 2221H, Aspartate Amino Transf (AST/SGOT) 66H, Alanine Aminotransferase (ALT/SGPT) 45, Alkaline Phosphatase 184H, Total Creatine Kinase 99, Pro-B-Type Natriuretic Peptide 606H, Total Protein 5.6L, Albumin 2.6L , Globulin 3.0, Albumin/Globulin Ratio 0.9L Height (Feet): 6 Height (Inches): 2.00 Weight (Pounds): 173 Objective General Appearance: no apparent distress, alert EENT: PERRL/EOMI, normal ENT inspection Neck: non-tender, normal alignment Cardiovascular: normal rate, regular rhythm Respiratory/Chest: lungs clear, normal breath sounds Abdomen: non tender, soft Extremities: normal range of motion, non-tender Edema: trace edema Neurologic: alert, oriented x 3 Skin: warm/dry Tomasz Wilkerson Jul 21, 2018 08:39
--- NOTE | 2018-07-21 10:19 | General Progress Note ---
Assessment/Plan Assessment/Plan Alcohol dependence alcohol w/d bipolar anxiety valium folate thiamine prozac CIWA protocol Subjective Date patient seen: Jul 21, 2018 Neurologic/Psychiatric: Reports: anxiety, depressed, emotional problems Allergies: Coded Allergies: No Known Allergies (Unverified , 12/29/17) Subjective the pt stated that he has hx of bipolar d/o and would like to take seroquel the pt is motivated to stop drinking. Objective Last 24 Hour Vital Signs Date Time Temp Pulse Resp B/P (MAP) Pulse Ox O2 Delivery O2 Flow Rate FiO2 07/21/18 09:00 Room Air 07/21/18 08:00 99.0 104 20 125/93 (104) 99 99.0 07/21/18 04:00 98.6 88 19 120/88 (99) 96 98.6 07/21/18 00:00 97.9 98 19 127/91 (103) 98 97.9 07/20/18 21:00 Room Air 07/20/18 20:00 97.8 95 19 141/96 (111) 100 97.8 07/20/18 16:00 97.9 95 19 141/100 (114) 99 97.9 07/20/18 12:00 97.7 103 19 152/97 (115) 98 97.7 Intake and Output 07/20/18 07/21/18 19:00 07:00 Intake Total 1675 ml 1250 ml Balance 1675 ml 1250 ml Intake Oral 400 ml IV Total 1275 ml 900 ml Tube Feeding 350 ml # Voids 3 2 # Bowel Movements 3 2 Laboratory Tests 07/20/18 16:37: Urine Color [place], Urine Appearance Clear, Urine pH 5, Urine Specific [place] 1.020, Urine Protein 1+H, Urine Glucose (UA) 4+H, Urine Ketones 2+H, Urine Blood Negative, Urine Nitrite Negative, Urine Bilirubin Negative, Urine Ictotest Negative, Urine Urobilinogen 1H, Urine Leukocyte Esterase 1+H, Urine RBC 0-2H, Urine WBC 0-2, Urine Squamous Epithelial Cells None, Urine Bacteria None, Urine Mucus ModerateH, Urine Opiates Screen PositiveH, Urine Barbiturates Screen Negative, Phencyclidine (PCP) Screen Negative, Urine Amphetamines Screen Negative, Urine Benzodiazepines Screen Negative, Urine Cocaine Screen Negative, Urine Marijuana (THC) Screen Negative 07/21/18 06:15: White Blood Count 2.4L, Red Blood Count 3.20L, Hemoglobin 10.1L, Hematocrit 29.0L, Mean Corpuscular Volume 91, Mean Corpuscular Hemoglobin 31.7H, Mean Corpuscular Hemoglobin Concent 35.0, Red Cell Distribution Width 11.5L, Platelet Count 86L, Mean Platelet Volume 7.5, Neutrophils (%) (Auto) , Lymphocytes (%) (Auto) , Monocytes (%) (Auto) , Eosinophils (%) (Auto) , Basophils (%) (Auto) , Differential Total Cells Counted 100, Neutrophils % ( Manual) 46, Lymphocytes % (Manual) 50H, Monocytes % (Manual) 4, Eosinophils % ( Manual) 0, Basophils % (Manual) 0, Band Neutrophils 0, Platelet Estimate DecreasedL, Platelet Morphology Normal, Hypochromasia 1+, Sodium Level 133L, Potassium Level 3.7, Chloride Level 98, Carbon Dioxide Level 30, Anion Gap 5, Blood Urea Nitrogen 4L, Creatinine 0.8, Estimat Glomerular Filtration Rate > 60 , Glucose Level 279H, Uric Acid 3.3, Calcium Level 7.8L, Phosphorus Level 2.7, Magnesium Level 1.5L, Total Bilirubin 0.7, Gamma Glutamyl Transpeptidase 2221H, Aspartate Amino Transf (AST/SGOT) 66H, Alanine Aminotransferase (ALT/SGPT) 45, Alkaline Phosphatase 184H, Total Creatine Kinase 99, Pro-B-Type Natriuretic Peptide 606H, Total Protein 5.6L, Albumin 2.6L, Globulin 3.0, Albumin/Globulin Ratio 0.9L Height (Feet): 6 Height (Inches): 2.00 Weight (Pounds): 173 General Appearance: no apparent distress, alert Neurologic: oriented x 3, depressed affect Giovanny Cummings MD Jul 21, 2018 10:19
[2018-07-21 12:00] VITALS: BP 122/79
--- NOTE | 2018-07-21 12:49 | Infectious Diseases Prog Note ---
Assessment/Plan Assessment/Plan A; Pancytopenia Alcohol dependence & withdrawal Chronic pancreatitis DM Bipolar disorder P; Observe off antibiotic Subjective ROS Limited/Unobtainable: No Respiratory: Reports: no symptoms Cardiovascular: Reports: no symptoms Gastrointestinal/Abdominal: Reports: no symptoms Genitourinary: Reports: no symptoms Allergies: Coded Allergies: No Known Allergies (Unverified , 12/29/17) Objective Vital Signs Last 24 Hour Vital Signs Date Time Temp Pulse Resp B/P (MAP) Pulse Ox O2 Delivery O2 Flow Rate FiO2 07/21/18 09:00 Room Air 07/21/18 08:00 99.0 104 20 125/93 (104) 99 99.0 07/21/18 04:00 98.6 88 19 120/88 (99) 96 98.6 07/21/18 00:00 97.9 98 19 127/91 (103) 98 97.9 07/20/18 21:00 Room Air 07/20/18 20:00 97.8 95 19 141/96 (111) 100 97.8 07/20/18 16:00 97.9 95 19 141/100 (114) 99 97.9 Height (Feet): 6 Height (Inches): 2.00 Weight (Pounds): 173 General Appearance: no acute distress HEENT: mucous membranes moist Respiratory/Chest: lungs clear Cardiovascular: normal rate Abdomen: soft, non tender Extremities: no edema Neurologic/Psychiatric: alert, oriented x 3, responsive Laboratory Tests Test 07/20/18 16:37 07/21/18 06:15 Urine Color Yamileth Urine Appearance Clear Urine pH 5 (4.5-8.0) Urine Specific [place] 1.020 (1.005-1.035) Urine Protein 1+ (NEGATIVE) H Urine Glucose (UA) 4+ (NEGATIVE) H Urine Ketones 2+ (NEGATIVE) H Urine Blood Negative (NEGATIVE) Urine Nitrite Negative (NEGATIVE) Urine Bilirubin Negative (NEGATIVE) Urine Ictotest Negative (NEGATIVE) Urine Urobilinogen 1 MG/DL (0.0-1.0) H Urine Leukocyte Esterase 1+ (NEGATIVE) H Urine RBC 0-2 /HPF (0 - 0) H Urine WBC 0-2 /HPF (0 - 0) Urine Squamous Epithelial Cells None /LPF (NONE/OCC) Urine Bacteria None /HPF (NONE) Urine Mucus Moderate /LPF (NONE/OCC) H Urine Opiates Screen Positive (NEGATIVE) H Urine Barbiturates Screen Negative (NEGATIVE) Phencyclidine (PCP) Screen Negative (NEGATIVE) Urine Amphetamines Screen Negative (NEGATIVE) Urine Benzodiazepines Screen Negative (NEGATIVE) Urine Cocaine Screen Negative (NEGATIVE) Urine Marijuana (THC) Screen Negative (NEGATIVE) White Blood Count 2.4 K/UL (4.8-10.8) L Red Blood Count 3.20 M/UL (4.70-6.10) L Hemoglobin 10.1 G/DL (14.2-18.0) L Hematocrit 29.0 % (42.0-52.0) L Mean Corpuscular Volume 91 FL (80-99) Mean Corpuscular Hemoglobin 31.7 PG (27.0-31.0) H Mean Corpuscular Hemoglobin Concent 35.0 G/DL (32.0-36.0) Red Cell Distribution Width 11.5 % (11.6-14.8) L Platelet Count 86 K/UL (150-450) L Mean Platelet Volume 7.5 FL (6.5-10.1) Neutrophils (%) (Auto) % (45.0-75.0) Lymphocytes (%) (Auto) % (20.0-45.0) Monocytes (%) (Auto) % (1.0-10.0) Eosinophils (%) (Auto) % (0.0-3.0) Basophils (%) (Auto) % (0.0-2.0) Differential Total Cells Counted 100 Neutrophils % (Manual) 46 % (45-75) Lymphocytes % (Manual) 50 % (20-45) H Monocytes % (Manual) 4 % (1-10) Eosinophils % (Manual) 0 % (0-3) Basophils % (Manual) 0 % (0-2) Band Neutrophils 0 % (0-8) Platelet Estimate Decreased L Platelet Morphology Normal Hypochromasia 1+ Sodium Level 133 MMOL/L (136-145) L Potassium Level 3.7 MMOL/L (3.5-5.1) Chloride Level 98 MMOL/L (98-107) Carbon Dioxide Level 30 MMOL/L (21-32) Anion Gap 5 mmol/L (5-15) Blood Urea Nitrogen 4 mg/dL (7-18) L Creatinine 0.8 MG/DL (0.55-1.30) Estimat Glomerular Filtration Rate > 60 mL/min (>60) Glucose Level 279 MG/DL (74-106) H Uric Acid 3.3 MG/DL (2.6-7.2) Calcium Level 7.8 MG/DL (8.5-10.1) L Phosphorus Level 2.7 MG/DL (2.5-4.9) Magnesium Level 1.5 MG/DL (1.8-2.4) L Total Bilirubin 0.7 MG/DL (0.2-1.0) Gamma Glutamyl Transpeptidase 2221 U/L (5-85) H Aspartate Amino Transf (AST/SGOT) 66 U/L (15-37) H Alanine Aminotransferase (ALT/SGPT) 45 U/L (12-78) Alkaline Phosphatase 184 U/L (46-116) H Total Creatine Kinase 99 U/L (26-308) Pro-B-Type Natriuretic Peptide 606 pg/mL (0-125) H Total Protein 5.6 G/DL (6.4-8.2) L Albumin 2.6 G/DL (3.4-5.0) L Globulin 3.0 g/dL Albumin/Globulin Ratio 0.9 (1.0-2.7) L Current Medications Medications (Trade) Dose Ordered Sig/Adolfo Route PRN Reason Start Time Stop Time Status Last Admin Dose Admin Acetaminophen (Tylenol) 650 mg Q4H PRN ORAL Mild Pain/Temp > 100.5 07/19/18 17:30 08/18/18 17:29 07/19/18 20:15 Acetaminophen/ Hydrocodone Bitart ([place] 5/325) 1 tab Q4H PRN ORAL Moderate Pain (Pain Scale 4-6) 07/19/18 21:00 07/26/18 20:59 07/21/18 09:33 Dextrose (Dextrose 50%) 25 ml STAT PRN IV Hypoglycemia 07/19/18 17:30 08/18/18 17:29 Dextrose (Dextrose 50%) 50 ml STAT PRN IV Hypoglycemia 07/19/18 17:30 08/18/18 17:29 Diazepam (Valium) 10 mg Q4H PRN ORAL For Anxiety 07/20/18 12:30 07/27/18 12:29 07/21/18 06:44 Folic Acid (Folate) 2 mg DAILY ORAL 07/20/18 09:00 08/19/18 08:59 07/21/18 08:22 Insulin Aspart (NovoLOG) BEFORE MEALS AND HS SUBQ 07/19/18 21:00 08/18/18 20:59 07/21/18 11:34 Magnesium Sulfate 100 ml @ 100 mls/hr Q1H IVPB 07/21/18 10:00 07/21/18 13:59 07/21/18 11:38 Multivitamins (Multivitamins) 1 tab DAILY ORAL 07/20/18 09:00 08/19/18 08:59 07/21/18 08:22 Ondansetron HCl (Zofran ODT) 4 mg Q6H PRN ORAL Nausea & Vomiting 07/19/18 19:45 08/18/18 19:44 07/20/18 11:00 Pantoprazole (Protonix) 40 mg EVERY 12 HOURS ORAL 07/19/18 21:00 08/18/18 20:59 07/21/18 08:22 Potassium Chloride (K-Dur) 20 meq BID ORAL 07/20/18 09:00 08/18/18 15:59 07/21/18 08:22 Quetiapine Fumarate (SEROquel) 100 mg BEDTIME ORAL 07/21/18 21:00 08/20/18 20:59 Sodium Chloride 1,000 ml @ 75 mls/hr [id number] IV 07/20/18 09:00 08/19/18 08:59 07/21/18 08:22 Thiamine HCl (Vitamin B1) 100 mg DAILY ORAL 07/19/18 21:00 08/18/18 20:59 07/21/18 08:22 Roland Alfred MD Jul 21, 2018 12:49
--- NOTE | 2018-07-21 13:13 | Nephrology Progress Note ---
Assessment/Plan Problem List: (1) Failure to thrive (2) Dehydration (3) Diabetes mellitus out of control (4) Abdominal pain Assessment FTT Dehydration PanCytopenia Hyperglycemia / DM Hepatic transaminitis, high GGTP Hypo Kalemia corrected HypoMagnesemia corrected Plan Mag and K supplement- PO Folate- BS check and control Urine tox screen negative CORRINE: Negative for gallstones or dilated ducts or other significant abnormality Subjective ROS Limited/Unobtainable: No Constitutional: Reports: malaise Objective Objective Last 24 Hour Vital Signs Date Time Temp Pulse Resp B/P (MAP) Pulse Ox O2 Delivery O2 Flow Rate FiO2 07/21/18 12:00 98.7 95 19 122/79 (93) 99 98.7 07/21/18 09:00 Room Air 07/21/18 08:00 99.0 104 20 125/93 (104) 99 99.0 07/21/18 04:00 98.6 88 19 120/88 (99) 96 98.6 07/21/18 00:00 97.9 98 19 127/91 (103) 98 97.9 07/20/18 21:00 Room Air 07/20/18 20:00 97.8 95 19 141/96 (111) 100 97.8 07/20/18 16:00 97.9 95 19 141/100 (114) 99 97.9 Intake and Output 07/20/18 07/21/18 19:00 07:00 Intake Total 1675 ml 1250 ml Balance 1675 ml 1250 ml Intake Oral 400 ml IV Total 1275 ml 900 ml Tube Feeding 350 ml # Voids 3 2 # Bowel Movements 3 2 Laboratory Tests 07/20/18 16:37: Urine Color [place], Urine Appearance Clear, Urine pH 5, Urine Specific [place] 1.020, Urine Protein 1+H, Urine Glucose (UA) 4+H, Urine Ketones 2+H, Urine Blood Negative, Urine Nitrite Negative, Urine Bilirubin Negative, Urine Ictotest Negative, Urine Urobilinogen 1H, Urine Leukocyte Esterase 1+H, Urine RBC 0-2H, Urine WBC 0-2, Urine Squamous Epithelial Cells None, Urine Bacteria None, Urine Mucus ModerateH, Urine Opiates Screen PositiveH, Urine Barbiturates Screen Negative, Phencyclidine (PCP) Screen Negative, Urine Amphetamines Screen Negative, Urine Benzodiazepines Screen Negative, Urine Cocaine Screen Negative, Urine Marijuana (THC) Screen Negative 07/21/18 06:15: White Blood Count 2.4L, Red Blood Count 3.20L, Hemoglobin 10.1L, Hematocrit 29.0L, Mean Corpuscular Volume 91, Mean Corpuscular Hemoglobin 31.7H, Mean Corpuscular Hemoglobin Concent 35.0, Red Cell Distribution Width 11.5L, Platelet Count 86L, Mean Platelet Volume 7.5, Neutrophils (%) (Auto) , Lymphocytes (%) (Auto) , Monocytes (%) (Auto) , Eosinophils (%) (Auto) , Basophils (%) (Auto) , Differential Total Cells Counted 100, Neutrophils % ( Manual) 46, Lymphocytes % (Manual) 50H, Monocytes % (Manual) 4, Eosinophils % ( Manual) 0, Basophils % (Manual) 0, Band Neutrophils 0, Platelet Estimate DecreasedL, Platelet Morphology Normal, Hypochromasia 1+, Sodium Level 133L, Potassium Level 3.7, Chloride Level 98, Carbon Dioxide Level 30, Anion Gap 5, Blood Urea Nitrogen 4L, Creatinine 0.8, Estimat Glomerular Filtration Rate > 60 , Glucose Level 279H, Uric Acid 3.3, Calcium Level 7.8L, Phosphorus Level 2.7, Magnesium Level 1.5L, Total Bilirubin 0.7, Gamma Glutamyl Transpeptidase 2221H, Aspartate Amino Transf (AST/SGOT) 66H, Alanine Aminotransferase (ALT/SGPT) 45, Alkaline Phosphatase 184H, Total Creatine Kinase 99, Pro-B-Type Natriuretic Peptide 606H, Total Protein 5.6L, Albumin 2.6L, Globulin 3.0, Albumin/Globulin Ratio 0.9L Height (Feet): 6 Height (Inches): 2.00 Weight (Pounds): 173 General Appearance: no apparent distress Cardiovascular: normal rate, tachycardia Respiratory/Chest: decreased breath sounds Abdomen: soft, distended Objective no change Casey Alas MD Jul 21, 2018 13:13
[2018-07-21 16:00] VITALS: BP 115/89
[2018-07-21] MEDS ORDERED: NS 275ml ONE (16:18)
[2018-07-21] MEDS ORDERED: Tubing IV Secondary IV ONE (16:18)
--- NOTE | 2018-07-21 19:06 | Consultation ---
Consult Note Consult Note Hematology Consultation REq : Larry RFC: pancytopenia worsening eval DOS: 07/21/18 HPI Patient presents emergency department today complaining of generalized weakness not eating not drinking. Patient seemed to be very weak and was brought here for further evaluation. Patient is not very verbal and not very communicative. He denies any chest pain shortness breath denies any vomiting. No other complaints are noted. Symptoms noted to be moderate to severe.No other modifying factors. No other associated signs and symptoms. No other complaints were noted. Hep B was positive in re to ab ,pending hep B Sag, noted to be pancytopenic. Allergies: Coded Allergies: No Known Allergies (Unverified , 12/29/17) Patient History Past Medical History: DM, psych hx Past Surgical History: none Pertinent Family History: none Social History: Denies: smoking, alcohol use, drug use Reviewed Nursing Documentation: PMH: Agreed; PSxH: Agreed Nursing Documentation-PMH Past Medical History: No History, Except For Hx Cardiac Problems: No Hx Diabetes: Yes Hx Cancer: No Hx Gastrointestinal Problems: Yes - abd pain History Of Psychiatric Problem: Yes Hx Cerebrovascular Accident: No Review of Systems All Other Systems: negative except mentioned in HPI ER Physical Exam - General Physical Exam Vital Signs Last 24 Hour Vital Signs Date Time Temp Pulse Resp B/P (MAP) Pulse Ox O2 Delivery O2 Flow Rate FiO2 07/21/18 16:00 98.0 99 20 115/89 (98) 100 98.0 07/21/18 12:00 98.7 95 19 122/79 (93) 99 98.7 07/21/18 09:00 Room Air 07/21/18 08:00 99.0 104 20 125/93 (104) 99 99.0 07/21/18 04:00 98.6 88 19 120/88 (99) 96 98.6 07/21/18 00:00 97.9 98 19 127/91 (103) 98 97.9 07/20/18 21:00 Room Air 07/20/18 20:00 97.8 95 19 141/96 (111) 100 97.8 General: alert, cooperative, no distress, appears stated age Head: normocephalic, without obvious abnormality, atraumatic Eyes: conjunctivae/corneas clear. PERRL, EOM's intact Throat: lips, mucosa, and tongue normal. MMM Neck: supple, symmetrical, trachea midline, and no JVD Lungs: clear to auscultation bilaterally Heart: regular rate and rhythm, S1, S2 normal, no murmur, click, rub or gallop Abdomen: soft, non-tender, non-distended, bowel sounds normal; no masses or organomegaly Extremities: extremities normal, atraumatic, no cyanosis or edema Laboratory Tests Test 07/21/18 06:15 White Blood Count 2.4 K/UL (4.8-10.8) L Red Blood Count 3.20 M/UL (4.70-6.10) L Hemoglobin 10.1 G/DL (14.2-18.0) L Hematocrit 29.0 % (42.0-52.0) L Mean Corpuscular Volume 91 FL (80-99) Mean Corpuscular Hemoglobin 31.7 PG (27.0-31.0) H Mean Corpuscular Hemoglobin Concent 35.0 G/DL (32.0-36.0) Red Cell Distribution Width 11.5 % (11.6-14.8) L Platelet Count 86 K/UL (150-450) L Mean Platelet Volume 7.5 FL (6.5-10.1) Neutrophils (%) (Auto) % (45.0-75.0) Lymphocytes (%) (Auto) % (20.0-45.0) Monocytes (%) (Auto) % (1.0-10.0) Eosinophils (%) (Auto) % (0.0-3.0) Basophils (%) (Auto) % (0.0-2.0) Differential Total Cells Counted 100 Neutrophils % (Manual) 46 % (45-75) Lymphocytes % (Manual) 50 % (20-45) H Monocytes % (Manual) 4 % (1-10) Eosinophils % (Manual) 0 % (0-3) Basophils % (Manual) 0 % (0-2) Band Neutrophils 0 % (0-8) Platelet Estimate Decreased L Platelet Morphology Normal Hypochromasia 1+ Sodium Level 133 MMOL/L (136-145) L Potassium Level 3.7 MMOL/L (3.5-5.1) Chloride Level 98 MMOL/L (98-107) Carbon Dioxide Level 30 MMOL/L (21-32) Anion Gap 5 mmol/L (5-15) Blood Urea Nitrogen 4 mg/dL (7-18) L Creatinine 0.8 MG/DL (0.55-1.30) Estimat Glomerular Filtration Rate > 60 mL/min (>60) Glucose Level 279 MG/DL (74-106) H Uric Acid 3.3 MG/DL (2.6-7.2) Calcium Level 7.8 MG/DL (8.5-10.1) L Phosphorus Level 2.7 MG/DL (2.5-4.9) Magnesium Level 1.5 MG/DL (1.8-2.4) L Total Bilirubin 0.7 MG/DL (0.2-1.0) Gamma Glutamyl Transpeptidase 2221 U/L (5-85) H Aspartate Amino Transf (AST/SGOT) 66 U/L (15-37) H Alanine Aminotransferase (ALT/SGPT) 45 U/L (12-78) Alkaline Phosphatase 184 U/L (46-116) H Total Creatine Kinase 99 U/L (26-308) Pro-B-Type Natriuretic Peptide 606 pg/mL (0-125) H Total Protein 5.6 G/DL (6.4-8.2) L Albumin 2.6 G/DL (3.4-5.0) L Globulin 3.0 g/dL Albumin/Globulin Ratio 0.9 (1.0-2.7) L CT A/P 1. related to a component of chronic pancreatitis, grossly unchanged. Stable 20 mm hypodensity in pancreatic tail. 2. Stable 13 mm hypodensity in segment 7 of the liver. 3. Old fracture deformity of the left transverse process of L2 with surrounding callus formation. 4. Trace bilateral pleural effusions. Mild bilateral lower lobe subsegmental atelectasis. Assessment and Recs: # Panctyopenia - reviewed patients current labs, currently appears to have a chronic form pf panctyopenia, prior imaging reviewed as well, no blasts noted, no elevation in protein in the serum, less likely marrow involvement, but does have opiate use before, still may have chronic pancreatitis/cirrhosis and portal HTN --> send off for Hep BSAg --> US of the abdomen reviewed # Failure to thrive - likely related to poor po intake --> does not appear to have malignancy and prior extensive imaging reviewed --> order for several tumor markers # Dehydration - recommend improved po intake # Weakness likely due to above GREATLY APPRECIATE CONSULTATION Roque Morrow MD Jul 21, 2018 19:06
[2018-07-21 20:00] VITALS: BP 132/87
--- NOTE | 2018-07-21 20:20 | General Progress Note ---
Assessment/Plan Assessment/Plan Assessment - EtOH abuse - EtOH hepatitis - EtOH marrow suppression - EtOH withdrawal history Recommendations - IVF - MVI - Thiamine - BDZ - EtoH avoidance - Follow labs - replace lytes Subjective Allergies: Coded Allergies: No Known Allergies (Unverified , 12/29/17) Subjective Feels OK no abd pain tolerating PO Objective Last 24 Hour Vital Signs Date Time Temp Pulse Resp B/P (MAP) Pulse Ox O2 Delivery O2 Flow Rate FiO2 07/21/18 20:00 98.2 89 18 132/87 (102) 100 98.2 07/21/18 16:00 98.0 99 20 115/89 (98) 100 98.0 07/21/18 12:00 98.7 95 19 122/79 (93) 99 98.7 07/21/18 09:00 Room Air 07/21/18 08:00 99.0 104 20 125/93 (104) 99 99.0 07/21/18 04:00 98.6 88 19 120/88 (99) 96 98.6 07/21/18 00:00 97.9 98 19 127/91 (103) 98 97.9 07/20/18 21:00 Room Air Intake and Output 07/20/18 07/21/18 19:00 07:00 Intake Total 1675 ml 1250 ml Balance 1675 ml 1250 ml Intake Oral 400 ml IV Total 1275 ml 900 ml Tube Feeding 350 ml # Voids 3 2 # Bowel Movements 3 2 Laboratory Tests 07/21/18 06:15: White Blood Count 2.4L, Red Blood Count 3.20L, Hemoglobin 10.1L, Hematocrit 29.0L, Mean Corpuscular Volume 91, Mean Corpuscular Hemoglobin 31.7H, Mean Corpuscular Hemoglobin Concent 35.0, Red Cell Distribution Width 11.5L, Platelet Count 86L, Mean Platelet Volume 7.5, Neutrophils (%) (Auto) , Lymphocytes (%) (Auto) , Monocytes (%) (Auto) , Eosinophils (%) (Auto) , Basophils (%) (Auto) , Differential Total Cells Counted 100, Neutrophils % ( Manual) 46, Lymphocytes % (Manual) 50H, Monocytes % (Manual) 4, Eosinophils % ( Manual) 0, Basophils % (Manual) 0, Band Neutrophils 0, Platelet Estimate DecreasedL, Platelet Morphology Normal, Hypochromasia 1+, Sodium Level 133L, Potassium Level 3.7, Chloride Level 98, Carbon Dioxide Level 30, Anion Gap 5, Blood Urea Nitrogen 4L, Creatinine 0.8, Estimat Glomerular Filtration Rate > 60 , Glucose Level 279H, Uric Acid 3.3, Calcium Level 7.8L, Phosphorus Level 2.7, Magnesium Level 1.5L, Total Bilirubin 0.7, Gamma Glutamyl Transpeptidase 2221H, Aspartate Amino Transf (AST/SGOT) 66H, Alanine Aminotransferase (ALT/SGPT) 45, Alkaline Phosphatase 184H, Total Creatine Kinase 99, Pro-B-Type Natriuretic Peptide 606H, Total Protein 5.6L, Albumin 2.6L, Globulin 3.0, Albumin/Globulin Ratio 0.9L Height (Feet): 6 Height (Inches): 2.00 Weight (Pounds): 173 Objective WDWN NCAT supple CTA RRR soft ND NT no edema non focal Kristyn Echols MD Jul 21, 2018 20:20
--- NOTE | 2018-07-21 21:01 | General Progress Note ---
Assessment/Plan Problem List: (1) Chronic pancreatitis ICD Codes: K86.1 - Other chronic pancreatitis SNOMED: 573854512 (2) Hepatotoxicity, secondary to ETOH ICD Codes: K70.9 - Alcoholic liver disease, unspecified SNOMED: 42287351 (3) Failure to thrive (4) Weakness ICD Codes: R53.1 - Weakness SNOMED: 82637689 (5) Depression ICD Codes: F32.9 - Major depressive disorder, single episode, unspecified SNOMED: 90485223 (6) Dehydration ICD Codes: E86.0 - Dehydration SNOMED: 42867462 Status: progressing Assessment/Plan psych diagnosis afebrile etoh abuse no cp reviewed chart and labs sw consult Subjective ROS Limited/Unobtainable: Yes Allergies: Coded Allergies: No Known Allergies (Unverified , 12/29/17) Objective Last 24 Hour Vital Signs Date Time Temp Pulse Resp B/P (MAP) Pulse Ox O2 Delivery O2 Flow Rate FiO2 07/21/18 20:00 98.2 89 18 132/87 (102) 100 98.2 07/21/18 16:00 98.0 99 20 115/89 (98) 100 98.0 07/21/18 12:00 98.7 95 19 122/79 (93) 99 98.7 07/21/18 09:00 Room Air 07/21/18 08:00 99.0 104 20 125/93 (104) 99 99.0 07/21/18 04:00 98.6 88 19 120/88 (99) 96 98.6 07/21/18 00:00 97.9 98 19 127/91 (103) 98 97.9 Intake and Output 07/20/18 07/21/18 19:00 07:00 Intake Total 1675 ml 1250 ml Balance 1675 ml 1250 ml Intake Oral 400 ml IV Total 1275 ml 900 ml Tube Feeding 350 ml # Voids 3 2 # Bowel Movements 3 2 Laboratory Tests 07/21/18 06:15: White Blood Count 2.4L, Red Blood Count 3.20L, Hemoglobin 10.1L, Hematocrit 29.0L, Mean Corpuscular Volume 91, Mean Corpuscular Hemoglobin 31.7H, Mean Corpuscular Hemoglobin Concent 35.0, Red Cell Distribution Width 11.5L, Platelet Count 86L, Mean Platelet Volume 7.5, Neutrophils (%) (Auto) , Lymphocytes (%) (Auto) , Monocytes (%) (Auto) , Eosinophils (%) (Auto) , Basophils (%) (Auto) , Differential Total Cells Counted 100, Neutrophils % ( Manual) 46, Lymphocytes % (Manual) 50H, Monocytes % (Manual) 4, Eosinophils % ( Manual) 0, Basophils % (Manual) 0, Band Neutrophils 0, Platelet Estimate DecreasedL, Platelet Morphology Normal, Hypochromasia 1+, Sodium Level 133L, Potassium Level 3.7, Chloride Level 98, Carbon Dioxide Level 30, Anion Gap 5, Blood Urea Nitrogen 4L, Creatinine 0.8, Estimat Glomerular Filtration Rate > 60 , Glucose Level 279H, Uric Acid 3.3, Calcium Level 7.8L, Phosphorus Level 2.7, Magnesium Level 1.5L, Total Bilirubin 0.7, Gamma Glutamyl Transpeptidase 2221H, Aspartate Amino Transf (AST/SGOT) 66H, Alanine Aminotransferase (ALT/SGPT) 45, Alkaline Phosphatase 184H, Total Creatine Kinase 99, Pro-B-Type Natriuretic Peptide 606H, Total Protein 5.6L, Albumin 2.6L, Globulin 3.0, Albumin/Globulin Ratio 0.9L Height (Feet): 6 Height (Inches): 2.00 Weight (Pounds): 173 Cardiovascular: normal rate Respiratory/Chest: lungs clear Abdomen: soft Mery Juarez MD Jul 21, 2018 21:01
[2018-07-22 04:00] VITALS: BP 114/84
[2018-07-22] MEDS: NovoLOG Insulin Flexpen SUBQ SCH ×2 (05:52→11:46)
[2018-07-22 08:00] VITALS: BP 125/86
[2018-07-22] MEDS: Thiamine 100mg tab ORAL SCH (09:23)
[2018-07-22 11:45] VITALS: BP 118/85
--- NOTE | 2018-07-22 12:28 | Nephrology Progress Note ---
Assessment/Plan Problem List: (1) Failure to thrive (2) Dehydration (3) Diabetes mellitus out of control (4) Abdominal pain Assessment FTT Dehydration PanCytopenia Hyperglycemia / DM Hepatic transaminitis, high GGTP Hypo Kalemia corrected HypoMagnesemia corrected Plan no labs today DC IV fluids Mag and K supplement- PO Folate- BS check and control Urine tox screen negative CORRINE: Negative for gallstones or dilated ducts or other significant abnormality Subjective ROS Limited/Unobtainable: No Constitutional: Reports: other - feels stronger Objective Objective Last 24 Hour Vital Signs Date Time Temp Pulse Resp B/P (MAP) Pulse Ox O2 Delivery O2 Flow Rate FiO2 07/22/18 11:45 97.8 96 22 118/85 (96) 100 97.8 07/22/18 09:00 Room Air 07/22/18 08:00 98.0 101 21 125/86 (99) 99 98.0 07/22/18 04:00 98.4 108 19 114/84 (94) 100 98.4 07/21/18 21:00 Room Air 07/21/18 20:00 98.2 89 18 132/87 (102) 100 98.2 07/21/18 16:00 98.0 99 20 115/89 (98) 100 98.0 Intake and Output 07/21/18 07/22/18 19:00 07:00 Intake Total 2100 ml 1050 ml Balance 2100 ml 1050 ml Intake Oral 875 ml 450 ml IV Total 1225 ml 600 ml # Voids 4 3 # Bowel Movements 1 1 Laboratory Tests 07/22/18 05:00: Hepatitis B Surface Antigen [Pending] Height (Feet): 6 Height (Inches): 2.00 Weight (Pounds): 173 General Appearance: no apparent distress Cardiovascular: normal rate Respiratory/Chest: decreased breath sounds Abdomen: soft Objective no change Casey Alas MD Jul 22, 2018 12:28
--- NOTE | 2018-07-22 12:53 | General Progress Note ---
Assessment/Plan Assessment/Plan (1) Alcohol abuse (2) Alcohol withdrawal (3) Abdominal pain (4) Pancreatic pseudocyst Patient will be continued on [place] as needed. D/w Dr. Aden and he concurred. Subjective Date patient seen: Jul 22, 2018 Time patient seen: 11:45 - am Allergies: Coded Allergies: No Known Allergies (Unverified , 12/29/17) Subjective Constitutional: Reports: no symptoms HEENT: Reports: no symptoms Cardiovascular: Reports: no symptoms Respiratory: Reports: no symptoms Gastrointestinal/Abdominal: Reports: Abdominal pain Genitourinary: Reports: no symptoms Neurologic/Psychiatric: Reports: no symptoms Endocrine: Reports: no symptoms Hematologic/Lymphatic: Reports: no symptoms Subjective Patient is doing better and the pain is at a moderate level using the [place] as needed. He has no new complaints at this time. Objective Last 24 Hour Vital Signs Date Time Temp Pulse Resp B/P (MAP) Pulse Ox O2 Delivery O2 Flow Rate FiO2 07/22/18 11:45 97.8 96 22 118/85 (96) 100 97.8 07/22/18 09:00 Room Air 07/22/18 08:00 98.0 101 21 125/86 (99) 99 98.0 07/22/18 04:00 98.4 108 19 114/84 (94) 100 98.4 07/21/18 21:00 Room Air 07/21/18 20:00 98.2 89 18 132/87 (102) 100 98.2 07/21/18 16:00 98.0 99 20 115/89 (98) 100 98.0 Intake and Output 07/21/18 07/22/18 19:00 07:00 Intake Total 2100 ml 1050 ml Balance 2100 ml 1050 ml Intake Oral 875 ml 450 ml IV Total 1225 ml 600 ml # Voids 4 3 # Bowel Movements 1 1 Laboratory Tests 07/22/18 05:00: Hepatitis B Surface Antigen [Pending] Height (Feet): 6 Height (Inches): 2.00 Weight (Pounds): 173 Objective General Appearance: no apparent distress, alert EENT: PERRL/EOMI, normal ENT inspection Neck: non-tender, normal alignment Cardiovascular: normal rate, regular rhythm Respiratory/Chest: lungs clear, normal breath sounds Abdomen: non tender, soft Extremities: normal range of motion, non-tender Edema: trace edema Neurologic: alert, oriented x 3 Skin: warm/dry Tomasz Wilkerson Jul 22, 2018 12:53
--- NOTE | 2018-07-22 12:59 | Infectious Diseases Prog Note ---
Assessment/Plan Assessment/Plan A; Pancytopenia Alcohol dependence & withdrawal Chronic pancreatitis DM Bipolar disorder P; Observe off antibiotic Clear for discharge to home Subjective ROS Limited/Unobtainable: No Constitutional: Reports: no symptoms Respiratory: Reports: no symptoms Gastrointestinal/Abdominal: Reports: other - chronic pain Genitourinary: Reports: no symptoms Allergies: Coded Allergies: No Known Allergies (Unverified , 12/29/17) Objective Vital Signs Last 24 Hour Vital Signs Date Time Temp Pulse Resp B/P (MAP) Pulse Ox O2 Delivery O2 Flow Rate FiO2 07/22/18 11:45 97.8 96 22 118/85 (96) 100 97.8 07/22/18 09:00 Room Air 07/22/18 08:00 98.0 101 21 125/86 (99) 99 98.0 07/22/18 04:00 98.4 108 19 114/84 (94) 100 98.4 07/21/18 21:00 Room Air 07/21/18 20:00 98.2 89 18 132/87 (102) 100 98.2 07/21/18 16:00 98.0 99 20 115/89 (98) 100 98.0 Height (Feet): 6 Height (Inches): 2.00 Weight (Pounds): 173 General Appearance: no acute distress HEENT: mucous membranes moist Respiratory/Chest: lungs clear Cardiovascular: normal rate Abdomen: soft, non tender Extremities: no edema Neurologic/Psychiatric: alert, oriented x 3, responsive Laboratory Tests Test 07/22/18 05:00 Hepatitis B Surface Antigen Pending Current Medications Medications (Trade) Dose Ordered Sig/Adolfo Route PRN Reason Start Time Stop Time Status Last Admin Dose Admin Acetaminophen (Tylenol) 650 mg Q4H PRN ORAL Mild Pain/Temp > 100.5 07/19/18 17:30 08/18/18 17:29 07/19/18 20:15 Acetaminophen/ Hydrocodone Bitart ([place] 5/325) 1 tab Q4H PRN ORAL Moderate Pain (Pain Scale 4-6) 07/19/18 21:00 07/26/18 20:59 07/21/18 18:38 Dextrose (Dextrose 50%) 25 ml STAT PRN IV Hypoglycemia 07/19/18 17:30 08/18/18 17:29 Dextrose (Dextrose 50%) 50 ml STAT PRN IV Hypoglycemia 07/19/18 17:30 08/18/18 17:29 Diazepam (Valium) 10 mg Q4H PRN ORAL For Anxiety 07/20/18 12:30 07/27/18 12:29 07/21/18 06:44 Folic Acid (Folate) 2 mg DAILY ORAL 07/20/18 09:00 08/19/18 08:59 07/22/18 09:23 Insulin Aspart (NovoLOG) BEFORE MEALS AND HS SUBQ 07/19/18 21:00 08/18/18 20:59 07/22/18 11:46 Multivitamins (Multivitamins) 1 tab DAILY ORAL 07/20/18 09:00 08/19/18 08:59 07/22/18 09:23 Ondansetron HCl (Zofran ODT) 4 mg Q6H PRN ORAL Nausea & Vomiting 07/19/18 19:45 08/18/18 19:44 07/20/18 11:00 Pantoprazole (Protonix) 40 mg EVERY 12 HOURS ORAL 07/19/18 21:00 08/18/18 20:59 07/22/18 09:23 Potassium Chloride (K-Dur) 20 meq BID ORAL 07/20/18 09:00 08/18/18 15:59 07/22/18 09:23 Quetiapine Fumarate (SEROquel) 100 mg BEDTIME ORAL 07/21/18 21:00 08/20/18 20:59 07/21/18 20:16 Thiamine HCl (Vitamin B1) 100 mg DAILY ORAL 07/19/18 21:00 08/18/18 20:59 07/22/18 09:23 Roland Alfred MD Jul 22, 2018 12:59
[2018-07-22 15:31] VITALS: BP 121/87
--- NOTE | 2018-07-22 21:14 | General Progress Note ---
Assessment/Plan Assessment/Plan Assessment - EtOH abuse - EtOH hepatitis - EtOH marrow suppression - EtOH withdrawal history Recommendations - IVF - MVI - Thiamine - BDZ - EtoH avoidance - Follow labs - replace lytes Subjective Allergies: Coded Allergies: No Known Allergies (Unverified , 12/29/17) Subjective Feels OK no abd pain tolerating PO Objective Last 24 Hour Vital Signs Date Time Temp Pulse Resp B/P (MAP) Pulse Ox O2 Delivery O2 Flow Rate FiO2 07/22/18 15:31 98.8 100 22 121/87 (98) 98 98.8 07/22/18 11:45 97.8 96 22 118/85 (96) 100 97.8 07/22/18 09:00 Room Air 07/22/18 08:00 98.0 101 21 125/86 (99) 99 98.0 07/22/18 04:00 98.4 108 19 114/84 (94) 100 98.4 Intake and Output 07/21/18 07/22/18 19:00 07:00 Intake Total 2100 ml 1050 ml Balance 2100 ml 1050 ml Intake Oral 875 ml 450 ml IV Total 1225 ml 600 ml # Voids 4 3 # Bowel Movements 1 1 Laboratory Tests 07/22/18 05:00: Hepatitis B Surface Antigen [Pending] Height (Feet): 6 Height (Inches): 2.00 Weight (Pounds): 173 Objective WDWN NCAT supple CTA RRR soft ND NT no edema non focal Kristyn Echols MD Jul 22, 2018 21:14
--- NOTE | 2018-07-22 23:23 | General Progress Note ---
Assessment/Plan Assessment/Plan Alcohol dependence alcohol w/d bipolar anxiety valium folate thiamine prozac CIWA protocol Subjective Date patient seen: Jul 22, 2018 Neurologic/Psychiatric: Reports: anxiety, depressed, emotional problems Allergies: Coded Allergies: No Known Allergies (Unverified , 12/29/17) Objective Last 24 Hour Vital Signs Date Time Temp Pulse Resp B/P (MAP) Pulse Ox O2 Delivery O2 Flow Rate FiO2 07/22/18 15:31 98.8 100 22 121/87 (98) 98 98.8 07/22/18 11:45 97.8 96 22 118/85 (96) 100 97.8 07/22/18 09:00 Room Air 07/22/18 08:00 98.0 101 21 125/86 (99) 99 98.0 07/22/18 04:00 98.4 108 19 114/84 (94) 100 98.4 Intake and Output 07/21/18 07/22/18 19:00 07:00 Intake Total 2100 ml 1050 ml Balance 2100 ml 1050 ml Intake Oral 875 ml 450 ml IV Total 1225 ml 600 ml # Voids 4 3 # Bowel Movements 1 1 Laboratory Tests 07/22/18 05:00: Hepatitis B Surface Antigen [Pending] Height (Feet): 6 Height (Inches): 2.00 Weight (Pounds): 173 Giovanny Cummings MD Jul 22, 2018 23:23
--- NOTE | 2018-07-25 08:14 | Discharge Summary ---
Discharge Summary Discharge Summary _ DATE OF ADMISSION: 07/19/2018 DATE OF DISCHARGE: 07/22/2018 REASON FOR ADMISSION: 48 years old male with past medical history of diabetes mellitus, ETOH abuse, psychiatric disorder, presented to emergency department with generalized weakness. p Patient was brought for further evaluation. Patient was not much communicative in the emergency department. He denied chest pain , shortness of breath. No nausea, no vomiting . Vital signs were stable. Laboratory workup revealed leukopenia with WBC 2.7, stable hemoglobin and hematocrit , platelets 121. Potassium low. Troponin negative. CK 155. TSH within normal limits. AST 113, ALT 72. EKG revealed normal sinus rhythm, no acute ischemic changes . Chest x-ray revealed no acute cardiopulmonary pathology. Urinalysis revealed+4 glucose, +2 protein, no evidence of UTI. Patient admitted with diagnoses of dehydration, failure to thrive, generalized weakness, hypokalemia ,ETOH abuse CONSULTANTS: ID specialist Dr. Otero GI specialist players assistant Dr. Alas tinsel machine operator/oncologist Dr. Morrow psychiatrist pain specialist Dr. Aden HOSPITAL COURSE: Patient admitted. Patient started on IV hydration with addition of multivitamin, folate, and thiamine. Benzodiazepine were on board as needed. Patient was on CIWA protocol. Psychiatrist closely followed. Psychiatrist optimized psychiatric medication regimen and diagnosed patient in addition with bipolar and anxiety disorders. GI specialist closely followed. Abdominal ultrasound revealed no dilated ducts, no gallstones. Antiemetics provided as needed. GI prophylaxis provided. GGT severely elevated. LFT were trending down. According to GI , specialist patient have alcohol induced hepatitis and chronic pancreatitis. Patient was counseled on abstinence from alcohol. Blood sugar was managed with sliding scale of insulin. Hemoglobin A1c 9.8 not at goal. Patient needs optimization of anti-glycemic regimen as outpatient. Park Maintainer closely followed. Renal parameters and electrolytes were closely monitored. Potassium and magnesium were replaced and remained , stable prior to discharge. Pain management was addressed as per pain specialist recommendations. Pain management was controlled. Patient was able to eat. Infectious disease specialist consulted for low-grade fever. Urinalysis was negative , chest x-ray was negative . Patient was afebrile, no leukocytosis . Patient had no evidence of infection. Infectious disease doctor recommended to keep patient off antibiotic and closely observed. Fleet Sales Associate closely followed patient for pancytopenia. Prior labs and images were reviewed by tinsel machine operator. According to tinsel machine operator, pancytopenia appeared to be chronic. No blasts noted; no elevation in serum protein. Less likely bone marrow involvement. Pancytopenia likely due to ETOH abuse with ETOH induced hepatitis and chronic pancreatitis. Hepatitis B surface antigen was negative with positive hepatitis B surface antibody. Patient clinically improved and was stable for discharge home . FINAL DIAGNOSES: Alcohol dependence and possible withdrawal Alcoholic hepatitis Chronic pancreatitis a Abdominal pain (secondary to above ) Dehydration Electrolyte imbalances;: hypokalemia hypomagnesemia, -esolved Pancytopenia Diabetes mellitus out of control Bipolar disorder Anxiety disorder DISCHARGE MEDICATIONS: See Medication Reconciliation list. DISCHARGE INSTRUCTIONS: Patient was discharged home. Patient counseled on ETOH avoidance Follow up with primary care provider in one week. I have been assigned to dictate discharge summary for this account. I was not involved in the patient's management. Tiffani Wu NP Jul 25, 2018 08:14
--- NOTE | 2018-07-26 01:37 | Diagnostic Imaging Report ---
APPROVED REPORT CPT Code: 00938 Present Symptoms Comments: BILATERAL LEGS PAIN. BILATERAL: Imaging reveals a patent deep venous system bilaterally. There is no evidence of thrombus within the femoral, popliteal or tibial segments. The greater saphenous veins are also within normal limits. Doppler indicates normal spontaneous flow within these segments.
== END 2018-07-22 16:05 | disposition home or self-care (01) | DRG 897 ==
LOC: EDSEX 11:30 → EDBD 11:30 → EMR 12:00 → 4E 14:28 → EDBEDREQ 15:27 → 4E 17:05
DX: F10.239 Alcohol dependence with withdrawal, unspecified (principal); D61.818 Other pancytopenia; K86.1 Other chronic pancreatitis; E86.0 Dehydration; E87.6 Hypokalemia; R62.7 Adult failure to thrive; E11.65 Type 2 diabetes mellitus with hyperglycemia; K70.10 Alcoholic hepatitis without ascites; E83.42 Hypomagnesemia; R74.0 Nonspecific elevation of levels of transaminase and lactic acid dehydrogenase [LDH]; F31.9 Bipolar disorder, unspecified; H33.199 Other retinoschisis and retinal cysts, unspecified eye
CPT/HCPCS: 36415; 71045; 76700; 80053; 80061; 80307; 81001; 81003; 82550; 82553; 82607; 82728; 82746; 82962; 82977; 83036; 83540; 83550; 83690; 83735; 83880; 84100; 84443; 84484; 84550; 85007; 85025; 86140; 86803; 87340; 87517; 92610; 93005; 93970; 96360; 99285; J1815; J8499

== ENCOUNTER 2018-10-16 19:59 | Emergency (ER) | payer MEDICARE, OTHER ==
[~2018-10-16] VITALS: Ht 188 cm; Wt 86.2 kg
[~2018-10-16 19:59] MED LIST changes: +CELEXA10 MG ORAL; +HUMULIN R100 UNIT/1 SUBQ; +SEROQUEL50 MG ORAL
--- NOTE | 2018-10-16 20:14 | Emergency Room Report ---
History of Present Illness General Chief Complaint: Abdominal Pain Source: Patient, EMS Present Illness HPI EMS was called because patient was vomiting and having diarrhea. He's also been drinking alcohol. He states she's been vomiting blood today. He's complaining about epigastric pain also. He states he can't answer questions because of the severity of the pain at this time. In the past he has had similar presentations. Patient admitted July with d/c dx: Alcohol dependence and possible withdrawal Alcoholic hepatitis Chronic pancreatitis a Abdominal pain (secondary to above ) Dehydration Electrolyte imbalances;: hypokalemia hypomagnesemia, -esolved Pancytopenia Diabetes mellitus out of control Bipolar disorder Anxiety disorder Allergies: Coded Allergies: No Known Allergies (Unverified , 12/29/17) Patient History Limited by: medical condition Past Medical History: see triage record Social History: Reports: alcohol use; Denies: smoking Social History Narrative from home Reviewed Nursing Documentation: PMH: Agreed; PSxH: Agreed Nursing Documentation-PMH Hx Cardiac Problems: No Hx Diabetes: Yes Hx Cancer: No Hx Gastrointestinal Problems: Yes - abd pain Hx Neurological Problems: Yes - neuropathy, chronic back problems Hx Cerebrovascular Accident: No Review of Systems All Other Systems: limited Physical Exam Vital Signs Date Time Temp Pulse Resp B/P (MAP) Pulse Ox O2 Delivery O2 Flow Rate FiO2 10/16/18 20:01 97.9 99 16 138/80 99 Room Air Sp02 EP Interpretation: reviewed, normal General Appearance: mild distress Head: normocephalic Eyes: bilateral eye PERRL, bilateral eye Scleral Injection ENT: moist mucus membranes Neck: supple Respiratory: lungs clear Cardiovascular #1: regular rate, rhythm Cardiovascular #2: 2+ radial (L) Gastrointestinal: no guarding, no rebound, tenderness, decreased bowel sounds, scaphoid Musculoskeletal: back normal, normal range of motion Neurologic: alert, grossly normal Psychiatric: anxious - tearful Skin: normal inspection, warm/dry Medical Decision Making Diagnostic Impression: Primary Impression: Abdominal pain Qualified Codes: R10.13 - Epigastric pain Additional Impressions: Alcohol intoxication Qualified Codes: F10.929 - Alcohol use, unspecified with intoxication, unspecified Gastritis Qualified Codes: K29.20 - Alcoholic gastritis without bleeding Hyperglycemia ER Course Patient presents with uncontrolled vomiting and alleged alcohol abuse. Differential includes diabetic ketoacidosis, acute myocardial infarction, gastritis, peptic ulcer disease, pancreatitis amongst others. The patient will be evaluated with EKG, chest x-ray and labs. The patient retreated with IV hydration and Pepcid. EKG with take out acute injury. Chest x-ray without free air or infiltrates. Labs significant for elevated blood sugar and no acidosis, normal white count and no anemia. Blood alcohol 347. Tox screen negative. Ketonuria (suspect EtOH). Patient able to answer more questions. No chest pain. Denies SI or HI. Admits to drinking alcohol. No treatment for pain. Variable compliance for diabetes. Patient is improved and not vomiting. He still is complaining about pain. A GI cocktail will be given. Dose of IV insulin given. The patient still requires IV hydration and observation. Patient signed out to Dr. Young. Laboratory Tests Test 10/16/18 20:18 10/16/18 20:55 White Blood Count 3.2 K/UL (4.8-10.8) L Red Blood Count 4.81 M/UL (4.70-6.10) Hemoglobin 13.9 G/DL (14.2-18.0) L Hematocrit 42.7 % (42.0-52.0) Mean Corpuscular Volume 89 FL (80-99) Mean Corpuscular Hemoglobin 28.9 PG (27.0-31.0) Mean Corpuscular Hemoglobin Concent 32.5 G/DL (32.0-36.0) Red Cell Distribution Width 14.3 % (11.6-14.8) Platelet Count 261 K/UL (150-450) Mean Platelet Volume 6.2 FL (6.5-10.1) L Neutrophils (%) (Auto) % (45.0-75.0) Lymphocytes (%) (Auto) % (20.0-45.0) Monocytes (%) (Auto) % (1.0-10.0) Eosinophils (%) (Auto) % (0.0-3.0) Basophils (%) (Auto) % (0.0-2.0) Differential Total Cells Counted 100 Neutrophils % (Manual) 22 % (45-75) L Lymphocytes % (Manual) 76 % (20-45) H Monocytes % (Manual) 2 % (1-10) Eosinophils % (Manual) 0 % (0-3) Basophils % (Manual) 0 % (0-2) Band Neutrophils 0 % (0-8) Platelet Estimate Adequate Platelet Morphology Normal Red Blood Cell Morphology Normal Prothrombin Time 10.4 SEC (9.30-11.50) Prothrombin Time INR 1.0 (0.9-1.1) PTT 25 SEC (23-33) Sodium Level 144 MMOL/L (136-145) Potassium Level 3.5 MMOL/L (3.5-5.1) Chloride Level 103 MMOL/L (98-107) Carbon Dioxide Level 27 MMOL/L (21-32) Anion Gap 15 mmol/L (5-15) Blood Urea Nitrogen 10 mg/dL (7-18) Creatinine 1.0 MG/DL (0.55-1.30) Estimate Glomerular Filtration Rate > 60 mL/min (>60) Glucose Level 273 MG/DL (74-106) H Calcium Level 8.5 MG/DL (8.5-10.1) Total Bilirubin 0.9 MG/DL (0.2-1.0) Aspartate Amino Transferase (AST) 243 U/L (15-37) H Alanine Aminotransferase (ALT) 296 U/L (12-78) H Alkaline Phosphatase 342 U/L (46-116) H Total Creatine Kinase 162 U/L (26-308) Troponin I 0.006 ng/mL (0.000-0.056) Total Protein 8.6 G/DL (6.4-8.2) H Albumin 3.8 G/DL (3.4-5.0) Globulin 4.8 g/dL Albumin/Globulin Ratio 0.8 (1.0-2.7) L Lipase 38 U/L (73-393) L Serum Alcohol 347 mg/dL Urine Color [place] Urine Appearance Slightly cloudy Urine pH 5 (4.5-8.0) Urine Specific [place] 1.020 (1.005-1.035) Urine Protein 3+ (NEGATIVE) H Urine Glucose (UA) 4+ (NEGATIVE) H Urine Ketones 3+ (NEGATIVE) H Urine Blood 4+ (NEGATIVE) H Urine Nitrite Negative (NEGATIVE) Urine Bilirubin Negative (NEGATIVE) Urine Ictotest Negative (NEGATIVE) Urine Urobilinogen Normal MG/DL (0.0-1.0) Urine Leukocyte Esterase Negative (NEGATIVE) Urine RBC 10-15 /HPF (0 - 0) H Urine WBC 0-2 /HPF (0 - 0) Urine Squamous Epithelial Cells Occasional /LPF Urine Amorphous Sediment Many /LPF (NONE) H Urine Bacteria Few /HPF (NONE) Urine Mucus Few /LPF (NONE/OCC) H Urine Opiates Screen Negative (NEGATIVE) Urine Barbiturates Screen Negative (NEGATIVE) Phencyclidine (PCP) Screen Negative (NEGATIVE) Urine Amphetamines Screen Negative (NEGATIVE) Urine Benzodiazepines Screen Negative (NEGATIVE) Urine Cocaine Screen Negative (NEGATIVE) Urine Marijuana (THC) Screen Negative (NEGATIVE) EKG Diagnostic Results Rate: normal Rhythm: NSR ST Segments: no acute changes Rhythm Strip Diag. Results EP Interpretation: yes Rhythm: NSR, no PVC's, no ectopy Chest X-Ray Diagnostic Results Chest X-Ray Diagnostic Results : Chest X-Ray Ordered: Yes # of Views/Limited/Complete: 1 View Indication: Other EP Interpretation: Yes Interpretation: no consolidation, no effusion, no pneumothorax Impression: No acute disease Electronically Signed by: Electronically signed by Gunnar Saucedo MD Status: Gunnar Prado MD Oct 16, 2018 20:14
[2018-10-16] MEDS ORDERED: Metoclopramide 10mg/2ml Inj IVP ONE (20:15)
[2018-10-16] MEDS ORDERED: DiphenhydrAMINE 50mg/ml Inj IVP ONE (20:15)
[2018-10-16 20:18] VITALS: BP 138/80
[2018-10-16 20:29] LABS: HEMATOCRIT 42.7 % (42.0-52.0); HEMOGLOBIN 13.9 G/DL (14.2-18.0); MEAN CORPUSCULAR VOLUME 89 FL (80-99); PLATELET COUNT 261 K/UL (150-450); RED BLOOD COUNT 4.81 M/UL (4.70-6.10); RED CELL DISTRIBUTION WIDTH 14.3 % (11.6-14.8); WHITE BLOOD COUNT 3.2 K/UL (4.8-10.8)
[2018-10-16 20:41] LABS: ANION GAP 15 mmol/L (5-15); BLOOD UREA NITROGEN 10 mg/dL (7-18); CALCIUM 8.5 MG/DL (8.5-10.1); CARBON DIOXIDE 27 MMOL/L (21-32); CHLORIDE 103 MMOL/L (98-107); POTASSIUM 3.5 MMOL/L (3.5-5.1); SODIUM 144 MMOL/L (136-145)
[2018-10-16 20:46] LABS: ALANINE AMINOTRANSFERASE 296 U/L (12-78); ALBUMIN 3.8 G/DL (3.4-5.0); ALBUMIN/GLOBULIN RATIO 0.8 (1.0-2.7); ALKALINE PHOSPHATASE 342 U/L (46-116); ASPARTATE AMINO TRANSFERASE 243 U/L (15-37); BILIRUBIN,TOTAL 0.9 MG/DL (0.2-1.0); CREATINE KINASE 162 U/L (26-308)
[2018-10-16 21:02] LABS: APPEARANCE,URINE SLIGHTLY CLOUDY; BILIRUBIN, URINE NEGATIVE (NEGATIVE); COLOR,URINE AMBER; GLUCOSE, URINE (UA) 4+ (NEGATIVE); KETONES,URINE 3+ (NEGATIVE); LEUKOCYTE ESTERASE ,URINE NEGATIVE (NEGATIVE); NITRITE,URINE NEGATIVE (NEGATIVE); PH,URINE 5 (4.5-8.0); PROTEIN,URINE 3+ (NEGATIVE); UROBILINOGEN,URINE NORMAL MG/DL (0.0-1.0)
[2018-10-16] MEDS ORDERED: Lidocaine 2% Visc 15ml soln ORAL ONE (22:15)
[2018-10-16] MEDS ORDERED: Insulin Human Regular 100units/ml 3ml IV ONE (22:15)
[2018-10-16 22:21] VITALS: BP 111/92
[2018-10-17 00:09] VITALS: BP 113/88
[2018-10-17 01:54] VITALS: BP 122/84
--- NOTE | 2018-10-17 02:15 | Emergency Room Report ---
History of Present Illness General Chief Complaint: Abdominal Pain Source: Patient, EMS Present Illness Allergies: Coded Allergies: No Known Allergies (Unverified , 12/29/17) Nursing Documentation-PMH Hx Cardiac Problems: No Hx Diabetes: Yes Hx Cancer: No Hx Gastrointestinal Problems: Yes - abd pain Hx Neurological Problems: Yes - neuropathy, chronic back problems Hx Cerebrovascular Accident: No Physical Exam Vital Signs Date Time Temp Pulse Resp B/P (MAP) Pulse Ox O2 Delivery O2 Flow Rate FiO2 10/16/18 20:01 97.9 99 16 138/80 99 Room Air 10/16/18 20:18 99 Medical Decision Making Diagnostic Impression: Primary Impression: Abdominal pain Qualified Codes: R10.13 - Epigastric pain Additional Impressions: Alcohol intoxication Qualified Codes: F10.929 - Alcohol use, unspecified with intoxication, unspecified Gastritis Qualified Codes: K29.20 - Alcoholic gastritis without bleeding Hyperglycemia ER Course Mr. Adams is awake and alert. He is cooperative. He has a physical address. I reviewed labs. He is appropriate for discharge. Last Vital Signs Date Time Temp Pulse Resp B/P (MAP) Pulse Ox O2 Delivery O2 Flow Rate FiO2 10/17/18 01:54 97.9 71 16 122/84 99 Room Air 10/16/18 20:18 99 Referrals: [facility]REFERRING (PCP) Estefany Young MD Oct 17, 2018 02:15
[2018-10-17 02:30] VITALS: BP 118/79
--- NOTE | 2018-10-17 11:02 | Diagnostic Imaging Report ---
Indication: Chest pain Comparison: None A single view chest radiograph was obtained. Findings: Cardiomediastinal appearance is within normal limits for age. The lungs are clear. Pulmonary vascularity is appropriate. The diaphragmatic contour is smooth and costophrenic angles are sharp. No pleural effusions are identified. The bones are unremarkable. Impression: No acute findings
== END 2018-10-17 02:30 | disposition home or self-care (01) ==
LOC: EDBD 19:59 → EMR 20:30
DX: K29.20 Alcoholic gastritis without bleeding (principal); F10.129 Alcohol abuse with intoxication, unspecified; E11.40 Type 2 diabetes mellitus with diabetic neuropathy, unspecified; F31.9 Bipolar disorder, unspecified; F41.9 Anxiety disorder, unspecified
CPT/HCPCS: 36415; 71045; 80053; 80307; 81003; 82550; 82962; 83690; 84484; 85007; 85025; 85610; 85730; 93005; 96361; 96374; 96375; 99284; G0480; J1200; J1815; J2765; S0028; 80329

== ENCOUNTER 2018-12-23 10:38 | Emergency (ER) | payer MEDICARE, OTHER ==
[~2018-12-23] VITALS: Ht 188 cm; Wt 79.4 kg
[~2018-12-23 10:38] MED LIST changes: +LANTUS SOL100 UNIT/1 SUBQ
[2018-12-23 10:43] VITALS: BP 150/95
--- NOTE | 2018-12-23 10:43 | NUR ---
ED Nurse Note: Pt brought in by ambulance due to abd pain x 10 days and ETOH x 7 days. Per EMS, pt was drinking alcohol for the pain. Pt is nauseated but no vomiting. States diarrhea at home. Pt is AAO x4. ambulatory with non labored breathing.
[2018-12-23] MEDS ORDERED: Mylanta II UD 30ml ORAL ONE (11:00)
[2018-12-23] MEDS ORDERED: Dicyclomine HCl 10mg/5ml oral soln ORAL ONE (11:00)
[2018-12-23] MEDS ORDERED: Lidocaine 2% Visc 15ml soln ORAL ONE (11:00)
--- NOTE | 2018-12-23 11:26 | NUR ---
ED Nurse Note: Blood collected and sent.
[2018-12-23 11:31] LABS: EOSINOPHILS % (AUTO) 0.1 % (0.0-3.0); HEMATOCRIT 40.6 % (42.0-52.0); HEMOGLOBIN 13.3 G/DL (14.2-18.0); LYMPHOCYTES % (AUTO) 13.4 % (20.0-45.0); MEAN CORPUSCULAR VOLUME 94 FL (80-99); MONOCYTES % (AUTO) 1.7 % (1.0-10.0); NEUTROPHILS % (AUTO) 83.9 % (45.0-75.0); PLATELET COUNT 243 K/UL (150-450); RED BLOOD COUNT 4.33 M/UL (4.70-6.10); RED CELL DISTRIBUTION WIDTH 14.4 % (11.6-14.8)
[2018-12-23 11:40] LABS: ANION GAP 22 mmol/L (5-15); BLOOD UREA NITROGEN 9 mg/dL (7-18); CALCIUM 8.9 MG/DL (8.5-10.1); CARBON DIOXIDE 24 MMOL/L (21-32); CHLORIDE 98 MMOL/L (98-107); POTASSIUM 3.8 MMOL/L (3.5-5.1); SODIUM 144 MMOL/L (136-145)
--- NOTE | 2018-12-23 11:41 | NUR ---
HAND-OFF: Report given to Kathe LAINEZ.
[2018-12-23 11:45] LABS: ALANINE AMINOTRANSFERASE 96 U/L (12-78); ALBUMIN 3.9 G/DL (3.4-5.0); ALBUMIN/GLOBULIN RATIO 1.1 (1.0-2.7); ALKALINE PHOSPHATASE 488 U/L (46-116); ASPARTATE AMINO TRANSFERASE 105 U/L (15-37); BILIRUBIN,TOTAL 0.9 MG/DL (0.2-1.0)
[2018-12-23] MEDS ORDERED: DICYCLOMINE HCL10 MG PO (12:19)
[2018-12-23] MEDS ORDERED: ONDANSETRON ODT4 MG BC (12:19)
[2018-12-23] MEDS ORDERED: RANITIDINE HCL150 MG ORAL (12:19)
[2018-12-23] MEDS ORDERED: LIBRIUM10 MG ORAL (13:13)
[2018-12-23] MEDS ORDERED: LORazepam Inj 2mg/ml 1ml IM ONE (13:15)
--- NOTE | 2018-12-23 13:20 | NUR ---
ED Nurse Note: NOTIFIED DR. Funes REGARDING PT'S HR OF 120.
[2018-12-23 13:32] VITALS: BP 126/81
[2018-12-23 13:33] VITALS: BP 126/81
--- NOTE | 2018-12-23 13:35 | NUR ---
ER Nurse Note: A/OX4. PT IS CLEARED BY DR.K. FAJARDO INSTRUCTION AND PRESCRIPTIONS GIVEN, PT VERBALIZED UNDERSTSANDING. IV/ID WRISTBAND REMOVED. ALL BELONGINGS TAKEN BY PT. DENIES ANY PAIN AT THIS TIME. PT AMBULATED OUT OF ER WITH STEADY GAIT.
--- NOTE | 2018-12-23 14:59 | Emergency Room Report ---
History of Present Illness General Chief Complaint: Abdominal Pain Source: Patient Present Illness HPI 48-year-old male presents ED for evaluation. Brought in by EMS for abdominal pain vomiting and diarrhea for the last 7 days. Pain is sharp, 7 out of 10, nonradiating. Patient admits alcohol use. Denies drug use. Denies fevers or chills. Denies recent travel or recent antibiotic use. No other aggravating relieving factors. Denies any other associated symptoms Allergies: Coded Allergies: No Known Allergies (Unverified , 12/29/17) Patient History Past Medical History: HTN Past Surgical History: none Pertinent Family History: none Social History: Reports: alcohol use; Denies: smoking, drug use Immunizations: UTD Reviewed Nursing Documentation: PMH: Agreed; PSxH: Agreed Nursing Documentation-PMH Past Medical History: No History, Except For Hx Cardiac Problems: No Hx Hypertension: Yes Hx Diabetes: Yes Hx Cancer: No Hx Gastrointestinal Problems: Yes - abd pain History Of Psychiatric Problem: Yes Hx Neurological Problems: Yes - neuropathy, chronic back problems Hx Cerebrovascular Accident: No Review of Systems All Other Systems: negative except mentioned in HPI Physical Exam Vital Signs Date Time Temp Pulse Resp B/P (MAP) Pulse Ox O2 Delivery O2 Flow Rate FiO2 12/23/18 10:33 97.7 110 16 130/ 98 Room Air Sp02 EP Interpretation: reviewed, normal General Appearance: no apparent distress, alert, GCS 15, non-toxic Head: normocephalic, atraumatic Eyes: bilateral eye normal inspection, bilateral eye PERRL ENT: hearing grossly normal, normal pharynx, no angioedema, normal voice Neck: full range of motion, supple/symm/no masses Respiratory: chest non-tender, lungs clear, normal breath sounds, speaking full sentences Cardiovascular #1: regular rate, rhythm, no edema Cardiovascular #2: 2+ carotid (R), 2+ carotid (L), 2+ radial (R), 2+ radial (L) , 2+ dorsalis pedis (R), 2+ dorsalis pedis (L) Gastrointestinal: normal bowel sounds, soft, non-distended, no guarding, no rebound, tenderness Rectal: deferred Genitourinary: normal inspection, no CVA tenderness Musculoskeletal: back normal, gait/station normal, normal range of motion, non- tender Neurologic: alert, oriented x3, responsive, motor strength/tone normal, sensory intact, speech normal Psychiatric: judgement/insight normal, memory normal, mood/affect normal, no suicidal/homicidal ideation Reflexes: 3+ bicep (R), 3+ bicep (L), 3+ tricep (R), 3+ tricep (L), 3+ knee (R) , 3+ knee (L) Skin: normal color, no rash, warm/dry, well hydrated Lymphatic: no adenopathy Medical Decision Making Homeless Attestation I, The treating physician Dr. Garcia, has assessed and agrees that patient is medically stable for discharge to an outpatient disposition. Diagnostic Impression: Primary Impression: Gastroenteritis Additional Impression: Alcohol withdrawal Qualified Codes: F10.230 - Alcohol dependence with withdrawal, uncomplicated ER Course Hospital Course 48-year-old M presents to ED with cramping abdominal pain with vomiting, diarrhea differential diagnosis: gastritis, SBO, cholecystits, gastroenteritis Clinical course Patient placed on stretcher. On desk monitor. After initial history and physical I ordered labs, IV fluids, Zofran and pepcid, and GI Cocktail Labs - no leukocytosis, electrolytes ok, LFTS markedly elevated, ETOH > 200 On reassessment patient feels better. Likely gastroenteritis. Patient appears somewhat tremulous. History of alcohol abuse. Perhaps some mild withdrawal. Given Ativan here. We'll discharge with Librium Homeless packet completed for patient. safe for discharge with close outpatient followup. I feel this is a highly complex case requiring extensive working including EKG/ Rhythm strip, Xray/CT/US, Blood/urine lab work, repeat exams while in ED, and administration of strong opiates/narcotics for pain control, admission to hospital or close patient follow up. Diagnosis - gastroenteritis, alcohol withdrawal Stable and discharged to home with prescriptions for Zantac, zofran, librium. Followup with PMD. Return to ED if symptoms recur or worsen Labs Test 12/23/18 11:20 White Blood Count 8.0 K/UL (4.8-10.8) Red Blood Count 4.33 M/UL (4.70-6.10) Hemoglobin 13.3 G/DL (14.2-18.0) Hematocrit 40.6 % (42.0-52.0) Mean Corpuscular Volume 94 FL (80-99) Mean Corpuscular Hemoglobin 30.6 PG (27.0-31.0) Mean Corpuscular Hemoglobin Concent 32.6 G/DL (32.0-36.0) Red Cell Distribution Width 14.4 % (11.6-14.8) Platelet Count 243 K/UL (150-450) Mean Platelet Volume 5.3 FL (6.5-10.1) Neutrophils (%) (Auto) 83.9 % (45.0-75.0) Lymphocytes (%) (Auto) 13.4 % (20.0-45.0) Monocytes (%) (Auto) 1.7 % (1.0-10.0) Eosinophils (%) (Auto) 0.1 % (0.0-3.0) Basophils (%) (Auto) 1.0 % (0.0-2.0) Sodium Level 144 MMOL/L (136-145) Potassium Level 3.8 MMOL/L (3.5-5.1) Chloride Level 98 MMOL/L (98-107) Carbon Dioxide Level 24 MMOL/L (21-32) Anion Gap 22 mmol/L (5-15) Blood Urea Nitrogen 9 mg/dL (7-18) Creatinine 1.0 MG/DL (0.55-1.30) Estimat Glomerular Filtration Rate > 60 mL/min (>60) Glucose Level 270 MG/DL (74-106) Calcium Level 8.9 MG/DL (8.5-10.1) Total Bilirubin 0.9 MG/DL (0.2-1.0) Aspartate Amino Transf (AST/SGOT) 105 U/L (15-37) Alanine Aminotransferase (ALT/SGPT) 96 U/L (12-78) Alkaline Phosphatase 488 U/L (46-116) Total Protein 7.4 G/DL (6.4-8.2) Albumin 3.9 G/DL (3.4-5.0) Globulin 3.5 g/dL Albumin/Globulin Ratio 1.1 (1.0-2.7) Lipase 38 U/L (73-393) Serum Alcohol 204 mg/dL Last Vital Signs Date Time Temp Pulse Resp B/P (MAP) Pulse Ox O2 Delivery O2 Flow Rate FiO2 12/23/18 13:33 97.7 105 14 126/81 100 Room Air Status: improved Disposition: HOME, SELF-CARE Condition: Stable Scripts Chlordiazepoxide Hcl* (LIBRIUM*) 10 Mg Capsule 10 MG ORAL THREE TIMES A DAY, #15 CAP 0 Refills Prov: Atul Garcia MD 12/23/18 Ondansetron Odt* (ZOFRAN ODT*) 4 Mg Tab.rapdis 4 MG BC EVERY 8 HOURS, #10 TAB 0 Refills Prov: Atul Garcia MD 12/23/18 Dicyclomine Hcl* (DICYCLOMINE HCL*) 10 Mg Capsule 10 MG PO QID for 5 Days, CAP Prov: Atul Garcia MD 12/23/18 Ranitidine Hcl* (ZANTAC*) 150 Mg Tablet 150 MG ORAL TWICE A DAY, #30 TAB Prov: Atul Garcia MD 12/23/18 Referrals: Dotty Corona. [facility] Patient Instructions: Viral Gastroenteritis, Adult, [id number] Atul Garcia MD Dec 23, 2018 14:59
== END 2018-12-23 13:45 | disposition home or self-care (01) ==
LOC: EDBD 10:38 → EMR 11:30
DX: K52.9 Noninfective gastroenteritis and colitis, unspecified (principal); F10.230 Alcohol dependence with withdrawal, uncomplicated; E11.9 Type 2 diabetes mellitus without complications; I10 Essential (primary) hypertension; G62.9 Polyneuropathy, unspecified
CPT/HCPCS: 36415; 80053; 83690; 85025; 96361; 96372; 96374; 96375; 99284; G0480; J2405; S0028; 80329

== ENCOUNTER 2019-01-12 16:36 | Emergency (ER) | payer MEDICARE, OTHER ==
[~2019-01-12] VITALS: Ht 185.4 cm; Wt 72.6 kg
[~2019-01-12 16:36] MED LIST changes: +DICYCLOMINE HCL10 MG PO; +LIBRIUM10 MG ORAL; +ONDANSETRON ODT4 MG BC; +RANITIDINE HCL150 MG ORAL
--- NOTE | 2019-01-12 17:12 | Emergency Room Report ---
History of Present Illness General Chief Complaint: Alcohol Intoxication Source: Medical Record (Lisa Espinoza) Present Illness HPI 48-year-old male presents to the emergency department brought by ambulance for altered mental status. Patient endorsed drinking alcohol earlier today he states he drank approximately 1 pint of hard ETOH. Pt. is an insulin dependent diabetic in addition to having chronic lung disease and neuropathy. Patient denies drug use he denies pain at this time he denies trauma or fall denies abdominal pain, nausea, vomiting, fevers or chills. He patient denies chest pain or weakness. He endorses that he takes his medications regularly and states that for the most part when he checks his sugar he is within normal range. Denies SI/HI or psychiatric conditions. (Lisa Espinoza) Allergies: Coded Allergies: No Known Allergies (Unverified , 12/29/17) Patient History Past Medical History: see triage record Past Surgical History: none Pertinent Family History: none Social History: Reports: alcohol use Reviewed Nursing Documentation: PMH: Agreed; PSxH: Agreed (Lisa Espinoza) Nursing Documentation-PMH Past Medical History: No History, Except For Hx Cardiac Problems: No Hx Hypertension: Yes Hx Diabetes: Yes Hx Cancer: No Hx Gastrointestinal Problems: Yes - abd pain Hx Neurological Problems: Yes - neuropathy, chronic back problems Hx Cerebrovascular Accident: No (Lisa Espinoza) Review of Systems All Other Systems: negative except mentioned in HPI (Lisa Espinoza) Physical Exam Vital Signs Date Time Temp Pulse Resp B/P (MAP) Pulse Ox O2 Delivery O2 Flow Rate FiO2 01/12/19 16:33 98.4 104 16 121/89 99 Room Air Sp02 EP Interpretation: reviewed, normal General Appearance: no apparent distress, alert, GCS 15, non-toxic Head: normocephalic, atraumatic Eyes: bilateral eye normal inspection, bilateral eye PERRL ENT: hearing grossly normal, normal voice Neck: full range of motion Respiratory: lungs clear, normal breath sounds, speaking full sentences Cardiovascular #1: regular rate, rhythm, no edema Gastrointestinal: normal bowel sounds, non tender, soft Musculoskeletal: back normal, gait/station normal, normal range of motion, non- tender Neurologic: alert, oriented x3, responsive, sensory intact, speech normal - clear other than studder, other - Pt. lethargic, grossly normal Psychiatric: judgement/insight normal Skin: normal color, no rash, warm/dry, well hydrated Lymphatic: no adenopathy (Lisa Espinoza) Medical Decision Making PA Attestation Dr. Hunter is my supervising Physician whom patient management has been discussed with. (Lisa Espinoza) Diagnostic Impression: Primary Impression: Acute alcoholic intoxication Qualified Codes: F10.920 - Alcohol use, unspecified with intoxication, uncomplicated Additional Impressions: Hepatotoxicity, secondary to ETOH Hypokalemia ER Course 48-year-old male presents to the emergency department brought by ambulance for altered mental status. Patient endorsed drinking alcohol earlier today he states he drank approximately 1 pint of hard ETOH. Pt. is an insulin dependent diabetic in addition to having chronic lung disease and neuropathy. Patient denies drug use he denies pain at this time he denies trauma or fall denies abdominal pain, nausea, vomiting, fevers or chills. He patient denies chest pain or weakness. He endorses that he takes his medications regularly and states that for the most part when he checks his sugar he is within normal range. Denies SI/HI or psychiatric conditions. Ddx considered but are not limited to ETOH, Trauma, Syncope, dementia, OD Vital signs: are WNL, pt. is afebrile H&PE are most consistent with ETOH abuse. --NAD, pt. is alert, no obvious signs of trauma. ORDERS: -CBC: pancytopenia -CMP: elevated AST and Alk Phos -Serum ETOH: 409 -Tylenol and ASA: WNL -UDS: Negative ED INTERVENTIONS: - 6Meq K-Dur Observance while he detoxifies. Pt. was allowed to sleep/rest. PT. became awake and alert x 3 DISCHARGE: At this time pt. is stable for d/c to home. Will provide printed patient care instructions, and any necessary prescriptions. Care plan and follow up instructions have been discussed with the patient prior to discharge. Labs Test 01/12/19 17:17 White Blood Count 3.9 K/UL (4.8-10.8) Red Blood Count 3.35 M/UL (4.70-6.10) Hemoglobin 10.2 G/DL (14.2-18.0) Hematocrit 30.4 % (42.0-52.0) Mean Corpuscular Volume 91 FL (80-99) Mean Corpuscular Hemoglobin 30.3 PG (27.0-31.0) Mean Corpuscular Hemoglobin Concent 33.5 G/DL (32.0-36.0) Red Cell Distribution Width 13.6 % (11.6-14.8) Platelet Count 76 K/UL (150-450) Mean Platelet Volume 5.7 FL (6.5-10.1) Neutrophils (%) (Auto) % (45.0-75.0) Lymphocytes (%) (Auto) % (20.0-45.0) Monocytes (%) (Auto) % (1.0-10.0) Eosinophils (%) (Auto) % (0.0-3.0) Basophils (%) (Auto) % (0.0-2.0) Differential Total Cells Counted 100 Neutrophils % (Manual) 39 % (45-75) Lymphocytes % (Manual) 51 % (20-45) Monocytes % (Manual) 6 % (1-10) Eosinophils % (Manual) 1 % (0-3) Basophils % (Manual) 2 % (0-2) Band Neutrophils 1 % (0-8) Platelet Estimate Decreased Platelet Morphology Normal Hypochromasia 1+ Anisocytosis 1+ Sodium Level 143 MMOL/L (136-145) Potassium Level 2.3 MMOL/L (3.5-5.1) Chloride Level 98 MMOL/L (98-107) Carbon Dioxide Level 29 MMOL/L (21-32) Anion Gap 17 mmol/L (5-15) Blood Urea Nitrogen 12 mg/dL (7-18) Creatinine 0.9 MG/DL (0.55-1.30) Estimat Glomerular Filtration Rate > 60 mL/min (>60) Glucose Level 97 MG/DL (74-106) Calcium Level 6.9 MG/DL (8.5-10.1) Total Bilirubin 1.1 MG/DL (0.2-1.0) Direct Bilirubin 0.3 MG/DL (0.0-0.3) Aspartate Amino Transf (AST/SGOT) 176 U/L (15-37) Alanine Aminotransferase (ALT/SGPT) 33 U/L (12-78) Alkaline Phosphatase 191 U/L (46-116) Total Protein 6.2 G/DL (6.4-8.2) Albumin 3.3 G/DL (3.4-5.0) Globulin 2.9 g/dL Albumin/Globulin Ratio 1.1 (1.0-2.7) Salicylates Level 0.4 ug/mL (2.8-20) Acetaminophen Level < 2 MCG/ML (10-30) Serum Alcohol 409 mg/dL (Lisa Espinoza) ER Course Patient signout to me. Patient presents with alcohol intoxication. He slept for several hours and now felt better. I will let him sleep through the night and discharged in the morning since he is going to take the bus. He said he does get the shakes when he stopped drinking. Last time he was in rehabilitation for 6 months ago. He is not suicidal or homicidal. We'll discharge home in the morning. (Izaiah Larry MD) Last Vital Signs Date Time Temp Pulse Resp B/P (MAP) Pulse Ox O2 Delivery O2 Flow Rate FiO2 01/12/19 16:33 98.4 104 16 121/89 99 Room Air (Lisa Espinoza) Status: improved (Izaiah Larry MD) Disposition: HOME, SELF-CARE Condition: Stable Signed Out To: Dr. Larry (Lisa Espinoza) Scripts Chlordiazepoxide (Chlordiazepoxide HCl) 25 Mg Capsule 25 MG ORAL THREE TIMES A DAY, #15 CAP 0 Refills Prov: Izaiah Larry MD 01/13/19 Patient Instructions: Alcohol Intoxication, [id number] Additional Instructions: Follow-up with your doctor in 7 days. Abstain from alcohol. Follow-up with rehabilitation. Return if worse. Lisa Espinoza Jan 12, 2019 17:11 Izaiah Larry MD Jan 13, 2019 02:09
--- NOTE | 2019-01-12 17:27 | NUR ---
ED Nurse Note:pt. was BIBA from home with ETOH, he is A/Ox3 blood was sent to labs, blood sugar 112
[2019-01-12 17:31] VITALS: BP 121/89
[2019-01-12 17:56] LABS: HEMATOCRIT 30.4 % (42.0-52.0); HEMOGLOBIN 10.2 G/DL (14.2-18.0); MEAN CORPUSCULAR VOLUME 91 FL (80-99); PLATELET COUNT 76 K/UL (150-450); RED BLOOD COUNT 3.35 M/UL (4.70-6.10); RED CELL DISTRIBUTION WIDTH 13.6 % (11.6-14.8); WHITE BLOOD COUNT 3.9 K/UL (4.8-10.8)
[2019-01-12 18:21] LABS: ALANINE AMINOTRANSFERASE 33 U/L (12-78); ALBUMIN 3.3 G/DL (3.4-5.0); ALBUMIN/GLOBULIN RATIO 1.1 (1.0-2.7); ALKALINE PHOSPHATASE 191 U/L (46-116); ANION GAP 17 mmol/L (5-15); ASPARTATE AMINO TRANSFERASE 176 U/L (15-37); BILIRUBIN,TOTAL 1.1 MG/DL (0.2-1.0); BLOOD UREA NITROGEN 12 mg/dL (7-18); CALCIUM 6.9 MG/DL (8.5-10.1); CARBON DIOXIDE 29 MMOL/L (21-32); CHLORIDE 98 MMOL/L (98-107); CREATININE 0.9 MG/DL (0.55-1.30); SODIUM 143 MMOL/L (136-145)
[2019-01-12 18:26] LABS: POTASSIUM 2.3 MMOL/L (3.5-5.1)
[2019-01-12 18:28] LABS: BILIRUBIN,DIRECT 0.3 MG/DL (0.0-0.3)
--- NOTE | 2019-01-12 19:30 | NUR ---
ED Nurse Note: RECIEVED REPORT TO RESUME CARE, PT IN BED SLEEPING, AROUSES EASILY TO VERBAL STIMULI, PT DENIES CP OR ANY PAIN, NO SOB OR LABORED BREATHING, PT IS CALM AND COOPERATIVE, PT HAS FINE TREMORS NOTED IN HANDS, PT IS RESTING QUIETLY, WILL RESUME CARE ORDERED AND CONTINUE TO CLOSELY MONITOR.
[2019-01-12 20:00] VITALS: BP 116/74
--- NOTE | 2019-01-12 22:00 | NUR ---
ED Nurse Note: PT CONTINUES TO SLEEP, AROUSES EASILY, IS CALM AND COOPERATIVE, NO CHAGNES OR DISTRESS, PT GIVEN WATER, TOELRATED WELL, USING URINAL, NAD OR CHANGES NOTED, WILL CONTINUE TO CLOSELY MONITOR AND DISPO IN AM.
[2019-01-13] VITALS: BP 125/77
--- NOTE | 2019-01-13 00:30 | NUR ---
ED Nurse Note: PT CONTINUES TO SLEEP, V/S STABLE, NO SOB OR LABORED BREATHING, NO CHANGES, WILL CONTINUE TO CLOSELY MONITOR.
[2019-01-13] MEDS ORDERED: LIBRIUM25 MG ORAL (02:08)
[2019-01-13] MEDS ORDERED: chlordiazePOXIDE 25mg Cap ORAL ONE (02:15)
--- NOTE | 2019-01-13 02:20 | NUR ---
ED Nurse Note: PT IN BED MORE AWAKE AND ALERT, PT ASKED FOR AND GIVEN WATER, REMAINS WITH FINE TREMORS IN HANDS, PT DENEIS CP OR ANY PAIN, PT IS CALM AND COOPERATIVE, PT TO BE DISCHARGED TO HOME IN AM, PT DECLINES BEING HOMELESS, STAYS IN APARTMENT ALONE, PT IS VERY PLEASANT AND THANKFUL FOR CARE, WILL CONTINUE TO CLOSELY MONITOR AND DISCHARGE IN AM.
[2019-01-13 02:30] VITALS: BP 129/81
--- NOTE | 2019-01-13 05:45 | NUR ---
ED Nurse Note: PT BEING D/C TO HOME PER HIS REQUEST, PT IS AWAKE, ALERT AND ORIENTED X 4, AMBULATING WELL WITH STEADY GAIT, FINE TREMORS ARE BETTER, PT DENIES CP OR ANY PAIN, NO SOB OR LABORED BREATHING NOTED, PT GIVEN CLEAN,DRY CLOTHING, SHIRT AND PANTS TO WEAR AND JACKET, PT ALSO GIVEN SANDWICH, JUICE AND ORANGE TO EAT, TOLERATED WELL, PT GIVEN TAP CARD FOR TRANSPORTATION, PT DECLINES HOMELESSNESS, PT HAS APARTMENT AND CARD MAKER FOR ADL ASSISTANCE WHICH HE SEES DAILY AT HIS HOME, PT IS VERY PLEASANT, GIVEN F/U INFO, AFTER CARE INSTRUCTIONS AND REFERRALS FOR ALCOHOL PROGRAMS, PT ARMBAND AND IV LINE REMOVED, NAD NOTED DURING D/C TO HOME.
[2019-01-13 06:17] VITALS: BP 129/81
== END 2019-01-13 06:18 | disposition home or self-care (01) ==
LOC: EDBD 16:36 → EMR 17:00
DX: F10.129 Alcohol abuse with intoxication, unspecified (principal); R41.82 Altered mental status, unspecified; K71.9 Toxic liver disease, unspecified; E87.6 Hypokalemia; I10 Essential (primary) hypertension; E11.9 Type 2 diabetes mellitus without complications; Z79.4 Long term (current) use of insulin
CPT/HCPCS: 36415; 80053; 82248; 82962; 85007; 85025; 96360; 99284; G0480; 80329; J8499

== ENCOUNTER 2019-08-15 17:38 | Emergency (ER) | payer MEDICARE, OTHER ==
[~2019-08-15] VITALS: Ht 188 cm; Wt 90.7 kg
[2019-08-15 17:40] VITALS: BP 122/87
--- NOTE | 2019-08-15 17:45 | NUR ---
ED Nurse Note: Patient obdulia Ra 60 from home c/o generalizedw eakness, upon EMS arival at patient;s residence, patient was found unconscious and was laying next to an empty bottle of liquor, at time of arrival to the hospital patient is cosncious and is alert and oriented x4. patient is able to follow commands, admits that he has been drinking alcohol, complains of 4/10 upper abdominal pain, patient placed in a radiation monitor bed, IV started on right forearm 20 gauge, bed at lowest position, labs sent down, will continue to monitor
--- NOTE | 2019-08-15 17:54 | Emergency Room Report ---
History of Present Illness General Chief Complaint: Generalized Weakness Source: EMS Present Illness HPI Disclaimer: Please note that this report is being documented using [employer] technology. This can lead to erroneous entry secondary to incorrect interpretation by the dictating instrument. HPI: 49-year-old male with a reported psychiatric history and diabetes presents for evaluation of generalized weakness. 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 EMS said they found him unconscious and that he was not answering questions on route. They did find a empty bottle of vodka next to the patient and he admits to drinking alcohol. He is arousable but somnolent. He states that he was drinking all day and denies drug use. Denies headache, head injury or neck pain. He is complaining of some diffuse abdominal pain. Denies vomiting or diarrhea. Denies chest pain or trouble breathing. He is a poor historian, unkempt, disheveled. Accompanying paperwork state he is currently undergoing evaluation for conservatorship. PMH: Psychiatric illness, diabetes, neuropathy, lung disease PSH: See chart Allergies: None reported Social Hx: Alcohol use Allergies: Coded Allergies: No Known Allergies (Unverified , 12/29/17) Nursing Documentation-PMH Past Medical History: No History, Except For Hx Cardiac Problems: No Hx Hypertension: Yes Hx Diabetes: Yes Hx Cancer: No Hx Gastrointestinal Problems: Yes History Of Psychiatric Problem: Yes - substance abuse Hx Neurological Problems: Yes - neuropathy, chronic back problems Hx Cerebrovascular Accident: No Review of Systems All Other Systems: limited - Poor historian, appears intoxicated Physical Exam Vital Signs Date Time Temp Pulse Resp B/P (MAP) Pulse Ox O2 Delivery O2 Flow Rate FiO2 08/15/19 17:35 99.3 98 18 122/87 (99) 99 Room Air General: Somnolent but easily arousable, no acute distress, unkempt and disheveled, appears intoxicated HEENT: NC/AT. EOMI. PERRLA. No nystagmus. Very dry mucous membranes with poor dentition Cardiovascular: RRR. S1 and S2 normal. No murmur appreciated Resp: Normal work of breathing. No cough, wheezing or crackles appreciated Abdomen: Abdomen is soft, nondistended. Tenderness in the lower quadrants bilaterally. No rebound. No masses. Skin: Intact. No abrasions, laceration or rash over the exposed skin MSK: Normal tone and bulk. Moving all extremities. No obvious deformity. Neuro: GCS 13. Appears intoxicated. Mild dysarthria. Facial expressions are symmetrical. Strength is symmetrical in the upper and lower extremities. Medical Decision Making Diagnostic Impression: Primary Impression: Alcohol intoxication Additional Impressions: Thrombocytopenia Hypomagnesemia Hyperglycemia ER Course This is a 49-year-old male presenting for evaluation of generalized weakness. Given the history and patient admission of significant alcohol use today intoxication is the most likely however he is a diabetic and will require full metabolic work-up for DKA, HSS, infection, electrolyte abnormality, dehydration. There is no reported head injury and the patient has no signs of trauma outwardly. Most of all, he appears intoxicated and will be allowed to metabolize after receiving IV fluids. Can advance work-up as needed based on initial lab results. Laboratory Tests Test 08/15/19 17:05 08/15/19 19:13 White Blood Count 3.6 K/UL (4.8-10.8) L Red Blood Count 4.53 M/UL (4.70-6.10) L Hemoglobin 12.5 G/DL (14.2-18.0) L Hematocrit 38.4 % (42.0-52.0) L Mean Corpuscular Volume 85 FL (80-99) Mean Corpuscular Hemoglobin 27.6 PG (27.0-31.0) Mean Corpuscular Hemoglobin Concent 32.5 G/DL (32.0-36.0) Red Cell Distribution Width 14.7 % (11.6-14.8) Platelet Count 96 K/UL (150-450) L Mean Platelet Volume 4.7 FL (6.5-10.1) L Neutrophils (%) (Auto) % (45.0-75.0) Lymphocytes (%) (Auto) % (20.0-45.0) Monocytes (%) (Auto) % (1.0-10.0) Eosinophils (%) (Auto) % (0.0-3.0) Basophils (%) (Auto) % (0.0-2.0) Differential Total Cells Counted 50 Neutrophils % (Manual) 16 % (45-75) L Lymphocytes % (Manual) 74 % (20-45) H Monocytes % (Manual) 8 % (1-10) Eosinophils % (Manual) 0 % (0-3) Basophils % (Manual) 0 % (0-2) Band Neutrophils 2 % (0-8) Platelet Estimate Decreased L Platelet Morphology Normal Polychromasia 1+ Anisocytosis 1+ Sodium Level 140 MMOL/L (136-145) Potassium Level 4.0 MMOL/L (3.5-5.1) Chloride Level 100 MMOL/L (98-107) Carbon Dioxide Level 27 MMOL/L (21-32) Anion Gap 13 mmol/L (5-15) Blood Urea Nitrogen 11 mg/dL (7-18) Creatinine 0.9 MG/DL (0.55-1.30) Estimate Glomerular Filtration Rate > 60 mL/min (>60) Glucose Level 188 MG/DL (74-106) H Calcium Level 8.2 MG/DL (8.5-10.1) L Phosphorus Level 4.6 MG/DL (2.5-4.9) Magnesium Level 1.3 MG/DL (1.8-2.4) L Total Bilirubin 0.6 MG/DL (0.2-1.0) Aspartate Amino Transferase (AST) 184 U/L (15-37) H Alanine Aminotransferase (ALT) 78 U/L (12-78) Alkaline Phosphatase 198 U/L (46-116) H Total Creatine Kinase 110 U/L (26-308) Creatine Kinase MB 1.2 NG/ML (0.0-3.6) Creatine Kinase MB Relative Index 1.0 Troponin I 0.001 ng/mL (0.000-0.056) Total Protein 6.4 G/DL (6.4-8.2) Albumin 3.1 G/DL (3.4-5.0) L Globulin 3.3 g/dL Albumin/Globulin Ratio 0.9 (1.0-2.7) L Lipase 31 U/L (73-393) L Thyroid Stimulating Hormone (TSH) 0.995 uiU/mL (0.358-3.740) Salicylates Level 0.9 ug/mL (2.8-20) L Acetaminophen Level < 2 MCG/ML (10-30) L Serum Alcohol 407 mg/dL Acetone Level Negative (NEGATIVE) Urine Color Yellow Urine Appearance Clear Urine pH 5 (4.5-8.0) Urine Specific Harrison 1.020 (1.005-1.035) Urine Protein 1+ (NEGATIVE) H Urine Glucose (UA) 3+ (NEGATIVE) H Urine Ketones 2+ (NEGATIVE) H Urine Blood 1+ (NEGATIVE) H Urine Nitrite Negative (NEGATIVE) Urine Bilirubin Negative (NEGATIVE) Urine Urobilinogen Normal MG/DL (0.0-1.0) Urine Leukocyte Esterase Negative (NEGATIVE) Urine RBC 0-2 /HPF (0 - 0) H Urine WBC 0 /HPF (0 - 0) Urine Squamous Epithelial Cells Occasional /LPF Urine Bacteria None /HPF (NONE) Urine Opiates Screen Negative (NEGATIVE) Urine Barbiturates Screen Negative (NEGATIVE) Phencyclidine (PCP) Screen Negative (NEGATIVE) Urine Amphetamines Screen Negative (NEGATIVE) Urine Benzodiazepines Screen Negative (NEGATIVE) Urine Cocaine Screen Negative (NEGATIVE) Urine Marijuana (THC) Screen Negative (NEGATIVE) EKG Diagnostic Results EKG Time: 18:08 Rate: normal Rhythm: NSR ST Segments: no acute changes Other Impression Sinus rhythm, normal axis, normal intervals, no ST segment changes. Rhythm Strip Diag. Results Rhythm Strip Time: 18:08 EP Interpretation: yes Rate: 90s Rhythm: NSR, no PVC's, no ectopy Chest X-Ray Diagnostic Results Chest X-Ray Diagnostic Results : # of Views/Limited/Complete: 1 View Indication: Other - weakness EP Interpretation: Yes Interpretation: no consolidation, no effusion, no pneumothorax, no acute cardiopulmonary disease Impression: No acute disease Electronically Signed by: Electronically signed by Dr. Doni Szymanski Reevaluation Time: 22:46 Last Vital Signs Date Time Temp Pulse Resp B/P (MAP) Pulse Ox O2 Delivery O2 Flow Rate FiO2 08/15/19 17:35 99.3 98 18 122/87 (99) 99 Room Air Reevaluation Impression Labs show leukopenia with a white count of 3.6, slight anemia with a hemoglobin of 12.5 and a thrombocytopenia with a platelet count of 96. The patient has been thrombocytopenic the past but will require outpatient work-up. No signs of bleeding. Chemistry panel shows elevated glucose, low magnesium which was repleted with IV magnesium. Elevated AST consistent with his alcohol abuse and alkaline phosphatase. Troponin is negative. Lipase is not elevated. Alcohol returned positive at 407 and the patient was allowed to metabolize while receiving IV fluids. No evidence of acute urinary tract infection. The patient has been in the emergency department approximately 5 hours. He is clinically sober and appropriate for outpatient follow-up. I gave him the contact information for mental health and substance abuse centers in the area for him to follow-up with and encouraged him to follow-up with his PMD as well. He is to return to the emergency department new or worsening symptoms. Discussed the dangers of excessive alcohol use with the patient. He understands and agrees with treatment plan was discharged home. Disposition: HOME, SELF-CARE Condition: Improved Doni Szymanski MD Aug 15, 2019 17:54
[2019-08-15 18:03] LABS: HEMATOCRIT 38.4 % (42.0-52.0); HEMOGLOBIN 12.5 G/DL (14.2-18.0); MEAN CORPUSCULAR VOLUME 85 FL (80-99); PLATELET COUNT 96 K/UL (150-450); RED BLOOD COUNT 4.53 M/UL (4.70-6.10); RED CELL DISTRIBUTION WIDTH 14.7 % (11.6-14.8); WHITE BLOOD COUNT 3.6 K/UL (4.8-10.8)
[2019-08-15 18:13] LABS: ANION GAP 13 mmol/L (5-15); BLOOD UREA NITROGEN 11 mg/dL (7-18); CALCIUM 8.2 MG/DL (8.5-10.1); CARBON DIOXIDE 27 MMOL/L (21-32); CHLORIDE 100 MMOL/L (98-107); CREATININE 0.9 MG/DL (0.55-1.30); SODIUM 140 MMOL/L (136-145)
[2019-08-15 18:24] LABS: ALANINE AMINOTRANSFERASE 78 U/L (12-78); ALBUMIN 3.1 G/DL (3.4-5.0); ALBUMIN/GLOBULIN RATIO 0.9 (1.0-2.7); ALKALINE PHOSPHATASE 198 U/L (46-116); ASPARTATE AMINO TRANSFERASE 184 U/L (15-37); BILIRUBIN,TOTAL 0.6 MG/DL (0.2-1.0); CKMB 1.2 NG/ML (0.0-3.6); CREATINE KINASE 110 U/L (26-308); PHOSPHORUS 4.6 MG/DL (2.5-4.9)
--- NOTE | 2019-08-15 18:52 | NUR ---
ED Nurse Note: Patient still unable to provide urine, Dr. Szymanski aware and notified
--- NOTE | 2019-08-15 18:56 | NUR ---
HAND-OFF: Report given to MIGEL Bhatti.
--- NOTE | 2019-08-15 18:56 | NUR ---
ED Nurse Note: report received from MIGEL Kwon
[2019-08-15] MEDS ORDERED: Thiamine 100mg tab ORAL ONE (19:00)
--- NOTE | 2019-08-15 19:37 | NUR ---
ED Nurse Note: Urine sample sent down to lab
[2019-08-15 19:52] LABS: APPEARANCE,URINE CLEAR; BILIRUBIN, URINE NEGATIVE (NEGATIVE); GLUCOSE, URINE (UA) 3+ (NEGATIVE); KETONES,URINE 2+ (NEGATIVE); LEUKOCYTE ESTERASE ,URINE NEGATIVE (NEGATIVE); NITRITE,URINE NEGATIVE (NEGATIVE); PH,URINE 5 (4.5-8.0); PROTEIN,URINE 1+ (NEGATIVE); UROBILINOGEN,URINE NORMAL MG/DL (0.0-1.0)
[2019-08-15 19:54] LABS: COLOR,URINE YELLOW
--- NOTE | 2019-08-15 22:40 | NUR ---
ED Nurse Note: pt is aox4, on room air, SR, no signs of acute distress. pt request to be d/c home. pt able to confirm address, informed CRN and ERMD. Pt evaluated by ERMD and is clear for d/c. tansportation fo discharge is begin accomodated.
[2019-08-15 23:40] VITALS: BP 123/84
--- NOTE | 2019-08-15 23:40 | NUR ---
ED Nurse Note: pt assisted via wheelchair to taxi, pt is aox4. pt cleared for discharge by ermd. pt iv site discontinued, pt has taken all belongings. pt shows no acute signs of distress.
--- NOTE | 2019-08-16 12:49 | Diagnostic Imaging Report ---
Indication: Dyspnea Comparison: 10/16/2018 A single view chest radiograph was obtained. Findings: Cardiomediastinal appearance is within normal limits for age. The lungs are clear. Pulmonary vascularity is appropriate. The diaphragmatic contour is smooth and costophrenic angles are sharp. No pleural effusions are identified. The bones are unremarkable. Impression: No acute findings
--- NOTE | 2019-08-18 15:33 | Cardiology Report ---
APPROVED REPORT EKG Measurement Heart [id number] Normal sinus rhythm Normal ECG
== END 2019-08-15 23:40 | disposition home or self-care (01) ==
LOC: EDBD 17:38 → EMR 19:20
DX: D69.6 Thrombocytopenia, unspecified (principal); E83.42 Hypomagnesemia; E11.65 Type 2 diabetes mellitus with hyperglycemia; F10.129 Alcohol abuse with intoxication, unspecified; Y90.8 Blood alcohol level of 240 mg/100 ml or more; I10 Essential (primary) hypertension; E11.40 Type 2 diabetes mellitus with diabetic neuropathy, unspecified
CPT/HCPCS: 36415; 71045; 80053; 80307; 81003; 82009; 82550; 82553; 83690; 83735; 84100; 84443; 84484; 85007; 85025; 93005; 96361; 96365; 99284; G0480

== ENCOUNTER 2019-09-13 19:58 | Inpatient (IN) | payer MEDICARE, OTHER ==
[~2019-09-13] VITALS: Ht 177.8 cm; Wt 77.1 kg
[2019-09-13] MEDS ORDERED: Albuterol ud Inhalation HHN ONE (20:15)
[2019-09-13] MEDS ORDERED: Ipratropium 0.02% Inh Soln 2.5ml UD HHN ONE (20:15)
--- NOTE | 2019-09-13 20:15 | NUR ---
ED Nurse Note: Recieved pt [facility] from home, here with c/o chest pain at 10/10 since 5pm, pt drank 1 pink vodka to relieve chronic back and now with chest pain, pt is awake, alert and oriented x 4, no sob or labored breathing, pt is moaning and groaning, pt immediately gowned and placed on cardiac monitoring, has increased heart rate at about 120's, will resume care as ordered, EKG being done immediately.
[2019-09-13] MEDS ORDERED: Morphine Sulfate 2mg/ml Inj(IV/IM USE ONLY) IVP ONE ×2 (20:30→23:15)
[2019-09-13 21:11] LABS: BASOPHILS % (AUTO) 0.7 % (0.0-2.0); EOSINOPHILS % (AUTO) 0.7 % (0.0-3.0); HEMATOCRIT 33.2 % (42.0-52.0); HEMOGLOBIN 11.1 G/DL (14.2-18.0); LYMPHOCYTES % (AUTO) 50.3 % (20.0-45.0); MEAN CORPUSCULAR VOLUME 87 FL (80-99); MONOCYTES % (AUTO) 3.5 % (1.0-10.0); NEUTROPHILS % (AUTO) 44.8 % (45.0-75.0); PLATELET COUNT 284 K/UL (150-450); RED BLOOD COUNT 3.79 M/UL (4.70-6.10); RED CELL DISTRIBUTION WIDTH 16.5 % (11.6-14.8); WHITE BLOOD COUNT 3.7 K/UL (4.8-10.8)
--- NOTE | 2019-09-13 21:17 | Emergency Room Report ---
History of Present Illness General Chief Complaint: Chest Pain Present Illness HPI Patient is a 49-year-old male presents after increased left-sided chest discomfort. Patient reports having sharp pain which did not radiate. He reports having onset of pain earlier in the day. He states this occurred approximately 12 hours prior to arrival. Patient prior history of chronic alcohol abuse as well as pancreatitis. He had previous fracture to his lumbar spine. Patient denies any vomiting. He reports having multiple episodes of retching earlier in the day.He denies any hematemesis or bloody stools. Patient reports having onset of symptoms after drinking a half a cup of vodka. (Emmett Hunter MD) Allergies: Coded Allergies: No Known Allergies (Unverified , 12/29/17) Patient History Past Medical History: see triage record, other - paraplegia, pancreatitis, alcohol abuse Reviewed Nursing Documentation: PMH: Agreed; PSxH: Agreed (Emmett Hunter MD) Nursing Documentation-PMH Hx Cardiac Problems: No Hx Hypertension: Yes Hx Diabetes: Yes Hx Cancer: No Hx Gastrointestinal Problems: Yes Hx Neurological Problems: Yes - neuropathy, chronic back problems Hx Cerebrovascular Accident: No (Emmett Hunter MD) Review of Systems All Other Systems: negative except mentioned in HPI (Emmett Hunter MD) Physical Exam Vital Signs Date Time Temp Pulse Resp B/P (MAP) Pulse Ox O2 Delivery O2 Flow Rate FiO2 09/13/19 19:55 98.4 106 18 108/72 (84) 97 Room Air 09/13/19 20:18 21 Sp02 EP Interpretation: reviewed, normal General Appearance: normal inspection, well appearing, alert, GCS 15, Chronically Ill Head: atraumatic ENT: normal ENT inspection, hearing grossly normal, normal voice Neck: normal inspection, full range of motion, supple, no bony tend Respiratory: normal inspection, lungs clear, normal breath sounds, no respiratory distress, no retraction, no wheezing Cardiovascular #1: no edema, tachycardia, other - gynecomastia Gastrointestinal: normal inspection, normal bowel sounds, non tender, soft, no guarding, no hernia Genitourinary: no CVA tenderness Musculoskeletal: normal inspection, back normal, normal range of motion Neurologic: normal inspection, alert, oriented x3, responsive, speech normal Psychiatric: normal inspection, judgement/insight normal, mood/affect normal (Emmett Hunter MD) Medical Decision Making Diagnostic Impression: Primary Impression: Nonspecific chest pain Additional Impressions: Alcohol abuse Chronic pancreatitis Qualified Codes: K86.0 - Alcohol-induced chronic pancreatitis Lactic acid acidosis Pancreatic pseudocyst Alcohol withdrawal Qualified Codes: F10.230 - Alcohol dependence with withdrawal, uncomplicated Labs Test 09/13/19 20:35 White Blood Count 3.7 K/UL (4.8-10.8) Red Blood Count 3.79 M/UL (4.70-6.10) Hemoglobin 11.1 G/DL (14.2-18.0) Hematocrit 33.2 % (42.0-52.0) Mean Corpuscular Volume 87 FL (80-99) Mean Corpuscular Hemoglobin 29.2 PG (27.0-31.0) Mean Corpuscular Hemoglobin Concent 33.4 G/DL (32.0-36.0) Red Cell Distribution Width 16.5 % (11.6-14.8) Platelet Count 284 K/UL (150-450) Mean Platelet Volume 5.4 FL (6.5-10.1) Neutrophils (%) (Auto) 44.8 % (45.0-75.0) Lymphocytes (%) (Auto) 50.3 % (20.0-45.0) Monocytes (%) (Auto) 3.5 % (1.0-10.0) Eosinophils (%) (Auto) 0.7 % (0.0-3.0) Basophils (%) (Auto) 0.7 % (0.0-2.0) Sodium Level 140 MMOL/L (136-145) Potassium Level 3.9 MMOL/L (3.5-5.1) Chloride Level 94 MMOL/L (98-107) Carbon Dioxide Level 23 MMOL/L (21-32) Anion Gap 24 mmol/L (5-15) Blood Urea Nitrogen 11 mg/dL (7-18) Creatinine 1.0 MG/DL (0.55-1.30) Estimat Glomerular Filtration Rate > 60 mL/min (>60) Glucose Level 146 MG/DL (74-106) Lactic Acid Level 7.90 mmol/L (0.4-2.0) Calcium Level 7.7 MG/DL (8.5-10.1) Total Bilirubin 0.6 MG/DL (0.2-1.0) Aspartate Amino Transf (AST/SGOT) 108 U/L (15-37) Alanine Aminotransferase (ALT/SGPT) 58 U/L (12-78) Alkaline Phosphatase 706 U/L (46-116) Pro-B-Type Natriuretic Peptide 85 pg/mL (0-125) Total Protein 7.3 G/DL (6.4-8.2) Albumin 3.4 G/DL (3.4-5.0) Globulin 3.9 g/dL Albumin/Globulin Ratio 0.9 (1.0-2.7) Lipase 23 U/L (73-393) Serum Alcohol 223 mg/dL (Emmett Hunter MD) ER Course This patient was signed out to me. This patient presents with abdominal pain secondary to chronic pancreatitis from alcohol. He does have a lactic acidosis. No evidence of an acute abdomen. No evidence of infection. May be secondary to dehydration and alcohol abuse. Will repeat after IV hydration. Because of his chronic pain, will admit versus transfer for further monitoring and IV fluid. I did give him a dose of him here for withdrawal symptoms since he is an alcoholic and said he goes into withdrawal after stopping. I discussed the case with Dr. De León said that the patient for transfer. He asked that we did a CTA of his chest to rule out PE or dissection. I discussed the case with Dr. Ayala who accepted pt for transfer to [facility]. He knows pt well from prior admissions. There was no bed available at [facility]. So patient is approved for admission here. I discussed the case with Dr. Madden who accepted pt for admission here. (Izaiah Lrary MD) CT/MRI/US Diagnostic Results CT/MRI/US Diagnostic Results #1: Imaging Test Ordered: CT abdomen and pelvis Impression Read by radiologist. There is chronic pancreatitis with extensive calcification of the pancreas. Pseudocyst. constipation. CT/MRI/US Diagnostic Results #2: Imaging Test Ordered: CT chest Impression Per radiologist negative (Izaiah Larry MD) Last Vital Signs Date Time Temp Pulse Resp B/P (MAP) Pulse Ox O2 Delivery O2 Flow Rate FiO2 09/13/19 20:23 117 18 100 Room Air 21 09/13/19 19:55 98.4 108/72 (84) Status: improved (Emmett Hunter MD) Status: improved (Izaiah Larry MD) Disposition: ADMITTED INPATIENT Condition: Serious Scripts Hydrocodone/Acetaminophen 5-325* (HYDROCODONE/ACETAMINOPHEN 5-325*) 1 Each Tablet 1 TAB ORAL Q6H PRN, #30 TAB 0 Refills Prov: Brodie Madden MD 09/16/19 Metformin Hcl* (GLUCOPHAGE*) 500 Mg Tablet 500 MG ORAL BIAC for 30 Days, #60 TAB Prov: Brodie Madden MD 09/16/19 Chlordiazepoxide (Chlordiazepoxide HCl) 25 Mg Capsule 25 MG ORAL EVERY 8 HOURS for 14 Days, #60 CAP Prov: Brodie Madden MD 09/16/19 Referrals: [facility],REFERRING (PCP) Emmett Hunter MD Sep 13, 2019 21:17 Izaiah Larry MD Sep 14, 2019 00:02
[2019-09-13 21:25] LABS: ANION GAP 24 mmol/L (5-15); BLOOD UREA NITROGEN 11 mg/dL (7-18); CALCIUM 7.7 MG/DL (8.5-10.1); CARBON DIOXIDE 23 MMOL/L (21-32); CHLORIDE 94 MMOL/L (98-107); POTASSIUM 3.9 MMOL/L (3.5-5.1); SODIUM 140 MMOL/L (136-145)
[2019-09-13 21:41] LABS: ALANINE AMINOTRANSFERASE 58 U/L (12-78); ALBUMIN 3.4 G/DL (3.4-5.0); ALBUMIN/GLOBULIN RATIO 0.9 (1.0-2.7); ALKALINE PHOSPHATASE 706 U/L (46-116); ASPARTATE AMINO TRANSFERASE 108 U/L (15-37); BILIRUBIN,TOTAL 0.6 MG/DL (0.2-1.0)
[2019-09-13] MEDS ORDERED: D5 1/2NS w/KCl 20mEq 1,000 ML IV SCH (21:45)
[2019-09-13 22:00] VITALS: BP 123/88
--- NOTE | 2019-09-13 22:00 | NUR ---
ED Nurse Note: Pt medicated as ordered, meds given as ordered, pt remains with severe pain and constantly asking for pain meds, c/o pain in mid back, lower abdomen and chest, pt has healing wound to sacryl area and incontinent and wears diapers, pt refuses to be straight cath for urine sample, MD aware and informed, also remains with chest pain, MD aware also, will continue to closely monitor pt and resume care as ordered.
[2019-09-13 23:15] VITALS: BP 130/88
[2019-09-13] MEDS ORDERED: chlordiazePOXIDE 25mg Cap ORAL ONE (23:15)
--- NOTE | 2019-09-13 23:35 | Diagnostic Imaging Report ---
Indication: Abdominal pain Technique: Spiral acquisitions obtained through the abdomen and pelvis. No oral contrast utilized, per emergency room physician request No IV contrast utilized, per referring physician request.. Multiplanar reconstructions were generated. Total dose length product 783 mGycm. CTDIvol(s) 11 mGy. Dose reduction achieved using automated exposure control Comparison: 04/17/2018 Findings: The rectum is mildly distended with stool, measures 6.8 cm transverse. It demonstrates mild wall thickening. It is more distended than on the prior study. Considerable retained stool is also seen elsewhere in the distal colon. The appendix is not definitely demonstrated. However, surgical christos are seen in the cecum, possibly due to prior appendectomy. No small bowel distention. The stomach is distended with fluid and gas. The distal esophagus is also markedly distended. The duodenum is unremarkable. The liver, gallbladder, bile ducts are unremarkable. The previously reported posterior right lobe liver lesion is not definitely evident on this noncontrast study. The pancreas is markedly atrophic, demonstrates considerable calcification. A cyst is seen in the pancreatic tail. This measures 2.3 x 1.3 cm, was also evident previously. The spleen, adrenals, kidneys are unremarkable. The bilateral ureters are somewhat ectatic, but no downstream obstructive lesion is demonstrated. The bladder is equivocally mildly thick-walled. No pelvic mass or adenopathy. The included lung bases demonstrate trace pleural fluid on the right. There is posterior dependent atelectasis. There is bilateral gynecomastia. 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 Impression: Distended stomach, without definite downstream obstructive lesion, etiology/significance uncertain Dilated esophagus, presumably related to the above. Evidence of mild rectal fecal impaction with rectal wall thickening possibly indicating stercoral colitis Evidence of chronic calcifying pancreatitis. Stable 2.3 cm cyst in the pancreatic tail, probably an old pseudocyst Evidence of prior hysterectomy Trace right pleural effusion and posterior dependent atelectasis Equivocal mild bladder wall thickening, could indicate mild cystitis changes if real. Correlate with laboratory findings Other findings as noted, including bilateral gynecomastia, evidence of bridging callus between the left L2 and L3 transverse processes-likely old trauma, back space Note inability to visualize previously demonstrated right lobe liver lesion on current noncontrast study This essentially agrees with the preliminary interpretation provided overnight by [employer] teleradiology service, with minor variations. The CT scanner at [facility] is accredited by the [employer] and the scans are performed using protocols designed to limit radiation exposure to as low as reasonably achievable to attain images of sufficient resolution adequate for diagnostic evaluation.
[2019-09-14] MEDS ORDERED: LORazepam Inj 2mg/ml 1ml IV ONE (01:00)
[2019-09-14] MEDS ORDERED: Omnipaue 350mg/ml 100ml vial INJ PRN (01:15)
--- NOTE | 2019-09-14 01:35 | NUR ---
ED Nurse Note: Pt being taken to imaging for CTA, pt continues to c/o having chest pain and back pain, aware, pt re-medicated with no relief, heart rate remains elevated, IV site patent, fluids completed, repeat labs also, will continue to closely monitor while waiting for info for disposition and admisison or transfer. pt continues to c/o chest paina t 07/18, aware.
[2019-09-14 03:00] VITALS: BP 122/81
--- NOTE | 2019-09-14 03:45 | Diagnostic Imaging Report ---
ndication: Chest pain Technique: IV administration nonionic contrast. Spiral acquisitions obtained from the lung bases to the lung apices. Multiplanar and 3-D reconstructions were generated. Total dose length product 520 mGycm. CTDIvol(s) 12 mGy. Dose reduction achieved using automated exposure control Comparison: none Findings: There is adequate opacification of the pulmonary arteries. No intraluminal filling defects or other findings to suggest acute pulmonary embolus demonstrated. Normal caliber pulmonary arteries. No evidence of thoracic aortic aneurysm or dissection. Normal branching anatomy and caliber of the great neck vessels. The lungs demonstrate posterior dependent atelectatic changes. There are small bilateral pleural effusions. Reticular opacities are seen at both lung bases, could represent a component of consolidation as well as atelectasis. No dense consolidation. No masses or nodules demonstrated. The stomach is massively distended, incompletely included. The esophagus is also considerably dilated distally. Abnormal tissue in the subcarinal region probably represents the distended esophagus, but there may also be some lymphadenopathy. This is not well differentiated. The included portion of the thyroid is unremarkable. No axillary or chest wall mass or adenopathy. There is bilateral gynecomastia. The included liver demonstrates fatty change Impression: Negative for evidence of acute pulmonary embolus Massively distended stomach. Distended distal esophagus Subcarinal soft tissue, probably representing the distended esophagus, but lymphadenopathy also possible. Bilateral small pleural effusions. Bilateral basilar atelectasis and possibly some consolidation Bilateral gynecomastia. Fatty liver This agrees with the preliminary interpretation provided overnight by [employer] teleradiology service. The CT scanner at [facility] is accredited by the [employer] and the scans are performed using protocols designed to limit radiation exposure to as low as reasonably achievable to attain images of sufficient resolution adequate for diagnostic evaluation.
[2019-09-14] MEDS ORDERED: Morphine Sulfate 4mg/ml Inj (IV USE ONLY) IVP ONE (04:00)
[2019-09-14] MEDS ORDERED: Metoclopramide 10mg/2ml Inj IVP ONE (04:00)
--- NOTE | 2019-09-14 04:00 | NUR ---
ED Nurse Note: Pt sleeping in bed, awakened with increased pain, pt medicated as ordered, remains on cardiac monitoring, IV fluids infusing, site itnact and patent, returned from break and resumed care, will continue to closely monitor, continuing to wait for disposition info.
[2019-09-14 04:09] LABS: APPEARANCE,URINE CLEAR; BILIRUBIN, URINE NEGATIVE (NEGATIVE); GLUCOSE, URINE (UA) NEGATIVE (NEGATIVE); KETONES,URINE 3+ (NEGATIVE); LEUKOCYTE ESTERASE ,URINE NEGATIVE (NEGATIVE); NITRITE,URINE NEGATIVE (NEGATIVE); PH,URINE 5 (4.5-8.0); UROBILINOGEN,URINE NORMAL MG/DL (0.0-1.0)
[2019-09-14 04:22] LABS: COLOR,URINE YELLOW; PROTEIN,URINE NEGATIVE (NEGATIVE)
--- NOTE | 2019-09-14 05:31 | NUR ---
NURSE NOTES: Received report from MIGEL Boateng Patient presented to ED with chest pain after drinking a pint of vodka. Patient came from home but is not well groomed. Hx of ETOH abuse, DM and pancreatitis noted. Standard precautions at this time. A&O x3 on Room air and currently O2 saturation reads 100%. Pt reported to be ST on tele monitor. EKG shows not other abnormalities at this time. Per Tasneem not skin alterations other than a scar on sacrum. L wrist 22 IV catheter patent, asymptomatic and intact. Will wait for patient arrival.
--- NOTE | 2019-09-14 05:31 | NUR ---
ED Nurse Note: REPORT GIVEN TO MIGEL TORRES FROM SDU.
[2019-09-14 05:47] VITALS: BP 132/77
--- NOTE | 2019-09-14 05:47 | NUR ---
NURSE NOTES: Patient arrived on unit. Patient came from home but is not well groomed. Patient heavily soiled with urine. Hx of ETOH abuse, DM and pancreatitis noted. Standard precautions at this time. A&O x3 on Room air and currently O2 saturation reads 100%. Pt ST (123) on tele monitor. Skin alterations noted L heel unstagable and sacral stage 2. Wound photos taken and initial wound assessment done. No signs or cardiac or respiratory distress noted at this time. L wrist 22 IV catheter patent, asymptomatic and intact. Will follow up for admission orders.
--- NOTE | 2019-09-14 06:04 | NUR ---
NURSE NOTES: Called Dr Antonio for admission orders. Will continue to monitor while awaiting orders.
--- NOTE | 2019-09-14 07:35 | NUR ---
HAND-OFF: Report given to MIGEL Estrella. Patient is resting in bed. Patient came from home but is not well groomed. A&O x3 on Room air and currently O2 saturation reads 100%. Pt ST (123) on tele monitor. Skin alterations noted L heel unstagable and sacral stage 2. Wound photos taken and initial wound assessment done. No signs or cardiac or respiratory distress noted at this time. L wrist 22 IV catheter patent, asymptomatic and intact.
--- NOTE | 2019-09-14 07:35 | NUR ---
NURSE NOTES: Received report from MIGEL Moreno. Observed patient in bed, awake, alert, oriented x3. On room air, no acute respiratory distress noted at this time. IV on left wrist noted, intact and patent. Safety precautions in place, bed locked, alarmed, and in lowest position, side rails up x2, and call light left within reach. Instructed to call for assistance, verbalized understanding. Will continue with plan of care and monitor patient. Awaiting for admission orders.
--- NOTE | 2019-09-14 07:46 | NUR ---
NURSE NOTES: Called and left a message to Dr Madden for admission orders. Awaiting for call back.
[2019-09-14 08:00] VITALS: BP 138/87
--- NOTE | 2019-09-14 09:30 | NUR ---
NURSE NOTES: Dr Madden at bedside, accompanied by publications writer, for admission orders and medication reconciliation. New orders noted, will carry out. Will continue to monitor patient.
--- NOTE | 2019-09-14 09:32 | NUR ---
NURSE NOTES: Medication reconciliation updated. Patient unable to verify dosage and frequency of his medications. Dr Madden at bedside, aware.
[2019-09-14] MEDS ORDERED: GABAPENTIN100 MG ORAL (09:37)
[2019-09-14] MEDS ORDERED: XARELTO10 MG ORAL (09:37)
[2019-09-14] MEDS: Morphine Sulfate 2mg/ml Inj(IV/IM USE ONLY) IVP PRN ×3 (10:00→20:26)
[2019-09-14] MEDS: NS w/KCl 20mEq 1000ml 1,000 ML IV SCH ×2 (11:13→23:26)
--- NOTE | 2019-09-14 11:31 | NUR ---
*-* INSURANCE *-* ALL AVAILABLE CLINICALS HAVE BEEN FAXED TO: [facility] [phone] EXT [id number] NO TRACKING # YET CM:MINE #[phone] FAX#[phone] REVIEWS/CLINICALS
[2019-09-14 12:00] VITALS: BP 122/85
--- NOTE | 2019-09-14 12:20 | NUR ---
CASE MANAGEMENT:REVIEW 49 YR OLD MALE BIBA FROM HOME CC: COUGHING X4 DAYS. DRANK VODKA TO RELIEVE BACK PAIN AND DEVELOPED CHEST PAIN SI: PANCREATITIS. CHEST PAIN. ALCOHOL WITHDRAWAL 98.5 106 18 108/72 97% ON RA LACTIC ACID+7.90 CA-7.7 SERUM ALCOHOL(+)223 IS: DUONEB HHN MYLANTA PO IV PEPCID IV MORPHINE X2 1L NS BOLUS X2 IV REGLAN CTA CHEST CT ABDOMEN : TO TELEMETRY UNIT
--- NOTE | 2019-09-14 13:06 | Diagnostic Imaging Report ---
Indication: Shortness of breath Technique: One view of the chest Comparison: 08/15/2019 Findings: Lungs and pleural spaces are clear. Heart size is normal. No significant interim change Impression: No acute process
[2019-09-14] MEDS: chlordiazePOXIDE 25mg Cap ORAL SCH ×2 (14:15→22:12)
--- NOTE | 2019-09-14 15:30 | History and Physical Report ---
DATE OF ADMISSION: 09/14/2019 HISTORY OF PRESENT ILLNESS: This 49-year-old male, who came to the hospital with left-sided chest discomfort. The patient states he has been drinking excessively over the last few days. He has had history of previous admissions due to alcohol intoxication. He has chronic pancreatitis. He states he has also been taking his medications as per his own will and is likely not following instructions. He also reports that he had abdominal pain. Denies any vomiting or nausea. He was seen and worked up in the ER. He underwent imaging studies. The imaging studies were notable for subcarinal and right hilar lymphadenopathy, bilateral small effusions, distended gallbladder, findings consistent with chronic pancreatitis and possible small pseudocyst, and also fecal impaction. The patient admitted to the hospital for management and care. PAST MEDICAL HISTORY: Notable for chronic alcohol use, hypertension, diabetes, chronic back pain, neuropathy. HOME MEDICATIONS: Seroquel, Glucophage, Librium, NovoLog, subcutaneous insulin, gabapentin. ALLERGIES: None reported. CODE STATUS: Full. SOCIAL HISTORY: The patient lives at home. He states he has a walker but mostly ambulates using a wheelchair. He states he cannot walk because of knee and back pain. REVIEW OF SYSTEMS: Denies any headaches, hematemesis, melena, hematochezia, night sweats, or weight loss. PHYSICAL EXAMINATION: GENERAL: Reveals a 49-year-old male. VITAL SIGNS: Blood pressure 130/80, heart rate 104, respirations 20. He is afebrile. HEENT: Unremarkable. CHEST: Clear breath sounds bilaterally. ABDOMEN: Soft. EXTREMITIES: There is no edema. NEUROLOGIC: Nonfocal. The patient unable to fully comply due to pain. LABORATORY AND DIAGNOSTIC DATA: White count 3.7, hemoglobin 11.1, platelet count is normal. Chemistries notable for glucose 146, lactic acid 7.9 and now 6.4. AST 108, ALT 58, alkaline phosphatase 706. Albumin is 3.4. Toxicology positive for benzodiazepines. Urinalysis is negative. Imaging study as discussed above. IMPRESSION: 1. Chronic alcoholism. 2. Chronic pancreatitis. 3. Chest pain. 4. Possible pancreatic pseudocyst. 5. hypertension. 6. Chronic back pain. DISCUSSION: Admitted to the hospital. We will keep NPO. Insulin sliding scale. IV fluids. Consult GI. Pain medications, antiemetics. Continue Xarelto, the patient states he has been on it in the past and I will continue low-dose this. The patient also prophylaxis. Add Protonix. Brodie Madden M.D. DR: Koko JOB#: [id number] CC:
[2019-09-14 16:00] VITALS: BP 133/88
[2019-09-14] MEDS: metFORMIN 500mg tab ORAL SCH (16:15)
--- NOTE | 2019-09-14 16:30 | NUR ---
NURSE NOTES: Called and spoke with Dr Madden regarding patient's lactic acid level; notified and made aware. No new orders given at this time.
--- NOTE | 2019-09-14 19:00 | NUR ---
HAND-OFF: Report given to MIGEL Garcia. Patient in stable condition.
--- NOTE | 2019-09-14 19:10 | NUR ---
NURSE NOTES: Report received from MIGEL Estrella. Observed pt lying in the bed, watching television. A/O x4. C/O chronic back pain, will give PRN med. ST on union steward with HR of 100's. NPO except med noted. L heel DTI noted, Sacral S2 noted, covered with optifoam. IV on L W 22G, running NS w/ 20meq at 75cc/hr, intact. Bed in the lowest position. Side rails up x3. Will continue to monitor.
[2019-09-14 20:00] VITALS: BP 129/86
[2019-09-14] MEDS: Docusate 100mg cap ORAL SCH (20:26)
[2019-09-14] MEDS ORDERED: Levemir Flexpen SUBQ SCH (21:00)
--- NOTE | 2019-09-14 21:00 | NUR ---
NURSE NOTES: Pt c/o chest pain 07/18, appears calm but with facial grimacing, aching, non-radiating. ST w/ HR of 104, BP 129/86, no signs of SOB, saturating at 97% noted. PRN med given. Will continue to monitor.
--- NOTE | 2019-09-14 23:30 | NUR ---
NURSE NOTES: Pt c/o discomfort with IV site, taken out. New IV on L FA 20G, intact. Bed bath given. VS WNL. No signs of pain at this time. Will continue to monitor.
[2019-09-15] VITALS: BP 131/84
[2019-09-15 04:00] VITALS: BP 113/74
--- NOTE | 2019-09-15 04:14 | NUR ---
NURSE NOTES: Observed pt sleeping in the bed, appears calm and comfortable. No acute distress noted at this time. ST with HR of 106 noted at this time. Will continue to monitor.
[2019-09-15] MEDS: Morphine Sulfate 2mg/ml Inj(IV/IM USE ONLY) IVP PRN ×3 (04:47→18:10)
[2019-09-15 05:33] LABS: HEMATOCRIT 26.3 % (42.0-52.0); HEMOGLOBIN 8.6 G/DL (14.2-18.0); MEAN CORPUSCULAR VOLUME 91 FL (80-99); PLATELET COUNT 163 K/UL (150-450); RED BLOOD COUNT 2.89 M/UL (4.70-6.10); RED CELL DISTRIBUTION WIDTH 17.7 % (11.6-14.8); WHITE BLOOD COUNT 3.7 K/UL (4.8-10.8)
[2019-09-15 05:43] LABS: ANION GAP 8 mmol/L (5-15); BLOOD UREA NITROGEN 7 mg/dL (7-18); CALCIUM 7.3 MG/DL (8.5-10.1); CARBON DIOXIDE 28 MMOL/L (21-32); CHLORIDE 103 MMOL/L (98-107); CREATININE 0.9 MG/DL (0.55-1.30); POTASSIUM 3.8 MMOL/L (3.5-5.1); SODIUM 139 MMOL/L (136-145)
[2019-09-15] MEDS: chlordiazePOXIDE 25mg Cap ORAL SCH ×3 (05:57→21:58)
[2019-09-15] MEDS: metFORMIN 500mg tab ORAL SCH ×2 (05:59→17:10)
--- NOTE | 2019-09-15 06:30 | NUR ---
NURSE NOTES: Noted pt BS of 52 and D50 given, BS rechecked after 15 min and 172 noted. Will notify MD and continue to monitor.
--- NOTE | 2019-09-15 06:40 | NUR ---
NURSE NOTES: left a message to regarding BS went down to 52 and pain medication. Awaiting call back.
--- NOTE | 2019-09-15 07:30 | NUR ---
NURSE NOTES: Report received from Juan Adamson RN.Pt resting in bed awake,alert ,oriented in no acute distress denies any c/o abd pain at this time,kept NPO,IV site to LFA intact,skin warm and dry,SR up x2 HOB elevated,call gomez within reach at bedside,bed lock in lowest position,will continue with plans of care
--- NOTE | 2019-09-15 07:40 | Pulmonology Progress Note ---
Assessment/Plan Assessment/Plan IMPRESSION: 1. Chronic alcoholism. 2. Chronic pancreatitis. 3. Chest pain. 4. Possible pancreatic pseudocyst. 5. Diabetes mellitus. 6. Chronic back pain. DISCUSSION: Start clear liquid diet GI consult Insulin sliding scale. Pain medications, antiemetics. Continue Xarelto Transfer to med-surg Subjective Interval Events: None new Constitutional: Reports: no symptoms HEENT: Repors: no symptoms Respiratory: Reports: no symptoms Gastrointestinal/Abdominal: Reports: bloating Genitourinary: Reports: no symptoms Allergies: Coded Allergies: No Known Allergies (Unverified , 12/29/17) Objective Last 24 Hour Vital Signs Date Time Temp Pulse Resp B/P (MAP) Pulse Ox O2 Delivery O2 Flow Rate FiO2 09/15/19 04:00 109 09/15/19 04:00 98.2 104 18 113/74 (87) 99 09/15/19 03:13 Room Air 09/15/19 00:00 98.1 104 18 131/84 (100) 99 09/15/19 00:00 101 09/14/19 21:00 Room Air 09/14/19 20:00 98.4 104 20 129/86 (100) 100 09/14/19 20:00 102 09/14/19 16:04 99 09/14/19 16:00 98.7 104 20 133/88 (103) 100 09/14/19 12:00 99.3 108 20 122/85 (97) 97 09/14/19 11:49 109 09/14/19 09:00 Room Air 09/14/19 08:00 114 09/14/19 08:00 97.9 114 16 138/87 (104) 100 Intake and Output 09/14/19 09/15/19 18:59 06:59 Intake Total 708.75 ml 1000 ml Output Total 650 ml 450 ml Balance 58.75 ml 550 ml Intake Oral 200 ml 100 ml IV Total 508.75 ml 900 ml Output Urine Total 650 ml 450 ml # Bowel Movements 3 5 General Appearance: no acute distress HEENT: normocephalic Respiratory/Chest: chest wall non-tender, lungs clear Cardiovascular: normal peripheral pulses, normal rate Abdomen: normal bowel sounds Microbiology Date/Time Source Procedure Growth Status 09/13/19 21:45 Blood Blood Culture - Preliminary NO GROWTH AFTER 24 HOURS Resulted 09/13/19 21:30 Blood Blood Culture - Preliminary NO GROWTH AFTER 24 HOURS Resulted 09/13/19 21:30 Nasal Nares - Final Complete 09/13/19 21:30 Nasal Nares - Final Complete 09/14/19 05:00 Rectum Received Laboratory Tests 09/14/19 09:25: Lactic Acid Level 3.00H 09/14/19 15:25: Lactic Acid Level 3.50H 09/15/19 03:30: White Blood Count 3.7L, Red Blood Count 2.89L, Hemoglobin 8.6L, Hematocrit 26.3L , Mean Corpuscular Volume 91, Mean Corpuscular Hemoglobin 29.8, Mean Corpuscular Hemoglobin Concent 32.7, Red Cell Distribution Width 17.7H, Platelet Count 163, Mean Platelet Volume 5.5L, Neutrophils (%) (Auto) , Lymphocytes (%) (Auto) , Monocytes (%) (Auto) , Eosinophils (%) (Auto) , Basophils (%) (Auto) , Sodium Level 139, Potassium Level 3.8, Chloride Level 103 , Carbon Dioxide Level 28, Anion Gap 8, Blood Urea Nitrogen 7, Creatinine 0.9, Estimat Glomerular Filtration Rate > 60, Glucose Level 47#L, Calcium Level 7.3L , Lipase 19L Current Medications Medications (Trade) Dose Ordered Sig/Adolfo Route PRN Reason Start Time Stop Time Status Last Admin Dose Admin Acetaminophen (Tylenol) 650 mg Q4H PRN ORAL Mild Pain (Pain Scale 1-3) 09/14/19 09:30 10/14/19 09:29 09/14/19 11:39 Chlordiazepoxide (Librium) 25 mg EVERY 8 HOURS ORAL 09/14/19 14:00 09/21/19 13:59 09/15/19 05:57 Dextrose (Dextrose 50%) 25 ml Q30M PRN IV Hypoglycemia 09/14/19 09:30 10/14/19 09:29 Dextrose (Dextrose 50%) 50 ml Q30M PRN IV Hypoglycemia 09/14/19 09:30 10/14/19 09:29 09/15/19 06:07 Docusate Sodium (Colace) 100 mg EVERY 12 HOURS ORAL 09/14/19 21:00 10/14/19 20:59 Gabapentin (Neurontin) 200 mg THREE TIMES A DAY ORAL 09/14/19 13:00 10/14/19 12:59 09/14/19 18:02 Insulin Detemir (Levemir) 6 units BEDTIME SUBQ 09/14/19 21:00 10/14/19 20:59 09/14/19 20:27 Iohexol (Omnipaque) 100 mg NOW PRN INJ Radiology Procedure 09/14/19 01:15 09/16/19 01:02 Metformin HCl (Glucophage) 500 mg BIAC ORAL 09/14/19 16:30 10/14/19 16:29 09/14/19 16:15 Morphine Sulfate (Morphine Sulfate) 2 mg Q4H PRN IVP Moderate Pain (Pain Scale 4-6) 09/14/19 09:30 09/21/19 09:29 09/15/19 04:47 Ondansetron HCl (Zofran) 4 mg Q6H PRN IVP Nausea & Vomiting 09/14/19 09:30 10/14/19 09:29 09/14/19 22:12 Pantoprazole (Protonix) 40 mg DAILY ORAL 09/15/19 09:00 10/15/19 08:59 Potassium Chloride/Sodium Chloride 1,000 ml @ 75 mls/hr [id number] IV 09/14/19 11:00 10/14/19 10:59 09/14/19 23:26 Quetiapine Fumarate (SEROquel) 50 mg BEDTIME ORAL 09/14/19 21:00 10/14/19 20:59 09/14/19 20:26 Rivaroxaban (Xarelto) 10 mg DAILY ORAL 09/15/19 09:00 10/15/19 08:59 Temazepam (Restoril) 15 mg DAILYPRN PRN ORAL Insomnia 09/14/19 09:30 09/21/19 09:29 Brodie Madden MD Sep 15, 2019 07:40
--- NOTE | 2019-09-15 07:42 | NUR ---
HAND-OFF: Report given to MIGEL Calloway. No aucte distress noted at this time.
--- NOTE | 2019-09-15 07:45 | NUR ---
NURSE NOTES: Dr Madden at bedside ,spoke and discussed with pt re plans of care,pt to start on clear liquid diet and transfer to [facility].
[2019-09-15 08:00] VITALS: BP 133/83
[2019-09-15] MEDS: Docusate 100mg cap ORAL SCH ×2 (09:00→21:00)
[2019-09-15] MEDS ORDERED: Xarelto 10mg tab ORAL SCH (09:00)
--- NOTE | 2019-09-15 11:00 | NUR ---
NURSE NOTES: NICHELLE Fernandez assessed the wounds and dressing change done.
--- NOTE | 2019-09-15 11:50 | NUR ---
TRANSFER TO FLOOR: Patient transferred to 4E room 414-1 , per bed AAOx4 in no resp distress or pain. Report given to Gunnar Branham RN. Belongings given to receiving RN.
--- NOTE | 2019-09-15 11:54 | NUR ---
CASE MANAGEMENT:REVIEW 09/15/19 SI: PANCREATITIS. CHEST PAIN. ALCOHOL WITHDRAWAL 97.0 109 20 133/83 94% ON RA GLUCOSE+47 CA-7.3 IS: PROTONIX PO QD XARELTO PO QD SEROQUEL PO QHS : DOWNGRADE TO MED/SURG DCP: FROM HOME PLAN: START CLEAR LIQUIDS
[2019-09-15 12:00] VITALS: BP 124/78
[2019-09-15] MEDS ORDERED: Omnipaue 350mg/ml 100ml vial INJ PRN (12:00)
[2019-09-15 16:00] VITALS: BP 134/89
--- NOTE | 2019-09-15 16:24 | NUR ---
NURSE NOTES:WOUND CARE NOTES:Pt presented on admission with multiple pressure injuries. Unstageable pressure injury sacrum(L)2.2cm x (W)1.8cm. Base of wound has 100% yellow slough. Borders are erythematous and macerated.Non-blanching erythema periwound . Pt complained of pain when periwound minimally palpated. Resolving pressure injury L achilles to medial L malleolus. Reabsorbed blood blister medially with loose dry scab at Achilles area. No erythema noted. Reabsorbed blood blister plantar L heel. Dry brown cap with surrounding dry necrotic borders.(L)3.5cm x (W)4cm. NO erythema,induration or fluctuance noted periwound. Pt verbalized he felt he may have developed wounds on L foot from shoes but is not quite sure of timeline of wounds. Both feet noted to have dry peeling skin . Good foot care provided and both lower ext and feet moisturized. Pt demonstrated ability to reposition self when cued. Educated pt on wounds prevention. Pt instructed on off-lifting buttocks when repositioning, and how to utilize siderail to reposition on his sides . Encouraged pt to frequently reposition to relieve pressure off buttocks. Tx.Plan:Cleanse Sacral wound with saline. Apply Therahoney. Apply Moisture Barrier periwound. Cover with Optifoam drsg. Change every 3 days and prn. Apply Betadine to L achilles and L heel. Cover each wound with Optifoam drsg. Change every 3 days and prn. Please extend bed . Reposition at least every 2hours or as tolerated. Off-load heels with pillow.
--- NOTE | 2019-09-15 19:09 | General Progress Note ---
Assessment/Plan Assessment/Plan: Assessment - EtOH pancreatitis - IDDM - alcohol abuse - Anemia - malnutrition - abnormal LFT , likely due to EtOH Recommendations - follow labs and exam - advance diet as tolerated - d/c EtOH Subjective Allergies: Coded Allergies: No Known Allergies (Unverified , 12/29/17) Objective Last 24 Hour Vital Signs Date Time Temp Pulse Resp B/P (MAP) Pulse Ox O2 Delivery O2 Flow Rate FiO2 09/15/19 16:00 97.9 103 18 134/89 (104) 100 09/15/19 12:00 98.1 93 20 124/78 (93) 94 09/15/19 09:00 Room Air 09/15/19 08:00 95 09/15/19 08:00 97.0 109 20 133/83 (100) 94 09/15/19 04:00 109 09/15/19 04:00 98.2 104 18 113/74 (87) 99 09/15/19 03:13 Room Air 09/15/19 00:00 98.1 104 18 131/84 (100) 99 09/15/19 00:00 101 09/14/19 21:00 Room Air 09/14/19 20:00 98.4 104 20 129/86 (100) 100 09/14/19 20:00 102 Intake and Output 09/14/19 09/15/19 19:00 07:00 Intake Total 783.75 ml 1000 ml Output Total 650 ml 450 ml Balance 133.75 ml 550 ml Intake Oral 200 ml 100 ml IV Total 583.75 ml 900 ml Output Urine Total 650 ml 450 ml # Bowel Movements 3 5 Laboratory Tests 09/15/19 03:30: White Blood Count 3.7L, Red Blood Count 2.89L, Hemoglobin 8.6L, Hematocrit 26.3L , Mean Corpuscular Volume 91, Mean Corpuscular Hemoglobin 29.8, Mean Corpuscular Hemoglobin Concent 32.7, Red Cell Distribution Width 17.7H, Platelet Count 163, Mean Platelet Volume 5.5L, Neutrophils (%) (Auto) , Lymphocytes (%) (Auto) , Monocytes (%) (Auto) , Eosinophils (%) (Auto) , Basophils (%) (Auto) , Sodium Level 139, Potassium Level 3.8, Chloride Level 103 , Carbon Dioxide Level 28, Anion Gap 8, Blood Urea Nitrogen 7, Creatinine 0.9, Estimat Glomerular Filtration Rate > 60, Glucose Level 47#L, Calcium Level 7.3L , Lipase 19L Height (Feet): 5 Height (Inches): 10.00 Weight (Pounds): 170 Kristyn Echols MD Sep 15, 2019 19:09
--- NOTE | 2019-09-15 19:27 | NUR ---
HAND-OFF: Report given to MIGEL Pratt.
[2019-09-15 20:00] VITALS: BP 118/75
--- NOTE | 2019-09-15 20:13 | NUR ---
NURSE NOTES: Patient in bed awake, alert and verbally responsive. Respiration is even and unlabored. Kept clean and comfortable. Bed in low and locked position. No complaint of pain or discomfort noted. Abdomen is soft. IV site noted. Call light is at bedside. Will continue plan of care.
[2019-09-15] MEDS ORDERED: Levemir Flexpen SUBQ SCH (21:00)
--- NOTE | 2019-09-15 22:36 | Consultation ---
History of Present Illness General Date patient seen: Sep 15, 2019 Reason for Hospitalization: Chest Pain Present Illness HPI 49-year-old male presented to [facility] emergency department complaining of worsening left-sided chest pain some mild epigastric abdominal pain nausea. In ED identified to have abnormal labs including significant lactic acidosis and admitted for care and management. multiple decubitus ulcers. abd pain. no n/v/f/c. Surgery called to evaluate. Patient seen, patient evaluated, chart reviewed. hx chronic pancreatitis. CT with distal Pancrease cyst. States pain is better now and he wants to eat. Wants a regular diet. Passing flatus. Normal BMs. Allergies: Coded Allergies: No Known Allergies (Unverified , 12/29/17) Medication History Scheduled Chlordiazepoxide (Chlordiazepoxide HCl), 25 MG ORAL THREE TIMES A DAY Citalopram Hydrobromide* (Celexa*), 20 MG ORAL DAILY, (Reported) Gabapentin* (Gabapentin*), MG ORAL THREE TIMES A DAY, (Reported) Insulin Glargine (Lantus), Unknown Dose SUBQ BEDTIME, (Reported) Quetiapine Fumarate* (Seroquel*), 25 MG ORAL DAILY, (Reported) Rivaroxaban (Xarelto*), MG ORAL DAILY, (Reported) Miscellaneous Medications Insulin Regular, Human (Humulin R), Unknown Dose SUBQ, (Reported) Discontinued Medications Metformin Hcl* (Glucophage*), 600 MG ORAL TWICE A DAY, (Reported) Discontinued Reason: Pt stopped taking med Patient History History Provided By: Patient, Medical Record, PMD Healthcare decision maker Resuscitation status Full Code Advanced Directive on File Past Medical/Surgical History Past Medical/Surgical History: (1) Diabetes mellitus out of control (2) Colitis (3) Depression (4) Syncope (5) Low blood sugar reading (6) Abdominal pain (7) Gastroenteritis (8) Hepatotoxicity, secondary to ETOH (9) Alcohol withdrawal (10) Alcohol abuse (11) Pancreatic pseudocyst (12) Chronic pancreatitis (13) Lactic acid acidosis (14) Nonspecific chest pain (15) Wound of sacral region (16) Wound of foot Review of Systems Review of Symptoms General ROS: no weight loss or fever Psychological ROS: no depression or mood changes, no memory loss Ophthalmic ROS: no visual changes or eye irritation ENT ROS: no nasal congestion, hearing loss, dizziness Allergy and Immunology ROS: no allergic symptoms or urticaria Hematological and Lymphatic ROS: no swollen glands, unusual bleeding or bruising Endocrine ROS: no polyuria, polydipsia, weight changes, temperature intolerance Respiratory ROS: no cough, shortness of breath, or wheezing Cardiovascular ROS: no chest pain or dyspnea on exertion Gastrointestinal ROS: denies abdominal pain, bright red blood in stool. Musculoskeletal ROS: no myalgias or arthralgias Neurological ROS: no TIA or stroke symptoms Dermatological ROS: no new or changing skin lesions, rashes or pruritis Physical Exam Physical Exam General appearance: alert, cooperative, no distress, appears stated age Head: Normocephalic, without obvious abnormality, atraumatic Eyes: conjunctivae/corneas clear. PERRL, EOM's intact. Fundi benign Throat: Lips, mucosa, and tongue normal. Teeth and gums normal Neck: supple, symmetrical, trachea midline, no adenopathy, thyroid: not enlarged, symmetric, no tenderness/mass/nodules, no carotid bruit and no JVD Lungs: clear to auscultation bilaterally Heart: regular rate and rhythm, S1, S2 normal, no murmur, click, rub or gallop Abdomen: soft, non-tender. Bowel sounds normal. No masses, no organomegaly Extremities: extremities normal, atraumatic, no cyanosis or edema Pulses: 2+ and symmetric Skin: Skin color, texture, turgor normal. No rashes or lesions Neurologic: Grossly normal Last 24 Hour Vital Signs Date Time Temp Pulse Resp B/P (MAP) Pulse Ox O2 Delivery O2 Flow Rate FiO2 09/15/19 20:00 98.4 109 18 118/75 (89) 98 09/15/19 16:00 97.9 103 18 134/89 (104) 100 09/15/19 12:00 98.1 93 20 124/78 (93) 94 09/15/19 09:00 Room Air 09/15/19 08:00 95 09/15/19 08:00 97.0 109 20 133/83 (100) 94 09/15/19 04:00 109 09/15/19 04:00 98.2 104 18 113/74 (87) 99 09/15/19 03:13 Room Air 09/15/19 00:00 98.1 104 18 131/84 (100) 99 09/15/19 00:00 101 Intake and Output 09/14/19 09/15/19 19:00 07:00 Intake Total 783.75 ml 1000 ml Output Total 650 ml 450 ml Balance 133.75 ml 550 ml Intake Oral 200 ml 100 ml IV Total 583.75 ml 900 ml Output Urine Total 650 ml 450 ml # Bowel Movements 3 5 Laboratory Tests Test 09/15/19 03:30 White Blood Count 3.7 K/UL (4.8-10.8) L Red Blood Count 2.89 M/UL (4.70-6.10) L Hemoglobin 8.6 G/DL (14.2-18.0) L Hematocrit 26.3 % (42.0-52.0) L Mean Corpuscular Volume 91 FL (80-99) Mean Corpuscular Hemoglobin 29.8 PG (27.0-31.0) Mean Corpuscular Hemoglobin Concent 32.7 G/DL (32.0-36.0) Red Cell Distribution Width 17.7 % (11.6-14.8) H Platelet Count 163 K/UL (150-450) Mean Platelet Volume 5.5 FL (6.5-10.1) L Neutrophils (%) (Auto) % (45.0-75.0) Lymphocytes (%) (Auto) % (20.0-45.0) Monocytes (%) (Auto) % (1.0-10.0) Eosinophils (%) (Auto) % (0.0-3.0) Basophils (%) (Auto) % (0.0-2.0) Sodium Level 139 MMOL/L (136-145) Potassium Level 3.8 MMOL/L (3.5-5.1) Chloride Level 103 MMOL/L (98-107) Carbon Dioxide Level 28 MMOL/L (21-32) Anion Gap 8 mmol/L (5-15) Blood Urea Nitrogen 7 mg/dL (7-18) Creatinine 0.9 MG/DL (0.55-1.30) Estimat Glomerular Filtration Rate > 60 mL/min (>60) Glucose Level 47 MG/DL (74-106) #L Calcium Level 7.3 MG/DL (8.5-10.1) L Lipase 19 U/L (73-393) L Height (Feet): 5 Height (Inches): 10.00 Weight (Pounds): 170 Medications Current Medications Medications (Trade) Dose Ordered Sig/Adolfo Route PRN Reason Start Time Stop Time Status Last Admin Dose Admin Acetaminophen (Tylenol) 650 mg Q4H PRN ORAL Mild Pain (Pain Scale 1-3) 09/15/19 12:00 10/14/19 11:59 Chlordiazepoxide (Librium) 25 mg EVERY 8 HOURS ORAL 09/15/19 14:00 09/21/19 13:59 09/15/19 21:58 Dextrose (Dextrose 50%) 25 ml Q30M PRN IV Hypoglycemia 09/15/19 11:30 10/14/19 09:29 Dextrose (Dextrose 50%) 50 ml Q30M PRN IV Hypoglycemia 09/15/19 11:30 10/14/19 09:29 Docusate Sodium (Colace) 100 mg EVERY 12 HOURS ORAL 09/15/19 21:00 10/14/19 20:59 Gabapentin (Neurontin) 200 mg THREE TIMES A DAY ORAL 09/15/19 13:00 10/14/19 12:59 09/15/19 17:11 Insulin Detemir (Levemir) 6 units BEDTIME SUBQ 09/15/19 21:00 10/14/19 20:59 09/15/19 22:06 Iohexol (Omnipaque) 100 mg NOW PRN INJ Radiology Procedure 09/15/19 12:00 09/16/19 01:14 Metformin HCl (Glucophage) 500 mg BIAC ORAL 09/15/19 16:30 10/14/19 16:29 09/15/19 17:10 Morphine Sulfate (Morphine Sulfate) 2 mg Q4H PRN IVP Moderate Pain (Pain Scale 4-6) 09/15/19 13:30 09/21/19 09:29 09/15/19 18:10 Ondansetron HCl (Zofran) 4 mg Q6H PRN IVP Nausea & Vomiting 09/15/19 12:00 10/14/19 11:59 Pantoprazole (Protonix) 40 mg DAILY ORAL 09/16/19 09:00 10/15/19 08:59 Quetiapine Fumarate (SEROquel) 50 mg BEDTIME ORAL 09/15/19 21:00 10/14/19 20:59 09/15/19 21:58 Rivaroxaban (Xarelto) 10 mg DAILY ORAL 09/16/19 09:00 10/15/19 08:59 Temazepam (Restoril) 15 mg DAILYPRN PRN ORAL Insomnia 09/15/19 21:00 09/22/19 20:59 Assessment/Plan Problem List: (1) Wound of sacral region Assessment & Plan: Pt presented on admission with multiple pressure injuries. Unstageable pressure injury sacrum(L)2.2cm x (W)1.8cm. Base of wound has 100% yellow slough. Borders are erythematous and macerated.Non-blanching erythema periwound. states tender with palpation and movement. Resolving pressure injury L achilles to medial L malleolus. Reabsorbed blood blister medially with loose dry scab at Achilles area. No erythema noted. Reabsorbed blood blister plantar L heel. Dry brown cap with surrounding dry necrotic borders.(L)3.5cm x (W)4cm. NO erythema,induration or fluctuance noted periwound. Pt verbalized he felt he may have developed wounds on L foot from shoes but is not quite sure of timeline of wounds. Both feet noted to have dry peeling skin . Good foot care provided and both lower ext and feet moisturized. Pt demonstrated ability to reposition self when cued. Educated pt on wounds prevention. Pt instructed on off-lifting buttocks when repositioning, and how to utilize siderail to reposition on his sides . Encouraged pt to frequently reposition to relieve pressure off buttocks. Tx.Plan: Cleanse Sacral wound with saline. Apply Therahoney. Apply Moisture Barrier periwound. Cover with Optifoam drsg. Change every 3 days and prn. Apply Betadine to L achilles and L heel. Cover each wound with Optifoam drsg. Change every 3 days and prn. Reposition at least every 2hours or as tolerated. Off-load heels with pillow. ICD Codes: S31.000A - Unspecified open wound of lower back and pelvis without penetration into retroperitoneum, initial encounter SNOMED: 099629810, 710752166 (2) Abdominal pain Assessment & Plan: left sided chest pain abd epigastric pain lip nml lactic acidosis cont Abx cont resuscitation rx as written will follow with recs thank you ICD Codes: R10.9 - Unspecified abdominal pain SNOMED: 54187826 (3) Pancreatic cyst Assessment & Plan: Distended stomach, without definite downstream obstructive lesion, etiology/significance uncertain Dilated esophagus, presumably related to the above. Evidence of mild rectal fecal impaction with rectal wall thickening possibly indicating stercoral colitis Evidence of chronic calcifying pancreatitis. Stable 2.3 cm cyst in the pancreatic tail, probably an old pseudocyst Evidence of prior hysterectomy Trace right pleural effusion and posterior dependent atelectasis Equivocal mild bladder wall thickening, could indicate mild cystitis changes if real. Correlate with laboratory findings cyst likely related to chronic pancreatitis recommend 6 week f/u CT ICD Codes: K86.2 - Cyst of pancreas SNOMED: 10802641 Melvin Maier Sep 15, 2019 22:36
[2019-09-16] VITALS: BP 104/57
[2019-09-16 04:23] VITALS: BP 105/71
[2019-09-16] MEDS: metFORMIN 500mg tab ORAL SCH (06:30)
[2019-09-16] MEDS: chlordiazePOXIDE 25mg Cap ORAL SCH ×2 (06:40→14:06)
[2019-09-16] MEDS: Morphine Sulfate 2mg/ml Inj(IV/IM USE ONLY) IVP PRN (06:40)
--- NOTE | 2019-09-16 07:22 | NUR ---
HAND-OFF: Report given to MIGEL Marcelo.
--- NOTE | 2019-09-16 07:41 | NUR ---
NURSE NOTES: Pt in bed in low position with HOB in semi-fowlers, call light next to pt, pt upset due to clear/full liquid diet order, states he wants to eat and has been having diarrhea, pt Ox4, pt denies pain at this time and seems comfortable, pt on room air, pt has skin issues which will be addressed through out the shift. no s/s of distress or sob noted.
[2019-09-16 08:49] VITALS: BP 100/63
[2019-09-16] MEDS ORDERED: Xarelto 10mg tab ORAL SCH (09:00)
[2019-09-16] MEDS: Docusate 100mg cap ORAL SCH (09:24)
--- NOTE | 2019-09-16 09:46 | Pulmonology Progress Note ---
Assessment/Plan Assessment/Plan IMPRESSION: 1. Chronic alcoholism. 2. Chronic pancreatitis. 3. Chest pain. 4. Possible pancreatic pseudocyst. 5. Diabetes mellitus. 6. Chronic back pain. DISCUSSION: Start 2199 ADA diet GI consult noted Surgical eval re: decubitii noted Insulin sliding scale. Pain medications, antiemetics. Continue Xarelto DC home after lunch Subjective Interval Events: Feeling well; no abdominal pain Constitutional: Reports: no symptoms HEENT: Repors: no symptoms Respiratory: Reports: no symptoms Cardiovascular: Reports: no symptoms Gastrointestinal/Abdominal: Reports: no symptoms Allergies: Coded Allergies: No Known Allergies (Unverified , 12/29/17) Objective Last 24 Hour Vital Signs Date Time Temp Pulse Resp B/P (MAP) Pulse Ox O2 Delivery O2 Flow Rate FiO2 09/16/19 08:49 98.4 120 19 100/63 (75) 99 09/16/19 08:30 Room Air 09/16/19 07:29 97.2 09/16/19 04:23 97.2 115 20 105/71 (82) 99 09/16/19 00:00 97.9 112 18 104/57 (73) 96 09/15/19 21:00 Room Air 09/15/19 20:00 98.4 109 18 118/75 (89) 98 09/15/19 16:00 97.9 103 18 134/89 (104) 100 09/15/19 12:00 98.1 93 20 124/78 (93) 94 Intake and Output 09/15/19 09/16/19 19:00 07:00 Intake Total 100 ml Output Total 1500 ml Balance -1400 ml Intake Oral 100 ml Output Urine Total 1500 ml # Voids 3 # Bowel Movements 1 General Appearance: no acute distress HEENT: normocephalic Respiratory/Chest: chest wall non-tender, lungs clear Cardiovascular: normal peripheral pulses, normal rate Abdomen: normal bowel sounds Microbiology Date/Time Source Procedure Growth Status 09/13/19 21:45 Blood Blood Culture - Preliminary NO GROWTH AFTER 48 HOURS Resulted 09/13/19 21:30 Blood Blood Culture - Preliminary NO GROWTH AFTER 48 HOURS Resulted 09/14/19 05:00 Nasal Nares MRSA Culture - Final NO METHICILLIN RESISTANT STAPH AUREUS... Complete 09/13/19 21:30 Nasal Nares - Final Complete 09/13/19 21:30 Nasal Nares - Final Complete 09/14/19 05:00 Rectum - Final NO CARBAPENEM-RESISTANT ENTEROBACTERI... Complete 09/14/19 05:00 Rectum VRE Culture - Final Enterococcus Faecium - Vre Complete Current Medications Medications (Trade) Dose Ordered Sig/Adolfo Route PRN Reason Start Time Stop Time Status Last Admin Dose Admin Acetaminophen (Tylenol) 650 mg Q4H PRN ORAL Mild Pain (Pain Scale 1-3) 09/15/19 12:00 10/14/19 11:59 Chlordiazepoxide (Librium) 25 mg EVERY 8 HOURS ORAL 09/15/19 14:00 09/21/19 13:59 09/16/19 06:40 Dextrose (Dextrose 50%) 25 ml Q30M PRN IV Hypoglycemia 09/15/19 11:30 10/14/19 09:29 Dextrose (Dextrose 50%) 50 ml Q30M PRN IV Hypoglycemia 09/15/19 11:30 10/14/19 09:29 Docusate Sodium (Colace) 100 mg EVERY 12 HOURS ORAL 09/15/19 21:00 10/14/19 20:59 09/16/19 09:24 Gabapentin (Neurontin) 200 mg THREE TIMES A DAY ORAL 09/15/19 13:00 10/14/19 12:59 09/16/19 09:22 Insulin Detemir (Levemir) 6 units BEDTIME SUBQ 09/15/19 21:00 10/14/19 20:59 09/15/19 22:06 Metformin HCl (Glucophage) 500 mg BIAC ORAL 09/15/19 16:30 10/14/19 16:29 09/15/19 17:10 Morphine Sulfate (Morphine Sulfate) 2 mg Q4H PRN IVP Moderate Pain (Pain Scale 4-6) 09/15/19 13:30 09/21/19 09:29 09/16/19 06:40 Ondansetron HCl (Zofran) 4 mg Q6H PRN IVP Nausea & Vomiting 09/15/19 12:00 10/14/19 11:59 Pantoprazole (Protonix) 40 mg DAILY ORAL 09/16/19 09:00 10/15/19 08:59 09/16/19 09:23 Quetiapine Fumarate (SEROquel) 50 mg BEDTIME ORAL 11/8/19 21:00 10/14/19 20:59 09/15/19 21:58 Rivaroxaban (Xarelto) 10 mg DAILY ORAL 09/16/19 09:00 10/15/19 08:59 09/16/19 09:22 Temazepam (Restoril) 15 mg DAILYPRN PRN ORAL Insomnia 09/15/19 21:00 09/22/19 20:59 Brodie Madden MD Sep 16, 2019 09:46
[2019-09-16] MEDS ORDERED: GLUCOPHAGE500 MG ORAL (09:51)
[2019-09-16] MEDS ORDERED: HYDROCODON-ACE1 EA15 ORAL (09:51)
[2019-09-16] MEDS ORDERED: LIBRIUM25 MG ORAL (09:51)
--- NOTE | 2019-09-16 10:42 | NUR ---
NURSE NOTES: discharge order in, called his [facility] pharmacy and faxed over his prescriptions, pt states he will have them picked up.. At [facility] I spoke to Lizzeth she stated I could fax over the RX to [phone], they confirmed fax and pt will need to show Rx at [facility] to get the medication, pt will be educated on side effects before he leaves home.
[2019-09-16 12:10] VITALS: BP 102/72
--- NOTE | 2019-09-16 14:41 | Surgery Progress Note ---
Surgery Progress Note Subjective Additional Comments comfortable stable no complaints wants to go home soon Objective Last 24 Hour Vital Signs Date Time Temp Pulse Resp B/P (MAP) Pulse Ox O2 Delivery O2 Flow Rate FiO2 09/16/19 12:10 97.9 97 17 102/72 (82) 98 09/16/19 08:49 98.4 120 19 100/63 (75) 99 09/16/19 08:30 Room Air 09/16/19 07:29 97.2 09/16/19 04:23 97.2 115 20 105/71 (82) 99 09/16/19 00:00 97.9 112 18 104/57 (73) 96 09/15/19 21:00 Room Air 09/15/19 20:00 98.4 109 18 118/75 (89) 98 09/15/19 16:00 97.9 103 18 134/89 (104) 100 I&O Intake and Output 09/15/19 09/16/19 18:59 06:59 Intake Total 75 ml 100 ml Output Total 1500 ml Balance 75 ml -1400 ml Intake Oral 100 ml IV Total 75 ml Output Urine Total 1500 ml # Voids 3 # Bowel Movements 1 Dressing: saturated Wound: other Drains: other Cardiovascular: RSR Respiratory: decreased breath sounds Abdomen: soft, present bowel sounds, non-distended Extremities: no tenderness, no cyanosis, other Plan Problems: (1) Wound of sacral region Assessment & Plan: Pt presented on admission with multiple pressure injuries. Unstageable pressure injury sacrum(L)2.2cm x (W)1.8cm. Base of wound has 100% yellow slough. Borders are erythematous and macerated.Non-blanching erythema periwound. states tender with palpation and movement. Resolving pressure injury L achilles to medial L malleolus. Reabsorbed blood blister medially with loose dry scab at Achilles area. No erythema noted. Reabsorbed blood blister plantar L heel. Dry brown cap with surrounding dry necrotic borders.(L)3.5cm x (W)4cm. NO erythema,induration or fluctuance noted periwound. Pt verbalized he felt he may have developed wounds on L foot from shoes but is not quite sure of timeline of wounds. Both feet noted to have dry peeling skin . Good foot care provided and both lower ext and feet moisturized. Pt demonstrated ability to reposition self when cued. Educated pt on wounds prevention. Pt instructed on off-lifting buttocks when repositioning, and how to utilize siderail to reposition on his sides . Encouraged pt to frequently reposition to relieve pressure off buttocks. Tx.Plan: Cleanse Sacral wound with saline. Apply Therahoney. Apply Moisture Barrier periwound. Cover with Optifoam drsg. Change every 3 days and prn. Apply Betadine to L achilles and L heel. Cover each wound with Optifoam drsg. Change every 3 days and prn. Reposition at least every 2hours or as tolerated. Off-load heels with pillow. (2) Abdominal pain Assessment & Plan: left sided chest pain abd epigastric pain lip nml lactic acidosis cont Abx cont resuscitation rx as written will follow with recs thank you (3) Pancreatic cyst Assessment & Plan: Distended stomach, without definite downstream obstructive lesion, etiology/significance uncertain Dilated esophagus, presumably related to the above. Evidence of mild rectal fecal impaction with rectal wall thickening possibly indicating stercoral colitis Evidence of chronic calcifying pancreatitis. Stable 2.3 cm cyst in the pancreatic tail, probably an old pseudocyst Evidence of prior hysterectomy Trace right pleural effusion and posterior dependent atelectasis Equivocal mild bladder wall thickening, could indicate mild cystitis changes if real. Correlate with laboratory findings cyst likely related to chronic pancreatitis recommend 6 week f/u CT Melvin Maier Sep 16, 2019 14:41
--- NOTE | 2019-09-16 15:06 | NUR ---
NURSE NOTES: incident response consultant picked up the pt and IV and ID were removed, pt vitals WNL, pt calm and cooperative during this time however he did not want me to take pictures of his wounds on discharge, read above notes for further information done. pt left in stable condition and took all belongings.
--- NOTE | 2019-09-16 15:37 | Cardiology Report ---
APPROVED REPORT EKG Measurement Heart [id number] Sinus tachycardia Otherwise normal ECG
--- NOTE | 2019-09-16 16:15 | Consultation ---
DATE OF CONSULTATION: 09/15/2019 GASTROENTEROLOGY CONSULTATION CONSULTING PHYSICIAN: Kristyn Echols M.D. REFERRING PHYSICIAN: Brodie Madden M.D. CHIEF COMPLAINT: I was asked to see this patient by Dr. Brodie Madden, for evaluation of pancreatitis. HISTORY OF PRESENT ILLNESS: The patient is a 49-year-old man with a longstanding history of alcohol abuse, who comes into the hospital with recurrent pancreatitis. The patient has been drinking since his early 20s, and he still drinks. His last alcohol use was four days ago. He drinks vodka about one bottle a day. He has had multiple episodes of pancreatitis and is aware of the severity of his condition. He reports abdominal pain, which is typical for his pancreatitis. PAST MEDICAL HISTORY: History of alcohol abuse, hypertension, diabetes, and chronic back pain. FAMILY HISTORY: Noncontributory. SOCIAL HISTORY: The patient drinks excessively, but does not smoke. ALLERGIES: None. REVIEW OF SYSTEMS: Otherwise negative. PHYSICAL EXAMINATION: GENERAL: Thin man, seen in his room. HEENT: Normocephalic and atraumatic. Sclerae are anicteric. Oropharynx is clear. NECK: Supple. CHEST: Clear to auscultation. CARDIOVASCULAR: Revealed regular rate. ABDOMEN: Soft, flat, and with epigastric tenderness to palpation. EXTREMITIES: Revealed no edema. LABORATORY AND DIAGNOSTIC DATA: Laboratory data were noted. CT scan was reviewed. ASSESSMENT: This patient presents with recurrent bout of pancreatitis. The patient was strongly advised to discontinue alcohol as this is his primary pathological process for progression of his current disease. In the meantime, he should be kept NPO until his pain is improved and then diet can be started as clears and advanced as tolerated. The patient's laboratory parameters and exam will be followed. IV fluids will be given for hydration. RECOMMENDATIONS: Per above discussion and per orders written in the chart. Thank you for asking me to participate in the care of this patient. Kristyn Echols M.D. DR: RISA JOB#: [id number] CC:
--- NOTE | 2019-09-17 18:55 | Discharge Summary ---
Discharge Summary Discharge Summary _ DATE OF ADMISSION: 09/14/2019 DATE OF DISCHARGE: 09/16/2019 DISCHARGED BY: Dr. Madden REASON FOR ADMISSION: 49 years old male with past medical history of hypertension, diabetes, neuropathy, chronic back pain, paraplegia, pancreatitis, alcohol abuse, presented with left-sided chest discomfort. Patient reported sharp pain without radiation earlier that day. Patient also reported abdominal pain. He denied any nausea and vomiting. He reported multiple episodes of retching earlier in the day. No hematemesis or black stools. Symptoms started after he drank half a cup of vodka. Upon evaluation vital signs revealed tachycardia, otherwise were stable. Laboratory work-up revealed WBC 3.7, hemoglobin 11.1, hematocrit 33.2. Platelet count 284. Lactic acid 7.9. Glucose 146. AST 108, ALT 58. Lipase 23. Serum alcohol level 223. CT of the abdomen and pelvis revealed distended stomach without definite downstream obstructive lesion, etiology uncertain. Dilated esophagus, presumably related to the above. Evidence of mild rectal fecal impaction with rectal wall thickening, possibly indicated stercoral colitis. Evidence of chronic calcified pancreatitis. Subcarinal and right hilar lymphadenopathy, bilateral small pleural effusion. Stable 2.3 cm cyst in the pancreatic tail, probably old pseudocyst. Chest x-ray revealed no acute cardiopulmonary pathology. Urine toxicology screen was positive for benzodiazepine. Patient subsequently admitted to the hospital for further management. CONSULTANTS: GI specialist Dr. Echols surgery Dr. Maier [facility] COURSE: Patient admitted to medical surgical floor. Patient started on the IV fluids. Pain management was addressed. Patient initially was kept n.p.o. Xarelto continued as the patient stated he was on it in the past. GI specialist followed. Patient undergone CTA of the chest which revealed no evidence of acute pulmonary emboli. Massively distended stomach. Distended distal esophagus. Fatty liver. Patient was strongly advised to discontinue alcohol since his primary pathological process was due to chronic severe alcohol abuse. Patient slowly started on diet and was advanced as tolerated. Abnormal LFT were likely due to alcohol abuse. GI prophylaxis provided. Bowel regimen instituted. Blood sugar was managed with sliding scale of insulin. Hemoglobin and hematocrit were closely monitored with goal to keep hemoglobin above 7. Hemoglobin and hematocrit remained at baseline and prior to discharge hemoglobin 8.6, hematocrit 26.3. Surgeon closely followed. Patient presented with multiply pressure injury. Wound care provided as per surgeon recommendation. Per surgeon, cyst likely related to chronic pancreatitis. He recommend to follow-up with a CT scan in 6 weeks. Lactic acid trended down to from initial 7.9 down to 3.5. Lactic acidosis was possibly due to metformin use . Patient clinically stabilized. Patient was able to tolerate diet. Pain was controlled. Patient was stable for discharge home FINAL DIAGNOSES: ETOH pancreatitis Lactic acidosis Insulin-dependent diabetes mellitus Alcohol abuse Anemia Abnormal LFT, likely due to ETOH Malnutrition Possible pancreatic pseudocyst Chest pain Multiple pressure injury , present on admission DISCHARGE MEDICATIONS: See Medication Reconciliation list. DISCHARGE INSTRUCTIONS: Patient was discharged home . Follow up with primary care provider in one week. I have been assigned to dictate discharge summary for this account. I was not involved in the patient's management. Tiffani Wu NP Sep 17, 2019 18:55
== END 2019-09-16 14:45 | disposition home or self-care (01) | DRG 439 ==
LOC: EDBD 19:58 → EMR 20:38 → 2W 09-14 04:39 → EDBEDREQ 09-14 04:54 → 4E 09-15 12:23
DX: K86.0 Alcohol-induced chronic pancreatitis (principal); K86.3 Pseudocyst of pancreas; E87.2 Acidosis; E46 Unspecified protein-calorie malnutrition; R07.9 Chest pain, unspecified; F10.10 Alcohol abuse, uncomplicated; D64.9 Anemia, unspecified; I10 Essential (primary) hypertension; E11.9 Type 2 diabetes mellitus without complications; Z79.4 Long term (current) use of insulin; G89.29 Other chronic pain; L89.150 Pressure ulcer of sacral region, unstageable; K76.0 Fatty (change of) liver, not elsewhere classified
CPT/HCPCS: 36415; 71045; 71275; 74176; 80048; 80053; 80307; 81003; 82962; 83605; 83690; 83880; 85025; 86710; 87040; 87081; 93005; 94640; 94664; 96361; 96374; 96375; 96376; 99285; G0480; J2405; J2765; J7030; S5561

== ENCOUNTER 2019-10-31 11:50 | Emergency (ER) | payer MEDICARE, OTHER ==
[~2019-10-31] VITALS: Ht 190.5 cm; Wt 72.6 kg
[~2019-10-31 11:50] MED LIST changes: +GABAPENTIN100 MG ORAL; +HYDROCODON-ACE1 EA15 ORAL; +XARELTO10 MG ORAL
--- NOTE | 2019-10-31 11:51 | Emergency Room Report ---
History of Present Illness General Chief Complaint: Chest Pain Source: Patient, EMS Present Illness HPI Patient is a 57-year-old male presents after increased chest discomfort for the past several days. He had prior history of alcohol induced pancreatitis. He reports having sharp pain as well as a nonproductive cough. He is currently taking antibiotics. He denies any diarrhea. He denies current smoking and quit approximately month ago.Patient reports drinking alcohol this morning. He had prior history of alcoholism and had recently been started on Vivitrol. He denies any hematemesis. Previous CT imaging at this hospital showed evidence of chronic pancreatitis. Most recent CT was from 2 months ago. Patient reports having pain to both the chest and abdomen. This is similar to prior episodes. Allergies: Coded Allergies: No Known Allergies (Unverified , 12/29/17) Patient History Past Medical History: see triage record Reviewed Nursing Documentation: PMH: Agreed; PSxH: Agreed Review of Systems All Other Systems: negative except mentioned in HPI Physical Exam Sp02 EP Interpretation: reviewed, normal General Appearance: normal inspection, alert, GCS 15, thin, Chronically Ill Head: atraumatic ENT: normal ENT inspection, hearing grossly normal, normal voice Neck: normal inspection, full range of motion, supple, no bony tend Respiratory: normal inspection, lungs clear, normal breath sounds, no respiratory distress, no retraction, no wheezing Cardiovascular #1: regular rate, rhythm, no edema Gastrointestinal: normal inspection, normal bowel sounds, non tender, soft, no guarding, no hernia Genitourinary: no CVA tenderness Musculoskeletal: normal inspection, back normal, normal range of motion Neurologic: alert, motor strength/tone normal, responsive, speech normal, normal inspection Psychiatric: normal inspection, judgement/insight normal, mood/affect normal Medical Decision Making Diagnostic Impression: Primary Impression: Abdominal pain Additional Impressions: Chronic pancreatitis Pancreatic pseudocyst ER Course Patient presented for abdominal pain. Differential diagnoses included ischemic bowel, appendicitis, perforated viscus, abdominal aortic aneurysm, inferior myocardial infarction, viral gastroenteritis among others.Because patient's complexity laboratory testing ordered. Laboratory testing showed . Electrolyte panel showed metabolic acidosis with anion gap of approximately 20. Lipase was normal. White blood count was normal. Patient was noted to have a significant acidosis. He was given IV pain medications as well as antiemetics. He was started on IV fluids and Pepcid. Patient was discussed with Dr. Vanskaya accept the patient in transfer to [facility]. Patient be transferred for correction of metabolic acidosis. And further evaluation of chest pain. Labs Test 10/31/19 13:00 White Blood Count 8.1 K/UL (4.8-10.8) Red Blood Count 4.54 M/UL (4.70-6.10) Hemoglobin 13.6 G/DL (14.2-18.0) Hematocrit 42.0 % (42.0-52.0) Mean Corpuscular Volume 93 FL (80-99) Mean Corpuscular Hemoglobin 30.0 PG (27.0-31.0) Mean Corpuscular Hemoglobin Concent 32.4 G/DL (32.0-36.0) Red Cell Distribution Width 14.8 % (11.6-14.8) Platelet Count 299 K/UL (150-450) Mean Platelet Volume 4.9 FL (6.5-10.1) Neutrophils (%) (Auto) 80.3 % (45.0-75.0) Lymphocytes (%) (Auto) 16.6 % (20.0-45.0) Monocytes (%) (Auto) 2.3 % (1.0-10.0) Eosinophils (%) (Auto) 0.0 % (0.0-3.0) Basophils (%) (Auto) 0.7 % (0.0-2.0) Prothrombin Time 10.0 SEC (9.30-11.50) Prothromb Time International Ratio 0.9 (0.9-1.1) Activated Partial Thromboplast Time 21 SEC (23-33) Sodium Level 138 MMOL/L (136-145) Potassium Level 4.2 MMOL/L (3.5-5.1) Chloride Level 95 MMOL/L (98-107) Carbon Dioxide Level 18 MMOL/L (21-32) Anion Gap 25 mmol/L (5-15) Blood Urea Nitrogen 20 mg/dL (7-18) Creatinine 1.1 MG/DL (0.55-1.30) Estimat Glomerular Filtration Rate > 60 mL/min (>60) Glucose Level 85 MG/DL (74-106) Calcium Level 9.4 MG/DL (8.5-10.1) Total Bilirubin 0.5 MG/DL (0.2-1.0) Aspartate Amino Transf (AST/SGOT) 110 U/L (15-37) Alanine Aminotransferase (ALT/SGPT) 42 U/L (12-78) Alkaline Phosphatase 140 U/L (46-116) Troponin I 0.000 ng/mL (0.000-0.056) Total Protein 7.7 G/DL (6.4-8.2) Albumin 3.6 G/DL (3.4-5.0) Globulin 4.1 g/dL Albumin/Globulin Ratio 0.9 (1.0-2.7) Lipase 34 U/L (73-393) EKG Diagnostic Results Rate: normal, tachycardiac Rhythm: NSR ST Segments: no acute changes Status: unchanged Disposition: [facility] Condition: Stable Emmett Hunter MD Oct 31, 2019 11:51
--- NOTE | 2019-10-31 11:55 | NUR ---
ED Nurse Note: Patient arrived to ED from home complaining of 8/10 generalized abdominal pain and chest pain x 2 days. Patient states it feels like his abdominal pain is radiating from just under his ribs on the right up to the laft side of his chest. Patient is AxO x 4, he states he feels very nauseated. Patient has not vomited today. Patient has a hx of pancreatitis and ETOH abuse. Patient connected to the alarm security or surveillance monitor, bed in lowest position.
[2019-10-31] MEDS ORDERED: D5 1/2NS w/KCl 20mEq 1,000 ML IV SCH (12:00)
[2019-10-31] MEDS ORDERED: Morphine Sulfate 4mg/ml Inj (IV USE ONLY) IVP ONE (12:00)
[2019-10-31] MEDS ORDERED: Thiamine HCl 100 MG in D5W 55 ML IVPB ONE (12:00)
[2019-10-31 12:10] VITALS: BP 121/90
[2019-10-31 13:18] LABS: BASOPHILS % (AUTO) 0.7 % (0.0-2.0); HEMOGLOBIN 13.6 G/DL (14.2-18.0); LYMPHOCYTES % (AUTO) 16.6 % (20.0-45.0); MEAN CORPUSCULAR VOLUME 93 FL (80-99); MONOCYTES % (AUTO) 2.3 % (1.0-10.0); NEUTROPHILS % (AUTO) 80.3 % (45.0-75.0); PLATELET COUNT 299 K/UL (150-450); RED BLOOD COUNT 4.54 M/UL (4.70-6.10); RED CELL DISTRIBUTION WIDTH 14.8 % (11.6-14.8); WHITE BLOOD COUNT 8.1 K/UL (4.8-10.8)
[2019-10-31 13:23] LABS: INR 0.9 (0.9-1.1)
[2019-10-31 13:26] LABS: ANION GAP 25 mmol/L (5-15); BLOOD UREA NITROGEN 20 mg/dL (7-18); CALCIUM 9.4 MG/DL (8.5-10.1); CARBON DIOXIDE 18 MMOL/L (21-32); CHLORIDE 95 MMOL/L (98-107); CREATININE 1.1 MG/DL (0.55-1.30); POTASSIUM 4.2 MMOL/L (3.5-5.1); SODIUM 138 MMOL/L (136-145)
[2019-10-31 13:31] LABS: ALANINE AMINOTRANSFERASE 42 U/L (12-78); ALBUMIN 3.6 G/DL (3.4-5.0); ALBUMIN/GLOBULIN RATIO 0.9 (1.0-2.7); ALKALINE PHOSPHATASE 140 U/L (46-116); ASPARTATE AMINO TRANSFERASE 110 U/L (15-37); BILIRUBIN,TOTAL 0.5 MG/DL (0.2-1.0)
[2019-10-31 13:45] VITALS: BP 121/90
--- NOTE | 2019-10-31 14:10 | NUR ---
ED Nurse Note: Patient resting in bed, no s/s of acute distress. Patient tolerated medications well.
[2019-10-31 14:50] VITALS: BP_SYST 121; BP_SYST 130; BP_DIAS 89; BP_DIAS 90
[2019-10-31 16:00] VITALS: BP_SYST 121; BP_SYST 125; BP_DIAS 87; BP_DIAS 90
--- NOTE | 2019-10-31 16:00 | NUR ---
ED Nurse Note: Report given to Cora LAINEZ at [facility]
[2019-10-31 16:08] LABS: APPEARANCE,URINE CLEAR; BILIRUBIN, URINE NEGATIVE (NEGATIVE); COLOR,URINE PALE YELLOW; GLUCOSE, URINE (UA) NEGATIVE (NEGATIVE); KETONES,URINE 4+ (NEGATIVE); LEUKOCYTE ESTERASE ,URINE NEGATIVE (NEGATIVE); NITRITE,URINE NEGATIVE (NEGATIVE); PH,URINE 5 (4.5-8.0); PROTEIN,URINE 2+ (NEGATIVE); UROBILINOGEN,URINE NORMAL MG/DL (0.0-1.0)
[2019-10-31 16:12] VITALS: BP 121/90
[2019-10-31 17:15] VITALS: BP 124/88
== END 2019-10-31 17:15 | disposition short-term general hospital (02) ==
LOC: EDBD 11:50 → EMR 12:31
DX: R10.9 Unspecified abdominal pain (principal); K86.1 Other chronic pancreatitis; E87.2 Acidosis; R00.0 Tachycardia, unspecified
CPT/HCPCS: 36415; 80053; 81003; 83690; 84484; 85025; 85610; 85730; 86850; 86900; 86901; 93005; 96361; 96365; 96367; 96375; 96376; 99285; G0480; J2270; J2405; J7030; S0028